=== PATIENT | female | born 1945 | race Caucasian/White ===

== ENCOUNTER → 2018-05-02 13:03 | Outpatient (CLI) | payer OTHER, SELFPAY | PROVIDERS: PCP General Practice; Visit Provider Orthopaedic Surgery | DX: M85.852 Other specified disorders of bone density and structure, left thigh (principal); Z78.0 Asymptomatic menopausal state | CPT/HCPCS: 77080 ==

== ENCOUNTER → 2018-06-10 11:40 | Outpatient (CLI) | payer OTHER, SELFPAY ==
--- NOTE | 2018-06-10 | DI.RAD.S_ITS ---
PROCEDURE: XR LUMBAR SPINE MIN 4V INDICATIONS: BACK PAIN TECHNIQUE: 5 views of the lumbar spine acquired. COMPARISON: MR, LUMBAR SPINE W/O CONTRAST, 11/29/2004, 8:14. [facility], RG, XR L-SPINE 4-6V, 11/16/2004, 13:13. [facility], MR, L-SPINE WITHOUT CONTRAST, 12/06/2017, 11:08. [facility], RF, LUMBAR MBB, 05/26/2018, 10:15. FINDINGS: Bones: 5 [id number] vertebrae are present. There is normal bony alignment. No vertebral body compression fractures. No suspicious bony lesions. There is grade 1 anterolisthesis of L4 on L5 and L5 on S1. There is degenerative disc disease, moderate at L4-L5, and mild at L3-L4. Severe facet arthropathy at L2-L3, L3-L4 and L4-L5. 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 Soft tissues: Overlying bowel gas pattern is normal. No suspicious soft tissue calcifications. Surgical clips in the right upper quadrant. Flexion/extension: There is decreased range of motion, with preserved alignment. IMPRESSION: 1. Degenerative disc disease and facet arthropathy. 2. Baastrup's disease. Dictated by: Issac Amanda M.D. on 06/10/2018 at 14:54 Approved by: Issac Amanda M.D. on 06/10/2018 at 15:00
== END ==
PROVIDERS: PCP General Practice; Visit Provider Orthopaedic Surgery Orthopaedic Surgery of the Spine
DX: M50.30 Other cervical disc degeneration, unspecified cervical region (principal); M47.816 Spondylosis without myelopathy or radiculopathy, lumbar region; M48.26 Kissing spine, lumbar region
CPT/HCPCS: 72110

== ENCOUNTER → 2018-08-22 08:42 | Outpatient (CLI) | payer OTHER, SELFPAY ==
--- NOTE | 2018-08-22 | DI.US.S_ITS ---
PROCEDURE: US ABDOMEN COMPLETE INDICATIONS: FATTY LIVER, LFTS ABNORMAL TECHNIQUE: Real-time scanning was performed of the abdominal and retroperitoneal organs, with image documentation. COMPARISON: [facility], MR, ABDOMEN WITHOUT CONTRAST, 03/05/2017, 16:11. [facility], US, ABDOMEN COMPLETE, 03/05/2017, 13:57. FINDINGS: Liver: The liver is mildly prominent with diffuse increased echogenicity. No focal lesions. Gallbladder: The gallbladder is absent. No pericholecystic fluid. Biliary ducts: Intrahepatic bile ducts are non-dilated. Extrahepatic bile duct caliber measures 14 mm. is noted measured 15 mm on prior ultrasound and 12 mm on prior MRI. Normal is 6-7 mm or less in diameter, or 10 mm or less post-cholecystectomy. Pancreas: Visualized portions of the pancreas are sonographically normal. Spleen: Spleen is normal in size and homogeneous in echotexture. Kidneys: Kidneys are normal in size and echotexture. Right kidney measures 12.5 cm long; left kidney measures 10.4 cm long. No hydronephrosis or nephrolithiasis. No solid masses. Aorta: Visualized aorta is normal in caliber at less than 3 cm. Iliacs: Proximal common iliac arteries are normal in caliber at less than 2.5 cm. IVC: Intrahepatic inferior vena cava is not visualized. Miscellaneous: No free abdominal fluid. IMPRESSION: 1. Mild hepatomegaly with fatty infiltration. No focal lesion. 2. Stable prominence of the extrahepatic bile duct status post cholecystectomy. Dictated by: Asya Botello M.D. on 08/22/2018 at 10:37 Approved by: Asya Botello M.D. on 08/22/2018 at 10:40
== END ==
PROVIDERS: PCP General Practice; Visit Provider Internal Medicine Gastroenterology
DX: K76.0 Fatty (change of) liver, not elsewhere classified (principal); R79.89 Other specified abnormal findings of blood chemistry; Z90.49 Acquired absence of other specified parts of digestive tract
CPT/HCPCS: 76700

== ENCOUNTER → 2019-07-21 13:52 | Outpatient (CLI) | payer OTHER, SELFPAY | PROVIDERS: PCP Family Medicine; Visit Provider Family Medicine | DX: M85.9 Disorder of bone density and structure, unspecified (principal) | CPT/HCPCS: 77080 ==

== ENCOUNTER → 2020-08-23 09:41 | Outpatient (CLI) | payer OTHER, SELFPAY ==
--- NOTE | 2020-08-23 | DI.CT.S_ITS ---
PROCEDURE: CT ABDOMEN PELVIS W CON INDICATIONS: Abdominal pain. TECHNIQUE: After the administration of oral and intravenous contrast, 5 mm thick sections acquired from the diaphragms to the symphysis. 5 mm thick coronal and sagittal reformats were performed. For radiation dose reduction, the following was used: automated exposure control, adjustment of mA and/or kV according to patient size. COMPARISON: [facility], CT, CT ABDOMEN PELVIS WITH CONTRAST, 06/14/2014, 8:05. [facility], MR, ABDOMEN & PELVIS WWO CONTRAST, 02/20/2017, 9:29. [facility], MR, ABDOMEN WITHOUT CONTRAST, 09/06/2016, 15:17. [facility], MR, MR ABDOMEN WITH/WITHOUT CONTRAST, 11/26/2019, 11:07. [facility], CT, CT ABDOMEN PELVIS WITH CONTRAST, 11/26/2019, 10:51. [facility], CT, CT ABDOMEN PANCREATIC PROTOCOL, 05/04/2020, 7:30. [facility], CT, ABDOMEN/PELVIS WITH CONTRAST, 05/22/2012, 9:40. FINDINGS: Image quality: Excellent. ABDOMEN: Lung bases: There is mild bilateral dependent atelectasis. Heart size is normal. Solid organs: There is diffuse hypoattenuation of the liver consistent with fatty infiltration. There is mild central intrahepatic biliary ductal dilatation. Extrahepatic biliary ductal dilatation is redemonstrated, with the common bile duct measuring up to approximately 1.3 cm in tapering distally into the ampulla. The findings are similar to the prior studies. The gallbladder is surgically absent. No pancreatic duct dilatation. Within the uncinate process of the pancreas and the pancreatic head, there is heterogeneous hypoattenuation redemonstrated. No peripancreatic fat stranding or fluid collections. Spleen is normal in size and enhancement. No adrenal nodules. Kidneys are normal in size and enhancement, without hydronephrosis. Peritoneum and bowel: Stomach, small bowel, and colon loops are normal in caliber and wall thickness. No evidence of appendicitis. There is colonic diverticulosis without acute diverticulitis. No free fluid or air. Nodes and vessels: No retroperitoneal or mesenteric adenopathy. Aorta and inferior vena cava are normal in caliber. Miscellaneous: No ventral hernias. PELVIS: Genitourinary: Bladder wall thickness is normal. The uterus is surgically absent. Miscellaneous: No inguinal hernias or adenopathy. Bones: No suspicious bony lesions. No vertebral body compression fractures. IMPRESSION: 1. Persistent biliary ductal dilatation which appears similar to the prior studies. No discrete mass or evidence of choledocholithiasis seen on prior imaging studies. No calcified obstructing stone or discrete mass identified on the current study. 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 2. Ill-defined hypoattenuation within the uncinate process and head of the pancreas without pancreatic duct dilatation appears similar to prior studies. No discrete mass was visualized on prior pancreatic protocol imaging studies. The differential includes an area of fatty atrophy as well as localized pancreatitis including possible autoimmune pancreatitis. Recommend correlation clinically. 3. No evidence of appendicitis. 4. Colonic diverticulosis without acute diverticulitis. Dictated by: Jarek Davidson M.D. on 08/23/2020 at 16:29 Approved by: Jarek Davidson M.D. on 08/23/2020 at 16:41
== END ==
PROVIDERS: PCP Family Medicine; Referring Provider Family Medicine; Visit Provider Family Medicine
DX: R10.9 Unspecified abdominal pain (principal); R53.83 Other fatigue; I10 Essential (primary) hypertension; M54.9 Dorsalgia, unspecified; K83.8 Other specified diseases of biliary tract; K57.90 Diverticulosis of intestine, part unspecified, without perforation or abscess without bleeding
CPT/HCPCS: 74177; Q9967

== ENCOUNTER 2020-09-26 11:08 | Emergency (ER) | payer OTHER, SELFPAY ==
[2020-09-26 11:15] VITALS: BP 152/81; PULSE 80; RESP 18; TEMP 36.4; O2SAT 98; BMI 34.7
--- NOTE | 2020-09-26 11:17 | ED.CHESTPAIN ---
HPI - Chest Pain General Chief Complaint: Chest Pain Stated Complaint: pain in chest/back/left side Time Seen by Provider: 09/26/20 11:10 Source: patient and family Mode of arrival: Ambulatory Limitations: no limitations History of Present Illness HPI narrative: 75-year-old female nonsmoker with history of fatty liver and chronic hip pain presents with a chief complaint of an episode of sharp and stabbing anterior chest pain with radiation to her back that started while at rest few hours ago. She states her pain was worse with motion and palpation and seems to be better with rest and Tylenol. She denies associated symptoms such as nausea, vomiting or diarrhea. She denies any cough or shortness of breath. She denies any recent injuries or overuse. She denies any dizziness, weakness or lightheadedness. She denies any ongoing symptoms, stating that things had resolved prior to her arrival. MD complaint: chest pain Onset (ago): hour(s) Duration: now resolved Onset: during rest Pain location: substernal and right chest Severity: moderate Quality: sharp Pain radiation: back Relieving factors: remaining still Exacerbating factors: palpation and movement Treatments prior to arrival chest pain: none Related Data Previous Rx's Medication Instructions Recorded meloxicam [Mobic] 7.5 mg PO BIDCC PRN #20 tab 03/05/17 hydrocodone-acetaminophen 1 tab PO Q4-6H PRN #10 tab 09/26/20 Allergies Allergy/AdvReac Type Severity Reaction Status Date / Time Latex, Natural Rubber Allergy Intermediate Verified 09/26/20 11:23 [LATEX, NATURAL RUBBER] Penicillins [PENICILLINS] Allergy Intermediate Verified 09/26/20 11:23 INGREDIENT: NO KNOWN - NO Allergy Unknown Uncoded 03/12/18 13:03 KNOWN DRUG ALLERGY Review of Systems Constitutional Constitutional: Denies chills, Denies fatigue, Denies fever(s), Denies frequent falls, Denies lethargy and Denies weakness Eyes Eyes: Denies change in vision, Denies eye discharge, Denies irritation and Denies loss of vision ENT Ears, Nose, Mouth, and Throat: Denies change in voice, Denies dizziness, Denies neck pain, Denies sore throat and Denies throat swelling Cardiovascular Cardiovascular: Reports chest pain, Denies irregular heart rhythm, Denies lightheadedness, Denies palpitations, Denies dyspnea, Denies dyspnea on exertion and Denies orthopnea Respiratory Respiratory: Denies cough, Denies dyspnea, Denies dyspnea on exertion and Denies wheezing Gastrointestinal Gastrointestinal: Denies abdominal pain, Denies change in bowel habits, Denies diarrhea, Denies nausea and Denies vomiting Musculoskeletal Musculoskeletal: Denies neck pain and Denies numbness Integumentary/Breasts Skin/Breast: Denies pruritus, Denies erythema, Denies rash and Denies wounds Neurologic Neurologic: Denies behavioral changes, Denies confusion, Denies dizziness, Denies frequent falls, Denies loss of vision, Denies numbness and Denies weakness Psychiatric Psychiatric: Denies anxiety, Denies behavioral changes, Denies confusion, Denies depression, Denies homicidal ideation and Denies suicidal ideation Endocrine Endocrine: Denies fatigue, Denies flushing and Denies palpitations Hematologic/Lymphatic Hematologic/Lymphatic: Denies easy bruising Allergic/Immunologic Allergic/Immunologic: Denies urticaria, Denies throat swelling and Denies wheezing Patient History Social History Smoking Status: Never smoker Smoking Status: Never smoker alcohol intake frequency: 0-2 drinks per day Substance Use Type: does not use Exam Narrative Exam Narrative: GENERAL: [75] year old patient appears stated age. Well-nourished, well-developed patient, in mild distress. HEAD: Atraumatic. Normocephalic. EYES: Pupils equal round and reactive. Extraocular motions intact. No scleral icterus. No injection or drainage. ENT: Nose without bleeding, purulent drainage. Throat without erythema, tonsillar hypertrophy or exudate. Airway patent. NECK: Trachea midline. Non tender CARDIOVASCULAR: Regular rate and rhythm without murmurs, gallops, or rubs. Sharp and stabbing right anterior chest pain, worse with palpation, also left lateral ribs. This is the pain that brought her in. No obvious external manifestation of pain such as rash, redness, swelling or other RESPIRATORY: Clear to auscultation. Breath sounds equal bilaterally. No wheezes, rales, or rhonchi. GASTROINTESTINAL: Abdomen soft, non-tender, nondistended. EXTREMITIES: No edema or joint tenderness. BACK: Nontender without deformity or crepitance. No flank tenderness. NEURO: AOx3. SKIN: No rash or erythema of visible areas Initial Vital Signs Initial Vital Signs: Vital Signs Temperature 97.6 F 09/26/20 11:15 Pulse Rate 80 09/26/20 11:15 Respiratory Rate 18 09/26/20 11:15 Blood Pressure 152/81 H 09/26/20 11:15 Pulse Oximetry 98 09/26/20 11:15 Course Orders Ordered: ED Orders 09/26/20 11:28 XR chest 1V Stat 09/26/20 11:31 Complete Blood Count AUTO DIFF Stat Comprehensive Metabolic Panel Stat D Dimer Stat Lipase Stat NT-proBNP (BNP-Adult 18+) Stat Prothrombin Time INR Stat Troponin & CK Cardiac Panel Stat 09/26/20 13:30 Troponin I Stat Sodium Chloride (Normal Saline 0.9%) 1,000 mls @ 150 mls/hr IV CONT SHIMA Last Infusion: 09/26/20 13:15 Dose: 0 mls/hr Documented by: Admin: 09/26/20 11:42 Dose: 150 mls/hr Documented by: JACKELINE Discontinued Medications Ketorolac Tromethamine (Toradol) 15 mg IV NOW ONE Stop: 09/26/20 11:37 Last Admin: 09/26/20 11:42 Dose: 15 mg Documented by: JACKELINE Pantoprazole Sodium (Protonix) 40 mg IV NOW ONE Stop: 09/26/20 11:37 Last Admin: 09/26/20 11:42 Dose: 40 mg Documented by: JACKELINE Vital Signs Vital signs: Vital Signs - 8 hr 09/26/20 11:15 09/26/20 12:07 09/26/20 12:30 Temperature 97.6 F Pulse Rate 80 84 85 Respiratory Rate 18 26 H 20 Blood Pressure 152/81 H 129/68 Pulse Oximetry 98 94 92 09/26/20 13:00 09/26/20 13:30 09/26/20 13:31 Temperature Pulse Rate 80 89 85 Respiratory Rate 22 24 22 Blood Pressure 135/61 144/63 H Pulse Oximetry 95 97 94 MDM - Chest Pain Lab Data Result diagrams: 09/26/20 11:31 09/26/20 11:31 Labs: Lab Results 09/26/20 09/26/20 09/26/20 Range/Units 11:31 11:31 11:31 WBC 10.8 (4.5-11.0) X10^3/uL RBC 4.91 (4.0-5.2) X10^6/uL Hgb 14.9 (12.0-16.0) g/dL Hct 44.4 (36-46) % MCV 90.3 (80-100) fL MCH 30.4 (26-34) PG MCHC 33.7 (30-36) % RDW 13.0 (11.6-14.8) % Plt Count 269 (150-400) X10^3/uL Neut % (Auto) 71.3 (50-75) % Lymph % (Auto) 24.0 L (25-40) % Early % (Auto) 3.5 (3-14) % Eos % (Auto) 1.0 L (2-4) % Baso % (Auto) 0.2 (0-2) % Neut # (Auto) 7700 H (2465-1177) /uL Lymph # (Auto) 2600 (1556-7574) /uL Early # (Auto) 400 (0-900) /uL Eos # (Auto) 100 (0-450) /uL Baso # (Auto) 0 (0-100) /uL PT 11.8 (10.1-12.7) SECONDS INR 1.0 (0.9-1.3) D-Dimer 222 (<230) ng/mL Sodium 138 (137-145) mmol/L Potassium 4.3 (3.4-5.1) mmol/L Chloride 105 (98-107) mmol/L Carbon Dioxide 26 (22-32) mmol/L BUN 19 H (7-17) mg/dL Creatinine 0.61 (0.52-1.04) mg/dL Estimated GFR > 60.0 (>60) mL/min BUN/Creatinine Ratio 31.1 H (6-22) Glucose 117 H (80-110) mg/dL Calcium 9.5 (8.4-10.2) mg/dL Total Bilirubin 0.5 (0.2-1.3) mg/dL AST 36 (14-36) IU/L ALT 39 H (<35) IU/L Alkaline Phosphatase 141 H (38-126) U/L Total Creatine Kinase 41 (30-135) U/L CK-MB (CK-2) TNP CK-MB (CK-2) Rel Index TNP Troponin I < 0.012 (0.01-0.034) ng/mL NT-Pro-B Natriuret Pep 60 (<450) pg/mL Total Protein 7.8 (6.3-8.2) g/dL Albumin 4.4 (3.5-5.0) g/dL Globulin 3.4 (1.7-4.1) g/dL Albumin/Globulin Ratio 1.3 (1.0-2.8) Lipase 67 (23-300) U/L 10/26/20 Range/Units 13:30 WBC (4.5-11.0) X10^3/uL RBC (4.0-5.2) X10^6/uL Hgb (12.0-16.0) g/dL Hct (36-46) % MCV (80-100) fL MCH (26-34) PG MCHC (30-36) % RDW (11.6-14.8) % Plt Count (150-400) X10^3/uL Neut % (Auto) (50-75) % Lymph % (Auto) (25-40) % Early % (Auto) (3-14) % Eos % (Auto) (2-4) % Baso % (Auto) (0-2) % Neut # (Auto) (9422-6782) /uL Lymph # (Auto) (2304-2848) /uL Early # (Auto) (0-900) /uL Eos # (Auto) (0-450) /uL Baso # (Auto) (0-100) /uL PT (10.1-12.7) SECONDS INR (0.9-1.3) D-Dimer (<230) ng/mL Sodium (137-145) mmol/L Potassium (3.4-5.1) mmol/L Chloride (98-107) mmol/L Carbon Dioxide (22-32) mmol/L BUN (7-17) mg/dL Creatinine (0.52-1.04) mg/dL Estimated GFR (>60) mL/min BUN/Creatinine Ratio (6-22) Glucose (80-110) mg/dL Calcium (8.4-10.2) mg/dL Total Bilirubin (0.2-1.3) mg/dL AST (14-36) IU/L ALT (<35) IU/L Alkaline Phosphatase (38-126) U/L Total Creatine Kinase (30-135) U/L CK-MB (CK-2) CK-MB (CK-2) Rel Index Troponin I < 0.012 (0.01-0.034) ng/mL NT-Pro-B Natriuret Pep (<450) pg/mL Total Protein (6.3-8.2) g/dL Albumin (3.5-5.0) g/dL Globulin (1.7-4.1) g/dL Albumin/Globulin Ratio (1.0-2.8) Lipase (23-300) U/L Imaging Data Chest x-ray: Radiologist's Impression: [address] [id number] XRay Report Signed Patient: Monet Nash [facility]#: [id number] : 5Acct:[id number] Age/Sex: 75 / FDate of Service: 09/26/20 Loc: ED Accession Number: [id number] Procedure: XR chest 1V Ordering Provider: Bishnu Gallegos D.O. PROCEDURE: XR CHEST 1V INDICATIONS: chest pain TECHNIQUE: One view of the chest was acquired. COMPARISON: [facility], , CHEST 2 VIEW, 02/19/2013, 8:36. FINDINGS: Surgical changes and devices: None. Lungs and pleura: Lungs are clear. No pleural effusions or pneumothorax. Mediastinum: Mildly tortuous thoracic aorta is seen. Heart size is normal. Bones and chest wall: No suspicious bony lesions. Overlying soft tissues appear unremarkable. IMPRESSION: No acute cardiopulmonary pathology. Dictated by: Jose Angel M.D. on 09/26/2020 at 12:02 Approved by: Jose Angel M.D. on 09/26/2020 at 12:08 [facility] Narrative Medical decision making narrative: Multiple etiologies for patient's symptoms considered including: [Cardiac ischemia versus PE versus biliary problem versus chest wall pain and muscle spasm versus other] Patient's symptoms improved over duration of stay with above-stated therapies. Findings and discharge diagnosis discussed with patient/family followed by verbalization of understanding Return precautions discussed with patient/family whom verbalize understanding. Discharge Plan Departure Patient Disposition: Home Clinical Impression: Atypical chest pain Instructions: DI for Atypical Chest Pain Activity Restrictions/Additional Instructions: *You have been diagnosed with [atypical chest pain, most likely chest wall pain based on your exam. Labs, physical exam, x-ray, EKG are all very reassuring.] *What to do: *Take medications as directed *Follow up with your primary care provider in 2-3 days, call for an appointment. Let them know you were seen in the Emergency Department and that we ask that you be seen in follow up *Return to ER if you should have any new, worsening or concerning symptoms Prescriptions: New hydrocodone-acetaminophen 5-325 mg tablet 1 tab PO Q4-6H PRN (Reason: pain) Qty: 10 RF: 0 No Action meloxicam [Mobic] 7.5 MG tablet 7.5 mg PO BIDCC PRNQty: 20 RF: 0 Referrals: Saul Rae [Primary Care Provider] -
--- NOTE | 2020-09-26 11:28 | DI.RAD.S_ITS ---
PROCEDURE: XR CHEST 1V INDICATIONS: chest pain TECHNIQUE: One view of the chest was acquired. COMPARISON: [facility], , CHEST 2 VIEW, 02/19/2013, 8:36. FINDINGS: Surgical changes and devices: None. Lungs and pleura: Lungs are clear. No pleural effusions or pneumothorax. Mediastinum: Mildly tortuous thoracic aorta is seen. Heart size is normal. Bones and chest wall: No suspicious bony lesions. Overlying soft tissues appear unremarkable. IMPRESSION: No acute cardiopulmonary pathology. Dictated by: Jose Angel M.D. on 09/26/2020 at 12:02 Approved by: Jose Angel M.D. on 09/26/2020 at 12:08
[2020-09-26 11:38] LABS: Add Manual Diff / Slide Review NO; Basophils Absolute Auto 0 /uL (0-100); Basophils Percent Auto 0.2 % (0-2); Eosinophils Absolute Auto 100 /uL (0-450); Hematocrit 44.4 % (36-46); Hemoglobin 14.9 g/dL (12.0-16.0); Lymphocytes Absolute Auto 2600 /uL (1100-4500); Mean Corpuscular HGB Conc 33.7 % (30-36); Mean Corpuscular Hemoglobin 30.4 PG (26-34); Mean Corpuscular Volume 90.3 fL (80-100); Monocytes Absolute Auto 400 /uL (0-900); Monocytes Percent Auto 3.5 % (3-14); Neutrophils Absolute Auto 7700 /uL (1500-7000); Neutrophils Percent Auto 71.3 % (50-75); Platelet Count 269 X10^3/uL (150-400); Red Blood Cell Count 4.91 X10^6/uL (4.0-5.2); White Blood Cell Count 10.8 X10^3/uL (4.5-11.0)
[2020-09-26] MEDS: SODIUM CHLORIDE 0.9% 1,000 ML 150 ML IV (11:42)
[2020-09-26] MEDS: PANTOPRAZOLE 40 MG VIAL IV (11:42)
[2020-09-26] MEDS: KETOROLAC 60 MG/2 ML VIAL 15 MG IV (11:42)
[2020-09-26 11:46] LABS: Prothrombin Time 11.8 SECONDS (10.1-12.7)
[2020-09-26 11:49] LABS: D Dimer 222 ng/mL (<230)
[2020-09-26 11:58] LABS: Alanine Aminotransferase 39 IU/L (<35); Albumin 4.4 g/dL (3.5-5.0); Albumin Globulin Ratio 1.3 (1.0-2.8); Alkaline Phosphatase 141 U/L (38-126); Aspartate Aminotransferase 36 IU/L (14-36); BUN Creatinine Ratio 31.1 (6-22); Bilirubin Total 0.5 mg/dL (0.2-1.3); Blood Urea Nitrogen 19 mg/dL (7-17); Calcium 9.5 mg/dL (8.4-10.2); Carbon Dioxide 26 mmol/L (22-32); Chloride 105 mmol/L (98-107); Creatine Kinase 41 U/L (30-135); Estimated Glomerular Filt Rate > 60.0 mL/min (>60); Globulin 3.4 g/dL (1.7-4.1); Glucose 117 mg/dL (80-110); HEMOLYSIS < 15 (0-50); Lipase 67 U/L (23-300); Potassium 4.3 mmol/L (3.4-5.1); Sodium 138 mmol/L (137-145); Total Protein 7.8 g/dL (6.3-8.2)
[2020-09-26 12:07] VITALS: PULSE 84; RESP 26; O2SAT 94
[2020-09-26 12:10] LABS: NT-proBNP (BNP-Adult 18+) 60 pg/mL (<450); Troponin I < 0.012 ng/mL (0.01-0.034)
[2020-09-26 12:30] VITALS: BP 129/68; PULSE 85; RESP 20; O2SAT 92
[2020-09-26 13:00] VITALS: BP 135/61; PULSE 80; RESP 22; O2SAT 95
[2020-09-26 13:30] VITALS: PULSE 89; RESP 24; O2SAT 97
[2020-09-26 13:31] VITALS: BP 144/63; PULSE 85; RESP 22; O2SAT 94
[2020-09-26 14:08] LABS: Troponin I < 0.012 ng/mL (0.01-0.034)
== END 2020-09-26 14:34 | disposition home or self-care (01) ==
PROVIDERS: Emergency Provider Emergency Medicine; PCP Family Medicine
DX: R07.89 Other chest pain (principal)
CPT/HCPCS: 36415; 71045; 80053; 82550; 83690; 83880; 84484; 85025; 85379; 85610; 93005; 93010; 96361; 96374; 96375; 99284; C9113; J1885

== ENCOUNTER → 2020-10-18 10:30 | Outpatient (CLI) | payer OTHER, SELFPAY ==
--- NOTE | 2020-10-18 10:34 | DI.US.S_ITS ---
PROCEDURE: US EXTREMITY NONVASC LOWER RT INDICATIONS: Pain in right leg TECHNIQUE: Real-time scanning was performed of the right lower extremity in the area pain and swelling behind the right knee., with image documentation. COMPARISON: [facility], EXTREMITY NON-VASCULAR LTD, 09/17/2017, 13:29. FINDINGS: No abnormality found. The clinical concern was that a Guy's cyst may be present but no Guy cyst is seen. IMPRESSION: No sign of Guy cyst or other abnormality in the area of current clinical concern. Follow-up by the MRI may be warranted depending on the clinical status. Dictated by: Boone Freed M.D. on 10/18/2020 at 12:28 Approved by: Boone Freed M.D. on 10/18/2020 at 12:29
== END ==
PROVIDERS: PCP Family Medicine; Referring Provider Family Medicine; Visit Provider Family Medicine
DX: M79.604 Pain in right leg (principal); M62.81 Muscle weakness (generalized)
CPT/HCPCS: 76882

== ENCOUNTER → 2020-11-19 09:57 | Outpatient (CLI) | payer OTHER, SELFPAY ==
--- NOTE | 2020-11-19 | DI.MRI.S_ITS ---
PROCEDURE: MR LUMBAR SPINE WO CON INDICATIONS: Other spondylosis with radiculopathy, lumbar region TECHNIQUE: Noncontrast sagittal T1 spin echo and T2 fast echo, sagittal STIR, axial T1 and T2 fast spin echo through the lumbar spine. In cases with scoliosis, additional coronal T2 fast spin echo may be performed. COMPARISON: [facility], MR, L-SPINE WITHOUT CONTRAST, 12/06/2017, 11:08. [facility] [place], CR, XR LUMBAR SPINE 2 OR 3 VIEWS, 11/13/2017, 15:19. FINDINGS: Image quality: Excellent. Alignment and Curvature: 5 lumbar type vertebral bodies are present by plain film. There is mild, grade 1 retrolisthesis of L1 on L2. Mild grade 1 anterolisthesis of L3 on L4, L4 on L5, and L5 on S1. Bone Marrow: Marrow is of normal overall signal. No acute vertebral body compression fractures. Mild reactive signal within the endplates adjacent to the T10-T11, T11-T12, T12-L1, L1-L2, and L3-L4 intervertebral discs. Spinal Cord: Conus medullaris terminates at the L1-L2 disc space level. Visualized cord demonstrates normal signal and size. Paraspinous Soft Tissues: No paravertebral masses. L1-L2: Moderate disc desiccation. Mild diffuse disc bulge. Mild facet and ligamentum flavum hypertrophy. Mild epidural lipomatosis. Mild canal stenosis. Mild bilateral foraminal stenosis. No change. L2-L3: Mild disc desiccation and diffuse disc bulge. Mild facet and ligamentum flavum hypertrophy. Mild epidural lipomatosis. Mild canal stenosis. Mild bilateral foraminal stenosis. No change. L3-L4: Mild disc height loss. Moderate disc desiccation. Mild diffuse disc bulge. Mild facet and ligamentum flavum hypertrophy. Mild epidural lipomatosis. There is increased, moderate canal stenosis. There is no change in moderate right greater than left foraminal stenosis. L4-L5: Moderate disc height loss and desiccation. Mild diffuse disc bulge. Moderate bilateral facet hypertrophy. Mild epidural lipomatosis. Mild canal stenosis. Mild bilateral foraminal stenosis. L5-S1: Mild disc height loss. Moderate disc desiccation. Moderate bilateral facet hypertrophy. Mild canal stenosis. Mild bilateral foraminal stenosis. No change. IMPRESSION: 1. Multilevel degenerative disc and facet disease, as well as ligamentum flavum hypertrophy and epidural lipomatosis. 2. Multilevel canal stenoses, worst at L3-L4 where there is moderate canal stenosis. 3. Multilevel foraminal stenoses, worst at L3-L4 where there are moderate bilateral foraminal stenosis. Dictated by: Nitin Henry M.D. on 11/21/2020 at 9:46 Approved by: Nitin Henry M.D. on 11/21/2020 at 9:50
== END ==
PROVIDERS: PCP Family Medicine; Referring Provider Orthopaedic Surgery Orthopaedic Surgery of the Spine; Visit Provider Orthopaedic Surgery Orthopaedic Surgery of the Spine
DX: M47.26 Other spondylosis with radiculopathy, lumbar region (principal); M51.16 Intervertebral disc disorders with radiculopathy, lumbar region; M48.061 Spinal stenosis, lumbar region without neurogenic claudication; M48.07 Spinal stenosis, lumbosacral region; E88.2 Lipomatosis, not elsewhere classified
CPT/HCPCS: 72148

== ENCOUNTER → 2020-12-26 10:25 | Outpatient (CLI) | payer OTHER, SELFPAY ==
[2020-12-26 10:56] LABS: Bacteria Urine None Seen; WBC Urine None Seen (0-5/HPF)
[2020-12-26 11:25] LABS: Add Manual Diff / Slide Review NO; Basophils Absolute Auto 100 /uL (0-100); Basophils Percent Auto 1.2 % (0-2); Eosinophils Absolute Auto 200 /uL (0-450); Eosinophils Percent Auto 2.5 % (2-4); Hematocrit 45.6 % (36-46); Hemoglobin 14.9 g/dL (12.0-16.0); Lymphocytes Absolute Auto 2900 /uL (1100-4500); Lymphocytes Percent Auto 41.5 % (25-40); Mean Corpuscular HGB Conc 32.7 % (30-36); Mean Corpuscular Hemoglobin 29.7 PG (26-34); Mean Corpuscular Volume 90.8 fL (80-100); Monocytes Absolute Auto 600 /uL (0-900); Monocytes Percent Auto 7.8 % (3-14); Neutrophils Absolute Auto 3300 /uL (1500-7000); Platelet Count 240 X10^3/uL (150-400); Red Blood Cell Count 5.03 X10^6/uL (4.0-5.2); Red Cell Distribution Width 12.8 % (11.6-14.8); White Blood Cell Count 7.1 X10^3/uL (4.5-11.0)
[2020-12-26 11:42] LABS: BUN Creatinine Ratio 20.3 (6-22); Blood Urea Nitrogen 13 mg/dL (7-17); Calcium 9.7 mg/dL (8.4-10.2); Carbon Dioxide 27 mmol/L (22-32); Chloride 107 mmol/L (98-107); Estimated Glomerular Filt Rate > 60.0 mL/min (>60); Glucose 106 mg/dL (80-110); HEMOLYSIS < 15 (0-50); Potassium 4.3 mmol/L (3.4-5.1); Sodium 137 mmol/L (137-145)
[2020-12-26 13:41] LABS: Appearance Urine UA CLEAR; Bilirubin Urine UA NEGATIVE (NEGATIVE); Color Urine UA YELLOW; Glucose Urine UA NEGATIVE (Negative); Ketones Urine UA NEGATIVE (NEGATIVE); Leukocyte Esterase Urine UA 1+ (NEGATIVE); Nitrite Urine UA NEGATIVE (Negative); Occult Blood Urine UA TRACE-INTACT (Negative); Protein Urine UA NEGATIVE (Negative); Urobilinogen Urine UA 0.2 E.U./dL (0.2)
[2020-12-26 13:46] LABS: pH Urine UA 6.5 (4.5-8.0)
[2020-12-26 13:47] LABS: Culture Indicated Urine Specimen Cultured; RBC Urine 0-1/HPF (0-5/HPF); Squamous Epithelial Cell Urine 0-1 /HPF (0-5/HPF)
== END ==
PROVIDERS: PCP Family Medicine; Referring Provider Orthopaedic Surgery Orthopaedic Surgery of the Spine; Visit Provider Orthopaedic Surgery Orthopaedic Surgery of the Spine
DX: Z01.818 Encounter for other preprocedural examination (principal); Z01.812 Encounter for preprocedural laboratory examination; N39.0 Urinary tract infection, site not specified
CPT/HCPCS: 36415; 80048; 81001; 85025; 87086; 93005

== ENCOUNTER → 2021-01-02 09:35 | Outpatient (CLI) | payer OTHER, SELFPAY ==
[2021-01-02 11:29] LABS: COVID19 -Nasal RAPID Negative (Negative)
== END ==
PROVIDERS: Visit Provider Physician Assistant
DX: Z01.812 Encounter for preprocedural laboratory examination (principal); Z20.822 Contact with and (suspected) exposure to COVID-19
CPT/HCPCS: 87635

== ENCOUNTER 2021-01-04 07:21 | Inpatient (IN) | payer OTHER, SELFPAY ==
[2020-12-26 08:39] VITALS: BMI 37.6
[2021-01-04] VITALS (27 sets, daily range): BP systolic 95–143; BP diastolic 45–92; PULSE 68–102; RESP 10–18; TEMP 36.1–37; O2SAT 92–99; BMI 37.6
--- NOTE | 2021-01-04 | DI.RAD.S_ITS ---
PROCEDURE: XR LUMBAR SPINE 2-3V INDICATIONS: L3-4, L4-5, L5-S1, TLIF WITH POSTERIOR INSTRUMENTATION TECHNIQUE: 2 intraoperative spot views of the lumbar spine were acquired. COMPARISON: [facility], , XR LUMBAR SPINE MIN 4V, 06/10/2018, 11:25. FINDINGS: L3-S1 fusion hardware is present with interbody devices. Alignment is nearly anatomic. IMPRESSION: Intraoperative images obtained during lumbosacral fusion Dictated by: Nitin Henry M.D. on 01/04/2021 at 14:54 Approved by: Nitin Henry M.D. on 01/04/2021 at 14:55
[2021-01-04] MEDS: LACTATED RINGERS 1,000 ML 42 ML IV ×2 (07:48→11:03)
--- NOTE | 2021-01-04 08:36 | PM.PREOP ---
Pre-operative Note COVID-19 COVID-19 status: Negative Result date/Date tested (Pos, Neg/Pending): 01/02/21 Interval Note History & Physical reviewed/Exam performed by Physician: Yes Changes to H&P: No
[2021-01-04] MEDS: CLINDAMYCIN 900 MG/50 ML PIGGYBACK 50 MG IV ×2 (08:50→17:29)
--- NOTE | 2021-01-04 09:33 | SUR.OPER ---
Prone on spine table, head in foam head support, padded chest and pelvic supports, gel pad at knees, lower legs supported by pillows; nipples, genitalia and toes free of pressure, arms secured on foam padded arm boards at <90 degrees abduction. Tape over blanket at thigh secured to table.
[2021-01-04] MEDS: BUPIVACAINE LIPOSOME 266 MG/20 ML VIAL INJ (09:40)
[2021-01-04] MEDS: BUPIVACAINE 0.5% W/ EPI (PF) 30 ML VIAL INJ (09:40)
--- NOTE | 2021-01-04 14:27 | P.OP_ITS ---
Operative Date/Time/Diagnoses Date of procedure: 01/02/21 Time of procedure: 08:49 Pre-op diagnosis: 1. L3-4, L4-5, L5-S1 spondylolisthesis 2. L3-4, L4-5, L5-S1 spinal stenosis with radiculopathy Post-op diagnosis: same Procedure & Clinicians Procedure: 1. L3-4, L4-5, L5-S1 Postero-lateral and posterior interbody fusion 2. L3-4, L4-5, L5-S1 interbody cage placement. 3. L3-4, L4-5, L5-S1 decompressive laminectomy with bilateral facetecomies 4. L3-4, L4-5, L5-S1 Posterior segmental instrumentation 5. [place] of bone marrow from iliac crest 6. Utilization of microsurgical technique and operating microscope Same procedure as scheduled: Yes Indications: Patient has been having chronic back pain and worsening lumbar radiculopathy. Patient failed multiple conservative management with worsening pain weakness and numbness in her lower extremity. Patient has been having difficulty performing activity of daily living. After discussing risks benefits of treatment options, patient elected proceed with surgery. Surgeon: Serena Kinsey Hot Header Operator: Barb Salcido Click Yes if Unassisted: No Anesthesia Type: General Operative Notes Closure Type: primary Specimen(s): none sent Prosthetic devices, grafts, tissues, transplants, or devices: Globus revolve screws, Rise cages Applied: catheter Estimated Blood Loss (mL): 200 Blood products transfused: none Procedure in detail: Patient was seen in the preoperative area. Risks and benefits of the surgery was discussed with the patient. Informed consent was obtained from the patient and placed in the chart. Surgical site was marked. Patient was taken to the operative room. General anesthesia was administered. Prophylactic antibiotic was given to the patient less than 30 min before the incision was made. Patient was placed into a prone position on the Sarath table. Patient's back was then prepped and draped in the sterile fashion. Time- out was performed at this time. Using AP and lateral C-arm imaging the interval between L3-S1 was identified and marked on patient's back. A 3 inch incision 2 in from midline was made on the Right side first. The fascia was incised in line with skin incision. Globus MARS retractors was placed inside the incision and docked onto the L3, L4 and L5 lamina. Using microsurgical technique and operating microscope, a L3, L4 and L5 laminectomy and L3-4, L4-5 L5-S1 facetectomy was performed using a [place] ivanna eur. Patient was found severe central and neural foramen stenosis at all three levels. The central and foraminal stenosis was fully decompressed after the laminectomy and facetectomy was completed at all three levels. The disc space at L3-4, L4-5, L5-S1 was identified. And a total diskectomy was performed at L3- 4, L4-5, L5-S1 level. The endplates were decorticated using a rasp and shaver. The total diskectomy and decortication was performed at L3-4, L4-5, L5-S1 level in order to to accomplish a L3-4, L4-5, L5-S1 fusion. The local bone from the laminectomy and facetectomy was saved for local bone grafting. After the total diskectomy and decortication was completed, Trifecta bone graft material was combined with local bone that was harvested earlier. At this time, a separate skin is incision was made over the iliac crest. A Jamshidi needle was inserted into the iliac crest through a separate skin incision. 5 cc of bone marrow aspiration was obtained through the separate skin incision using a Jamshidi needle from the iliac crest. The bone marrow aspiration was combined with local bone and the Trifecta bone grafting material. The bone grafting material was placed into the L3-4, L4-5, L5-S1 interbody space along with three cages, one expandable cage at each level. The cages were expanded to their maximum height using the torque limiting screwdriver. At this time a mirror image incision was made on the Left side. The fascia was incised in line with the skin incision. Globus MARS retractor was inserted and docked onto the L3-4, L4-5, L5-S1 posterolateral gutter. Using the power drill, posterior-lateral decortication was performed at L3-4, L4-5, L5-S1 level until bleeding cortical bone was identified. The remaining bone grafting material was placed into the L3-4, L4-5 L5-S1 posterior lateral gutter he order to accomplish posterolateral fusion at the L3-4, L4-5 L5-S1 levels. Using the double C-arm technique, pedicle screws were placed into the L3, L4, L5, S1 pedicles bilaterally. This was done by placing the Jamshidi needle into the pedicles, then placing the guidewires over the Jamshidi needle, and finally placing the cannulated screws over the guidewires bilaterally. After the pedicle screws were placed, 2 titanium rods was locked into the heads of the pedicle screws using locking caps and torque limiting screwdriver. Total [address] aced. Threaded reducers were used to reduce the patient's spondylolisthesis. And appropriate adduction was accomplished and maintained using the hardware placed. After all the hardware was placed, and confirmed with AP and lateral C- arm imaging, the wound was then irrigated with sterile normal saline and packed with Ray-Williams gauze for 3 min to accomplish hemostasis. After the gauze was removed the deep fascia was closed with #1 Vicryl suture. The subcutaneous layer was closed with 2-0 Vicryl. The skin was closed with skin napoleon. Patient tolerated the procedure well. There were no complications. EMG and SSEP was used to monitor patient's neurological status which was stable throughout entire procedure. Complications: none Post-operative Condition: stable Disposition: PACU Plan for aftercare: Admit to inpatient hospital
[2021-01-04] MEDS: hydrOXYzine 50 MG/ML INJ 25 MG IM (14:43)
[2021-01-04] MEDS: fentaNYL 100 MCG/2 ML INJ IV (15:31)
[2021-01-04] MEDS: SODIUM CHLORIDE 0.9% 1,000 ML 100 ML IV (17:18)
[2021-01-04] MEDS: MORPHINE 2 MG/ML INJ IV ×4 (17:18→23:36)
--- NOTE | 2021-01-04 17:23 | PC.NURSE ---
Addendum entered by Sultana Fulton R.N. 01/04/21 21:35: Comfortable eating a banana and then c/o pain 7-10/10 to back. Feels like someone is kicking me. Administered morphine as per emar. BL foot pumps in place. Addendum entered by Sultana Fulton R.N. 01/04/21 21:20: Now more awake, calmer and more conversant with staff and daughter. I.S. teaching done. Vistaril administered for c/o tightness to back. No change in neurovascular status this evening shift. Addendum entered by Sultana Fulton R.N. 01/04/21 19:21: When pt is awake, pt is restless, thrashing and crying out in pain. Morphine works well to aid in pain relief/control. Pt was instructed in deep breathing and relaxation and allowing meds to work. Ice on and off to back. Pt positions self continually with assistance of daughter and staff. Observes log rolling and this was reinforced. Foot pumps removed as these add to discomfort. Pt moves all extremities independently. Sips water when offered. Addendum entered by Sultana Fulton R.N. 01/04/21 18:00: Pt no longer restless and crying/calling out. Resting quietly in bed with eyes closed. 02 2L nc sats 93%. Original Note: Pt to room 209 from PACU sleeping. 02 2L per nc sats 96% per continuous monitor. Pt rests quietly for approximately one hour and then awakens calling out in pain. Restless and rolling side to side with staff assistance. Ice pack to back and pillows to support. Surgical dressing to back is dry and intact. Daughter (Marii) is present and involved in pt's care. Artis to gravity and BL foot pumps in place. Taking sips and chips. IV morphine administered to manage pain.
[2021-01-04] MEDS: ACETAMINOPHEN 325 MG TABLET 650 MG PO (17:29)
[2021-01-04] MEDS: hydrOXYzine pamoate 25 MG CAPSULE PO ×2 (17:29→21:15)
[2021-01-04] MEDS: DOCUSATE 100 MG CAPSULE PO (21:12)
[2021-01-04] MEDS: SENNOSIDES 8.6 MG TABLET 17.2 MG PO (21:12)
[2021-01-05] VITALS (7 sets, daily range): BP systolic 96–139; BP diastolic 53–66; PULSE 57–74; RESP 16–20; TEMP 35.8–36.9; O2SAT 92–99
[2021-01-05] MEDS: CLINDAMYCIN 900 MG/50 ML PIGGYBACK 50 MG IV (01:56)
[2021-01-05] MEDS: MORPHINE 2 MG/ML INJ IV ×2 (02:03→04:03)
[2021-01-05] MEDS: SODIUM CHLORIDE 0.9% 1,000 ML 100 ML IV (03:57)
[2021-01-05] MEDS: ACETAMINOPHEN 325 MG TABLET 650 MG PO (04:38)
[2021-01-05] MEDS: hydrOXYzine pamoate 25 MG CAPSULE PO ×3 (04:38→16:48)
[2021-01-05 05:50] LABS: Hematocrit 34.8 % (36-46); Hemoglobin 11.7 g/dL (12.0-16.0)
[2021-01-05] MEDS: HYDROCODONE/ACET 5/325 TABLET 2 TAB PO ×3 (06:12→16:47)
--- NOTE | 2021-01-05 07:21 | P.PN_ITS ---
Subjective Subjective Date Patient Seen: 01/05/21 Time Patient Seen: 07:22 Interval history: Postop day 1. Status post L3-S1 TLIF with Dr. Kinsey. Patient's pain has not been well controlled on [place] 5/325 and Vistaril. She complains of axial back pain and muscle spasms. She is unable to take oxycodone, and Dilaudid. She has a Artis in place. She is on 1.5 L O2 nasal cannula. Exam Vital Signs (past 8 hours): - 01/04/21 23:40 01/05/21 03:50 Temperature 98.1 F 98.0 F Pulse Rate 77 73 Respiratory Rate 18 16 Blood Pressure 121/62 114/59 L Pulse Oximetry 98 98 Oxygen Delivery Method Nasal Cannula Oxygen Flow Rate 1.5 Narrative Exam Narrative: Patient lying in bed no acute distress. She is alert orient x3. Calves are soft, rest, nontender bilaterally. Sensation intact to light touch throughout bilateral extremities. Pulses are symmetrical. She is able to actively dorsiflex plantar flex. Objective Labs Result Diagrams: 01/05/21 05:11 Labs: Laboratory Results - last 24 hr 01/05/21 05:11 Hgb 11.7 L Hct 34.8 L PFSH Medical History Epidural lipomatosis Fatty liver IBS (irritable bowel syndrome) Left foot infection Primary osteoarthritis of both hips Spinal stenosis of lumbar region with neurogenic claudication Spondylolisthesis, lumbar region Surgical History Status post left foot surgery Social History household members: children Smoking Status: Never smoker alcohol intake: former Assessment & Plan Post-op Postoperative Procedures: Procedures Operation Date: 01/04/21 08:45 Actual Procedures Side Surgeon p L3-4,L4-5,L5-S1 TLIF with posterior instrumentation Serena Kinsey MD Patient will mobilize with physical therapy today. When she is mobilizing her room DC Artis catheter. Will add Valium for muscle spasms. Change dose of [place] to 10/325mg. Will take one dose of decadron 10 mg. Anticipate possible DC home tomorrow. Quality VTE Deep Vein Thrombosis/Pulmonary Embolism Present on Admission: No
--- NOTE | 2021-01-05 09:10 | PT.IIE ---
Current Diagnoses Benign lipomatous neoplasm of other sites (01/04/21) Spondylolisthesis, lumbar region (01/04/21) Spinal stenosis, lumbar region with neurogenic claudication (01/04/21) Surgery Performed Operation Date: 01/04/21 08:45 Actual Procedures p L3-4,L4-5,L5-S1 TLIF with posterior instrumentation - Serena Kinsey MD Surgical History (Last Reviewed 01/05/21 @ 09:53 by Barb Salcido PA-C) Status post left foot surgery Medical History (Last Reviewed 01/05/21 @ 09:53 by Barb Salcido PA-C) Epidural lipomatosis Fatty liver IBS (irritable bowel syndrome) Left foot infection Primary osteoarthritis of both hips Spinal stenosis of lumbar region with neurogenic claudication Spondylolisthesis, lumbar region Physical Therapy Inpatient Evaluation/Re-Eval M1 PT/OT-IP Prior Functional Status Start: 01/05/21 11:20 Freq: NEEDED Status: Active Protocol: Document 01/05/21 09:10 AB (Rec: 01/05/21 11:54 AB [id number]) Medical Review Prior Functional Status Medical History Reviewed Yes Communication able to make needs known Mobility and Gait pt stated that she is independent with all mobilities and ambulation without AD indoors but uses SPC for outdoor mobility Social History Household Members children Living Arrangements House Number of Floors (Floors) Two Floors Number of Stairs To Enter/Railing? pt stays on main level of the house has not steps to enter the house but has a ways to get in but daughter stated that she uses a w/c to push pt into the house Home Environment Standard Height Toilet,Walk in Shower Home Equipment Front Wheel Walker,Manual Wheelchair,Raised Toilet Seat w/Armrests,Shower Seat with Backrest,Grab Bars Near Toilet ,Grab Bars In Shower Additional Social History Comment daughter will be assisting pt at home has bed cane on R side of bed M2 PT-IP Current Condition Start: 01/05/21 11:20 Freq: NEEDED Status: Active Protocol: Document 01/05/21 09:10 AB (Rec: 01/05/21 11:54 AB [id number]) Physical Therapy Current Condition Current Condition Evaluation Date 01/05/21 Treatment Diagnosis s/p L3-4, L4-5, L5S1 postlat/ post fusion/lami; difficulty in walking Onset Date 01/04/21 Precautions Lumbar Precautions Log Roll,No Twisting,Limit Bending,Lifting Restriction of 10 lbs,Gait Belt above Incisional Area M3 PT-IP Subjective Start: 01/05/21 11:20 Freq: NEEDED Status: Active Protocol: Document 01/05/21 09:10 AB (Rec: 01/05/21 11:54 AB [id number]) Subjective Physical Therapy Visit Type Type Initial Evaluation Visit Start Time 09:10 Visit Stop Time 10:02 Total Visit Minutes 52 Number of PAVING INSPECTOR Visits 0 Physical Therapy Visit Comments Patient Comments pt is agreeable to do PT Therapy Pain Assessment Pain When Pain Assessed At Rest Pain Present Pain Present Pain Reported Location Back Intensity 8 Scale Used Numeric (0 - 10) Pain Management Techniques Apply Heat,Distraction, Modification of Treatment,Re- positioning,Timing of Activity with Medications M4 PT-IP Mobility and Gait Start: 01/05/21 11:20 Freq: NEEDED Status: Active Protocol: Document 01/05/21 09:10 AB (Rec: 01/05/21 11:54 AB [id number]) PT-Bed Mobility Assessment Rolling Type of Rolling Log Rolling Level of Assist Maximal Assistance Supine to Sit Supine to Sit Maximum Assistance,1 Person Assistance PT-Transfer Assessment Sit to and From Stand Sit to and from Stand Moderate Assistance,1 Person Assistance,Use of Upper Extremities Equipment Transfer Assistive Device Gait Belt,Front Wheeled Walker Orthotic/Prosthetic Devices or Brace: No Transfers Transfer Destination Chair Transfer Technique ambulated using FWW Transfer Ability Level of Assist Moderate Assistance,1 Person Assistance,Use of Upper Extremities Comments Mobility Comments BP: 106/64 pt seems sleepy and requires cues to keep eyes open. educated on back precautions and log roll bed mobility. daughter in room with pt. completed supine to sit max A and max cues. pt was able to sit on EOB CGA. BP: 110/65. completed sit to stand mod A and was able to ambulate 12 ft using FWW mod A and cues. agreed to sit up on chair. positioned on chair . call light and table placed within reach. ice pack provided. Gait Assessment Gait Gait Assistance Required: Moderate Assistance Distance (Feet) 12 Able to Maintain Weight Bearing Status Yes During Gait Assistive Devices Assistive Device Gait Belt,Front Wheeled Walker Orthotic/Prosthetic Devices or Brace: No Gait Deviations General Gait Pattern Antalgic,Decreased Stride Length,Decreased Feet Clearance,Step-to Gait Factors Limiting Gait Function Factors Limiting Gait Function Decreased Activity Tolerance, Decreased Sensation,Decreased Strength,Difficulty Following Directions,Limited Range of Motion,Pain,Poor Balance PT-Balance Assessment Sitting Balance and Reactions Static Sitting Balance Ability Good Dynamic Sitting Balance Ability Good Standing Balance and Reactions Static Standing Balance Ability Fair Dynamic Standing Balance Ability Fair Device Used FWW M5 PT-IP Objective Assessments Start: 01/05/21 11:20 Freq: NEEDED Status: Active Protocol: Document 01/05/21 09:10 AB (Rec: 01/05/21 11:54 AB [id number]) Orientation Orientation/Cognition Level of Alertness Alert Orientation Name,Place,Situation Safety Awareness Decreased Safety Awareness Memory Description Short Term Impaired Gross Range of Motion Lower Extremity ROM Assessment Within Functional Limits Strength Lower Extremity Strength Hip 4-/5 Knee 4-/5 Sensation Assessment Sensation Gross Sensation Right LE Impaired Sensation Description Tingling Comments Sensation Comments stated chronic RLE tingling Muscle Tone Muscle Tone WNL Yes M6 PT-IP Treatment Start: 01/05/21 11:20 Freq: NEEDED Status: Active Protocol: Document 01/05/21 09:10 AB (Rec: 01/05/21 11:54 AB [id number]) Physical Therapy Treatment Education Education Provided Precautions,Weight Bearing Status,Post-Op Packet,Safety M7 PT-IP Assessment and Plan Start: 01/05/21 11:20 Freq: NEEDED Status: Active Protocol: Document 01/05/21 09:10 AB (Rec: 01/05/21 11:54 AB [id number]) PT Summary Assessment and Plan Potential Rehabilitation Potential Good Status of Condition at Evaluation Stable Summary Impairments Pain,ROM,Strength,Balance, Coordination,Sensation,Tone, Cognition,Bed Mobility, Transfers,Gait,Activity Tolerance Assessment Summary pt requiring mod to max A with mobility and unable to tolerate much activity. pt plans to go home and her daughter will assist her. will conduct caregiver training when appropriate. will continue to assess progress. Goals Bed Mobility Goal Standby Assistance Transfer Goal Standby Assistance,Front Wheeled Walker Gait Goal Standby Assistance,Front Wheel Walker Gait Distance 100 Other Goals improve ambulation using FWW 150 ft SBA Days to Meet Goals 5 Frequency of Treatment Frequency Of Treatment Twice a Day Treatment Plan Physical Therapy Treatment Plan Bed Mobility Training,Transfer Training,Gait Training, Therapeutic Exercise,Balance Retraining,Post Op Education, Discharge Planning,Hot or Cold Pack,Neuromuscular Re-ed, Coordination Retraining,Manual Therapy Other Recommendations and Next Treatment caregiver training Focus Recommendations To Nursing Amount of Assist Needed 1 Person Assist Discharge Recommendations PT Discharge Recommendations Home with Assistance Transportation Needs at Discharge Private Vehicle
[2021-01-05] MEDS: CHOLECALCIFEROL (VITAMIN D3) 1,000 UNIT TABLET 2000 UNIT PO (09:25)
[2021-01-05] MEDS: DOCUSATE 100 MG CAPSULE PO ×2 (09:25→19:01)
[2021-01-05] MEDS: DEXAMETHASONE 10 MG/ML VIAL PO (09:29)
--- NOTE | 2021-01-05 11:22 | OT.IP.EVAL ---
Current Diagnoses Benign lipomatous neoplasm of other sites (01/04/21) Spondylolisthesis, lumbar region (01/04/21) Spinal stenosis, lumbar region with neurogenic claudication (01/04/21) Surgery Performed Operation Date: 01/04/21 08:45 Actual Procedures p L3-4,L4-5,L5-S1 TLIF with posterior instrumentation - Serena Kinsey MD Past Medical History (Last Reviewed 01/05/21 @ 09:53 by Barb Salcido PA-C) Epidural lipomatosis Fatty liver IBS (irritable bowel syndrome) Left foot infection Primary osteoarthritis of both hips Spinal stenosis of lumbar region with neurogenic claudication Spondylolisthesis, lumbar region Surgical History (Last Reviewed 01/05/21 @ 09:53 by Barb Salcido PA-C) Status post left foot surgery Occupational Therapy Inpatient Evaluation/Re-Eval M1 PT/OT-IP Prior Functional Status Start: 01/05/21 12:23 Freq: NEEDED Status: Active Protocol: Document 01/05/21 12:24 [facility] (Rec: 01/05/21 12:40 [facility] [id number]) Medical Review Prior Functional Status Medical History Reviewed Yes Communication able to make needs known Mobility and Gait pt stated that she is independent with all mobilities and ambulation without AD indoors but uses SPC for outdoor mobility Activities of Daily Living and IADL's Pt states needing assist to dress her right foot. Prior Functional Level (Other details) Pt's daughter lives next door and states will be able to assist for the next 6 weeks. Social History Household Members children Living Arrangements House Number of Floors (Floors) Two Floors Number of Stairs To Enter/Railing? pt stays on main level of the house has not steps to enter the house but has a ways to get in but daughter stated that she uses a w/c to push pt into the house Home Environment Standard Height Toilet,Walk in Shower Home Equipment Front Wheel Walker,Manual Wheelchair,Raised Toilet Seat w/Armrests,Shower Seat with Backrest,Grab Bars Near Toilet ,Grab Bars In Shower Additional Social History Comment daughter will be assisting pt at home has bed cane on R side of bed M2 OT-IP Current Condition Start: 01/05/21 12:23 Freq: Status: Active Protocol: Document 01/05/21 12:24 [facility] (Rec: 01/05/21 12:40 [facility] [id number]) Occupational Therapy Current Condition Current Condition Evaluation Date 01/05/21 Treatment Diagnosis S/p L3-S1 TLIF Diagnosis Onset Date 01/04/21 Post Operative Precautions Lumbar Precautions Log Roll,No Twisting,Limit Bending,Lifting Restriction of 10 lbs,Gait Belt above Incisional Area M3 OT- IP Subjective and Pain Start: 01/05/21 12:23 Freq: Status: Active Protocol: Document 01/05/21 12:24 [facility] (Rec: 01/05/21 12:40 [facility] [id number]) OT- Subjective Occupational Therapy Visit Type Type Initial Evaluation Visit Start Time 10:33 Visit Stop Time 11:22 Total Visit Minutes 49 Occupational Therapy Visit Comments Patient Comments Pt agreed to go up for OT eval , pt's daughter present. Patient/Caregiver Goals To go home. OT Pain Assessment Pain When Pain Assessed At Rest Pain Present Pain Present Pain Reported Location Back Intensity 6 Scale Used Numeric (0 - 10) M4 OT- IP ADL's Start: 01/05/21 12:23 Freq: Status: Active Protocol: Document 01/05/21 12:24 [facility] (Rec: 01/05/21 12:40 [facility] [id number]) OT [id number] Comments OT Self-Feeding Comments NOt at meal time. OT ADL-Grooming Comments OT Grooming Comments Not performed. OT ADL-Oral Care Comments Oral Care Comments Educated to spit into a cup or bend at her hips to lean over the sink to spit. OT ADL-Dressing General Eval Lower Body Dressing Ability Maximum Assistance Areas Needing Assistance Socks Comments OT Dressing Comments Pt states has a policyholder information clerk and sock aid at home. OT ADL-Toileting Comments OT Toileting Comments Pt not having to go, jiang in. Suggested as pt usually has to get up 2-3 times at night to get a BSC. OT ADL-Bathing Comments OT Bathing Comments NOt performed. M5 OT- IP IADL's Start: 01/05/21 12:23 Freq: Status: Active Protocol: Document 01/05/21 12:24 [facility] (Rec: 01/05/21 12:40 [facility] [id number]) OT-Instrumental Activities of Daily Living Deficits IADL Deficits Identified Deficits Home Safety Awareness Awareness of Need for Assistance at Home Good Awareness Ability to Problem Solve Emergency Able to Problem Solve Situations Medication Management Medication Management Comments Pt's daughter to be able to assist for all needs at home. Money Management Money Management Comments Pt's daughter to be able to assist for all needs at home. Meal Preparation Meal Preparation Caregiver Provides Assist Product Technician Product Technician Caregiver Provides Assist M6 OT- IP Functional Cognition Start: 01/05/21 12:23 Freq: Status: Active Protocol: Document 01/05/21 12:24 [facility] (Rec: 01/05/21 12:40 [facility] [id number]) Cognitive Factors Limiting Selfcare Function Cognitive Ability Level of Alertness Alert Patient Orientation Name,Age,Birthday,Month,Date, Year,Day of Week,Place, Situation Attention Span Ability Capable of Focused Attention, Capable of Sustained Attention Ability to Follow Commands Able to Follow One Step Commands Safety Awareness Underestimates Need for Assistance Problem Solving Ability Needs Assist to Identify Solutions Pt needing cues for log rolling and to make sure to keep the FWW close to her. OT- Vision and Hearing OT- Hearing Assessment OT- Hearing Assessment WFL OT- Vision Assessment Visual Acuity Glasses For Reading M7 OT- IP Mobility and Balance Start: 01/05/21 12:23 Freq: Status: Active Protocol: Document 01/05/21 12:24 [facility] (Rec: 01/05/21 12:40 [facility] [id number]) OT- Bed Mobility Assessment Sit to Supine Sit to Supine Assist Maximum Assistance OT- Balance Assessment Sitting Balance and Reactions Static Sitting Balance Ability Good Dynamic Sitting Balance Ability Fair Standing Balance and Reactions Static Standing Balance Ability Poor M9 OT- IP Assessment and Plan Start: 01/05/21 12:23 Freq: Status: Active Protocol: Document 01/05/21 12:24 [facility] (Rec: 01/05/21 12:40 [facility] [id number]) OT Summary Assessment and Plan Potential Rehabilitation Potential Good Analytic Complexity at Evaluation Low Summary OT Impairments Pain,Balance,Functional Mobility,Grooming,Dressing, Toileting,Bathing,Toilet Transfers,Shower Transfers, Activity Tolerance Progress Towards Goals Slow Progress due to Pain,Slow Progress due to Activity Tolerance Assessment Summary Pt low complexity and main barriers is not needing extensive one person assist for all bed mobility and ADl needs. Pt has a supportive daughter to assist and has started caregiver training. Therefore pending caregiver training home with assist versus possible short skilled rehab. Goals Self-Feeding Goal Independent Grooming Goal Independent Dressing Goal Independent Toileting Goal Minimal Assistance Bathing Goal Minimal Assistance Toilet Transfer Goal Independent Shower Transfer Goal Standby Assistance Patient/Caregiver Education Goal Caregiver Independent Assisting Patient Frequency of Treatment Frequency Of Treatment Once a Day Treatment Plan OT Treatment Plan ADL Training,Functional Cognition Training,Functional Mobility,Patient/Family Education,Discharge Planning Other Treatment Recommendations and Next caregiver training Treatment Focus Discharge Recommendations OT Discharge Recommendations Home with Assistance,SNF Rehab Transportation Needs at Discharge Private Vehicle,Wheelchair/ Cabulance
--- NOTE | 2021-01-05 12:31 | CM.IDA ---
Initial DCP Assessment Note Pt is a 75 yo female, resident of [place], patient is POD#1 from spinal surgery w/ Dr Kinsey PCP: Saul Rae Payer: Andrea COLÓN/ [employer] Reviewed chart, met w/patient this morning to introduce role. Patient is indp at baseline and plans to return home w/spouse and assistance from her supportive dtr Marii (currently at bedside). Therapy currently clearing patient for return home. Completed bedside assessment before therapy eval and so educated patient/family re: SNF and HH options upon DC if needed, patient/family appreciative and anticipate home DC w/outpatient f/u per Ortho No needs expected from DC planning team although will remain available in case this changes before DC. TRACY Jiang Discharge Planning/Care Management CM Discharge Assessment Start: 01/05/21 12:27 Freq: Status: Active Protocol: Document 01/05/21 12:27 [facility] (Rec: 01/05/21 12:31 [id number]) Discharge Planning Assessment Assigned Workplace Trainer And Assessor TRACY Green DPOA/Assigned Designee Name Naveed Nash, spouse Marii Nash dtr Contact Information Naveed: [phone] Marii: [phone] Advance Directives? No History Provided By Patient,Family Member Prior Living Arrangements House Household Members children Willing to Return to Facility? No Independent with ADL's Yes Is patient alert and oriented? Yes Needs Assistance With Home Chores / Shopping Barriers to Discharge No Comment r/o need for HH closer to DC Discharge Plan Home Transportation Arrangement Family Referrals Initiated None needed Additional Comment At this time
--- NOTE | 2021-01-05 14:53 | PT.IPTN ---
Current Diagnoses Benign lipomatous neoplasm of other sites (01/04/21) Spondylolisthesis, lumbar region (01/04/21) Spinal stenosis, lumbar region with neurogenic claudication (01/04/21) Surgery Performed Operation Date: 01/04/21 08:45 Actual Procedures p L3-4,L4-5,L5-S1 TLIF with posterior instrumentation - Serena Kinsey MD Physical Therapy Treatment Note M2 PT-IP Current Condition Start: 01/05/21 11:20 Freq: NEEDED Status: Active Protocol: Document 01/05/21 09:10 [facility] (Rec: 01/05/21 11:54 [facility] [id number]) Physical Therapy Current Condition Current Condition Evaluation Date 01/05/21 Treatment Diagnosis s/p L3-4, L4-5, L5S1 postlat/ post fusion/lami; difficulty in walking Onset Date 01/04/21 Precautions Lumbar Precautions Log Roll,No Twisting,Limit Bending,Lifting Restriction of 10 lbs,Gait Belt above Incisional Area M3 PT-IP Subjective Start: 01/05/21 11:20 Freq: NEEDED Status: Active Protocol: Document 01/05/21 14:13 [facility] (Rec: 01/05/21 16:11 [facility] [id number]) Subjective Physical Therapy Visit Type Type Treatment Note Visit Start Time 14:13 Visit Stop Time 14:53 Total Visit Minutes 40 Notes daughter present for CG training. Number of GAS APPLIANCE ADJUSTER Visits 1 Physical Therapy Visit Comments Patient Comments pt is agreeable to do PT Therapy Pain Assessment Pain When Pain Assessed At Rest Pain Present Pain Present Pain Reported Location Back Pain Management Techniques Apply Cold,Modification of Treatment,Timing of Activity with Medications M4 PT-IP Mobility and Gait Start: 01/05/21 11:20 Freq: NEEDED Status: Active Protocol: Document 01/05/21 14:13 [facility] (Rec: 01/05/21 16:11 [facility] [id number]) PT-Bed Mobility Assessment Rolling Type of Rolling Log Rolling Level of Assist Minimal Assistance,1 Person Assistance Supine to Sit Supine to Sit Moderate Assistance,1 Person Assistance Scooting Scooting to Edge of Bed Standby Assistance PT-Transfer Assessment Sit to and From Stand Sit to and from Stand Contact Guard Assistance, Minimal Assistance,1 Person Assistance,Use of Upper Extremities Equipment Transfer Assistive Device Gait Belt,Front Wheeled Walker Orthotic/Prosthetic Devices or Brace: No Transfers Transfer Destination Chair Transfer Technique ambulated using FWW Transfer Ability Level of Assist Minimal Assistance,1 Person Assistance,Use of Upper Extremities Comments Mobility Comments Pt awake and willing to get up from bed. Pt required Min A for LR and Mod A for sidelying to sit then SBA to scoot to EOB. Pt stood with CGA from bed and cues for hand placement for safety. Pt ambulated ~15ft to chair sitting in chair CGA with cues for reaching back. Pt then stood requiring Min A and ambulated ~30ft with CGA and returned to chair. Pt left in chair with ice pack and daughter present. Gait Assessment Gait Gait Assistance Required: Contact Guard Assist,1 Person Assist Distance (Feet) 45 Able to Maintain Weight Bearing Status Yes During Gait Assistive Devices Assistive Device Gait Belt,Front Wheeled Walker Orthotic/Prosthetic Devices or Brace: No Gait Deviations General Gait Pattern Antalgic,Decreased Stride Length,Decreased Feet Clearance,Step-to Gait Factors Limiting Gait Function Factors Limiting Gait Function Decreased Activity Tolerance, Decreased Sensation,Decreased Strength,Difficulty Following Directions,Limited Range of Motion,Pain,Poor Balance Comments Gait Comments Pt ambulated CGA with assist of daughter. M5 PT-IP Objective Assessments Start: 01/05/21 11:20 Freq: NEEDED Status: Active Protocol: Document 01/05/21 09:10 [facility] (Rec: 01/05/21 11:54 [facility] [id number]) Orientation Orientation/Cognition Level of Alertness Alert Orientation Name,Place,Situation Safety Awareness Decreased Safety Awareness Memory Description Short Term Impaired Gross Range of Motion Lower Extremity ROM Assessment Within Functional Limits Strength Lower Extremity Strength Hip 4-/5 Knee 4-/5 Sensation Assessment Sensation Gross Sensation Right LE Impaired Sensation Description Tingling Comments Sensation Comments stated chronic RLE tingling Muscle Tone Muscle Tone WNL Yes M6 PT-IP Treatment Start: 01/05/21 11:20 Freq: NEEDED Status: Active Protocol: Document 01/05/21 09:10 [facility] (Rec: 01/05/21 11:54 AB [id number]) Physical Therapy Treatment Education Education Provided Precautions,Weight Bearing Status,Post-Op Packet,Safety M7 PT-IP Assessment and Plan Start: 01/05/21 11:20 Freq: NEEDED Status: Active Protocol: Document 01/05/21 14:13 [facility] (Rec: 01/05/21 16:11 [facility] [id number]) PT Summary Assessment and Plan Potential Rehabilitation Potential Good Status of Condition at Evaluation Stable Summary Impairments Pain,ROM,Strength,Balance, Coordination,Sensation,Tone, Cognition,Bed Mobility, Transfers,Gait,Activity Tolerance Assessment Summary Pt improving with all mobility able to ambulate ~40ft w/FWW/ CGA with daughter assisting. Daughter will be able to assist pt 6 weeks and will be present tomorrow for continues CG training. Goals Bed Mobility Goal Standby Assistance Transfer Goal Standby Assistance,Front Wheeled Walker Gait Goal Standby Assistance,Front Wheel Walker Gait Distance 100 Other Goals improve ambulation using FWW 150 ft SBA Days to Meet Goals 5 Frequency of Treatment Frequency Of Treatment Twice a Day Treatment Plan Physical Therapy Treatment Plan Bed Mobility Training,Transfer Training,Gait Training, Therapeutic Exercise,Balance Retraining,Post Op Education, Discharge Planning,Hot or Cold Pack,Neuromuscular Re-ed, Coordination Retraining,Manual Therapy Other Recommendations and Next Treatment CG training, bed mobility and Focus increase gait distance. Recommendations To Nursing Amount of Assist Needed 1 Person Assist Discharge Recommendations PT Discharge Recommendations Home with Assistance Transportation Needs at Discharge Private Vehicle
--- NOTE | 2021-01-05 15:29 | PC.NURSE ---
Having some pain issues this am, vicodin with fair relief. she has allergy's to oxycodone and reports dilaudid gives her diarrhea. Decision made to give a dose of steroids and she can have some valium for spasms. Dexamethasone given this am. Had received vistaril this am and felt sleepy so wanted to hold off on the valium for now. Scd's off most of the day - when they pump they can cause a spasm. They were left off per her request. Has worked with physical therapist x2. Cont w/poc.
--- NOTE | 2021-01-05 16:03 | PC.NURSE ---
Addendum entered by Sultana Fulton R.N. 01/05/21 23:07: Pt reports right lower abdominal pain and back pain. Offered pt narcotics to manage back pain and pt declines. Pt is very focused on bowels and states desires enema. Began with dulcolax suppository to promote bowel function. Administered and will continue to monitor. Addendum entered by Sultana Fulton R.N. 01/05/21 21:22: Pt denies need for pain medications. Rates back pain 6/10, but continues to deny need for pain meds. Prune juice given for bowel function after discussion with pt. Pt does report anterior aspect right thigh is numb. Pt has not mentioned this before this time. States is currently comfortable in current position in bed -- semi Cabral's. Daughter remains at bedside attentive, engaged and involved. Addendum entered by Sultana Fulton R.N. 01/05/21 19:16: Pt desires meds for bowel function. HS meds given @ this hour. Pt's abdomen is distended, but soft, passing flatus. Encouraged oral fluids. Addendum entered by Sultana Fulton R.N. 01/05/21 18:13: Room air 93%. Will continue to leave oxygen off. Requests oximeter be removed for comfort. Addendum entered by Sultana Fulton R.N. 01/05/21 17:08: Pt now fully awake and c/o pain to back, Feels like someone is kicking me. Pt demonstrates log roll so this mortgage underwriter can inspect dressing to back. Proximal coversite dressing is entirely rolled up and not covering any surgical site/incision. This was removed. Distal dressing is dry and intact. Incision is not exposed. Faint crackles to right posterior lobe. Trial of room air with oxygen level 93%-96% following deep breathing. Pt admits to full sensation to BL LE's. Palpable pedal pulses BL. Refuses foot scd's and pt was encouraged to ankle wave and calf pump to prevent clot formation in legs. Pt provides return demonstration. Artis to gravity with brisk urinary output. Original Note: Pt quietly resting in bed with eyes closed. No signs of distress or discomfort. Daughter present in room.
[2021-01-05] MEDS: SENNOSIDES 8.6 MG TABLET 17.2 MG PO (19:01)
[2021-01-05] MEDS: MAGNESIUM HYDROXIDE 30 ML UDC PO (19:01)
[2021-01-05] MEDS: SODIUM CHLORIDE 0.9% FLUSH 10 ML IV (19:02)
[2021-01-05] MEDS: BISACODYL 10 MG SUPP PR (23:00)
[2021-01-06] MEDS: hydrOXYzine pamoate 25 MG CAPSULE PO ×4 (00:14→13:59)
[2021-01-06] MEDS: HYDROCODONE/ACET 5/325 TABLET 2 TAB PO ×5 (01:35→22:49)
--- NOTE | 2021-01-06 01:41 | PC.NURSE ---
Addendum entered by Leti Samson R.N. 01/06/21 04:45: Complains of discomfort in stomach and over right side of abdomen; no tenderness noted on palpation. Medicated with Maalox and given warm blanket. Denies back pain at this time. Original Note: 0015: patient is alert and oriented. Breath sounds diminished bilateral bases and inspiratory crackles in right LL; RA sat 94%. HRR with BP of 139/66. Denies nausea. Up on BSC and had large dark brown firm stool. Indwelling catheter is patent; urine is clear yellow. Is assisted to turn in bed upon request. Out of bed with walker and 2 assist. Dressing to back is CDI. Complained of pain during shift assessment but would only take Vistaril as stating the narcotics are causing her constipation. Now is stating pain up to 8/10 and agreeable to taking narcotics so medicated with Vicodin, repositioned and ice pack applied. Refusing to wear SCD's so reminded to ankle wave. Does have some numbness in anterior right thigh otherwise CMS is intact. Fall risk score is moderate; bed alarm is activated.
[2021-01-06 04:27] VITALS: BP 119/58; PULSE 68; RESP 16; TEMP 36.6; O2SAT 90
[2021-01-06] MEDS: MAG HYDROX/ALUM/SIMETH 30 ML UDC PO ×3 (04:44→23:31)
[2021-01-06 07:21] VITALS: BP 106/58; PULSE 64; RESP 16; TEMP 36; O2SAT 95
[2021-01-06] MEDS: PANTOPRAZOLE 40 MG TABLET PO (07:50)
[2021-01-06] MEDS: DOCUSATE 100 MG CAPSULE PO ×2 (07:50→20:34)
[2021-01-06] MEDS: CHOLECALCIFEROL (VITAMIN D3) 1,000 UNIT TABLET 2000 UNIT PO (07:50)
--- NOTE | 2021-01-06 08:12 | PM.PNPO.1 ---
Subjective Subjective Date Patient Seen: 01/06/21 Time Patient Seen: 09:02 Interval history: POD #2 s/p status post L3-S1 TLIF with Dr. Kinsey. Patient's back pain is well controlled today. She is taking [place] 2 tabs 5/325 mg and vistaril for pain. She complains today of RLQ abdominal pain. It does not change with meals, and is constant. Denies nausea or vomiting. She has been afebrile. She had an enema last night and protonix with no relief. She has a GI history where the recommendation to her was to get stents. Exam Vital Signs (past 8 hours): - 01/06/21 04:27 Temperature 97.8 F Pulse Rate 68 Respiratory Rate 16 Blood Pressure 119/58 L Pulse Oximetry 90 L Oxygen Delivery Method Room Air Oxygen Flow Rate 0 Narrative Exam Narrative: Patient sitting up in bed in NAD. She is alert and oriented X3. Calves are soft, compressible, and nontender bilaterally. SILT throughout BLEs. She is able to actively dorsiflex and plantarflex. SCDs on and functioning. Abdomen is soft, no palpable masses. No distension. Objective Labs Result Diagrams: 01/05/21 05:11 REPLACED BY [facility] Medical History Diverticulosis Epidural lipomatosis Fatty liver IBS (irritable bowel syndrome) Left foot infection Primary osteoarthritis of both hips Spinal stenosis of lumbar region with neurogenic claudication Spondylolisthesis, lumbar region Surgical History Status post left foot surgery Social History household members: children Smoking Status: Never smoker alcohol intake: former Assessment & Plan Post-op Assessment and plan (1) Dilated bile duct: (2) History of cholecystectomy: (3) Fatty pancreas: (4) Hiatal hernia: (5) Barretts esophagus: (6) COPD (chronic obstructive pulmonary disease): (7) GERD (gastroesophageal reflux disease): (8) Abdominal pain: Postoperative Procedures: Procedures Operation Date: 01/04/21 08:45 Actual Procedures Side Surgeon p L3-4,L4-5,L5-S1 TLIF with posterior instrumentation Serena Kinsey MD Patient will continue to mobilize with PT today. Artis was removed this AM she has not voided yet. Obtained GI records as she is a poor historian regarding GI history. History has been updated. Patient had a BM yesterday, afebrile, no distension, and denies nausea and vomiting. She does have diverticulosis and obtaining CBC and CMP to r/o diverticulitis. Continue with bowel med regimen, and protonix. Continue current pain medication. I don't anticipate DC home today, likely tomorrow. Quality VTE Deep Vein Thrombosis/Pulmonary Embolism Present on Admission: No
[2021-01-06] MEDS: SODIUM CHLORIDE 0.9% FLUSH 10 ML IV ×3 (08:37→20:41)
[2021-01-06 10:10] LABS: Add Manual Diff / Slide Review NO; Basophils Absolute Auto 200 /uL (0-100); Basophils Percent Auto 1.6 % (0-2); Eosinophils Absolute Auto 0 /uL (0-450); Eosinophils Percent Auto 0.1 % (2-4); Hemoglobin 11.6 g/dL (12.0-16.0); Lymphocytes Absolute Auto 3400 /uL (1100-4500); Lymphocytes Percent Auto 26.8 % (25-40); Mean Corpuscular HGB Conc 33.2 % (30-36); Mean Corpuscular Volume 90.2 fL (80-100); Monocytes Absolute Auto 1600 /uL (0-900); Monocytes Percent Auto 12.2 % (3-14); Neutrophils Absolute Auto 7600 /uL (1500-7000); Neutrophils Percent Auto 59.3 % (50-75); Platelet Count 186 X10^3/uL (150-400); Red Blood Cell Count 3.88 X10^6/uL (4.0-5.2); Red Cell Distribution Width 12.8 % (11.6-14.8); White Blood Cell Count 12.9 X10^3/uL (4.5-11.0)
[2021-01-06 10:24] LABS: Alanine Aminotransferase 142 IU/L (<35); Albumin 3.4 g/dL (3.5-5.0); Albumin Globulin Ratio 1.2 (1.0-2.8); Alkaline Phosphatase 99 U/L (38-126); Aspartate Aminotransferase 95 IU/L (14-36); BUN Creatinine Ratio 16.4 (6-22); Bilirubin Total 0.5 mg/dL (0.2-1.3); Blood Urea Nitrogen 10 mg/dL (7-17); Calcium 8.5 mg/dL (8.4-10.2); Carbon Dioxide 30 mmol/L (22-32); Chloride 103 mmol/L (98-107); Estimated Glomerular Filt Rate > 60.0 mL/min (>60); Globulin 2.8 g/dL (1.7-4.1); Glucose 105 mg/dL (80-110); HEMOLYSIS < 15 (0-50); Potassium 3.7 mmol/L (3.4-5.1); Sodium 135 mmol/L (137-145); Total Protein 6.2 g/dL (6.3-8.2)
--- NOTE | 2021-01-06 11:05 | PT-IP ANOTE ---
Pt refused this morning. Pt had just been up to [facility] and returned to bed. Pt states she is having abdonimal pain that travels to her back. Pt agreeable to PT after noon meds.
[2021-01-06 12:07] VITALS: BP 115/57; PULSE 64; RESP 16; TEMP 36; O2SAT 94
--- NOTE | 2021-01-06 13:30 | OT.IP.TRT ---
Current Diagnoses Benign lipomatous neoplasm of other sites (01/04/21) Chronic obstructive pulmonary disease, unspecified (01/04/21) Gastro-esophageal reflux disease without esophagitis (01/04/21) Mahoney's esophagus without dysplasia (01/04/21) Diaphragmatic hernia without obstruction or gangrene (01/04/21) Other specified diseases of biliary tract (01/04/21) Other specified diseases of pancreas (01/04/21) Spondylolisthesis, lumbar region (01/04/21) Spinal stenosis, lumbar region with neurogenic claudication (01/04/21) Unspecified abdominal pain (01/04/21) Acquired absence of other specified parts of digestive tract (01/04/21) Surgery Performed Operation Date: 01/04/21 08:45 Actual Procedures p L3-4,L4-5,L5-S1 TLIF with posterior instrumentation - Serena Kinsey MD Occupational Therapy Treatment Note M2 OT-IP Current Condition Start: 01/05/21 12:23 Freq: Status: Active Protocol: Document 01/05/21 12:24 [facility] (Rec: 01/05/21 12:40 [facility] [id number]) Occupational Therapy Current Condition Current Condition Evaluation Date 01/05/21 Treatment Diagnosis S/p L3-S1 TLIF Diagnosis Onset Date 01/04/21 Post Operative Precautions Lumbar Precautions Log Roll,No Twisting,Limit Bending,Lifting Restriction of 10 lbs,Gait Belt above Incisional Area M3 OT- IP Subjective and Pain Start: 01/05/21 12:23 Freq: Status: Active Protocol: Document 01/06/21 14:36 [facility] (Rec: 01/06/21 14:37 [facility] [id number]) OT- Subjective Occupational Therapy Visit Type Type Administrative Note Notes Attempted to see x2. Pt eating lunch upon first attempt and then had just completed working with [employer]. and states very tired at this time. Will hold and plan for shower tomorrow AM per pt request.
--- NOTE | 2021-01-06 13:39 | PT.IPTN ---
Current Diagnoses Benign lipomatous neoplasm of other sites (01/04/21) Chronic obstructive pulmonary disease, unspecified (01/04/21) Gastro-esophageal reflux disease without esophagitis (01/04/21) Mahoney's esophagus without dysplasia (01/04/21) Diaphragmatic hernia without obstruction or gangrene (01/04/21) Other specified diseases of biliary tract (01/04/21) Other specified diseases of pancreas (01/04/21) Spondylolisthesis, lumbar region (01/04/21) Spinal stenosis, lumbar region with neurogenic claudication (01/04/21) Unspecified abdominal pain (01/04/21) Acquired absence of other specified parts of digestive tract (01/04/21) Surgery Performed Operation Date: 01/04/21 08:45 Actual Procedures p L3-4,L4-5,L5-S1 TLIF with posterior instrumentation - Serena Kinsey MD Physical Therapy Treatment Note M2 PT-IP Current Condition Start: 01/05/21 11:20 Freq: NEEDED Status: Active Protocol: Document 01/05/21 09:10 AB (Rec: 01/05/21 11:54 AB [id number]) Physical Therapy Current Condition Current Condition Evaluation Date 01/05/21 Treatment Diagnosis s/p L3-4, L4-5, L5S1 postlat/ post fusion/lami; difficulty in walking Onset Date 01/04/21 Precautions Lumbar Precautions Log Roll,No Twisting,Limit Bending,Lifting Restriction of 10 lbs,Gait Belt above Incisional Area M3 PT-IP Subjective Start: 01/05/21 11:20 Freq: NEEDED Status: Active Protocol: Document 01/06/21 12:46 CLB (Rec: 01/06/21 14:28 CLB [id number]) Subjective Physical Therapy Visit Type Type Treatment Note Visit Start Time 12:46 Visit Stop Time 13:39 Total Visit Minutes 53 Notes Daughter present for CG training Number of CONTROL CLERK AUDITING Visits 2 Physical Therapy Visit Comments Patient Comments pt is agreeable to do PT Therapy Pain Assessment Pain When Pain Assessed During Mobility Pain Present Pain Present Pain Reported M4 PT-IP Mobility and Gait Start: 01/05/21 11:20 Freq: NEEDED Status: Active Protocol: Document 01/06/21 12:46 CLB (Rec: 01/06/21 14:28 CLB [id number]) PT-Bed Mobility Assessment Rolling Type of Rolling Log Rolling Level of Assist Standby Assistance,Contact Guard Assistance,1 Person Assistance Supine to Sit Supine to Sit Moderate Assistance,1 Person Assistance,Bedrails Sit to Supine Sit to Supine Minimal Assistance,1 Person Assistance Scooting Scooting to Edge of Bed Standby Assistance,Contact Guard Assistance PT-Transfer Assessment Sit to and From Stand Sit to and from Stand Contact Guard Assistance,1 Person Assistance,Use of Upper Extremities Equipment Transfer Assistive Device Gait Belt,Front Wheeled Walker Orthotic/Prosthetic Devices or Brace: No Transfers Transfer Destination Bed Transfer Technique ambulated using FWW Transfer Ability Level of Assist Minimal Assistance,Moderate Assistance,Use of Upper Extremities Comments Mobility Comments Pt performed LR with cues to bend knees and reach with left hand while rolling. Pt then required Mod A for sidelying to sit. Pt able to scoot to EOB. Pt then stood CGA with use of bed cane as pt has one on bed at home. Pt then ambulated in hamlin ~50ft w/FWW/ SBA. Pt returned to room and sat on bed SBA with cues for hand placement on bed. CONTROL CLERK AUDITING assisted pt with sidelying and LE's onto bed. Pt then rolled to back and needed cues for straightening in bed. Pt rested then with cues was able to LR to right and get her legs off bed then daughter provided Mod A of upper body to sitting. Pt able to get to EOB and stand CGA. Pt took side steps towards foot of bed and daughter assisted pt with supine<>sit with use of LR. Pt then requested to walk in hamlin once again ~50ft. Pt returned to bed with daughters assistance. Left pt in bed with all needs within reach. Informed RN of pt progress and that staff should continue to assist pt OOB until further CG training with daughter. Gait Assessment Gait Gait Assistance Required: Standby Assistance,1 Person Assist Able to Maintain Weight Bearing Status Yes During Gait Assistive Devices Assistive Device Gait Belt,Front Wheeled Walker Orthotic/Prosthetic Devices or Brace: No Gait Deviations General Gait Pattern Antalgic,Decreased Stride Length,Decreased Feet Clearance,Step-to Gait Factors Limiting Gait Function Factors Limiting Gait Function Decreased Activity Tolerance, Decreased Sensation,Decreased Strength,Difficulty Following Directions,Limited Range of Motion,Pain,Poor Balance Comments Gait Comments Pt ambulated SBA with assist of daughter. M5 PT-IP Objective Assessments Start: 01/05/21 11:20 Freq: NEEDED Status: Active Protocol: Document 01/05/21 09:10 AB (Rec: 01/05/21 11:54 AB [id number]) Orientation Orientation/Cognition Level of Alertness Alert Orientation Name,Place,Situation Safety Awareness Decreased Safety Awareness Memory Description Short Term Impaired Gross Range of Motion Lower Extremity ROM Assessment Within Functional Limits Strength Lower Extremity Strength Hip 4-/5 Knee 4-/5 Sensation Assessment Sensation Gross Sensation Right LE Impaired Sensation Description Tingling Comments Sensation Comments stated chronic RLE tingling Muscle Tone Muscle Tone WNL Yes M6 PT-IP Treatment Start: 01/05/21 11:20 Freq: NEEDED Status: Active Protocol: Document 01/05/21 09:10 AB (Rec: 01/05/21 11:54 AB [id number]) Physical Therapy Treatment Education Education Provided Precautions,Weight Bearing Status,Post-Op Packet,Safety M7 PT-IP Assessment and Plan Start: 01/05/21 11:20 Freq: NEEDED Status: Active Protocol: Document 01/06/21 12:46 CLB (Rec: 01/06/21 14:28 CLB [id number]) PT Summary Assessment and Plan Potential Rehabilitation Potential Good Status of Condition at Evaluation Stable Summary Impairments Pain,ROM,Strength,Balance, Coordination,Sensation,Tone, Cognition,Bed Mobility, Transfers,Gait,Activity Tolerance Progress Towards Goals Progressing Toward Goals,Slow Progress due to Pain Assessment Summary Pt daughter present for CG training and is able to assist pt with bed mobility wit use of LR, scooting to EOB, sit<> stand and gait. Pt daughter provided Mod A for sidelying to sit and Min A of LE's onto bed and is able to give pt appropriate cues for sequencing LR and supine<>sit. Pt daughter also able to provide CGA for sit-stand and SBA during ambulation. Pt will need one more CG training session to assure carryover. Goals Bed Mobility Goal Standby Assistance Transfer Goal Standby Assistance,Front Wheeled Walker Gait Goal Standby Assistance,Front Wheel Walker Gait Distance 100 Other Goals improve ambulation using FWW 150 ft SBA Days to Meet Goals 5 Frequency of Treatment Frequency Of Treatment Twice a Day Treatment Plan Physical Therapy Treatment Plan Bed Mobility Training,Transfer Training,Gait Training, Therapeutic Exercise,Balance Retraining,Post Op Education, Discharge Planning,Hot or Cold Pack,Neuromuscular Re-ed, Coordination Retraining,Manual Therapy Other Recommendations and Next Treatment CG training: LR, supine-sit, Focus one platform step if pt wants to stand from WC and go up the one step into house. Recommendations To Nursing Amount of Assist Needed 1 Person Assist Discharge Recommendations PT Discharge Recommendations Home with Assistance Transportation Needs at Discharge Private Vehicle
[2021-01-06 15:16] LABS: Bacteria Urine None Seen
[2021-01-06 15:33] LABS: Appearance Urine UA CLEAR; Bilirubin Urine UA NEGATIVE (NEGATIVE); Color Urine UA YELLOW; Glucose Urine UA NEGATIVE (Negative); Ketones Urine UA NEGATIVE (NEGATIVE); Leukocyte Esterase Urine UA TRACE (NEGATIVE); Nitrite Urine UA NEGATIVE (Negative); Occult Blood Urine UA TRACE-INTACT (Negative); Protein Urine UA NEGATIVE (Negative); RBC Urine 1-5/HPF (0-5/HPF); Specific Gravity Urine UA <=1.005 (1.000-1.035); Squamous Epithelial Cell Urine 5-10 /HPF (0-5/HPF); Urobilinogen Urine UA 0.2 E.U./dL (0.2); WBC Urine 5-10/HPF (0-5/HPF)
[2021-01-06 15:34] LABS: Amorphous Sediment Urine 2+; Culture Indicated Urine Cult Not Indicated; Renal Epithelial Cells Urine 1-5/HPF (0-1/HPF)
[2021-01-06] MEDS: SIMETHICONE 80 MG TABLET PO ×2 (15:39→20:34)
[2021-01-06 15:47] VITALS: BP 109/60; PULSE 71; RESP 18; TEMP 36.6; O2SAT 94
[2021-01-06] MEDS: diazePAM 2 MG TABLET PO ×2 (16:00→20:34)
[2021-01-06] MEDS: MORPHINE 2 MG/ML INJ IV (17:48)
[2021-01-06 18:34] VITALS: BP 122/57; PULSE 82; RESP 17; TEMP 36.3; O2SAT 93
[2021-01-06] MEDS: SENNOSIDES 8.6 MG TABLET 17.2 MG PO (20:34)
[2021-01-06 23:23] VITALS: BP 118/71; PULSE 98; RESP 16; TEMP 36.9; O2SAT 94
--- NOTE | 2021-01-07 01:31 | PC.NURSE ---
Addendum entered by Leti Samson R.N. 01/07/21 05:01: Complained of 8/10 pulling back pain earlier and was medicated with Vicodin and now states pain is still 8/10 so medicated with Valium and ice applied to back. Original Note: 2333 Patient is alert and oriented but anxious. Breath sounds diminished at bases and has inspiratory crackles in right mid/lower lobes; RA sat 94%. HRR. Denies nausea. BT present and abdomen is soft although tender across right lower quadrant; requested/medicated with Maalox and warm blanket applied. Up to bathroom with walker and 1 assist to urinate; denies dysuria, frequency or urgency since catheter removed. Dressing to back is CDI. Ambulation going better but still having difficulty getting back into bed. Refusing SCD's so reminded to ankle wave. States back pain is 6/10 but better since receiving Vicodin earlier. Fall risk score is moderate; bed alarm is activated.
[2021-01-07] MEDS: HYDROCODONE/ACET 5/325 TABLET 2 TAB PO ×3 (04:10→13:03)
[2021-01-07 04:25] VITALS: BP 127/71; PULSE 79; RESP 17; TEMP 36.6; O2SAT 92
[2021-01-07] MEDS: diazePAM 2 MG TABLET PO ×2 (04:55→08:30)
[2021-01-07] MEDS: SODIUM CHLORIDE 0.9% FLUSH 10 ML IV (08:00)
[2021-01-07 08:14] VITALS: BP 113/66; PULSE 70; RESP 16; TEMP 36.4; O2SAT 93
[2021-01-07] MEDS: CHOLECALCIFEROL (VITAMIN D3) 1,000 UNIT TABLET 2000 UNIT PO (08:26)
[2021-01-07] MEDS: DOCUSATE 100 MG CAPSULE PO (08:26)
--- NOTE | 2021-01-07 09:00 | PM.DS.1 ---
History of Present Illness History of Present Illness Date Patient Seen: 01/07/21 Date of Onset of Symptoms: 01/07/21 Chief complaint: Translaminar Interbody Fusion/Laminotomy Narrative: Patient has been having chronic back pain and worsening lumbar radiculopathy. Patient failed multiple conservative management with worsening pain weakness and numbness in her lower extremity. Patient has been having difficulty performing activity of daily living. After discussing risks benefits of treatment options, patient elected proceed with surgery. Discharge Providers Provider Date of admission: 01/04/21 07:21 Discharge Date: 01/07/21 Primary care physician: Saul Rae MD Consults: 01/04/21 17:09 Consult to Occupational Therapy Evaluate & Treat Comment: Physician Instructions: Evaluate and treat Consult to Physical Therapy Evaluate & Treat Comment: Physician Instructions: Evaluate and Treat Discharge provider: Barb Salcido PA-C Summary Hospital Course Discharge Diagnosis: s/p TLIF Hospital Course: Monet was admitted for a L3-S1 TLIF with Dr. Kinsey. Patient was slow to mobilize and had complaints of right sided abdominal pain. She is taking [place] 2 tabs 5/325 mg and vistaril for pain. Patients labs were WNL except liver enzymes elevated, and she had BMs during her stay. UA obtained with no UTI. She was afebrile throughout her stay. Recommending follow up with PCP regarding any residual abdominal pain and to get a new CMP. On POD #3 she was ready for DC home. She was eating and voiding without difficulty or assistance. Dressing was changed prior to discharge. Status at Discharge Functional status at discharge: uses cane/walker Exam Vital Signs (past 8 hours): - 01/07/21 04:25 01/07/21 08:14 Temperature 97.9 F 97.5 F L Pulse Rate 79 70 Respiratory Rate 17 16 Blood Pressure 127/71 113/66 Pulse Oximetry 92 93 Oxygen Delivery Method Room Air Oxygen Flow Rate 0 Narrative Exam Narrative: Patient sitting up in bed in NAD. She is alert and oriented X3. Calves are soft, compressible, and nontender bilaterally. SILT throughout BLEs except right thigh. She is able to actively dorsiflex and plantarflex. No complaints this morning. Objective Labs Result Diagrams: 01/06/21 09:50 01/06/21 09:50 Labs: Laboratory Results - last 24 hr 0201/06/21 01/06/21 09:50 09:50 14:31 WBC 12.9 H RBC 3.88 L Hgb 11.6 L Hct 35.0 L MCV 90.2 MCH 30.0 MCHC 33.2 RDW 12.8 Plt Count 186 Neut % (Auto) 59.3 Lymph % (Auto) 26.8 [place] % (Auto) 12.2 Eos % (Auto) 0.1 L Baso % (Auto) 1.6 Neut # (Auto) 7600 H Lymph # (Auto) 3400 [place] # (Auto) 1600 H Eos # (Auto) 0 Baso # (Auto) 200 H Sodium 135 L Potassium 3.7 Chloride 103 Carbon Dioxide 30 BUN 10 Creatinine 0.61 Estimated GFR > 60.0 BUN/Creatinine Ratio 16.4 Glucose 105 Calcium 8.5 Total Bilirubin 0.5 AST 95 H ALT 142 H Alkaline Phosphatase 99 Total Protein 6.2 L Albumin 3.4 L Globulin 2.8 Albumin/Globulin Ratio 1.2 Urine Color Yellow Urine Appearance Clear Urine pH 6.0 Ur Specific [place] <=1.005 Urine Protein Negative Urine Glucose (UA) Negative Urine Ketones Negative Urine Occult Blood Trace-intact Urine Nitrate Negative Urine Bilirubin Negative Urine Urobilinogen 0.2 Ur Leukocyte Esterase Trace H Urine RBC 1-5/hpf Urine WBC 5-10/hpf H Ur Squamous Epith Cells 5-10 /hpf H Ur Renal Epithelial Cell 1-5/hpf H Amorphous Sediment 2+ Urine Bacteria None seen Ur Culture Indicated? Cult not indicated PFSH Medical History Diverticulosis Epidural lipomatosis Fatty liver IBS (irritable bowel syndrome) Left foot infection Primary osteoarthritis of both hips Spinal stenosis of lumbar region with neurogenic claudication Spondylolisthesis, lumbar region Surgical History Status post left foot surgery Social History household members: children Smoking Status: Never smoker alcohol intake: former Discharge Plan Discharge Plan Patient Disposition: Home Discharge orders & Medications Prescriptions: New hydrocodone-acetaminophen 10-325 mg Tablet 1 tab PO Q4HR PRN (Reason: Pain, Moderate (4-6)) Qty: 50 RF: 0 docusate sodium [DOK] 100 mg Capsule 100 mg PO BID Qty: 20 RF: 0 hydroxyzine pamoate 25 mg Capsule 25 mg PO Q4HR PRN (Reason: muscle spasm) Qty: 50 RF: 0 sennosides [senna] 8.6 mg Tablet 17.2 mg PO BEDTIME 10 Days RF: 0 alum-mag hydroxide-simeth [Mag-Al Plus] 200-200-20 mg/5 mL Suspension 30 ml PO QID PRN (Reason: Dyspepsia) Qty: 20 RF: 0 Continued cholecalciferol (vitamin D3) [Vitamin D3] 50 mcg (2,000 unit) Capsule 100 mcg PO DAILY RF: 0 coQ10 (ubiquinol) 200 mg Capsule 200 mg PO DAILY RF: 0 collagen 6 tab PO DAILY RF: 0 Sleep Aid (doxylamine) 25 mg Tablet 25 mg PO BEDTIME RF: 0 pantoprazole 40 mg tablet,delayed release (DR/EC) 1 mg PO DAILY PRN (Reason: acid stomach) RF: 0 Follow up/Referrals: Saul Rae MD [Primary Care Provider] - 1 Week (Please manage transaminitis and abdominal discomfort. ) Serena Kinsey MD [Physician] - Skin/Wound/Dressing Care Report to your healthcare provider any signs of infection, such as:: chills, fever and increased pain Discharge Data Primary Care Provider: Saul Rae Quality VTE Deep Vein Thrombosis/Pulmonary Embolism Present on Admission: No
--- NOTE | 2021-01-07 11:15 | PT.IPTN ---
Current Diagnoses Benign lipomatous neoplasm of other sites (01/04/21) Chronic obstructive pulmonary disease, unspecified (01/04/21) Gastro-esophageal reflux disease without esophagitis (01/04/21) Mahoney's esophagus without dysplasia (01/04/21) Diaphragmatic hernia without obstruction or gangrene (01/04/21) Other specified diseases of biliary tract (01/04/21) Other specified diseases of pancreas (01/04/21) Spondylolisthesis, lumbar region (01/04/21) Spinal stenosis, lumbar region with neurogenic claudication (01/04/21) Unspecified abdominal pain (01/04/21) Acquired absence of other specified parts of digestive tract (01/04/21) Surgery Performed Operation Date: 01/04/21 08:45 Actual Procedures p L3-4,L4-5,L5-S1 TLIF with posterior instrumentation - Serena Kinsey MD Physical Therapy Treatment Note M2 PT-IP Current Condition Start: 01/05/21 11:20 Freq: NEEDED Status: Active Protocol: Document 01/05/21 09:10 AB (Rec: 01/05/21 11:54 AB [id number]) Physical Therapy Current Condition Current Condition Evaluation Date 01/05/21 Treatment Diagnosis s/p L3-4, L4-5, L5S1 postlat/ post fusion/lami; difficulty in walking Onset Date 01/04/21 Precautions Lumbar Precautions Log Roll,No Twisting,Limit Bending,Lifting Restriction of 10 lbs,Gait Belt above Incisional Area M3 PT-IP Subjective Start: 01/05/21 11:20 Freq: NEEDED Status: Active Protocol: Document 01/07/21 10:34 CLB (Rec: 01/07/21 11:34 CLB [id number]) Subjective Physical Therapy Visit Type Type Treatment Note Visit Start Time 10:34 Visit Stop Time 11:15 Total Visit Minutes 41 Notes Daughter present for CG training. Number of GIN INSPECTOR Visits 3 Physical Therapy Visit Comments Patient Comments pt is agreeable to do PT Therapy Pain Assessment Pain When Pain Assessed During Mobility Pain Present Pain Present Pain Reported Location Back Intensity 5 Scale Used 8/10 after tx. Pain Management Techniques Modification of Treatment, Timing of Activity with Medications M4 PT-IP Mobility and Gait Start: 01/05/21 11:20 Freq: NEEDED Status: Active Protocol: Document 01/07/21 10:34 CLB (Rec: 01/07/21 11:34 CLB [id number]) PT-Bed Mobility Assessment Rolling Type of Rolling Log Rolling Level of Assist Standby Assistance,1 Person Assistance Supine to Sit Supine to Sit Moderate Assistance,1 Person Assistance,Bedrails Sit to Supine Sit to Supine Minimal Assistance,1 Person Assistance Scooting Scooting to Edge of Bed Contact Guard Assistance, Minimal Assistance PT-Transfer Assessment Sit to and From Stand Sit to and from Stand Contact Guard Assistance,1 Person Assistance,Use of Upper Extremities Equipment Transfer Assistive Device Gait Belt,Front Wheeled Walker Orthotic/Prosthetic Devices or Brace: No Transfers Transfer Destination Bed,Bedside Commode Transfer Technique ambulated using FWW Transfer Ability Level of Assist Minimal Assistance,Moderate Assistance,Use of Upper Extremities Comments Mobility Comments Pt able to perform LR SBA. Pt' s daughter assisted pt Mod A to sitting from sidelying. Pt then required Min A with draw sheet to EOB while weight shifting hips. Pt then stood SBA. Pt transferred to BS SBA with FWW. Pt sat on BSC SBA. Pt then able to stand SBA and required SBA while she performed pericare. After education with demonstration pt stood SBA and ambulated to step, pt required CGA to step onto platform step to FWW then required CGA with use of FWW to descend step. Pt donned mask and ambulated in [place] ~75ft then returned to room requiring SBA for stand- sit and Min A of LE's onto bed then pt able to roll to back SBA. Pt walked legs to left to straighten out in bed and daughter adjusted pillow under pt's neck. Left pt in bed with all needs within reach and daughter present. Gait Assessment Gait Gait Assistance Required: Standby Assistance,1 Person Assist Distance (Feet) 75 Able to Maintain Weight Bearing Status Yes During Gait Assistive Devices Assistive Device Gait Belt,Front Wheeled Walker Orthotic/Prosthetic Devices or Brace: No Gait Deviations General Gait Pattern Antalgic,Decreased Stride Length,Decreased Feet Clearance,Step-to Gait Factors Limiting Gait Function Factors Limiting Gait Function Decreased Activity Tolerance, Decreased Sensation,Decreased Strength,Difficulty Following Directions,Limited Range of Motion,Pain,Poor Balance Comments Gait Comments Pt ambulated SBA with assist of daughter. Stair Climbing Assessment Evaluation Level of Assist On Stairs Contact Guard Assistance,1 Person Assistance Devices Stair Climbing Assistive Devices Front Wheel Walker Technique/Endurance Stair Climbing Direction Ascend and Descend Stair Climbing Technique Step to Step Number of Steps Climbed 1 Stair Climbing Set # Repetitions (reps) 1 M5 PT-IP Objective Assessments Start: 01/05/21 11:20 Freq: NEEDED Status: Active Protocol: Document 01/05/21 09:10 AB (Rec: 01/05/21 11:54 AB [id number]) Orientation Orientation/Cognition Level of Alertness Alert Orientation Name,Place,Situation Safety Awareness Decreased Safety Awareness Memory Description Short Term Impaired Gross Range of Motion Lower Extremity ROM Assessment Within Functional Limits Strength Lower Extremity Strength Hip 4-/5 Knee 4-/5 Sensation Assessment Sensation Gross Sensation Right LE Impaired Sensation Description Tingling Comments Sensation Comments stated chronic RLE tingling Muscle Tone Muscle Tone WNL Yes M6 PT-IP Treatment Start: 01/05/21 11:20 Freq: NEEDED Status: Active Protocol: Document 01/05/21 09:10 AB (Rec: 01/05/21 11:54 AB [id number]) Physical Therapy Treatment Education Education Provided Precautions,Weight Bearing Status,Post-Op Packet,Safety M7 PT-IP Assessment and Plan Start: 01/05/21 11:20 Freq: NEEDED Status: Active Protocol: Document 01/07/21 10:34 CLB (Rec: 01/07/21 11:34 CLB [id number]) PT Summary Assessment and Plan Potential Rehabilitation Potential Good Status of Condition at Evaluation Stable Summary Impairments Pain,ROM,Strength,Balance, Coordination,Sensation,Tone, Cognition,Bed Mobility, Transfers,Gait,Activity Tolerance Assessment Summary Pt requiring Mod A for sidelying to sitting and daughter is able to assist pt. Pt is able to LR SBA. Pt requires SBA for sit<>stand and gait. Pt will take WC to front door per daughter and then use FWW to enter over threshold. Daughter will be with pt for six weeks and will be able to assist pt with all mobility. Goals Bed Mobility Goal Standby Assistance Transfer Goal Standby Assistance,Front Wheeled Walker Gait Goal Standby Assistance,Front Wheel Walker Gait Distance 100 Other Goals improve ambulation using FWW 150 ft SBA Days to Meet Goals 5 Frequency of Treatment Frequency Of Treatment Twice a Day Treatment Plan Physical Therapy Treatment Plan Bed Mobility Training,Transfer Training,Gait Training, Therapeutic Exercise,Balance Retraining,Post Op Education, Discharge Planning,Hot or Cold Pack,Neuromuscular Re-ed, Coordination Retraining,Manual Therapy Recommendations To Nursing Amount of Assist Needed 1 Person Assist Discharge Recommendations PT Discharge Recommendations Home with Assistance Transportation Needs at Discharge Private Vehicle
--- NOTE | 2021-01-07 13:24 | OT.IP.TRT ---
Current Diagnoses Benign lipomatous neoplasm of other sites (01/04/21) Chronic obstructive pulmonary disease, unspecified (01/04/21) Gastro-esophageal reflux disease without esophagitis (01/04/21) Mahoney's esophagus without dysplasia (01/04/21) Diaphragmatic hernia without obstruction or gangrene (01/04/21) Other specified diseases of biliary tract (01/04/21) Other specified diseases of pancreas (01/04/21) Spondylolisthesis, lumbar region (01/04/21) Spinal stenosis, lumbar region with neurogenic claudication (01/04/21) Unspecified abdominal pain (01/04/21) Acquired absence of other specified parts of digestive tract (01/04/21) Surgery Performed Operation Date: 01/04/21 08:45 Actual Procedures p L3-4,L4-5,L5-S1 TLIF with posterior instrumentation - Serena Kinsey MD Occupational Therapy Treatment Note M2 OT-IP Current Condition Start: 01/05/21 12:23 Freq: Status: Active Protocol: Document 01/05/21 12:24 [facility] (Rec: 01/05/21 12:40 [facility] [id number]) Occupational Therapy Current Condition Current Condition Evaluation Date 01/05/21 Treatment Diagnosis S/p L3-S1 TLIF Diagnosis Onset Date 01/04/21 Post Operative Precautions Lumbar Precautions Log Roll,No Twisting,Limit Bending,Lifting Restriction of 10 lbs,Gait Belt above Incisional Area M3 OT- IP Subjective and Pain Start: 01/05/21 12:23 Freq: Status: Active Protocol: Document 01/07/21 13:55 [facility] (Rec: 01/07/21 14:14 [facility] [id number]) OT- Subjective Occupational Therapy Visit Type Type Progress Note Visit Start Time 12:57 Visit Stop Time 13:24 Total Visit Minutes 27 Notes Pt requesting shower prior to discharge. OT Pain Assessment Pain When Pain Assessed During Mobility Pain Present Pain Present Pain Reported Location Back Scale Used did not rate Management Techniques Distraction,Modification of Treatment,Re-positioning M4 OT- IP ADL's Start: 01/05/21 12:23 Freq: Status: Active Protocol: Document 01/07/21 13:55 [facility] (Rec: 01/07/21 14:14 [facility] [id number]) OT [id number] Comments OT Self-Feeding Comments Not meal time OT ADL-Grooming General Evaluation Grooming Ability Standby Assistance Areas Needing Assistance Face Washing Comments OT Grooming Comments in shower OT ADL-Oral Care Comments Oral Care Comments not performed OT ADL-Dressing General Eval Upper Body Dressing Ability Standby Assistance Lower Body Dressing Ability Total Assistance Areas Needing Assistance Pull-Over Shirt,Socks,Shoes Comments OT Dressing Comments Pt donned tap puller dress and needed total a for socks and pull on shoes. Daughter plans to assist pt at home. OT ADL-Toileting General Evaluation Toileting Ability Standby Assistance Areas Needing Assistance Manage Clothing,Perform Perineal Hygiene Devices Toileting Assistive Devices Grab Bars Comments OT Toileting Comments Pt urinated seated on toilet OT ADL-Bathing Bathing Type Bathing Type Shower General Evaluation Bathing Ability Minimal Assistance,Moderate Assistance Areas Needing Assistance Retrieving/Setting Up Items, Wash/Dry Back,Wash/Dry Lower Extremities Devices Bathing Equipment Hand Held Shower Sprayer, Shower Chair with Arms,Grab Bars Comments OT Bathing Comments Pt showered seated in chair with min to mod a. Pt's daughter present throughout session and helping. M5 OT- IP IADL's Start: 01/05/21 12:23 Freq: Status: Active Protocol: Document 01/05/21 12:24 [facility] (Rec: 01/05/21 12:40 [facility] [id number]) OT-Instrumental Activities of Daily Living Deficits IADL Deficits Identified Deficits Home Safety Awareness Awareness of Need for Assistance at Home Good Awareness Ability to Problem Solve Emergency Able to Problem Solve Situations Medication Management Medication Management Comments Pt's daughter to be able to assist for all needs at home. Money Management Money Management Comments Pt's daughter to be able to assist for all needs at home. Meal Preparation Meal Preparation Caregiver Provides Assist Hand Outside Cutter Hand Outside Cutter Caregiver Provides Assist M6 OT- IP Functional Cognition Start: 01/05/21 12:23 Freq: Status: Active Protocol: Document 01/05/21 12:24 [facility] (Rec: 01/05/21 12:40 [facility] [id number]) Cognitive Factors Limiting Selfcare Function Cognitive Ability Level of Alertness Alert Patient Orientation Name,Age,Birthday,Month,Date, Year,Day of Week,Place, Situation Attention Span Ability Capable of Focused Attention, Capable of Sustained Attention Ability to Follow Commands Able to Follow One Step Commands Safety Awareness Underestimates Need for Assistance Problem Solving Ability Needs Assist to Identify Solutions OT- Vision and Hearing OT- Hearing Assessment OT- Hearing Assessment WFL OT- Vision Assessment Visual Acuity Glasses For Reading M7 OT- IP Mobility and Balance Start: 01/05/21 12:23 Freq: Status: Active Protocol: Document 01/07/21 13:55 [facility] (Rec: 01/07/21 14:14 [facility] [id number]) OT-Transfer Assessment Sit to and From Stand Sit to and from Stand Contact Guard Assistance Transfers Transfer Ability Contact Guard Assistance Technique Transfer Destination Bedside Commode,Shower Stall, Toilet Transfer Technique Stand Step Pivot Devices Transfer Assistive Devices Gait Belt,Front Wheeled Walker Comments Mobility Comments Pt stood and ambulated to shower. Pt sat in shower for bathing then transfered to toilet before returning to chair at bedside. OT- Balance Assessment Sitting Balance and Reactions Static Sitting Balance Ability Good Dynamic Sitting Balance Ability Fair M9 OT- IP Assessment and Plan Start: 01/05/21 12:23 Freq: Status: Active Protocol: Document 01/07/21 13:55 [facility] (Rec: 01/07/21 14:14 [facility] [id number]) OT Summary Assessment and Plan Potential Rehabilitation Potential Good Analytic Complexity at Evaluation Low Summary OT Impairments Pain,Balance,Functional Mobility,Grooming,Dressing, Toileting,Bathing,Toilet Transfers,Shower Transfers, Activity Tolerance Progress Towards Goals Slow Progress due to Pain,Slow Progress due to Activity Tolerance Assessment Summary Pt is progressing with therapy and was able to shower today with assist. Pt and daughter state that they are ready for discharge home. Goals Self-Feeding Goal Independent Grooming Goal Independent Dressing Goal Independent Toileting Goal Minimal Assistance Bathing Goal Minimal Assistance Toilet Transfer Goal Independent Shower Transfer Goal Standby Assistance Patient/Caregiver Education Goal Caregiver Independent Assisting Patient Days to Meet Goals 2 Frequency of Treatment Frequency Of Treatment Once a Day Treatment Plan OT Treatment Plan ADL Training,Functional Cognition Training,Functional Mobility,Patient/Family Education,Discharge Planning Other Treatment Recommendations and Next caregiver training Treatment Focus Discharge Recommendations OT Discharge Recommendations Home with Assistance,SNF Rehab Transportation Needs at Discharge Private Vehicle
[2021-01-07] MEDS: hydrOXYzine pamoate 25 MG CAPSULE PO (13:49)
--- NOTE | 2021-01-07 14:55 | PC.NURSE ---
Pt is dressed and ready for discharge home with daughter Marii. Went over d/c instructions with Pt and daughter-discussed d/c meds, time of last dose, reviewed stroke education, back precautions, reminded Pt to have less than 3000mg Acetaminophen in 24hrs to prevent damage to the liver. Encouraged fluid intake to prevent constipation or dehydration. Pt out via w/c by [employer] to POV with Daughter and all belongings.
== END 2021-01-07 14:58 | disposition home or self-care (01) | DRG 455 ==
PROVIDERS: Physician Assistant Surgical; Admitting Provider Orthopaedic Surgery Orthopaedic Surgery of the Spine; PCP Family Medicine; Referring Provider Family Medicine; Visit Provider Orthopaedic Surgery Orthopaedic Surgery of the Spine
PROC: 0SG10AJ Fusion of 2 or more Lumbar Vertebral Joints with Interbody Fusion Device, Posterior Approach, Anterior Column, Open Approach (ICD-10-PCS; principal; 2021-01-04 08:45)
DX: M48.062 Spinal stenosis, lumbar region with neurogenic claudication (principal); M43.16 Spondylolisthesis, lumbar region; E66.9 Obesity, unspecified; Z68.37 Body mass index [BMI] 37.0-37.9, adult; K76.0 Fatty (change of) liver, not elsewhere classified; M43.17 Spondylolisthesis, lumbosacral region; M48.07 Spinal stenosis, lumbosacral region; G89.18 Other acute postprocedural pain; M62.838 Other muscle spasm; R74.01 Elevation of levels of liver transaminase levels; R10.9 Unspecified abdominal pain; Z20.822 Contact with and (suspected) exposure to COVID-19
CPT/HCPCS: 36415; 72100; 76000; 80053; 81001; 82962; 85014; 85018; 85025; 87635; 97116; 97162; 97165; 97530; 97535; C1776; C9803; C9290; J0330; J1100; J1170; J2270; J2405; J2704; J3010; J3410

== ENCOUNTER → 2021-02-03 10:56 | Outpatient (CLI) | payer OTHER, SELFPAY ==
[2021-01-04 18:22] VITALS: BMI 37.6
--- NOTE | 2021-02-03 | DI.US.S_ITS ---
PROCEDURE: US PERIPH VENOUS LOW EXTREM RT INDICATIONS: RIGHT LOWER LEG PAIN TECHNIQUE: Real-time imaging, as well as color and pulse Doppler interrogation, were performed of the lower extremity deep veins from the inguinal ligament to the popliteal fossa. COMPARISON: None. FINDINGS: Note was made of mid to distal superficial femoral vein thrombosis, occlusive. The popliteal vein also is occluded by thrombus. IMPRESSION: Presumed acute thrombosis involving the popliteal vein in the mid to distal superficial femoral vein on the right. Dictated by: Boone Freed M.D. on 02/03/2021 at 11:46 Approved by: Boone Freed M.D. on 02/03/2021 at 11:47
== END ==
PROVIDERS: PCP Family Medicine; Referring Provider Orthopaedic Surgery Orthopaedic Surgery of the Spine; Visit Provider Orthopaedic Surgery Orthopaedic Surgery of the Spine
DX: M79.661 Pain in right lower leg (principal); I82.431 Acute embolism and thrombosis of right popliteal vein; I82.811 Embolism and thrombosis of superficial veins of right lower extremity
CPT/HCPCS: 93971

== ENCOUNTER 2021-02-03 11:37 | Inpatient (IN) | payer OTHER, SELFPAY ==
[2021-02-03] VITALS (20 sets, daily range): BP systolic 106–146; BP diastolic 52–70; PULSE 72–101; RESP 18–36; TEMP 36.1–36.7; O2SAT 90–96; BMI 36.6
--- NOTE | 2021-02-03 12:03 | ED.EXTPRO ---
HPI - Extremity Problem General Chief complaint: Extremity Problem,Nontraumatic Stated complaint: sent by DI for possible DVT Time Seen by Provider: 02/03/21 11:49 Source: patient and family Mode of arrival: Wheelchair Limitations: no limitations History of Present Illness HPI Narrative: Patient is a 75-year-old female approximately 1 month status post lumbar spine surgery who approximately 9 days ago started having pain and swelling in her right lower extremity. Prior to that she was starting to wean herself off the pain medication but the pain returned so she increased it. She contacted her operative provider's office today and ordered an outpatient ultrasound which showed a right lower extremity DVT. She was sent to the emergency department. She also reports that over the past week she has had occasional shortness of breath. She has no prior lung issues. She has never had a blood clot in the past. She is not on anticoagulation. Related Data Home Medications Medication Instructions Recorded Confirmed Sleep Aid (doxylamine) 25 mg PO BEDTIME PRN 12/28/20 02/03/21 pantoprazole 1 mg PO DAILY PRN 12/28/20 02/03/21 Previous Rx's Medication Instructions Recorded docusate sodium [DOK] 100 mg PO BID #20 cap 01/07/21 hydrocodone-acetaminophen 1 tab PO Q4HR PRN #50 tab 01/07/21 hydroxyzine pamoate 25 mg PO Q4HR PRN #50 cap 01/07/21 Allergies Allergy/AdvReac Type Severity Reaction Status Date / Time Latex, Natural Rubber Allergy Intermediate Red Rash Verified 02/03/21 11:47 [LATEX, NATURAL RUBBER] oxycodone Allergy Intermediate 'Screaming Verified 02/03/21 11:47 nightmares' Penicillins [PENICILLINS] Allergy Intermediate Rash Verified 02/03/21 11:47 adhesive tape Allergy Mild Rash Verified 02/03/21 11:47 hydromorphone AdvReac Mild Diarrhea Verified 02/03/21 11:47 Review of Systems Constitutional Constitutional: Denies chills, Denies fatigue, Denies fever(s), Denies headache(s) and Denies weakness ENT Ears, Nose, Mouth, and Throat: Denies vertigo and Denies headache(s) Cardiovascular Cardiovascular: Denies chest pain and Reports dyspnea Respiratory Respiratory: Reports dyspnea Gastrointestinal Gastrointestinal: Denies abdominal pain, Denies nausea and Denies vomiting Genitourinary Genitourinary: Denies dysuria Genitourinary: Denies dysuria Musculoskeletal Musculoskeletal: Denies arthralgias and Denies myalgias Comments: Right lower extremity pain and edema Integumentary/Breasts Skin/Breast: Denies rash Neurologic Neurologic: Denies confusion, Denies vertigo, Denies headache(s) and Denies weakness Psychiatric Psychiatric: Denies confusion Endocrine Endocrine: Denies fatigue Hematologic/Lymphatic Hematologic/Lymphatic: Denies easy bleeding and Denies easy bruising On Anticoagulants: No Allergic/Immunologic Allergic/Immunologic: Denies urticaria Patient History Medical History Diverticulosis Epidural lipomatosis Fatty liver IBS (irritable bowel syndrome) Left foot infection Primary osteoarthritis of both hips Spinal stenosis of lumbar region with neurogenic claudication Spondylolisthesis, lumbar region Surgical History Status post left foot surgery Social History household members: children Smoking Status: Never smoker alcohol intake: former Smoking Status: Never smoker alcohol intake frequency: holidays/special occasions only Substance Use Type: does not use Exam Initial Vital Signs Initial Vital Signs: Vital Signs Temperature 97.9 F 02/03/21 11:40 Pulse Rate 101 H 02/03/21 11:40 Respiratory Rate 32 H 02/03/21 11:40 Blood Pressure 135/66 02/03/21 11:40 Pulse Oximetry 93 02/03/21 11:40 Const General: cooperative, healthy appearing and comfortable Limitations: mental status not altered [facility] Head: normal to inspection and normocephalic Resp Effort & Inspection: normal respiratory effort and tachypneic Auscultation: clear to auscultation bilaterally Cardio Rate: tachycardic Rhythm: regular rhythm GI Inspection: non-distended Palpation: soft Skin Lesions: no lesions Rashes: no rashes Extrem General: normal to inspection Other: Right lower extremity swelling. Brisk cap refill Psych Appearance: grossly normal and well kempt Course Orders Ordered: ED Orders 02/03/21 12:01 Basic Metabolic Panel Stat Complete Blood Count AUTO DIFF Stat NT-proBNP (BNP-Adult 18+) Stat Partial Thromboplastin Time Stat Prothrombin Time INR Stat Troponin I Stat 02/03/21 12:02 CT angio chest PE protocol Stat 02/03/21 15:32 Education, smoking cessation ONGOING 02/03/21 15:40 EC echo doppler complete Routine 02/03/21 15:50 COVID19 Stat Acetaminophen (Acetaminophen 325 Mg Tablet) 650 mg PO Q6HR PRN PRN Reason: Fever/Mild Pain (1-3) Hydrocodone Bitart/Acetaminophen (Hydrocodone/Acet 10/325 Tablet) 1 tab PO Q4HR PRN PRN Reason: Pain, Moderate (4-6) Last Admin: 02/03/21 18:30 Dose: 1 tab Documented by: HUGO Calcium Carbonate (Calcium Carbonate 500 Mg Tab) 1,000 mg PO Q4HR PRN PRN Reason: Dyspepsia Docusate Sodium (Docusate 100 Mg Capsule) 100 mg PO BID SHIMA Enoxaparin Sodium (Enoxaparin 150 Mg/Ml Syringe) 135 mg SUBCUT DAILY@1300 SHIMA Magnesium Hydroxide (Magnesium Hydroxide 30 Ml Udc) 30 ml PO DAILY PRN PRN Reason: Constipation Naloxone HCl (Naloxone 0.4 Mg/Ml Vial) 0.2 mg IV Q2MIN PRN PRN Reason: Opiate Reversal Ondansetron HCl (Ondansetron 4 Mg/2 Ml Inj) 4 mg IV Q8HR PRN PRN Reason: Nausea And Vomiting Discontinued Medications Hydrocodone Bitart/Acetaminophen (Hydrocodone/Acet 5/325 Tablet) 1 tab PO NOW ONE Stop: 02/03/21 13:46 Last Admin: 02/03/21 13:48 Dose: 1 tab Documented by: KIKO Hydrocodone Bitart/Acetaminophen (Hydrocodone/Acet 5/325 Tablet) 1 tab PO NOW ONE Stop: 02/03/21 14:40 Last Admin: 02/03/21 14:47 Dose: 1 tab Documented by: JERI Enoxaparin Sodium (Enoxaparin 150 Mg/Ml Syringe) 150 mg SUBCUT NOW ONE Stop: 02/03/21 13:04 Last Admin: 02/03/21 13:16 Dose: 150 mg Documented by: KIKO Sodium Chloride (Normal Saline 0.9%) 1,000 mls @ 1,000 mls/hr IV BOLUS ONE Stop: 02/03/21 13:01 Last Infusion: 02/03/21 13:49 Dose: 0 mls/hr Documented by: Admin: 02/03/21 12:38 Dose: 1,000 mls/hr Documented by: KIKO Vital Signs Vital signs: Vital Signs - 8 hr 02/03/21 11:40 02/03/21 11:48 02/03/21 12:00 Temperature 97.9 F Pulse Rate 101 H 99 H 99 H Pulse Rate [Right Dorsalis Pedis] Respiratory Rate 32 H Blood Pressure 135/66 Pulse Oximetry 93 96 95 02/03/21 12:38 02/03/21 12:49 02/03/21 12:54 Temperature Pulse Rate 93 H 84 Pulse Rate [Right Dorsalis Pedis] 95 H Respiratory Rate 20 Blood Pressure 127/63 Pulse Oximetry 95 95 02/03/21 13:00 02/03/21 13:31 02/03/21 14:00 Temperature Pulse Rate 83 80 Pulse Rate [Right Dorsalis Pedis] Respiratory Rate Blood Pressure 116/52 L Pulse Oximetry 96 95 95 02/03/21 14:30 02/03/21 14:36 02/03/21 14:59 Temperature Pulse Rate 85 81 94 H Pulse Rate [Right Dorsalis Pedis] Respiratory Rate 24 Blood Pressure 111/58 L Pulse Oximetry 93 94 91 02/03/21 15:00 02/03/21 15:30 02/03/21 15:51 Temperature Pulse Rate 84 76 72 Pulse Rate [Right Dorsalis Pedis] Respiratory Rate 36 H 28 H Blood Pressure 111/56 L Pulse Oximetry 96 93 95 02/03/21 16:00 Temperature Pulse Rate 72 Pulse Rate [Right Dorsalis Pedis] Respiratory Rate 24 Blood Pressure 106/53 L Pulse Oximetry 90 L MDM - Extremity (Nontraumatic) Lab Data Result diagrams: 02/03/21 12:01 02/03/21 12:01 Labs: Lab Results 02/03/21 02/03/21 02/03/21 Range/Units 12:01 12:01 12:01 WBC 12.9 H (4.5-11.0) X10^3/uL RBC 4.77 (4.0-5.2) X10^6/uL Hgb 14.0 (12.0-16.0) g/dL Hct 42.1 (36-46) % MCV 88.3 (80-100) fL MCH 29.4 (26-34) PG MCHC 33.2 (30-36) % RDW 13.3 (11.6-14.8) % Plt Count 251 (150-400) X10^3/uL Neut % (Auto) 59.8 (50-75) % Lymph % (Auto) 26.2 (25-40) % [place] % (Auto) 10.6 (3-14) % Eos % (Auto) 2.0 (2-4) % Baso % (Auto) 1.4 (0-2) % Neut # (Auto) 7700 H (2244-4720) /uL Lymph # (Auto) 3400 (0220-5414) /uL [place] # (Auto) 1400 H (0-900) /uL Eos # (Auto) 300 (0-450) /uL Baso # (Auto) 200 H (0-100) /uL PT 13.8 H (10.1-12.7) SECONDS INR 1.2 (0.9-1.3) APTT 31 (26.4-36.2) SECONDS Sodium 133 L (137-145) mmol/L Potassium 3.8 (3.4-5.1) mmol/L Chloride 100 (98-107) mmol/L Carbon Dioxide 25 (22-32) mmol/L BUN 13 (7-17) mg/dL Creatinine 0.61 (0.52-1.04) mg/dL Estimated GFR > 60.0 (>60) mL/min BUN/Creatinine Ratio 21.3 (6-22) Glucose 109 (80-110) mg/dL Calcium 9.3 (8.4-10.2) mg/dL Troponin I (0.01-0.034) ng/mL NT-Pro-B Natriuret Pep (<450) pg/mL SARS-CoV-2 (PCR) (Negative) 02/03/21 02/03/21 02/03/21 Range/Units 12:01 12:01 15:50 WBC (4.5-11.0) X10^3/uL RBC (4.0-5.2) X10^6/uL Hgb (12.0-16.0) g/dL Hct (36-46) % MCV (80-100) fL MCH (26-34) PG MCHC (30-36) % RDW (11.6-14.8) % Plt Count (150-400) X10^3/uL Neut % (Auto) (50-75) % Lymph % (Auto) (25-40) % [place] % (Auto) (3-14) % Eos % (Auto) (2-4) % Baso % (Auto) (0-2) % Neut # (Auto) (8231-3192) /uL Lymph # (Auto) (2706-0810) /uL [place] # (Auto) (0-900) /uL Eos # (Auto) (0-450) /uL Baso # (Auto) (0-100) /uL PT (10.1-12.7) SECONDS INR (0.9-1.3) APTT (26.4-36.2) SECONDS Sodium (137-145) mmol/L Potassium (3.4-5.1) mmol/L Chloride (98-107) mmol/L Carbon Dioxide (22-32) mmol/L BUN (7-17) mg/dL Creatinine (0.52-1.04) mg/dL Estimated GFR (>60) mL/min BUN/Creatinine Ratio (6-22) Glucose (80-110) mg/dL Calcium (8.4-10.2) mg/dL Troponin I < 0.012 (0.01-0.034) ng/mL NT-Pro-B Natriuret Pep 64 (<450) pg/mL SARS-CoV-2 (PCR) Negative (Negative) Imaging Data US - DVT: Radiologist's Impression: [address] [id number] ReportSigned Patient: Monet Nash [facility]#: [id number]: 5Acct:[id number]/Sex: 75 / FDate of Service: 02/03/21[facility] [place] [id number] Procedure: US periph venous low extrem rt Ordering Provider: Serena Kinsey MD PROCEDURE: US PERIPH VENOUS LOW EXTREM RT INDICATIONS: RIGHT LOWER LEG PAIN TECHNIQUE: Real-time imaging, as well as color and pulse Doppler interrogation, were performed of the lower extremity deep veins from the inguinal ligament to the popliteal fossa. COMPARISON: None. FINDINGS: Note was made of mid to distal superficial femoral vein thrombosis, occlusive. The popliteal vein also is occluded by thrombus. IMPRESSION: Presumed acute thrombosis involving the popliteal vein in the mid to distal superficial femoral vein on the right. Dictated by: Boone Freed M.D. on 02/03/2021 at 11:46 Approved by: Boone Freed M.D. on 02/03/2021 at 11:47 CT scan - chest: Radiologist's Impression: [address] [id number] Scan ReportSigned Patient: Monet Nash [facility]#: [id number]: 5Acct:[id number]/Sex: 75 / FDate of Service: 02/03/21Loc: EDAccession Number: [id number] Procedure: CT angio chest PE protocol Ordering Provider: Aydin Pratt D.O. PROCEDURE: CT ANGIO CHEST PE PROTOCOL INDICATIONS: Known DVT, shortness of breath TECHNIQUE: After the administration of intravenous contrast, 2 mm thick sections acquired from the pulmonary apices to the posterior costophrenic angles. 3-dimensional maximum intensity projection (MIP) coronal and sagittal reformats were then acquired through the thorax. For radiation dose reduction, the following was used: automated exposure control, adjustment of mA and/or kV according to patient size. COMPARISON: None. FINDINGS: Image quality: Excellent. Pulmonary arteries: Pulmonary arteries are normal in size, and demonstrate multiple bilateral occlusive and nonocclusive intraluminal filling diagnostic of central pulmonary embolism. Lungs and pleura: Lungs are clear. No pleural effusions or pneumothorax. Central and peripheral airways are patent. Mediastinum: Heart size is normal, without pericardial effusion. No mediastinal or hilar adenopathy. Thoracic aorta is normal in caliber and enhancement. Esophagus is normal in caliber, without hiatal hernia. Bones and chest wall: No suspicious bony lesions. Ribs and thoracic spine appear intact throughout. Thyroid gland is not well seen No axillary or supraclavicular adenopathy. Abdomen: Visualized upper abdominal solid organs appear normal in the early arterial phase of enhancement. IMPRESSION: Bilateral numerous partially occlusive and occlusive pulmonary emboli involving the upper, mid and lower lungs, without evidence of right heart insufficiency. No pulmonary mass is seen, no areas of alveolar infiltration are present that would suggest presence of acute pulmonary infarction. Findings called to the emergency room physician caring for the patient. The physician was not immediately available and the information was left with a senior nursing staff individual who will directly carry this information to the doctor. Dictated by: Boone Freed M.D. on 02/03/2021 at 12:55 Approved by: Boone Freed M.D. on 02/03/2021 at 13:02 MDM Narrative Medical decision making narrative: Patient does have a right lower extremity DVT. She was tachypneic and tachycardic. CT scans of the chest does show bilateral pulmonary embolism. She was given 1.5 milligrams/kilogram of Lovenox. There is no signs of right heart strain on the CT scan. Her troponin and BNP are unremarkable. Patient ambulated around the emergency department did become tachypneic and somewhat short of breath and oxygen saturations went down to the low 90s. When she is sitting in bed she is not requiring any oxygen. Given her age and her tachypnea and decrease in oxygen saturations and the findings on the CT scan of feel that admission to the hospital for further evaluation treatment as needed. Discussed the case with Dr. Sahu who will admit for further evaluation and treatment. Discussed the admission with the patient and family at bedside. They expressed understanding agreement. Discharge Plan Departure Patient Disposition: Admitted As Inpatient Clinical Impression: Pulmonary embolism, DVT (deep venous thrombosis) Admit Date/Time: 02/03/21 16:12 Admit Provider: Srini Panda
[2021-02-03 12:09] LABS: Add Manual Diff / Slide Review NO; Basophils Absolute Auto 200 /uL (0-100); Basophils Percent Auto 1.4 % (0-2); Eosinophils Absolute Auto 300 /uL (0-450); Hematocrit 42.1 % (36-46); Lymphocytes Absolute Auto 3400 /uL (1100-4500); Lymphocytes Percent Auto 26.2 % (25-40); Mean Corpuscular HGB Conc 33.2 % (30-36); Mean Corpuscular Hemoglobin 29.4 PG (26-34); Mean Corpuscular Volume 88.3 fL (80-100); Monocytes Absolute Auto 1400 /uL (0-900); Monocytes Percent Auto 10.6 % (3-14); Neutrophils Absolute Auto 7700 /uL (1500-7000); Neutrophils Percent Auto 59.8 % (50-75); Platelet Count 251 X10^3/uL (150-400); Red Blood Cell Count 4.77 X10^6/uL (4.0-5.2); Red Cell Distribution Width 13.3 % (11.6-14.8); White Blood Cell Count 12.9 X10^3/uL (4.5-11.0)
[2021-02-03 12:15] LABS: INR 1.2 (0.9-1.3); Prothrombin Time 13.8 SECONDS (10.1-12.7)
[2021-02-03 12:17] LABS: PTT Partial Thromboplastin Tim 31 SECONDS (26.4-36.2)
[2021-02-03 12:20] LABS: BUN Creatinine Ratio 21.3 (6-22); Blood Urea Nitrogen 13 mg/dL (7-17); Calcium 9.3 mg/dL (8.4-10.2); Carbon Dioxide 25 mmol/L (22-32); Chloride 100 mmol/L (98-107); Estimated Glomerular Filt Rate > 60.0 mL/min (>60); Glucose 109 mg/dL (80-110); HEMOLYSIS < 15 (0-50); Potassium 3.8 mmol/L (3.4-5.1); Sodium 133 mmol/L (137-145)
[2021-02-03] MEDS: SODIUM CHLORIDE 0.9% 1,000 ML 1000 ML IV (12:38)
[2021-02-03] MEDS: ENOXAPARIN 150 MG/ML SYRINGE SUBCUT (13:16)
[2021-02-03 13:27] LABS: NT-proBNP (BNP-Adult 18+) 64 pg/mL (<450)
[2021-02-03 13:30] LABS: Troponin I < 0.012 ng/mL (0.01-0.034)
[2021-02-03] MEDS: HYDROCODONE/ACET 5/325 TABLET 1 TAB PO ×2 (13:48→14:47)
--- NOTE | 2021-02-03 15:40 | DI.ECHO.S_ITS ---
[facility] +---------+ : : [address] [address] : : : : [id number] : : : : Phone: [phone] Echocardiogram Report + + :Name: CARLOS OZUNA Study Date: 02/04/2021 Height: 62 in : :[facility] ReadingLocation: Weight: 200 lb : : Gender: Female BSA: 1.9 m2 : :: 1945 Age: 75 yrs BP: 129/65 mmHg: :Reason For Study: PULMONARY EMBOLISM : :Ordering Physician: : :HOSPITALISTKAREN Performed By: Rocio Frias : :Referring: VINITA TESFAYE : + + Interpretation Summary Left ventricular systolic function appears normal with an estimated ejection fraction of 55 to 60% without focal wall motion abnormality although there is a mild dyssynchronous contraction pattern suggestive of a conduction abnormality. Left ventricular size and wall thickness appear normal and diastolic function is likely normal with normal filling pressures. The right ventricle is borderline enlarged but with preserved systolic function. Right ventricular systolic pressure is estimated at 30 mmHg with a CVP estimated at 3 mmHg. Both atria are normal in size. There is mild aortic and mitral valve calcification but there is no significant functional valvular abnormality. The ascending aorta is mildly enlarged. Procedure: A two-dimensional transthoracic echocardiogram with color flow and Doppler was performed. The study quality was technically adequate. There is no prior echocardiogram noted for this patient. The patient was in sinus rhythm with heart rates between 65-81 bpm during the exam. Left Ventricle: The left ventricle is normal in size and wall thickness. Left ventricular systolic function appears normal without focal wall motion abnormalities. The ejection fraction is estimated to be 60-65%. There is a mild dyssynchronous contraction pattern, consistent with a conduction abnormality. Diastolic parameters suggest probable normal left ventricular diastolic function and normal filling pressures. Right Ventricle: The right ventricle is borderline dilated. The right ventricular systolic function is normal. Atria: The left atrial size is normal. There is no Doppler evidence for an interatrial shunt. Mitral Valve: There is mild mitral annular calcification. The mitral valve leaflets are slightly calcified. There is trace mitral regurgitation. Aortic Valve: The aortic valve is trileaflet. The aortic valve is slightly calcified. The aortic valve opens well. There is no aortic valve stenosis. No aortic regurgitation is present. Tricuspid Valve: The tricuspid valve is normal in structure and function. There is trace tricuspid regurgitation. The right ventricular systolic pressure is estimated to be at least 30 mmHg based on an estimated right atrial pressure of 3 mm Hg. Pulmonic Valve: The pulmonic valve leaflets are thin and pliable; valve motion is normal. There is a trace or physiologic amount of pulmonic regurgitation. Great Vessels: The aortic root is normal size. The ascending aorta is mildly enlarged. The IVC is of normal diameter and collapses greater than 50% with a sniff. This suggests a low right atrial pressure of 3 mm Hg. Pericardium/ Pleura There is no pericardial effusion. There is no pleural effusion. MMode/2D Measurements & Calculations LVIDd: 4.2 cm LVOT diam: 2.0 cm LVIDs: 2.8 cm Ao root diam: 3.1 cm FS: 32.1 % asc Aorta Diam: 3.5 cm EPSS: 1.1 cm Ao Arch Diam (Prox Trans): 3.0 cm IVSd: 0.82 cm LVPWd: 0.86 cm LV cruz. diameter/BSA (cm/m^2): 2.2 LV sys. diameter/BSA (cm/m^2): 1.5 LA A2 area: 18.0 cm2 RA long axis: 5.7 cm LA A4 area: 18.3 cm2 RA area: 15.7 cm2 LA length (vol): 4.9 cm RA vol: 37.1 ml LA vol: 56.6 ml RA : 19.4 ml/m2 LA vol index: 29.6 ml/m2 IVC diam: 1.9 cm RVD1 (basal): 3.9 cm TAPSE: 2.0 cm Doppler Measurements & Calculations Ao V2 max: 150.3 cm/sec LVOT Max Brent: 82.6 cm/sec Ao V2 mean: 101.6 cm/sec LV V1 max P.7 mmHg Ao max P.0 mmHg LV V1 VTI: 17.9 cm Ao mean P.7 mmHg JULIO(I,D): 1.9 cm2 Ao V2 VTI: 29.8 cm JULIO(V,D): 1.7 cm2 sev ratio: 0.60 JULIO indexed to BSA (cm^2/m^2): 0.99 MV E max brent: 66.4 cm/sec TR max brent: 263.0 cm/sec MV A max brent: 96.5 cm/sec TR max P.7 mmHg MV E/A: 0.69 PA V2 max: 87.1 cm/sec Med Peak E' Brent: 5.9 cm/sec PA V2 mean: 58.4 cm/sec E/E' med: 11.2 PA mean P.5 mmHg Lat Peak E' Brent: 11.4 cm/sec PA pr(Accel): 56.7 mmHg E/E' lat: 5.8 E/e' average: 8.5 MV dec time: 0.23 sec SV(LVOT): 56.3 ml Reading Physician:01:45 PM
[2021-02-03 16:11] LABS: COVID19 -Nasal RAPID Negative (Negative)
[2021-02-03] MEDS: HYDROCODONE/ACET 10/325 TABLET 1 TAB PO (18:30)
--- NOTE | 2021-02-03 19:50 | PM.EVENT ---
Event Note Date Patient Seen: 02/03/21 Time Patient Seen: 19:51 Event Note: PATIENT SEEN AND EXAMINED FULL H&P TO FOLLOW Patient is a 75-year-old female approximately 1 month status post lumbar spine surgery who approximately 9 days ago started having pain and swelling in her right lower extremity. Today she had of duplex ultrasound right lower extremity which revealed DVT. Because of shortness of breath CT of the chest was done and confirmed PE and patient is now being admitted for further evaluation and management of her PE PLAN INPATIENT ADMISSION ECHOCARDIOGRAM LOVENOX 140 MG SUBQ DAILY PROGRESSIVE AMBULATION PATIENT NOW HAS SIGNIFICANT PAIN AND DISCOMFORT WITH STANDING OR WALKING.
--- NOTE | 2021-02-03 19:54 | P.HP_ITS ---
History of Present Illness History of Present Illness Date Patient Seen: 02/03/21 Time Patient Seen: 19:54 Chief complaint: sent by SUSSY for possible DVT Narrative: Patient is a 75-year-old female approximately 1 month status post lumbar spine surgery who approximately 9 days ago started having pain and swelling in her right lower extremity. Prior to that she was starting to wean herself off the pain medication but the pain returned so she increased it. Patient states that she has been having increasing problems with pain on standing and when trying to ambulate. Therefore she called Dr. Serena Kinsey office and he ordered an outpatient ultrasound which showed a right lower extremity DVT. She was sent to the emergency department. She also reports that over the past week she has had occasional shortness of breath. CTA of the chest was performed and reveal bilateral numerous partially occlusive and occlusive pulmonary emboli involving the upper, mid and lower lungs without evidence of right heart insufficiency. She was given a dose of Lovenox in the ED. She is therefore being admitted for further workup and management of her pulmonary embolus/DVT Patient History Medical History Diverticulosis Epidural lipomatosis Fatty liver IBS (irritable bowel syndrome) Left foot infection Primary osteoarthritis of both hips Spinal stenosis of lumbar region with neurogenic claudication Spondylolisthesis, lumbar region Surgical History Status post left foot surgery Family & Social History Social History: household members children Safety & Behavioral: Feels Safe in Current Yes Environment Been Physically Hurt or No Threatened By a Person Suicidal Ideation Description None Tobacco & Substance use: Smoking Status Never smoker alcohol intake former alcohol intake frequency holiday/special occasion Substance Use Type does not use Meds Home Medications and Allergies Home Medications Medication Instructions Recorded Confirmed Type Sleep Aid (doxylamine) 25 mg PO BEDTIME PRN 12/28/20 02/03/21 History pantoprazole 1 mg PO DAILY PRN 12/28/20 02/03/21 History docusate sodium [DOK] 100 mg PO BID #20 cap 01/07/21 02/03/21 Rx hydrocodone-acetaminophen 1 tab PO Q4HR PRN #50 tab 01/07/21 02/03/21 Rx hydroxyzine pamoate 25 mg PO Q4HR PRN #50 cap 01/07/21 02/03/21 Rx Allergies Allergy/AdvReac Type Severity Reaction Status Date / Time Latex, Natural Rubber Allergy Intermediate Red Rash Verified 02/03/21 11:47 [LATEX, NATURAL RUBBER] oxycodone Allergy Intermediate 'Screaming Verified 02/03/21 11:47 nightmares' Penicillins [PENICILLINS] Allergy Intermediate Rash Verified 02/03/21 11:47 adhesive tape Allergy Mild Rash Verified 02/03/21 11:47 hydromorphone AdvReac Mild Diarrhea Verified 02/03/21 11:47 Review of Systems Review of Systems ROS: Yes All systems reviewed with the patient and are negative except as otherwise documented Exam Vital Signs (past 8 hours): - 02/03/21 12:00 02/03/21 12:38 02/03/21 12:49 Temperature Pulse Rate 99 H 93 H Pulse Rate [Right Dorsalis Pedis] 95 H Respiratory Rate Blood Pressure Pulse Oximetry 95 95 02/03/21 12:54 02/03/21 13:00 02/03/21 13:31 Temperature Pulse Rate 84 83 Pulse Rate [Right Dorsalis Pedis] Respiratory Rate 20 Blood Pressure 127/63 116/52 L Pulse Oximetry 95 96 95 02/03/21 14:00 02/03/21 14:30 02/03/21 14:36 Temperature Pulse Rate 80 85 81 Pulse Rate [Right Dorsalis Pedis] Respiratory Rate Blood Pressure 111/58 L Pulse Oximetry 95 93 94 02/03/21 14:59 02/03/21 15:00 02/03/21 15:30 Temperature Pulse Rate 94 H 84 76 Pulse Rate [Right Dorsalis Pedis] Respiratory Rate 24 36 H 28 H Blood Pressure Pulse Oximetry 91 96 93 02/03/21 15:51 02/03/21 16:00 02/03/21 16:45 Temperature 98.1 F Pulse Rate 72 72 80 Pulse Rate [Right Dorsalis Pedis] Respiratory Rate 24 18 Blood Pressure 111/56 L 106/53 L 135/63 Pulse Oximetry 95 90 L 95 Oxygen Delivery Method Room Air Oxygen Flow Rate 2 Narrative Exam Narrative: Constitutional: NAD laying in bed. Daughter is at bedside HEENT: Normocephalic atraumatic extraocular movements intact pupils are equal round reactive to light fundi were not viewed. Sclera and conjunctiva clear. Oropharynx clear with moist mucous membranes. Neck: Supple without thyromegaly bruits or jugular venous distention Thorax: Symmetrical with good lateral expansion no splinting Respiratory: Clear to auscultation Cardiovascular: Regular rhythm S1-S2 was normal the renal issues rubs murmurs gallops present GI: Benign bowel sounds active : No Artis in place Musculoskeletal: Edema right lower extremity tenderness palpation popliteal are a Neurological: Cranial nerves 2-12 intact: Motor equal active: Sensory with crude touch intact Psychological: Anxious female awake alert oriented x3 Skin: No acute rashes Objective Labs Result Diagrams: 02/05/21 05:26 02/05/21 05:26 Labs: Laboratory Results - last 24 hr 02/03/21 02/03/21 02/03/21 12:01 12:01 12:01 WBC 12.9 H RBC 4.77 Hgb 14.0 Hct 42.1 MCV 88.3 MCH 29.4 MCHC 33.2 RDW 13.3 Plt Count 251 Neut % (Auto) 59.8 Lymph % (Auto) 26.2 [place] % (Auto) 10.6 Eos % (Auto) 2.0 Baso % (Auto) 1.4 Neut # (Auto) 7700 H Lymph # (Auto) 3400 [place] # (Auto) 1400 H Eos # (Auto) 300 Baso # (Auto) 200 H PT 13.8 H INR 1.2 APTT 31 Sodium 133 L Potassium 3.8 Chloride 100 Carbon Dioxide 25 BUN 13 Creatinine 0.61 Estimated GFR > 60.0 BUN/Creatinine Ratio 21.3 Glucose 109 Calcium 9.3 Troponin I NT-Pro-B Natriuret Pep SARS-CoV-2 (PCR) 02/03/21 02/03/21 02/03/21 12:01 12:01 15:50 WBC RBC Hgb Hct MCV MCH MCHC RDW Plt Count Neut % (Auto) Lymph % (Auto) [place] % (Auto) Eos % (Auto) Baso % (Auto) Neut # (Auto) Lymph # (Auto) [place] # (Auto) Eos # (Auto) Baso # (Auto) PT INR APTT Sodium Potassium Chloride Carbon Dioxide BUN Creatinine Estimated GFR BUN/Creatinine Ratio Glucose Calcium Troponin I < 0.012 NT-Pro-B Natriuret Pep 64 SARS-CoV-2 (PCR) Negative PROCEDURE: US PERIPH VENOUS LOW EXTREM RT INDICATIONS: RIGHT LOWER LEG PAIN TECHNIQUE: Real-time imaging, as well as color and pulse Doppler interrogation, were performed of the lower extremity deep veins from the inguinal ligament to the popliteal fossa. COMPARISON: None. FINDINGS: Note was made of mid to distal superficial femoral vein thrombosis, occlusive. The popliteal vein also is occluded by thrombus. IMPRESSION: Presumed acute thrombosis involving the popliteal vein in the mid to distal superficial femoral vein on the right. Dictated by: Boone Freed M.D. on 02/03/2021 at 11:46 Approved by: Boone Freed M.D. on 02/03/2021 at 11:47 PROCEDURE: CT ANGIO CHEST PE PROTOCOL INDICATIONS: Known DVT, shortness of breath TECHNIQUE: After the administration of intravenous contrast, 2 mm thick sections acquired from the pulmonary apices to the posterior costophrenic angles. 3-dimensional maximum intensity projection (MIP) coronal and sagittal reformats were then acquired through the thorax. For radiation dose reduction, the following was used: automated exposure control, adjustment of mA and/or kV according to patient size. COMPARISON: None. FINDINGS: Image quality: Excellent. Pulmonary arteries: Pulmonary arteries are normal in size, and demonstrate multiple bilateral occlusive and nonocclusive intraluminal filling diagnostic of central pulmonary embolism. Lungs and pleura: Lungs are clear. No pleural effusions or pneumothorax. Central and peripheral airways are patent. Mediastinum: Heart size is normal, without pericardial effusion. No mediastinal or hilar adenopathy. Thoracic aorta is normal in caliber and enhancement. Esophagus is normal in caliber, without hiatal hernia. Bones and chest wall: No suspicious bony lesions. Ribs and thoracic spine appear intact throughout. Thyroid gland is not well seen No axillary or supraclavicular adenopathy. Abdomen: Visualized upper abdominal solid organs appear normal in the early arterial phase of enhancement. IMPRESSION: Bilateral numerous partially occlusive and occlusive pulmonary emboli involving the upper, mid and lower lungs, without evidence of right heart insufficiency. No pulmonary mass is seen, no areas of alveolar infiltration are present that would suggest presence of acute pulmonary infarction. Findings called to the emergency room physician caring for the patient. The physician was not immediately available and the information was left with a senior nursing staff individual who will directly carry this information to the doctor. Dictated by: Boone Freed M.D. on 02/03/2021 at 12:55 Approved by: Boone Freed M.D. on 02/03/2021 at 13:02 Assessment & Plan Assessment & Plan narrative: PE/DVT Continue with Lovenox 140 mg subQ daily which is essentially 1.5 milligrams/kilogram Continue to check CBCs serially for any decreases that might suggest bleed Right lower extremity/popliteal pain This is secondary to her DVT Order hydrocodone/acetaminophen 1-1/2 hour prior to standing or going to the bathroom Leukocytosis WBC 12.9. Most likely related to reactive phenomena from her DVT PE Serial CBCs Postop 01/04/2021 the following procedures by Dr.Dawei Kinsey 1. L3-4, L4-5, L5-S1 Postero-lateral and posterior interbody fusion 2. L3-4, L4-5, L5-S1 interbody cage placement. 3. L3-4, L4-5, L5-S1 decompressive laminectomy with bilateral facetecomies 4. L3-4, L4-5, L5-S1 Posterior segmental instrumentation 5. Brick of bone marrow from iliac crest
[2021-02-03] MEDS: ACETAMINOPHEN 325 MG TABLET 650 MG PO (22:22)
[2021-02-03] MEDS: TRAMADOL 50 MG TABLET PO (23:29)
[2021-02-03] MEDS: diphenhydrAMINE 25 MG TABLET PO (23:30)
[2021-02-04] VITALS (8 sets, daily range): BP systolic 113–129; BP diastolic 52–65; PULSE 61–74; RESP 18–20; TEMP 36.3–36.8; O2SAT 92–96
[2021-02-04] MEDS: TRAMADOL 50 MG TABLET PO (03:59)
[2021-02-04 05:58] LABS: Add Manual Diff / Slide Review NO; Basophils Absolute Auto 100 /uL (0-100); Basophils Percent Auto 1.5 % (0-2); Eosinophils Absolute Auto 500 /uL (0-450); Eosinophils Percent Auto 7.1 % (2-4); Hematocrit 37.4 % (36-46); Hemoglobin 12.3 g/dL (12.0-16.0); Lymphocytes Absolute Auto 2700 /uL (1100-4500); Mean Corpuscular HGB Conc 32.9 % (30-36); Mean Corpuscular Hemoglobin 29.2 PG (26-34); Mean Corpuscular Volume 88.6 fL (80-100); Monocytes Absolute Auto 1000 /uL (0-900); Monocytes Percent Auto 13.7 % (3-14); Neutrophils Absolute Auto 3100 /uL (1500-7000); Neutrophils Percent Auto 41.7 % (50-75); Platelet Count 224 X10^3/uL (150-400); Red Blood Cell Count 4.22 X10^6/uL (4.0-5.2); Red Cell Distribution Width 13.3 % (11.6-14.8); White Blood Cell Count 7.5 X10^3/uL (4.5-11.0)
[2021-02-04 06:18] LABS: Troponin I < 0.012 ng/mL (0.01-0.034)
[2021-02-04 06:23] LABS: Procalcitonin 0.07 ng/mL (<0.5)
[2021-02-04] MEDS: ACETAMINOPHEN 325 MG TABLET 650 MG PO (07:30)
[2021-02-04] MEDS: DOCUSATE 100 MG CAPSULE PO ×2 (09:32→20:00)
[2021-02-04] MEDS: HYDROCODONE/ACET 10/325 TABLET 1 TAB PO ×4 (10:18→19:56)
[2021-02-04] MEDS: ENOXAPARIN 150 MG/ML SYRINGE 135 MG SUBCUT (13:34)
--- NOTE | 2021-02-04 15:57 | CM.DANOTE ---
Patient is a 75 year old female who was admitted on 02/03/21 for Possible DVT. Pt has [employer] and [employer] for insurance and her PCP is Dr. Rae. EMR was reviewed. Per MD, confirmed pt has DVT and significant pain when ambulating and likely here a couple of days. SW met briefly bedside with pt and Dtr and explained role and they confirm that pt was in the hospital here recently for [place] at the first part of Jan 2021 and was able to d/c home with spouse and Dtr assist. Pt lives in [place] with her spouse and is independent at baseline and Dtr is available for assist if needed. DPOA is Dtr and pt denies any hx of HH or SNF. Plan: SW to follow closely to determine if pt will be safe for d/c home with family assist and any further identified discharge planning needs. PT/OT may be helpful when medically appropriate to determine d/c planning needs. TRACY Sevilla
--- NOTE | 2021-02-04 17:09 | PM.PN.1 ---
Subjective Subjective Date Patient Seen: 02/04/21 Interval history: Patient is a 75-year-old female approximately 1 month status post lumbar spine surgery who approximately 9 days ago started having pain and swelling in her right lower extremity. For orthopedist ordered an outpatient ultrasound which revealed right lower extremity DVT and she was sent ED for further evaluation. Because of shortness of breath CTA of the chest was obtained and revealed pulmonary embolus. She continues to have significant pain in the popliteal area with standing or trying to ambulate from bed to bathroom. The nurses do note that she is anxious because of her pain. There has not been complaints of chest pain or shortness of breath however her pain is her primary issue Exam Vital Signs (past 8 hours): - 02/04/21 09:29 02/04/21 13:00 Temperature 97.9 F 97.8 F Pulse Rate 71 74 Respiratory Rate 20 19 Blood Pressure 115/59 L 115/52 L Pulse Oximetry 92 92 Oxygen Delivery Method Room Air Oxygen Flow Rate 0 Narrative Exam Narrative: Constitutional: NAD laying in bed HEENT: Normocephalic atraumatic extraocular movements intact pupils are equal round reactive to light fundi were not viewed. Sclera and conjunctiva clear. Oropharynx clear with moist mucous membranes. Neck: Supple without thyromegaly bruits or jugular venous distention Thorax: Symmetrical with good lateral expansion no splinting Respiratory: Clear to auscultation Cardiovascular: Regular rhythm S1-S2 was normal the renal issues rubs murmurs gallops present GI: Benign bowel sounds active : No Artis in place Musculoskeletal: Edema right lower extremity tenderness palpation popliteal area Neurological: Cranial nerves 2-12 intact: Motor equal active: Sensory with crude touch intact Psychological: Anxious female awake alert oriented x3 Skin: No acute rashes Objective Labs Result Diagrams: 02/04/21 05:16 02/03/21 12:01 Labs: Laboratory Results - last 24 hr 02/04/21 02/04/21 05:16 05:16 WBC 7.5 RBC 4.22 Hgb 12.3 Hct 37.4 MCV 88.6 MCH 29.2 MCHC 32.9 RDW 13.3 Plt Count 224 Neut % (Auto) 41.7 L Lymph % (Auto) 36.0 [place] % (Auto) 13.7 Eos % (Auto) 7.1 H Baso % (Auto) 1.5 Neut # (Auto) 3100 Lymph # (Auto) 2700 [place] # (Auto) 1000 H Eos # (Auto) 500 H Baso # (Auto) 100 Troponin I < 0.012 Procalcitonin 0.07 PFSH Medical History Diverticulosis Epidural lipomatosis Fatty liver IBS (irritable bowel syndrome) Left foot infection Primary osteoarthritis of both hips Spinal stenosis of lumbar region with neurogenic claudication Spondylolisthesis, lumbar region Surgical History Status post left foot surgery Social History household members: children Smoking Status: Never smoker alcohol intake: former Assessment & Plan Assessment & Plan narrative: PE/DVT Continue with Lovenox 140 mg subQ daily which is essentially 1.5 milligrams/kilogram Continue to check CBCs serially for any decreases that might suggest bleed Right lower extremity/popliteal pain Order hydrocodone/acetaminophen 1-1/2 hour prior to standing or going to the bathroom Leukocytosis, resolved with WBC 7.5 today Transaminitis noted 01/06/2021 No LFTs done this admission. Will obtain LFTs in a.m.
[2021-02-04] MEDS: MAGNESIUM HYDROXIDE 30 ML UDC PO (19:06)
[2021-02-04] MEDS: GLYCERIN SUPP ADULT 1 SUPP 1 EACH PR (19:50)
[2021-02-04] MEDS: SENNOSIDES 8.6 MG TABLET PO (20:00)
[2021-02-05] VITALS (10 sets, daily range): BP systolic 114–124; BP diastolic 47–70; PULSE 62–72; RESP 16–18; TEMP 36.1–36.6; O2SAT 93–97
[2021-02-05] MEDS: HYDROCODONE/ACET 10/325 TABLET 1 TAB PO ×5 (00:48→21:31)
[2021-02-05 06:18] LABS: Add Manual Diff / Slide Review NO; Basophils Absolute Auto 100 /uL (0-100); Basophils Percent Auto 1.2 % (0-2); Eosinophils Absolute Auto 400 /uL (0-450); Eosinophils Percent Auto 5.5 % (2-4); Hematocrit 39.7 % (36-46); Hemoglobin 13.2 g/dL (12.0-16.0); Lymphocytes Absolute Auto 2700 /uL (1100-4500); Lymphocytes Percent Auto 42.7 % (25-40); Mean Corpuscular HGB Conc 33.2 % (30-36); Mean Corpuscular Hemoglobin 29.2 PG (26-34); Monocytes Absolute Auto 600 /uL (0-900); Neutrophils Absolute Auto 2700 /uL (1500-7000); Neutrophils Percent Auto 41.6 % (50-75); Platelet Count 276 X10^3/uL (150-400); Red Blood Cell Count 4.51 X10^6/uL (4.0-5.2); Red Cell Distribution Width 13.1 % (11.6-14.8); White Blood Cell Count 6.4 X10^3/uL (4.5-11.0)
[2021-02-05 06:26] LABS: Alanine Aminotransferase 84 IU/L (<35); Albumin 3.7 g/dL (3.5-5.0); Albumin Globulin Ratio 1.1 (1.0-2.8); Alkaline Phosphatase 282 U/L (38-126); Aspartate Aminotransferase 114 IU/L (14-36); Bilirubin Total 0.6 mg/dL (0.2-1.3); Blood Urea Nitrogen 7 mg/dL (7-17); Calcium 9.4 mg/dL (8.4-10.2); Carbon Dioxide 30 mmol/L (22-32); Chloride 101 mmol/L (98-107); Estimated Glomerular Filt Rate > 60.0 mL/min (>60); Globulin 3.5 g/dL (1.7-4.1); Glucose 104 mg/dL (80-110); HEMOLYSIS < 15 (0-50); Potassium 4.4 mmol/L (3.4-5.1); Sodium 134 mmol/L (137-145); Total Protein 7.2 g/dL (6.3-8.2)
--- NOTE | 2021-02-05 08:01 | DI.US.S_ITS ---
PROCEDURE: US ABDOMEN LIMITED INDICATIONS: ABNORMAL LIVER FUNCTION TESTS TECHNIQUE: Real-time focused scanning was performed of the abdomen, with image documentation. COMPARISON: [facility], CT, CT ABDOMEN PELVIS W CON, 08/23/2020, 10:30. [facility], CT, CT ANGIO CHEST PE PROTOCOL, 02/03/2021, 12:31. [facility], US, US ABDOMEN COMPLETE, 08/22/2018, 9:07. FINDINGS: The liver is enlarged. There is increased echogenicity consistent with fatty change. The gallbladder is surgically absent. There is marked dilatation of the extrahepatic duct, measuring 6.6 cm. Of note, this is similar to the previous CT scan from 08/23/2020. Patient is noted to be quite tender on examination. Visualized portions the pancreas are unremarkable. IMPRESSION: 1. Hepatomegaly, diffuse hepatic steatosis. 2. Remote cholecystectomy. 3. Marked dilatation of the extrahepatic duct. This is a chronic finding. However, the patient was noted to have significant pain on examination. Comment: If suspect common duct stone, consider MRCP. Dictated by: Cristóbal Wick M.D. on 02/05/2021 at 15:12 Approved by: Cristóbal Wick M.D. on 02/05/2021 at 15:16
[2021-02-05] MEDS: RIVAROXABAN 10 MG TABLET 15 MG PO ×2 (08:45→16:06)
[2021-02-05] MEDS: DOCUSATE 100 MG CAPSULE PO (08:45)
--- NOTE | 2021-02-05 15:22 | PC.NURSE ---
Pt NPO today for Abdominal US, related to elevated liver enzymes. Pain well controlled on vicodin 10/325mg PRN q 3hours. VSS, afebrile 97% 02 sats on RA, LS Clear throughout. Lovenox dc'd and po xarelto started today. Per MD plan for possible discharge home tomorrow.
--- NOTE | 2021-02-05 15:25 | PC.NURSE ---
Patient voices no complaints of pain. She is resting comfortably and vicodin effective for pain.
--- NOTE | 2021-02-05 15:58 | PM.PN.1 ---
Subjective Subjective Date Patient Seen: 02/05/21 Interval history: Patient is a 75-year-old female approximately 1 month status post lumbar spine surgery who approximately 9 days ago started having pain and swelling in her right lower extremity. For orthopedist ordered an outpatient ultrasound which revealed right lower extremity DVT and she was sent ED for further evaluation. Because of shortness of breath CTA of the chest was obtained and revealed pulmonary embolus. The pain of her popliteal area significantly improved with adjustment of her opioid dosing. She was seen walking from the bathroom to her bed this morning without much difficulty. Exam Vital Signs (past 8 hours): - 02/05/21 08:00 02/05/21 10:00 02/05/21 11:57 Temperature 96.9 F L 97.7 F Pulse Rate 64 63 Respiratory Rate 17 18 Blood Pressure 114/59 L 124/66 Pulse Oximetry 96 97 96 02/05/21 14:00 02/05/21 15:40 Temperature 97.8 F Pulse Rate 70 Respiratory Rate 18 Blood Pressure 123/64 Pulse Oximetry 97 95 Oxygen Delivery Method Room Air Oxygen Flow Rate 0 Narrative Exam Narrative: onstitutional: NAD laying in bed HEENT: Normocephalic atraumatic extraocular movements intact pupils are equal round reactive to light fundi were not viewed. Sclera and conjunctiva clear. Oropharynx clear with moist mucous membranes. Neck: Supple without thyromegaly bruits or jugular venous distention Thorax: Symmetrical with good lateral expansion no splinting Respiratory: Clear to auscultation Cardiovascular: Regular rhythm S1-S2 was normal the renal issues rubs murmurs gallops present GI: Benign bowel sounds active : No Artis in place Musculoskeletal: Edema right lower extremity improving Neurological: Cranial nerves 2-12 intact: Motor equal active: Sensory with crude touch intact Psychological: Anxious female awake alert oriented x3 Skin: Intertrigo involving beneath the breast folds Objective Labs Result Diagrams: 02/05/21 05:26 02/05/21 05:26 Labs: Laboratory Results - last 24 hr 02/05/21 02/05/21 05:26 05:26 WBC 6.4 RBC 4.51 Hgb 13.2 Hct 39.7 MCV 88.0 MCH 29.2 MCHC 33.2 RDW 13.1 Plt Count 276 Neut % (Auto) 41.6 L Lymph % (Auto) 42.7 H [place] % (Auto) 9.0 Eos % (Auto) 5.5 H Baso % (Auto) 1.2 Neut # (Auto) 2700 Lymph # (Auto) 2700 [place] # (Auto) 600 Eos # (Auto) 400 Baso # (Auto) 100 Sodium 134 L Potassium 4.4 Chloride 101 Carbon Dioxide 30 BUN 7 Creatinine 0.70 Estimated GFR > 60.0 BUN/Creatinine Ratio 10.0 Glucose 104 Calcium 9.4 Total Bilirubin 0.6 AST 114 H ALT 84 H Alkaline Phosphatase 282 H Total Protein 7.2 Albumin 3.7 Globulin 3.5 Albumin/Globulin Ratio 1.1 [facility] Medical History Diverticulosis Epidural lipomatosis Fatty liver IBS (irritable bowel syndrome) Left foot infection Primary osteoarthritis of both hips Spinal stenosis of lumbar region with neurogenic claudication Spondylolisthesis, lumbar region Surgical History Status post left foot surgery Social History household members: children Smoking Status: Never smoker alcohol intake: former Assessment & Plan Assessment & Plan narrative: PE/DVT She is on Lovenox 140 mg subQ daily. As her clinical condition has improved I will discontinue her Lovenox and place her on Xarelto She is explained that she will take Xarelto for 21 days and then once a day. Today starting Xarelto 15 mg p.o. b.i.d. and then at 12 after 21 days start Xarelto 20 mg p.o. daily Continue to follow CBCs serially for any decreases that might suggest bleed Right lower extremity/popliteal pain Her pain has improved with the change in her hydroxy code own/acetaminophen to hydrocodone/acetaminophen 1-1/2 hour prior to standing or going to the bathroom No change in her opioid therapy Leukocytosis, resolved with WBC 6.4 today Transaminitis This was noted from her LFTs on 01/06/2021 No LFTs done this admission. LFTs in a.m. revealed an AST of 114 ALT of 84 and alk-phos of 282. She is on Hydroxycodone/acetaminophen. She was advised of the potential problems with acetaminophen on the liver. She was told that she will need to have her LFTs checked periodically to ensure that there is no significant increase in her LFTs. She was advised that if there was significant increase in her LFTs she would have to stop using acetaminophen. I have ordered acute hepatitis panel and limited ultrasound of the abdomen to check liver biliary tree. Patient does not have a gallbladder. She is post prior cholecystectomy Disposition Discharge home in a.m.
[2021-02-05] MEDS: CLOTRIMAZOLE 1% CRM 30 GM 1 APPLIC TOP (20:55)
--- NOTE | 2021-02-05 21:40 | PC.NURSE ---
Evening Shift Note Patient A&O, VSS, RA 94%, complaint of pain in RLE d/t DVT with ambulation, resolves with PRN order 10mg [place]. Daughter at bedside and assisting patient with ADLs. Patient calling appropriately for assistance to bathroom. Patient calls when finished but does not wait for PAD EXTRACTION TENDER or this RN to assist patient back to bed. Bed alarm on for precaution. Patient expresses that daughter is at bedside and can help her back to bed. This RN educated patient and daughter in importance of waiting for staff assist d/t high fall risk. Patient stated that she can't stand waiting for us d/t pain in RLE, patient medicated appropriately through out shift per JAN. This RN stated that she cannot force patient to comply with hospitals policies and would have to chart appropriately to reflect behavior. Daughter also reminded not to empty urine hat in bathroom or flush toilet post void or BM. Educated on reasons RN needs to visually observe urine/stool to accurately document intake and output. Patient's daughter continues to empty hat and flush toilet despite frequent reminders per this RN. Intake and output documented this shift per patient and daughter. Will continue to monitor and update oncoming night filler RN.
[2021-02-06 00:40] VITALS: BP 115/59; PULSE 65; RESP 18; TEMP 36.6; O2SAT 98
[2021-02-06 02:00] VITALS: O2SAT 98
[2021-02-06 04:00] VITALS: BP 141/58; PULSE 76; RESP 18; TEMP 36.6; O2SAT 98
[2021-02-06] MEDS: HYDROCODONE/ACET 10/325 TABLET 1 TAB PO ×3 (04:29→13:01)
[2021-02-06 05:09] LABS: Add Manual Diff / Slide Review NO; Basophils Absolute Auto 100 /uL (0-100); Basophils Percent Auto 1.2 % (0-2); Eosinophils Absolute Auto 400 /uL (0-450); Eosinophils Percent Auto 6.5 % (2-4); Hematocrit 39.5 % (36-46); Hemoglobin 13.2 g/dL (12.0-16.0); Lymphocytes Absolute Auto 2700 /uL (1100-4500); Lymphocytes Percent Auto 41.2 % (25-40); Mean Corpuscular HGB Conc 33.4 % (30-36); Mean Corpuscular Hemoglobin 29.6 PG (26-34); Mean Corpuscular Volume 88.6 fL (80-100); Monocytes Absolute Auto 600 /uL (0-900); Monocytes Percent Auto 9.3 % (3-14); Neutrophils Absolute Auto 2800 /uL (1500-7000); Neutrophils Percent Auto 41.8 % (50-75); Platelet Count 283 X10^3/uL (150-400); Red Blood Cell Count 4.46 X10^6/uL (4.0-5.2); Red Cell Distribution Width 13.3 % (11.6-14.8); White Blood Cell Count 6.6 X10^3/uL (4.5-11.0)
[2021-02-06 05:25] VITALS: O2SAT 98
[2021-02-06 07:36] LABS: HBsAg Screen Negative (Negative); Hepatitis A Antibody IgM Negative (Negative); Hepatitis B Core Antibody IgM Negative (Negative); Hepatitis C Antibody <0.1 s/co ratio (0.0-0.9)
[2021-02-06 08:00] VITALS: BP 138/61; PULSE 71; RESP 18; TEMP 36.4; O2SAT 95
[2021-02-06] MEDS: RIVAROXABAN 10 MG TABLET 15 MG PO (08:14)
[2021-02-06] MEDS: SODIUM CHLORIDE 0.9% FLUSH 10 ML IV (08:15)
--- NOTE | 2021-02-06 11:02 | PT.IIE ---
Current Diagnoses Acute embolism and thrombosis of unspecified deep veins of right lower extremity (02/03/21) Surgical History (Last Reviewed 01/07/21 @ 09:02 by Barb Salcido PA-C) Status post left foot surgery Medical History (Last Reviewed 02/03/21 @ 12:06 by Aydin Pratt DO) Diverticulosis Epidural lipomatosis Fatty liver IBS (irritable bowel syndrome) Left foot infection Primary osteoarthritis of both hips Spinal stenosis of lumbar region with neurogenic claudication Spondylolisthesis, lumbar region Physical Therapy Inpatient Evaluation/Re-Eval M1 PT/OT-IP Prior Functional Status Start: 02/06/21 10:27 Freq: NEEDED Status: Active Protocol: Document 02/06/21 11:02 AW (Rec: 02/06/21 11:45 AW [id number]) Medical Review Prior Functional Status Medical History Reviewed Yes Communication WNL. Pt is an effective verbal communicator Mobility and Gait Pt had L3-S1 TLIF on 01/04/21. Since that time, she has used a FWW for all household ambulation. She has a manual w /c which her daughter uses to assist pt into the house. Activities of Daily Living and IADL's Pt has been requiring assist with all ADL's since surgery. Social History Household Members children Living Arrangements House Number of Floors (Floors) Two Floors Number of Stairs To Enter/Railing? Pt stays on main level. Her daughter uses a wheelchair to get the pt into the back entrance. Home Environment Standard Height Toilet,Walk in Shower Home Equipment Front Wheel Walker,Manual Wheelchair,Bedside Commode, Raised Toilet Seat w/Armrests, Shower Seat with Backrest, Certified Orthoptist,Lift Recliner,Grab Bars Near Toilet,Grab Bars In Shower Additional Social History Comment Pt has a bed cane installed on the right side of the bed. She lives with her daughter, Meghan, who has been providing all assist. M2 PT-IP Current Condition Start: 02/06/21 10:27 Freq: NEEDED Status: Active Protocol: Document 02/06/21 11:02 AW (Rec: 02/06/21 11:45 AW [id number]) Physical Therapy Current Condition Current Condition Evaluation Date 02/06/21 Treatment Diagnosis RLE DVT, PE, recent lumbar surgery; difficulty in walking Onset Date 02/03/21 Precautions Lumbar Precautions Log Roll,No Twisting,Limit Bending,Lifting Restriction of 10 lbs,Gait Belt above Incisional Area M3 PT-IP Subjective Start: 02/06/21 10:27 Freq: NEEDED Status: Active Protocol: Document 02/06/21 11:02 AW (Rec: 02/06/21 11:45 AW [id number]) Subjective Physical Therapy Visit Type Type Initial Evaluation Visit Start Time 10:39 Visit Stop Time 11:02 Total Visit Minutes 23 Notes Pt's daughter was presenr throughout evaluation Number of TRAILER SECTIONS ASSEMBLER Visits 0 Physical Therapy Visit Comments Patient Comments Pt is anxious about mobilizing but willing to participate with PT Patient Goals Return home and be able to walk/stand with less pain. Therapy Pain Assessment Pain When Pain Assessed During Mobility Pain Present Pain Present Pain Reported Location Right Leg Intensity 8 Scale Used Numeric (0 - 10) Pain Behaviors Wincing Pain Management Techniques Distraction,Re-positioning, Timing of Activity with Medications M4 PT-IP Mobility and Gait Start: 02/06/21 10:27 Freq: NEEDED Status: Active Protocol: Document 02/06/21 11:02 AW (Rec: 02/06/21 11:45 AW [id number]) PT-Bed Mobility Assessment Supine to Sit Supine to Sit Standby Assistance,Head of Bed Elevated,Bedrails Sit to Supine Sit to Supine Standby Assistance Scooting Scooting to Edge of Bed Standby Assistance PT-Transfer Assessment Sit to and From Stand Sit to and from Stand Contact Guard Assistance,1 Person Assistance,Use of Upper Extremities Equipment Transfer Assistive Device Gait Belt,Front Wheeled Walker Orthotic/Prosthetic Devices or Brace: No Transfers Transfer Destination Bed,Chair Transfer Technique Stand Step Pivot Comments Mobility Comments Pt was sitting up in the bed as PT arrived. She has been sleeping in her lift recliner at home, so she completed transition to sitting on the right side EOB with HOB up and use of bed rails. She stood from the bed in lowest position CGA and used the FWW to ambulate around the foot of the bed to the chair CGA. She complained of increased pain 8/10 but was wiling to stand again and transfer to the bed CGA with FWW. She then completed sit to supine SBA. Pt was left with call light and all needs within reach. Bed alarm was on for safety. Gait Assessment Gait Gait Assistance Required: Contact Guard Assist Distance (Feet) 15 Able to Maintain Weight Bearing Status Yes During Gait Assistive Devices Assistive Device Gait Belt,Front Wheeled Walker Orthotic/Prosthetic Devices or Brace: No Gait Deviations General Gait Pattern Antalgic,Decreased Stride Length,Decreased Feet Clearance,Flexed Trunk,Step-to Gait Factors Limiting Gait Function Factors Limiting Gait Function Decreased Activity Tolerance, Decreased Sensation,Decreased Strength,Limited Range of Motion,Pain,Poor Balance Comments Gait Comments See mobility comments for details. Stair Climbing Assessment Comments Stair Climbing Comments Not assessed. Pt has w/c assist into her home. PT-Balance Assessment Sitting Balance and Reactions Static Sitting Balance Ability Good Dynamic Sitting Balance Ability Good Standing Balance and Reactions Static Standing Balance Ability Good Dynamic Standing Balance Ability Fair Device Used FWW Balance Tests Single Limb Standing unable M5 PT-IP Objective Assessments Start: 02/06/21 10:27 Freq: NEEDED Status: Active Protocol: Document 02/06/21 11:02 AW (Rec: 02/06/21 11:45 AW [id number]) Orientation Orientation/Cognition Level of Alertness Alert Orientation Name,Day of Week,Place, Situation Language Function Ability No Deficits Noted Safety Awareness Understands Safety Issues Comments Pt repeated herself frequently , seemingly having forgotten what she already communicated. She presents with high anxiety. Gross Range of Motion Lower Extremity ROM Assessment Within Functional Limits Strength Lower Extremity Strength Assessment Within Functional Limits Hip 4-/5 Knee 4-/5 Sensation Assessment Sensation Gross Sensation Right LE Impaired Sensation Description Tingling Comments Sensation Comments Pt states no different than baseline sensation. Muscle Tone Muscle Tone WNL Yes M6 PT-IP Treatment Start: 02/06/21 10:27 Freq: NEEDED Status: Active Protocol: Document 02/06/21 11:02 AW (Rec: 02/06/21 11:45 AW [id number]) Physical Therapy Treatment Exercises Exercises Ankle Pumps,Quad Sets,Heel Slides Education Education Provided Precautions,Safety Other Treatments Other Treatment Performed Provided education to pt and her daughter on the benefits of continued mobility with LE DVT. M7 PT-IP Assessment and Plan Start: 02/06/21 10:27 Freq: NEEDED Status: Active Protocol: Document 02/06/21 11:02 AW (Rec: 02/06/21 11:45 AW [id number]) PT Summary Assessment and Plan Potential Rehabilitation Potential Good Status of Condition at Evaluation Evolving Summary Impairments Pain,ROM,Strength,Balance, Sensation,Cognition,Bed Mobility,Transfers,Gait, Activity Tolerance Assessment Summary Monet is a 75 yo man seen for PT evaluation with admitting diagnosis of RLE DVT and PE. She has been adequately anticoagulated per hospitalist . She had multi-level lumbar surgery on 01/04/21. Since that time, she has been using a FWW for household mobility. Her daughter lives with her and has been providing all needed assist with ADL's/IADL's. On evaluation, pt required CGA for transfers and 15 feet ambulation with FWW during which she complained of 8/10 RLE pain. PT educated the pt and her daughter on the benefits of continued mobility in the context of VTE. Pt is safe to return home with family assist. She would benefit from PT to progress her safe mobility and prevent complications related to immobility. Goals Bed Mobility Goal Independent Transfer Goal Independent,Front Wheeled Walker Gait Goal Standby Assistance,Front Wheel Walker Gait Distance 50 feet Days to Meet Goals 5 Frequency of Treatment Frequency Of Treatment Once a Day Treatment Plan Physical Therapy Treatment Plan Bed Mobility Training,Transfer Training,Gait Training, Therapeutic Exercise,Balance Retraining,Post Op Education, Discharge Planning,Hot or Cold Pack Other Recommendations and Next Treatment mobility as tolerated Focus Precautions Lumbar Precautions Log Roll,No Twisting,Limit Bending,Lifting Restriction of 10 lbs,Gait Belt above Incisional Area Recommendations To Nursing Amount of Assist Needed Standby Assistance,1 Person Assist Discharge Recommendations PT Discharge Recommendations Home with Assistance,Home Health Transportation Needs at Discharge Private Vehicle
[2021-02-06] MEDS: GABAPENTIN 100 MG CAPSULE PO (11:25)
[2021-02-06] MEDS: CLOTRIMAZOLE 1% CRM 30 GM 1 APPLIC TOP (11:25)
[2021-02-06] MEDS: TRAMADOL 50 MG TABLET PO (11:25)
[2021-02-06 11:26] VITALS: O2SAT 94
--- NOTE | 2021-02-06 12:12 | P.DS_ITS ---
History of Present Illness History of Present Illness Date Patient Seen: 02/06/21 Time Patient Seen: 12:12 Chief complaint: sent by DI for possible DVT Narrative: Per Dr. Panda, Patient is a 75-year-old female approximately 1 month status post lumbar spine surgery who approximately 9 days ago started having pain and swelling in her r ight lower extremity. Prior to that she was starting to wean herself off the pain medication but the pain returned so she increased it. Patient states that she has been having increasing problems with pain on standing and when trying to ambulate. Therefore she called Dr. Serena Kinsey office and he ordered an outpatient ultrasound which showed a right lower extremity DVT. She was sent to the [facility]. She also reports that over the past week she has had occasional shortness of breath. CTA of the chest was performed and reveal bilateral numerous partially occlusive and occlusive pulmonary emboli involving the upper, mid and lower lungs without evidence of right heart insufficiency. She was given a dose of Lovenox in the ED. She is therefore being admitted for further workup and management of her pulmonary embolus/DVT Discharge Providers Provider Date of admission: 02/03/21 16:12 Discharge Date: 02/06/21 Primary care physician: Saul Rae MD Consults: 02/06/21 10:01 Consult to Physical Therapy Evaluate & Treat Comment: Physician Instructions: Evaluate and Treat Discharge provider: Angelito Alberto DO Summary Hospital Course Discharge Diagnosis: 1. DVT/PE, acute, present on admission. 2. transaminitis, acute on chronic. Hospital Course: Monet Nash is [age]-year-old female who was admitted with a lower extremity DVT and found to have PE. Echocardiogram was performed which did not show evidence of right heart strain. The patient was initially started on Lovenox and then transition to Xarelto which she will continue as an outpatient. She had difficulties with pain control and is the reason for prolonged stay. She also had mildly elevated liver enzymes. She had an abdominal ultrasound which showed fatty infiltration and a dilated extrahepatic duct which has been seen on prior imaging. She does have a prior history of cholecystectomy. She does not use excessive acetaminophen at home, and a hepatitis panel was sent. Repeat follow-up is recommended with her primary care provider for continued monitoring as well as continuation of her Xarelto as she will need a new prescription for 20 mg once a day after she completes her initial 21 day course of 15 mg twice daily. DVT is considered provoked as she does have a recent history of laminectomy. She was seen by Physical therapy who recommended discharge home with home health given her recent surgery. Status at Discharge Cognitive/behavioral status at discharge: oriented Overall status at discharge: patient is progressing back to baseline Time Spent with Patient Time spent: Less than 30 minutes Exam Vital Signs (past 8 hours): - 02/06/21 05:25 02/06/21 08:00 02/06/21 11:26 Temperature 97.6 F Pulse Rate 71 Respiratory Rate 18 Blood Pressure 138/61 Pulse Oximetry 98 95 94 Oxygen Delivery Method Room Air Oxygen Flow Rate 0 Narrative Exam Narrative: Constitutional: NAD laying in bed HEENT: Normocephalic atraumatic extraocular movements intact pupils are equal round reactive to light fundi were not viewed. Sclera and conjunctiva clear. Oropharynx clear with moist mucous membranes. Neck: Supple without thyromegaly bruits or jugular venous distention Thorax: Symmetrical with good lateral expansion no respiratory distress Respiratory: Clear to auscultation bilaterally Cardiovascular: Regular rhythm S1-S2 was normal the renal issues rubs murmurs gallops present GI: S NT ND Musculoskeletal: Edema right lower extremity resolved this AM Neurological: Cranial nerves 2-12 intact: Motor equal active: Sensory with light touch intact Psychological: mildly Anxious female awake alert oriented x3 Objective Labs Result Diagrams: 02/06/21 04:32 02/05/21 05:26 Labs: Laboratory Results - last 24 hr 02/05/21 02/06/21 11:45 04:32 WBC 6.6 RBC 4.46 Hgb 13.2 Hct 39.5 MCV 88.6 MCH 29.6 MCHC 33.4 RDW 13.3 Plt Count 283 Neut % (Auto) 41.8 L Lymph % (Auto) 41.2 H [place] % (Auto) 9.3 Eos % (Auto) 6.5 H Baso % (Auto) 1.2 Neut # (Auto) 2800 Lymph # (Auto) 2700 [place] # (Auto) 600 Eos # (Auto) 400 Baso # (Auto) 100 Hepatitis A IgM Ab Negative Hep Bs Antigen Negative Hep B Core IgM Ab Negative Hepatitis C Antibody <0.1 Hep C Ab Signal/Cutoff Comment [facility] Medical History Diverticulosis Epidural lipomatosis Fatty liver IBS (irritable bowel syndrome) Left foot infection Primary osteoarthritis of both hips Spinal stenosis of lumbar region with neurogenic claudication Spondylolisthesis, lumbar region Surgical History Status post left foot surgery Social History household members: children Smoking Status: Never smoker alcohol intake: former Discharge Plan Discharge Plan Patient Disposition: Home Health Service Provider Discharge Comment: You were admitted to the hospital with a DVT and also found to have a pulmonary embolism. You can take up to 4g of tylenol in a day (8 extra strength or about 12 regular strength) in addition to the added ga bapentin and you can continue your home hydrocodone. For your elevated liver enzymes I recommend another blood draw as an outpatient to recheck these lab values. You should continue the gabapentin as this can help work with your opiate pain medications for added control and I have also added tramadol as needed given your acute pain from the DVT. Xarelto is the treatment for your DVT and dosing is 15 mg twice daily for 21 days, followed by 20 mg daily after that. I recommend you get the 20 mg dosing from your PCP as it would be a good idea to follow up in the next 3 weeks to go over your hospitalization before then and review your pain control at that time. Discharge orders & Medications Prescriptions: New rivaroxaban 15 mg tablet 15 mg PO BIDWM 21 Days Qty: 42 RF: 0 tramadol 50 mg Tablet 50 mg PO TID PRN (Reason: Pain, Moderate (4-6)) 7 Days Qty: 21 RF: 0 gabapentin 100 mg Capsule 100 mg PO TID 30 Days Qty: 90 RF: 0 Continued Sleep Aid (doxylamine) 25 mg Tablet 25 mg PO BEDTIME PRN (Reason: Insomnia) RF: 0 pantoprazole 40 mg tablet,delayed release (DR/EC) 1 mg PO DAILY PRN (Reason: acid stomach) RF: 0 hydrocodone-acetaminophen 10-325 mg Tablet 1 tab PO Q4HR PRN (Reason: Pain, Moderate (4-6)) Qty: 50 RF: 0 docusate sodium [DOK] 100 mg Capsule 100 mg PO BID Qty: 20 RF: 0 hydroxyzine pamoate 25 mg Capsule 25 mg PO Q4HR PRN (Reason: muscle spasm) Qty: 50 RF: 0 Follow up/Referrals: Saul Rae MD [Primary Care Provider] - Diet/Activity/Treatments Diet: Diet as Tolerated Activity: As tolerated Visit Report/Discharge Packet Instructions: DI for Deep Vein Thrombosis, DI for Pulmonary Embolism, Rivaroxaban, Gabapentin, Tramadol Discharge Data Primary Care Provider: Saul Rae
--- NOTE | 2021-02-06 14:44 | PC.NURSE ---
Went over dc medications and instructions with patient and patients daughter Marii, questions answered. Rx sent to [facility] electronically. Patient aware to call and make an appt with her PCP within three weeks. Patient taken via wc to vehicle driven by daughter. Patient had all belongings.
--- NOTE | 2021-02-06 16:48 | CM.DPC ---
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 Physical therapy recommending home with Home Health after evaluation completed 02/06/21. Spoke with Dr. Alberto who is also in agreement with recommendations. Educated patient regrading Home Health Services and the requirement of being home bound. Patient and daughter were In agreement with the Home Health recommendation for RN and PT they verbally reported an understanding of being homebound. Patient was provided with list of Home Health providers she chose [facility]. Spoke with Luma this date who reported services will start on 02/08/21. Will send over documentation to initiate Home Health to , documents will include: F2F, H&P, therapy evaluation, home health order, and demographics. Provided patient with a [facility] brochure and a copy of Important Message from Medicare was provided to patient. Patient?s daughter Marii confirmed she will be providing transportation for patient this date. PLAN: Patient will D/C home with home health this date. TRACY James MSW Student
== END 2021-02-06 14:46 | disposition home health service (06) | DRG 299 ==
LOC: ED 15:31 → AC 16:13
PROVIDERS: Nurse Practitioner Family; Admitting Provider Internal Medicine; Emergency Provider Emergency Medicine; PCP Family Medicine; Referring Provider Emergency Medicine; Visit Provider Internal Medicine
DX: I82.431 Acute embolism and thrombosis of right popliteal vein (principal); I26.99 Other pulmonary embolism without acute cor pulmonale; I82.411 Acute embolism and thrombosis of right femoral vein; Z98.890 Other specified postprocedural states; R74.01 Elevation of levels of liver transaminase levels; Z20.822 Contact with and (suspected) exposure to COVID-19
CPT/HCPCS: 36415; 71275; 76705; 80048; 80053; 80074; 83880; 84145; 84484; 85025; 85610; 85730; 87635; 93306; 93971; 96360; 96372; 97162; 99284; 99285; C9803; J1650; Q9967

== ENCOUNTER → 2021-05-26 07:05 | Outpatient (CLI) | payer OTHER, SELFPAY ==
[2021-02-03 17:11] VITALS: BMI 36.6
--- NOTE | 2021-05-26 08:51 | DI.CT.S_ITS ---
PROCEDURE: CT ABDOMEN W CON INDICATIONS: Unspecified abdominal pain TECHNIQUE: After the administration of intravenous contrast, axial sections acquired from the diaphragm to the iliac crests. Coronal and sagittal reformats were performed. For radiation dose reduction, the following was used: automated exposure control, adjustment of mA and/or kV according to patient size. COMPARISON: [facility], CT, CT ABDOMEN PANCREATIC PROTOCOL, 05/04/2020, 7:30. [facility], MR, MR ABDOMEN WITH/WITHOUT CONTRAST, 11/26/2019, 11:07. [facility], CT, CT ANGIO CHEST PE PROTOCOL, 02/03/2021, 12:31. FINDINGS: Image quality: Excellent. Lung bases: Unremarkable. Heart: No significant findings. Liver: Elongated right hepatic lobe measuring 19.1 cm in length. Mildly diffusely hypodense hepatic parenchyma, less so compared to the prior study.. Gallbladder: The gallbladder is surgically absent. Biliary ducts: Stable moderate central intrahepatic biliary dilatation and significant extrahepatic common duct dilatation the distal common duct is normal caliber and there are no filling defects visible. Pancreas: The pancreatic head and uncinate process redemonstrate diffuse hypodensity. The pancreatic body and tail are stable without progressive atrophy, mass, or ductal dilatation. Main pancreatic duct remains stable at the upper limits of normal measuring 3.7 mm. There is no peripancreatic inflammation. Spleen: Unremarkable. Adrenal Glands: Unremarkable. Kidneys and Ureters: Two small cortical cysts in the lower pole of the left kidney. Kidneys are otherwise unremarkable. Stomach and Bowel: Stomach, small bowel loops, and colon are unremarkable. Peritoneum: No abnormal intraperitoneal fluid. No free air. Ventral Wall: Partially imaged ventral abdominal wall hernia. Abdominal Nodes: No retroperitoneal or mesenteric adenopathy by size criteria. Vessels: Aorta and inferior vena cava are normal in size. Bones: Unremarkable. There are partially imaged surgical changes of laminectomy and fusion in the lower lumbar spine. IMPRESSION: 1. Stable fatty infiltration of the proximal pancreas. No other pancreatic abnormalities. 2. Post cholecystectomy with stable biliary dilatation and no evidence of distal obstruction. 3. Mild hepatomegaly and hepatic steatosis, slightly decreasing compared to prior studies. 4. Multilevel surgical changes in the lumbar spine. Dictated by: Valarie Singh M.D. on 05/26/2021 at 10:27 Approved by: Valarie Singh M.D. on 05/26/2021 at 10:40
== END ==
PROVIDERS: Family Provider Family Medicine; PCP Family Medicine; Referring Provider Family Medicine; Visit Provider Family Medicine
DX: R10.9 Unspecified abdominal pain (principal); R74.8 Abnormal levels of other serum enzymes; K76.0 Fatty (change of) liver, not elsewhere classified; Z90.49 Acquired absence of other specified parts of digestive tract; Z98.1 Arthrodesis status
CPT/HCPCS: 74160

== ENCOUNTER → 2021-06-08 15:40 | Outpatient (CLI) | payer OTHER, SELFPAY ==
[2021-02-03 17:11] VITALS: BMI 36.6
--- NOTE | 2021-06-08 15:42 | DI.US.S_ITS ---
PROCEDURE: [facility] VENOUS LOW EXTREM BI INDICATIONS: Bilateral leg pain, clinical concern for deep venous thrombosis. TECHNIQUE: Real-time imaging, as well as color and pulse Doppler interrogation, were performed of the deep veins of both legs from the inguinal ligament to the popliteal fossa. COMPARISON: [facility], [place], [facility] VENOUS LOW EXTREM RT, 02/03/2021, 11:19. FINDINGS: Right: The common femoral, femoral and popliteal veins are normally compressible, and free of intraluminal thrombus. Color and pulse Doppler demonstrate normal phasic intravascular flow. There is normal augmentation response to distal compression maneuver. Left: The common femoral, femoral and popliteal veins are normally compressible, and free of intraluminal thrombus. Color and pulse Doppler demonstrate normal phasic intravascular flow. There is normal augmentation response to distal compression maneuver. No findings of acute deep venous thrombosis are seen, although there is chronic appearing venous wall thickening, with potential collaterals. Evaluation is limited, secondary to the patient's inability to fully cooperate with the examination. IMPRESSION: No findings acute deep venous thrombosis can be seen. Chronic venous changes are seen. Dictated by: Loi Malloy M.D. on 06/08/2021 at 16:27 Approved by: Loi Malloy M.D. on 06/08/2021 at 16:28
== END ==
PROVIDERS: Family Provider Family Medicine; PCP Family Medicine; Referring Provider Orthopaedic Surgery; Visit Provider Orthopaedic Surgery
DX: M79.604 Pain in right leg (principal); M79.605 Pain in left leg
CPT/HCPCS: 93970

== ENCOUNTER 2021-06-08 17:01 | Emergency (ER) | payer OTHER, SELFPAY ==
[2021-02-03 17:11] VITALS: BMI 36.6
[2021-06-08 17:14] VITALS: PULSE 72; RESP 14; TEMP 35.9; O2SAT 99
[2021-06-08] MEDS: HYDROCODONE/ACET 5/325 TABLET 1 TAB PO (17:26)
[2021-06-08] MEDS: ACETAMINOPHEN 325 MG TABLET 650 MG PO (17:26)
== END 2021-06-08 17:35 | disposition left against medical advice (07) ==
PROVIDERS: Emergency Provider Emergency Medicine; Family Provider Family Medicine; PCP Family Medicine
CPT/HCPCS: 99283

== ENCOUNTER 2021-06-19 09:45 | Outpatient (RCR) | payer OTHER, SELFPAY ==
[2021-02-03 17:11] VITALS: BMI 36.6
--- NOTE | 2021-04-05 11:15 | PT.OIE ---
Current Diagnoses Bilateral primary osteoarthritis of hip (04/05/21) Stiffness of other specified joint, not elsewhere classified (04/05/21) Spondylolisthesis, lumbar region (04/05/21) Muscle weakness (generalized) (04/05/21) Other abnormalities of gait and mobility (04/05/21) Past Medical History (This Medical Record has been edited. Action required.) Diverticulosis Epidural lipomatosis Fatty liver IBS (irritable bowel syndrome) Left foot infection Primary osteoarthritis of both hips Spinal stenosis of lumbar region with neurogenic claudication Spondylolisthesis, lumbar region Past Surgical History (This Medical Record has been edited. Action required.) Status post left foot surgery Visit Care Team Role Provider Type Saul Rae MD Family Provider Non-Staff Primary Care Provider Specialty: Family Practice Address: [address] [place] [address], [address], [address] Email: eSrena Kinsey MD Attending Provider Physician Referring Provider Specialty: Orthopedic Surgery Address: [address] [place] [address], Formerly [facility], [facility] Email: [email or web address] Physical Therapy Initial Evaluation PT-OP-A Visit Information Start: 04/05/21 17:39 Freq: Status: Active Protocol: Document 04/05/21 10:30 DCW (Rec: 04/06/21 10:06 DC [id number]) Out-Patient Physical Therapy Visit Information Visit Information Visit Type Initial Evaluation Visit Start Time 10:30 Visit Stop Time 11:15 Total Visit Minutes 45 Visit Number 1 Number of TIRE GROOVER Visits 0 Evaluation Information Evaluation Date 04/05/21 PT-OP-B Current Condition Start: 04/05/21 17:39 Freq: Status: Active Protocol: Document 04/05/21 10:30 DCW (Rec: 04/06/21 10:06 DC [id number]) Current Condition History of Current Condition Onset Date 01/04/21 Current Complaints S/p L3-S1 TLIF with posterior instrumentation History of Current Condition Pt is a 75 year old female three months s/p L3-S1 TLIF with posterior instrumentation . Unfortunately, two months ago, pt's recovery was complicated by sudden pain and swelling in her right leg, which was found to be a DVT. After being sent to the ER, pt was demonstrating SOB, which led to a CTA of her chest, which uncovered numerous bilateral pulmonary emboli. Pt was put on blood thinners and has slowly been recovering from this setback. Pt still continues to have fairly severe pain in her right hip, but is not sure if that is due to the DVT, or just the normal arthritis. Currently, pt has complaints of decreased activity tolerance, continued back pain, instability, increased fear of falling, and an inability to ambulate outside when not using any device. Pt notes she uses her FWW outside, but typically doesn't in her house. Treatment Goals Patient/Caregiver Goals I want to improve my posture, I want to be able to bend, and most importantly, I want to walk without any device. Personal Factors Other Personal Factors That May Effect DVT/PEs, Diverticulosis, IBS, Therapy/Recovery L3-S1 TLIF PT-OP-C Subjective Start: 04/05/21 17:39 Freq: Status: Active Protocol: Document 04/05/21 10:30 DCW (Rec: 04/06/21 10:06 DCW [id number]) OP-PT Subjective Patient Comments Patient Comments I wouldn't feel safe if I wasn't using a walker. I don't use it in the house, but I still feel wobbly and my posture has gotten worse. Patient Reported Progress Same Patient Questionnaires Oswestry Low Back Index Oswestry Score 58% OP-PT Pain Assessment Pain Assessment Grid Paper Pain Assessment Grid Completed Yes Location Right Leg Pain Location Details Right groin/hip flexor area Intensity 8 Scale Used Numeric (0 - 10) Description Sharp,Shooting Back Pain Location Details Left low back, along surgical site Intensity 6 Scale Used Numeric (0 - 10) PT-OP-D Balance Start: 04/05/21 17:39 Freq: Status: Active Protocol: Document 04/05/21 10:30 DCW (Rec: 04/06/21 10:06 DCW [id number]) OP-PT Balance Assessment Sitting Balance Static Sitting Balance Ability Normal Dynamic Sitting Balance Ability Normal Standing Balance Static Standing Balance Ability Fair Dynamic Standing Balance Ability Fair Balance Tests Guerra Balance Test Guerra Balance Test Score 34/56 Guerra Impairment Rating 20 to 39% Impaired (Score 34- 44) Guerra Balance Assessment Evaluation Sitting to Standing Ability Independent w/out Hands Unsupported Stance 30 seconds Sitting Unsupported, Feet on Floor Safely- 2 minutes Standing to Sitting Ability Safely, Minimal Hand Use Transfer Ability Safely, Hand Use Unsupported Stance- Eyes Closed Supervision, 10 seconds Unsupported Stance- Eyes Open Independent, <30 seconds Reaching Forward Standing Safely, 2 inches Pick- Up Object From Floor Within 2 inches, Unable Look Behind Shoulder - Standing Supervision w/Turning Turning 360 Degrees Supervision/Verbal Cues Unsupported Stance, Alternating Feet on 4 Steps w/Supervision Stair Unsupported Tandem Stance Small Step- 30 seconds Unilateral Leg Stance Lifts Leg/Holds > 3 secs Total Score Guerra Total Score (out of 56 points) 34 Guerra Impairment Rating 20 to 39% Impaired (Score 34- 44) Villa Fall Scale Copyright Permission PT-OP-E Functional Tests Start: 04/05/21 17:39 Freq: Status: Active Protocol: Document 04/05/21 10:30 DCW (Rec: 04/06/21 10:06 DCW [id number]) Functional Tests Timed Up and Go (TUG) Score 18.09 /c FWW Comments Three-trial average (17.26, 18.87, 18.14) TUG Impairment Rating 80 to <100% Impaired (Score 18 -19) PT-OP-J Posture/Palpation/Skin Start: 04/06/21 10:06 Freq: Status: Active Protocol: Document 04/05/21 10:30 DCW (Rec: 04/06/21 10:08 DCW [id number]) Posture Evaluation Position Standing Evaluation View Lateral Head/C-Spine Posture Flexed,Forward Head T-Spine Posture Increased Kyphosis L-Spine Posture Flattened Weight Distribution Weight Shifted Anterior PT-OP-K Range of Motion Start: 04/05/21 17:39 Freq: Status: Active Protocol: Document 04/05/21 10:30 DCW (Rec: 04/06/21 10:06 DCW [id number]) Lumbar Spine Range of Motion Lumbar Spine Active Degrees Testing Position Standing Flexion 20 Extension 0 Lateral Flexion Left 53 Lateral Flexion Right 53 ROM Limitations Soft Tissue Tightness,Bony Restriction,Muscle Weakness, Muscle Tone Comments Lateral flexion measured in cm from fingertips to floor PT-OP-M Strength Start: 04/05/21 17:39 Freq: Status: Active Protocol: Document 04/05/21 10:30 DCW (Rec: 04/06/21 10:06 DCW [id number]) Hip Strength Hip Manual Muscle Testing Right Flexion (L2) 4- Good- Extension (S1) 4- Good- Abduction 4- Good- Adduction 4- Good- External Rotation 3+ Fair+ Internal Rotation 3+ Fair+ Left Flexion (L2) 4 Good Extension (S1) 4 Good Abduction 4 Good Adduction 4 Good External Rotation 4 Good Internal Rotation 4 Good Knee Strength Knee Manual Muscle Testing Right Flexion (S2) 3+ Fair+ Extension (L3) 4- Good- Left Flexion (S2) 4+ Good+ Extension (L3) 4+ Good+ PT-OP-T Assessment and Plan Start: 04/05/21 17:39 Freq: Status: Active Protocol: Document 04/05/21 10:30 DCW (Rec: 04/06/21 10:24 DCW [id number]) Physical Therapy Assessment Rehab Potential Rehabilitation Potential Good Evaluation Complexity Number of Personal Factors/Comorbidities 3 or More Number of Body Systems Impaired 3 Clinical Presentation at Evaluation Unstable Impairments Impairments Activity Tolerance,Balance, Functional Activities, Functional Mobility,Pain, Posture,ROM,Soft Tissue Mobility,Strength Other Concerns Fall Risk Yes, per Guerra score (34/56) and TUG score (18.09 seconds) Goals Four Impairment Pt current posture demonstrates moderate forward head/rounded shoulders Claims Representative Goal (LTG) Pt to stand with at worst mild forward head/rounded shoulders at least 75% of the time without verbal cues to show improved posture and decreased shear forces through cervical spine. LTG Duration 07/04/21 Three Impairment Pt scores 4-/5 or weaker in all planes during right hip and knee MMT Nursing Home Goal (LTG) Pt to demonstrate a strengthen of at least 4/5 with her right hip and knee MMT to show improved ability to fully support weight without an assistive device LTG Duration 07/04/21 Two Impairment Pt scores in falls-risk category on Guerra (34/56) and TUG (18.09) Short Term Goal (STG) Pt to complete TUG with an average time of less than 15 seconds to show a decreasing falls risk STG Duration 05/20/21 Nursing Home Goal (LTG) Pt to score >42/56 on Guerra to demonstrate a decreased falls risk. LTG Duration 07/04/21 One Impairment Pt does not have an appropriate home exercise program Short Term Goal (STG) Pt to be independent and compliant with an appropriate HEP STG Duration 05/20/21 Assessment Summary Assessment Pt presents with lower extremity weakness, poor posture, decreased balance, poor activity tolerance, decreased lumbar ROM, increased fear of falling, and right LE pain three months s/ p L3-S1 TLIF with posterior instrumentation and two months s/p DVT /c multiple PEs. Pt will likely benefit from skilled therapy focusing on LE strengthening, increased activity tolerance, balance training, and gentle lumbar ROM/flexibility. Pt currently at a falls risk per Guerra score (34/56) and TUG score (18.09 seconds). Pt is anxious to start working herself at home, and appears that she will largely be compliant with any HEP. Physical Therapy Plan Frequency and Duration Frequency of Treatment 2x/Week Duration of Treatment 90 Days Plan of Care Start Date 04/05/21 Plan of Care End Date 07/04/21 Therapeutic Interventions Therapeutic Interventions Aquatic Therapy,Balance Training,Gait Training,Home Exercise Program,Joint Mobilizations,Manual Therapy, Neuromuscular Re-education, Patient/Caregiver Education, Self-Care/Home Management,Soft Tissue Mobilization, Therapeutic Activities, Therapeutic Exercises Next Visit Focus/Plan Next Note Type Treatment Note Next Visit Plan Balance training, LE strengthening
--- NOTE | 2021-04-05 11:16 | PT.OPPOC ---
Physical, Occupational & Speech Therapy At [facility] Current Diagnoses Bilateral primary osteoarthritis of hip (04/05/21) Stiffness of other specified joint, not elsewhere classified (04/05/21) Spondylolisthesis, lumbar region (04/05/21) Muscle weakness (generalized) (04/05/21) Other abnormalities of gait and mobility (04/05/21) Visit Care Team Role Provider Type Saul Rae MD Family Provider Non-Staff Primary Care Provider Specialty: Family Practice Address: [address] [place] [address], [address], [place], [address] Email: Serena Kinsey MD Attending Provider Physician Referring Provider Specialty: Orthopedic Surgery Address: [address] [place] [address], [address] Email: [email or web address] Plan Of Care PT-OP-T Assessment and Plan Start: 04/05/21 17:39 Freq: Status: Active Protocol: Document 04/05/21 10:30 DCW (Rec: 04/06/21 10:24 DCW [id number]) Physical Therapy Assessment Rehab Potential Rehabilitation Potential Good Evaluation Complexity Number of Personal Factors/Comorbidities 3 or More Number of Body Systems Impaired 3 Clinical Presentation at Evaluation Unstable Impairments Impairments Activity Tolerance,Balance, Functional Activities, Functional Mobility,Pain, Posture,ROM,Soft Tissue Mobility,Strength Other Concerns Fall Risk Yes, per Guerra score (34/56) and TUG score (18.09 seconds) Goals Four Impairment Pt current posture demonstrates moderate forward head/rounded shoulders Seismograph Recorder Goal (LTG) Pt to stand with at worst mild forward head/rounded shoulders at least 75% of the time without verbal cues to show improved posture and decreased shear forces through cervical spine. LTG Duration 07/04/21 Three Impairment Pt scores 4-/5 or weaker in all planes during right hip and knee MMT Residential Goal (LTG) Pt to demonstrate a strengthen of at least 4/5 with her right hip and knee MMT to show improved ability to fully support weight without an assistive device LTG Duration 07/04/21 Two Impairment Pt scores in falls-risk category on Guerra (34/56) and TUG (18.09) Short Term Goal (STG) Pt to complete TUG with an average time of less than 15 seconds to show a decreasing falls risk STG Duration 05/20/21 Seismograph Recorder Goal (LTG) Pt to score >42/56 on Guerra to demonstrate a decreased falls risk. LTG Duration 07/04/21 One Impairment Pt does not have an appropriate home exercise program Short Term Goal (STG) Pt to be independent and compliant with an appropriate HEP STG Duration 05/20/21 Assessment Summary Assessment Pt presents with lower extremity weakness, poor posture, decreased balance, poor activity tolerance, decreased lumbar ROM, increased fear of falling, and right LE pain three months s/ p L3-S1 TLIF with posterior instrumentation and two months s/p DVT /c multiple PEs. Pt will likely benefit from skilled therapy focusing on LE strengthening, increased activity tolerance, balance training, and gentle lumbar ROM/flexibility. Pt currently at a falls risk per Guerra score (34/56) and TUG score (18.09 seconds). Pt is anxious to start working herself at home, and appears that she will largely be compliant with any HEP. Physical Therapy Plan Frequency and Duration Frequency of Treatment 2x/Week Duration of Treatment 90 Days Plan of Care Start Date 04/05/21 Plan of Care End Date 07/04/21 Therapeutic Interventions Therapeutic Interventions Aquatic Therapy,Balance Training,Gait Training,Home Exercise Program,Joint Mobilizations,Manual Therapy, Neuromuscular Re-education, Patient/Caregiver Education, Self-Care/Home Management,Soft Tissue Mobilization, Therapeutic Activities, Therapeutic Exercises Next Visit Focus/Plan Next Note Type Treatment Note Next Visit Plan Balance training, LE strengthening Plan of Care Dates Plan of Care Start Date 04/05/21 Plan of Care End Date 07/04/21 Electronically Signed by: Daniel Balderas, PT 04/06/21 [id number] Please Sign and Return: I have reviewed this Plan of Care and certify that the skilled therapy services above are required to meet the patient?s needs. Physician Signature Date Printed Name and Credentials Clinical Instructor Signature Printed Name and Credentials
--- NOTE | 2021-04-13 11:20 | PT.OTN ---
Current Diagnoses Bilateral primary osteoarthritis of hip (04/13/21) Stiffness of other specified joint, not elsewhere classified (04/13/21) Spondylolisthesis, lumbar region (04/13/21) Muscle weakness (generalized) (04/13/21) Other abnormalities of gait and mobility (04/13/21) Physical Therapy Treatment Note PT-OP-A Visit Information Start: 04/05/21 17:39 Freq: Status: Active Protocol: Document 04/13/21 10:30 DCW (Rec: 04/13/21 11:20 DCW [id number]) Out-Patient Physical Therapy Visit Information Visit Information Visit Type Treatment Note Visit Start Time 10:30 Visit Stop Time 11:15 Total Visit Minutes 45 Visit Number 2 Number of COMPUTER INFORMATION SYSTEMS PROFESSOR Visits 0 Evaluation Information Evaluation Date 04/05/21 PT-OP-B Current Condition Start: 04/05/21 17:39 Freq: Status: Active Protocol: Document 04/05/21 10:30 DCW (Rec: 04/06/21 10:06 DCW [id number]) Current Condition History of Current Condition Onset Date 01/04/21 Current Complaints S/p L3-S1 TLIF with posterior instrumentation History of Current Condition Pt is a 75 year old female three months s/p L3-S1 TLIF with posterior instrumentation . Unfortunately, two months ago, pt's recovery was complicated by sudden pain and swelling in her right leg, which was found to be a DVT. After being sent to the ER, pt was demonstrating SOB, which led to a CTA of her chest, which uncovered numerous bilateral pulmonary emboli. Pt was put on blood thinners and has slowly been recovering from this setback. Pt still continues to have fairly severe pain in her right hip, but is not sure if that is due to the DVT, or just the normal arthritis. Currently, pt has complaints of decreased activity tolerance, continued back pain, instability, increased fear of falling, and an inability to ambulate outside when not using any device. Pt notes she uses her FWW outside, but typically doesn't in her house. Treatment Goals Patient/Caregiver Goals I want to improve my posture, I want to be able to bend, and most importantly, I want to walk without any device. Personal Factors Other Personal Factors That May Effect DVT/PEs, Diverticulosis, IBS, Therapy/Recovery L3-S1 TLIF PT-OP-C Subjective Start: 04/05/21 17:39 Freq: Status: Active Protocol: Document 04/13/21 10:30 DCW (Rec: 04/13/21 11:20 DCW [id number]) OP-PT Subjective Patient Comments Patient Comments My pain seems to be getting worse, I can barely to anything, even water the grass . PT-OP-D Balance Start: 04/05/21 17:39 Freq: Status: Active Protocol: Document 04/05/21 10:30 DCW (Rec: 04/06/21 10:06 DCW [id number]) OP-PT Balance Assessment Sitting Balance Static Sitting Balance Ability Normal Dynamic Sitting Balance Ability Normal Standing Balance Static Standing Balance Ability Fair Dynamic Standing Balance Ability Fair Balance Tests Guerra Balance Test Guerra Balance Test Score 34/56 Guerra Impairment Rating 20 to 39% Impaired (Score 34- 44) Guerra Balance Assessment Evaluation Sitting to Standing Ability Independent w/out Hands Unsupported Stance 30 seconds Sitting Unsupported, Feet on Floor Safely- 2 minutes Standing to Sitting Ability Safely, Minimal Hand Use Transfer Ability Safely, Hand Use Unsupported Stance- Eyes Closed Supervision, 10 seconds Unsupported Stance- Eyes Open Independent, <30 seconds Reaching Forward Standing Safely, 2 inches Pick- Up Object From Floor Within 2 inches, Unable Look Behind Shoulder - Standing Supervision w/Turning Turning 360 Degrees Supervision/Verbal Cues Unsupported Stance, Alternating Feet on 4 Steps w/Supervision Stair Unsupported Tandem Stance Small Step- 30 seconds Unilateral Leg Stance Lifts Leg/Holds > 3 secs Total Score Guerra Total Score (out of 56 points) 34 Guerra Impairment Rating 20 to 39% Impaired (Score 34- 44) Villa Fall Scale Copyright Permission PT-OP-E Functional Tests Start: 04/05/21 17:39 Freq: Status: Active Protocol: Document 04/05/21 10:30 DCW (Rec: 04/06/21 10:06 DCW [id number]) Functional Tests Timed Up and Go (TUG) Score 18.09 /c FWW Comments Three-trial average (17.26, 18.87, 18.14) TUG Impairment Rating 80 to <100% Impaired (Score 18 -19) PT-OP-J Posture/Palpation/Skin Start: 04/06/21 10:06 Freq: Status: Active Protocol: Document 04/05/21 10:30 DCW (Rec: 04/06/21 10:08 DCW [id number]) Posture Evaluation Position Standing Evaluation View Lateral Head/C-Spine Posture Flexed,Forward Head T-Spine Posture Increased Kyphosis L-Spine Posture Flattened Weight Distribution Weight Shifted Anterior PT-OP-K Range of Motion Start: 04/05/21 17:39 Freq: Status: Active Protocol: Document 04/05/21 10:30 DCW (Rec: 04/06/21 10:06 DCW [id number]) Lumbar Spine Range of Motion Lumbar Spine Active Degrees Testing Position Standing Flexion 20 Extension 0 Lateral Flexion Left 53 Lateral Flexion Right 53 ROM Limitations Soft Tissue Tightness,Bony Restriction,Muscle Weakness, Muscle Tone Comments Lateral flexion measured in cm from fingertips to floor PT-OP-M Strength Start: 04/05/21 17:39 Freq: Status: Active Protocol: Document 04/05/21 10:30 DCW (Rec: 04/06/21 10:06 DCW [id number]) Hip Strength Hip Manual Muscle Testing Right Flexion (L2) 4- Good- Extension (S1) 4- Good- Abduction 4- Good- Adduction 4- Good- External Rotation 3+ Fair+ Internal Rotation 3+ Fair+ Left Flexion (L2) 4 Good Extension (S1) 4 Good Abduction 4 Good Adduction 4 Good External Rotation 4 Good Internal Rotation 4 Good Knee Strength Knee Manual Muscle Testing Right Flexion (S2) 3+ Fair+ Extension (L3) 4- Good- Left Flexion (S2) 4+ Good+ Extension (L3) 4+ Good+ PT-OP-Q Treatments Start: 04/05/21 17:39 Freq: Status: Active Protocol: Document 04/13/21 10:30 DCW (Rec: 04/13/21 11:20 DCW [id number]) Cardio Equipment Recumbent Elliptical (BiodInMyShow) Duration (Minutes) 5 Resistance 1 Seat Position 8 Gym Equipment Shuttle Recovery Unilateral Squats Resistance 25# Shuttle Recovery Platform Stable Bilateral Squats Resistance 50# Shuttle Recovery Platform Stable Therapeutic Exercises Sitting Exercises 2 Sitting Exercise Name LAQ Side bilateral Resistance 5# 1 Sitting Exercise Name Hamstring curl Side bilateral Resistance Lv 2 Equipment Used T-band Standing Exercises 1 Standing Exercise Name Toe-taps Side bilateral Resistance 5# Equipment Used 5 step Other Exercises 1 Other Exercise Name Resisted side-stepping Resistance Yellow Equipment Used T-band Neuro Re-Education Treatment Balance Activities 2 Details Tandem Stance Equipment // bars 1 Details NBOS Comments EO/EC PT-OP-T Assessment and Plan Start: 04/05/21 17:39 Freq: Status: Active Protocol: Document 04/13/21 10:30 DCW (Rec: 04/13/21 11:20 DCW [id number]) Physical Therapy Assessment Impairments Impairments Activity Tolerance,Balance, Functional Activities, Functional Mobility,Pain, Posture,ROM,Soft Tissue Mobility,Strength Goals Four Impairment Pt current posture demonstrates moderate forward head/rounded shoulders Intermediate Goal (LTG) Pt to stand with at worst mild forward head/rounded shoulders at least 75% of the time without verbal cues to show improved posture and decreased shear forces through cervical spine. LTG Duration 07/04/21 Three Impairment Pt scores 4-/5 or weaker in all planes during right hip and knee MMT Painter Structural Steel Goal (LTG) Pt to demonstrate a strengthen of at least 4/5 with her right hip and knee MMT to show improved ability to fully support weight without an assistive device LTG Duration 07/04/21 Two Impairment Pt scores in falls-risk category on Guerra (34/56) and TUG (18.09) Short Term Goal (STG) Pt to complete TUG with an average time of less than 15 seconds to show a decreasing falls risk STG Duration 05/20/21 Intermediate Goal (LTG) Pt to score >42/56 on Guerra to demonstrate a decreased falls risk. LTG Duration 07/04/21 One Impairment Pt does not have an appropriate home exercise program Short Term Goal (STG) Pt to be independent and compliant with an appropriate HEP STG Duration 05/20/21 Assessment Summary Assessment Pt tolerated treatment very well, although pt clearly has some increased anxiety about potential pain with some of her exercises. Noted she took a pain pill before coming, and if she hadn't, I wouldn't be able to do any of this. Physical Therapy Plan Frequency and Duration Frequency of Treatment 2x/Week Duration of Treatment 90 Days Plan of Care Start Date 04/05/21 Plan of Care End Date 07/04/21 Therapeutic Interventions Therapeutic Interventions Aquatic Therapy,Balance Training,Gait Training,Home Exercise Program,Joint Mobilizations,Manual Therapy, Neuromuscular Re-education, Patient/Caregiver Education, Self-Care/Home Management,Soft Tissue Mobilization, Therapeutic Activities, Therapeutic Exercises Next Visit Focus/Plan Next Note Type Treatment Note Next Visit Plan Balance training, LE strengthening
--- NOTE | 2021-04-18 11:59 | PT.OTN ---
Current Diagnoses Bilateral primary osteoarthritis of hip (04/18/21) Stiffness of other specified joint, not elsewhere classified (04/18/21) Spondylolisthesis, lumbar region (04/18/21) Muscle weakness (generalized) (04/18/21) Other abnormalities of gait and mobility (04/18/21) Physical Therapy Treatment Note PT-OP-A Visit Information Start: 04/05/21 17:39 Freq: Status: Active Protocol: Document 04/18/21 11:15 DCW (Rec: 04/18/21 11:59 DCW [id number]) Out-Patient Physical Therapy Visit Information Visit Information Visit Type Treatment Note Visit Start Time 11:15 Visit Stop Time 12:00 Total Visit Minutes 45 Visit Number 3 Number of COMMUNITY HEALTH PROGRAM REPRESENTATIVE Visits 0 Evaluation Information Evaluation Date 04/05/21 PT-OP-B Current Condition Start: 04/05/21 17:39 Freq: Status: Active Protocol: Document 04/05/21 10:30 DCW (Rec: 04/06/21 10:06 DCW [id number]) Current Condition History of Current Condition Onset Date 01/04/21 Current Complaints S/p L3-S1 TLIF with posterior instrumentation History of Current Condition Pt is a 75 year old female three months s/p L3-S1 TLIF with posterior instrumentation . Unfortunately, two months ago, pt's recovery was complicated by sudden pain and swelling in her right leg, which was found to be a DVT. After being sent to the ER, pt was demonstrating SOB, which led to a CTA of her chest, which uncovered numerous bilateral pulmonary emboli. Pt was put on blood thinners and has slowly been recovering from this setback. Pt still continues to have fairly severe pain in her right hip, but is not sure if that is due to the DVT, or just the normal arthritis. Currently, pt has complaints of decreased activity tolerance, continued back pain, instability, increased fear of falling, and an inability to ambulate outside when not using any device. Pt notes she uses her FWW outside, but typically doesn't in her house. Treatment Goals Patient/Caregiver Goals I want to improve my posture, I want to be able to bend, and most importantly, I want to walk without any device. Personal Factors Other Personal Factors That May Effect DVT/PEs, Diverticulosis, IBS, Therapy/Recovery L3-S1 TLIF PT-OP-C Subjective Start: 04/05/21 17:39 Freq: Status: Active Protocol: Document 04/18/21 11:15 DCW (Rec: 04/18/21 11:59 DCW [id number]) OP-PT Subjective Patient Comments Patient Comments I was able to get some weeding done because I didn't need to bend very far. PT-OP-D Balance Start: 04/05/21 17:39 Freq: Status: Active Protocol: Document 04/05/21 10:30 DCW (Rec: 04/06/21 10:06 DCW [id number]) OP-PT Balance Assessment Sitting Balance Static Sitting Balance Ability Normal Dynamic Sitting Balance Ability Normal Standing Balance Static Standing Balance Ability Fair Dynamic Standing Balance Ability Fair Balance Tests Guerra Balance Test Guerra Balance Test Score 34/56 Guerra Impairment Rating 20 to 39% Impaired (Score 34- 44) Guerra Balance Assessment Evaluation Sitting to Standing Ability Independent w/out Hands Unsupported Stance 30 seconds Sitting Unsupported, Feet on Floor Safely- 2 minutes Standing to Sitting Ability Safely, Minimal Hand Use Transfer Ability Safely, Hand Use Unsupported Stance- Eyes Closed Supervision, 10 seconds Unsupported Stance- Eyes Open Independent, <30 seconds Reaching Forward Standing Safely, 2 inches Pick- Up Object From Floor Within 2 inches, Unable Look Behind Shoulder - Standing Supervision w/Turning Turning 360 Degrees Supervision/Verbal Cues Unsupported Stance, Alternating Feet on 4 Steps w/Supervision Stair Unsupported Tandem Stance Small Step- 30 seconds Unilateral Leg Stance Lifts Leg/Holds > 3 secs Total Score Guerra Total Score (out of 56 points) 34 Guerra Impairment Rating 20 to 39% Impaired (Score 34- 44) Villa Fall Scale Copyright Permission PT-OP-E Functional Tests Start: 04/05/21 17:39 Freq: Status: Active Protocol: Document 04/05/21 10:30 DCW (Rec: 04/06/21 10:06 DCW [id number]) Functional Tests Timed Up and Go (TUG) Score 18.09 /c FWW Comments Three-trial average (17.26, 18.87, 18.14) TUG Impairment Rating 80 to <100% Impaired (Score 18 -19) PT-OP-J Posture/Palpation/Skin Start: 04/06/21 10:06 Freq: Status: Active Protocol: Document 04/05/21 10:30 DCW (Rec: 04/06/21 10:08 DCW [id number]) Posture Evaluation Position Standing Evaluation View Lateral Head/C-Spine Posture Flexed,Forward Head T-Spine Posture Increased Kyphosis L-Spine Posture Flattened Weight Distribution Weight Shifted Anterior PT-OP-K Range of Motion Start: 04/05/21 17:39 Freq: Status: Active Protocol: Document 04/05/21 10:30 DCW (Rec: 04/06/21 10:06 DCW [id number]) Lumbar Spine Range of Motion Lumbar Spine Active Degrees Testing Position Standing Flexion 20 Extension 0 Lateral Flexion Left 53 Lateral Flexion Right 53 ROM Limitations Soft Tissue Tightness,Bony Restriction,Muscle Weakness, Muscle Tone Comments Lateral flexion measured in cm from fingertips to floor PT-OP-M Strength Start: 04/05/21 17:39 Freq: Status: Active Protocol: Document 04/05/21 10:30 DCW (Rec: 04/06/21 10:06 DCW [id number]) Hip Strength Hip Manual Muscle Testing Right Flexion (L2) 4- Good- Extension (S1) 4- Good- Abduction 4- Good- Adduction 4- Good- External Rotation 3+ Fair+ Internal Rotation 3+ Fair+ Left Flexion (L2) 4 Good Extension (S1) 4 Good Abduction 4 Good Adduction 4 Good External Rotation 4 Good Internal Rotation 4 Good Knee Strength Knee Manual Muscle Testing Right Flexion (S2) 3+ Fair+ Extension (L3) 4- Good- Left Flexion (S2) 4+ Good+ Extension (L3) 4+ Good+ PT-OP-Q Treatments Start: 04/05/21 17:39 Freq: Status: Active Protocol: Document 04/18/21 11:15 DCW (Rec: 04/18/21 11:59 DCW [id number]) Cardio Equipment Recumbent Elliptical (Biodex) Duration (Minutes) 5 Resistance 3 Seat Position 7 Gym Equipment Shuttle Recovery Unilateral Squats Resistance 37# Shuttle Recovery Platform Stable Bilateral Squats Resistance 50# Shuttle Recovery Platform Stable Therapeutic Exercises Other Exercises 1 Other Exercise Name Resisted Ambulation Resistance Yellow Equipment Used T-band Comments Fwd, Side-stepping Gait Training Gait Activity 1 Description Amb /c cane Device Used Quad cane Neuro Re-Education Treatment Balance Activities 3 Details Hurdles Equipment // bars Comments Forward, Side-stepping PT-OP-T Assessment and Plan Start: 04/05/21 17:39 Freq: Status: Active Protocol: Document 04/18/21 11:15 DCW (Rec: 04/18/21 11:59 DCW [id number]) Physical Therapy Assessment Impairments Impairments Activity Tolerance,Balance, Functional Activities, Functional Mobility,Pain, Posture,ROM,Soft Tissue Mobility,Strength Goals Four Impairment Pt current posture demonstrates moderate forward head/rounded shoulders Janitorial Maintenance Worker Goal (LTG) Pt to stand with at worst mild forward head/rounded shoulders at least 75% of the time without verbal cues to show improved posture and decreased shear forces through cervical spine. LTG Duration 07/04/21 Three Impairment Pt scores 4-/5 or weaker in all planes during right hip and knee MMT Janitorial Maintenance Worker Goal (LTG) Pt to demonstrate a strengthen of at least 4/5 with her right hip and knee MMT to show improved ability to fully support weight without an assistive device LTG Duration 07/04/21 Two Impairment Pt scores in falls-risk category on Guerra (34/56) and TUG (18.09) Short Term Goal (STG) Pt to complete TUG with an average time of less than 15 seconds to show a decreasing falls risk STG Duration 05/20/21 Skilled Nursing Goal (LTG) Pt to score >42/56 on Guerra to demonstrate a decreased falls risk. LTG Duration 07/04/21 One Impairment Pt does not have an appropriate home exercise program Short Term Goal (STG) Pt to be independent and compliant with an appropriate HEP STG Duration 05/20/21 Assessment Summary Assessment Pt did well ambulating with quad cane, despite her reports of increased back pain whenever she uses her cane at home. Still noticeably apprehensive with balance challenges. Physical Therapy Plan Frequency and Duration Frequency of Treatment 2x/Week Duration of Treatment 90 Days Plan of Care Start Date 04/05/21 Plan of Care End Date 07/04/21 Therapeutic Interventions Therapeutic Interventions Aquatic Therapy,Balance Training,Gait Training,Home Exercise Program,Joint Mobilizations,Manual Therapy, Neuromuscular Re-education, Patient/Caregiver Education, Self-Care/Home Management,Soft Tissue Mobilization, Therapeutic Activities, Therapeutic Exercises Next Visit Focus/Plan Next Note Type Treatment Note Next Visit Plan Balance training, LE strengthening
--- NOTE | 2021-04-20 11:18 | PT.OTN ---
Current Diagnoses Bilateral primary osteoarthritis of hip (04/20/21) Stiffness of other specified joint, not elsewhere classified (04/20/21) Spondylolisthesis, lumbar region (04/20/21) Muscle weakness (generalized) (04/20/21) Other abnormalities of gait and mobility (04/20/21) Physical Therapy Treatment Note PT-OP-A Visit Information Start: 04/05/21 17:39 Freq: Status: Active Protocol: Document 04/20/21 10:30 DCW (Rec: 04/20/21 11:18 DCW [id number]) Out-Patient Physical Therapy Visit Information Visit Information Visit Type Treatment Note Visit Start Time 10:30 Visit Stop Time 11:15 Total Visit Minutes 45 Visit Number 4 Number of PRODUCT BLENDING SUPERVISOR Visits 0 Evaluation Information Evaluation Date 04/05/21 PT-OP-B Current Condition Start: 04/05/21 17:39 Freq: Status: Active Protocol: Document 04/05/21 10:30 DCW (Rec: 04/06/21 10:06 DCW [id number]) Current Condition History of Current Condition Onset Date 01/04/21 Current Complaints S/p L3-S1 TLIF with posterior instrumentation History of Current Condition Pt is a 75 year old female three months s/p L3-S1 TLIF with posterior instrumentation . Unfortunately, two months ago, pt's recovery was complicated by sudden pain and swelling in her right leg, which was found to be a DVT. After being sent to the ER, pt was demonstrating SOB, which led to a CTA of her chest, which uncovered numerous bilateral pulmonary emboli. Pt was put on blood thinners and has slowly been recovering from this setback. Pt still continues to have fairly severe pain in her right hip, but is not sure if that is due to the DVT, or just the normal arthritis. Currently, pt has complaints of decreased activity tolerance, continued back pain, instability, increased fear of falling, and an inability to ambulate outside when not using any device. Pt notes she uses her FWW outside, but typically doesn't in her house. Treatment Goals Patient/Caregiver Goals I want to improve my posture, I want to be able to bend, and most importantly, I want to walk without any device. Personal Factors Other Personal Factors That May Effect DVT/PEs, Diverticulosis, IBS, Therapy/Recovery L3-S1 TLIF PT-OP-C Subjective Start: 04/05/21 17:39 Freq: Status: Active Protocol: Document 04/20/21 10:30 DCW (Rec: 04/20/21 11:18 DCW [id number]) OP-PT Subjective Patient Comments Patient Comments Pt reports she was able to drive herself to PT today, because she has not taken any pain pills over the last three days. PT-OP-D Balance Start: 04/05/21 17:39 Freq: Status: Active Protocol: Document 04/05/21 10:30 DCW (Rec: 04/06/21 10:06 [facility] [id number]) OP-PT Balance Assessment Sitting Balance Static Sitting Balance Ability Normal Dynamic Sitting Balance Ability Normal Standing Balance Static Standing Balance Ability Fair Dynamic Standing Balance Ability Fair Balance Tests Guerra Balance Test Guerra Balance Test Score 34/56 Guerra Impairment Rating 20 to 39% Impaired (Score 34- 44) Guerra Balance Assessment Evaluation Sitting to Standing Ability Independent w/out Hands Unsupported Stance 30 seconds Sitting Unsupported, Feet on Floor Safely- 2 minutes Standing to Sitting Ability Safely, Minimal Hand Use Transfer Ability Safely, Hand Use Unsupported Stance- Eyes Closed Supervision, 10 seconds Unsupported Stance- Eyes Open Independent, <30 seconds Reaching Forward Standing Safely, 2 inches Pick- Up Object From Floor Within 2 inches, Unable Look Behind Shoulder - Standing Supervision w/Turning Turning 360 Degrees Supervision/Verbal Cues Unsupported Stance, Alternating Feet on 4 Steps w/Supervision Stair Unsupported Tandem Stance Small Step- 30 seconds Unilateral Leg Stance Lifts Leg/Holds > 3 secs Total Score Guerra Total Score (out of 56 points) 34 Guerra Impairment Rating 20 to 39% Impaired (Score 34- 44) Villa Fall Scale Copyright Permission PT-OP-E Functional Tests Start: 04/05/21 17:39 Freq: Status: Active Protocol: Document 04/05/21 10:30 DCW (Rec: 04/06/21 10:06 DCW [id number]) Functional Tests Timed Up and Go (TUG) Score 18.09 /c FWW Comments Three-trial average (17.26, 18.87, 18.14) TUG Impairment Rating 80 to <100% Impaired (Score 18 -19) PT-OP-J Posture/Palpation/Skin Start: 04/06/21 10:06 Freq: Status: Active Protocol: Document 04/05/21 10:30 DCW (Rec: 04/06/21 10:08 DCW [id number]) Posture Evaluation Position Standing Evaluation View Lateral Head/C-Spine Posture Flexed,Forward Head T-Spine Posture Increased Kyphosis L-Spine Posture Flattened Weight Distribution Weight Shifted Anterior PT-OP-K Range of Motion Start: 04/05/21 17:39 Freq: Status: Active Protocol: Document 04/05/21 10:30 DCW (Rec: 04/06/21 10:06 DCW [id number]) Lumbar Spine Range of Motion Lumbar Spine Active Degrees Testing Position Standing Flexion 20 Extension 0 Lateral Flexion Left 53 Lateral Flexion Right 53 ROM Limitations Soft Tissue Tightness,Bony Restriction,Muscle Weakness, Muscle Tone Comments Lateral flexion measured in cm from fingertips to floor PT-OP-M Strength Start: 04/05/21 17:39 Freq: Status: Active Protocol: Document 04/05/21 10:30 DCW (Rec: 04/06/21 10:06 DCW [id number]) Hip Strength Hip Manual Muscle Testing Right Flexion (L2) 4- Good- Extension (S1) 4- Good- Abduction 4- Good- Adduction 4- Good- External Rotation 3+ Fair+ Internal Rotation 3+ Fair+ Left Flexion (L2) 4 Good Extension (S1) 4 Good Abduction 4 Good Adduction 4 Good External Rotation 4 Good Internal Rotation 4 Good Knee Strength Knee Manual Muscle Testing Right Flexion (S2) 3+ Fair+ Extension (L3) 4- Good- Left Flexion (S2) 4+ Good+ Extension (L3) 4+ Good+ PT-OP-Q Treatments Start: 04/05/21 17:39 Freq: Status: Active Protocol: Document 04/20/21 10:30 DCW (Rec: 04/20/21 11:18 DCW [id number]) Cardio Equipment Recumbent Elliptical (PLAYD8) Duration (Minutes) 1 Resistance 3 Seat Position 8 Other stopped d/t R groin pain Gym Equipment Shuttle Recovery Unilateral Squats Resistance 37# Shuttle Recovery Platform Stable Bilateral Squats Resistance 50# Shuttle Recovery Platform Stable Therapeutic Exercises Sitting Exercises 3 Sitting Exercise Name Hip Abduction Side bilateral Resistance Lv 3 Equipment Used T-band 2 Sitting Exercise Name LAQ Side bilateral Resistance 5# 1 Sitting Exercise Name Hamstring curl Side bilateral Resistance Lv 3 Equipment Used T-band Standing Exercises 5 Standing Exercise Name Shoulder Extension Side bilateral Resistance Lv 2 Equipment Used T-band 4 Standing Exercise Name Rows Side bilateral Resistance Lv 2 Equipment Used T-band 3 Standing Exercise Name Hip Extension Side bilateral Resistance Yellow Equipment Used T-band 2 Standing Exercise Name Hamstring Curls Side bilateral Resistance 5# 1 Standing Exercise Name Toe-taps Side bilateral Resistance 5# Equipment Used 6 step Other Exercises 1 Other Exercise Name Resisted Ambulation Resistance Yellow Equipment Used T-band Comments Fwd, Side-stepping Gait Training Gait Activity 1 Description Amb /c cane Device Used Quad cane, SPC PT-OP-T Assessment and Plan Start: 04/05/21 17:39 Freq: Status: Active Protocol: Document 04/20/21 10:30 DCW (Rec: 04/20/21 11:18 DCW [id number]) Physical Therapy Assessment Impairments Impairments Activity Tolerance,Balance, Functional Activities, Functional Mobility,Pain, Posture,ROM,Soft Tissue Mobility,Strength Goals Four Impairment Pt current posture demonstrates moderate forward head/rounded shoulders Mcfp Goal (LTG) Pt to stand with at worst mild forward head/rounded shoulders at least 75% of the time without verbal cues to show improved posture and decreased shear forces through cervical spine. LTG Duration 07/04/21 Three Impairment Pt scores 4-/5 or weaker in all planes during right hip and knee MMT Programming Manager Goal (LTG) Pt to demonstrate a strengthen of at least 4/5 with her right hip and knee MMT to show improved ability to fully support weight without an assistive device LTG Duration 07/04/21 Two Impairment Pt scores in falls-risk category on Guerra (34/56) and TUG (18.09) Short Term Goal (STG) Pt to complete TUG with an average time of less than 15 seconds to show a decreasing falls risk STG Duration 05/20/21 Mcfp Goal (LTG) Pt to score >42/56 on Guerra to demonstrate a decreased falls risk. LTG Duration 07/04/21 One Impairment Pt does not have an appropriate home exercise program Short Term Goal (STG) Pt to be independent and compliant with an appropriate HEP STG Duration 05/20/21 Assessment Summary Assessment Focused a bit more on gait training with her cane, as well as some posture exercises . Pt was having some increased pain after not taking her pain pills for three days, which limited her participation in some of her therapy. Physical Therapy Plan Frequency and Duration Frequency of Treatment 2x/Week Duration of Treatment 90 Days Plan of Care Start Date 04/05/21 Plan of Care End Date 07/04/21 Therapeutic Interventions Therapeutic Interventions Aquatic Therapy,Balance Training,Gait Training,Home Exercise Program,Joint Mobilizations,Manual Therapy, Neuromuscular Re-education, Patient/Caregiver Education, Self-Care/Home Management,Soft Tissue Mobilization, Therapeutic Activities, Therapeutic Exercises Next Visit Focus/Plan Next Note Type Treatment Note Next Visit Plan Balance training, LE strengthening
--- NOTE | 2021-04-24 12:48 | PT.OTN ---
Current Diagnoses Bilateral primary osteoarthritis of hip (04/24/21) Stiffness of other specified joint, not elsewhere classified (04/24/21) Spondylolisthesis, lumbar region (04/24/21) Muscle weakness (generalized) (04/24/21) Other abnormalities of gait and mobility (04/24/21) Physical Therapy Treatment Note PT-OP-A Visit Information Start: 04/05/21 17:39 Freq: Status: Active Protocol: Document 04/24/21 12:00 DCW (Rec: 04/24/21 12:48 DCW [id number]) Out-Patient Physical Therapy Visit Information Visit Information Visit Type Treatment Note Visit Start Time 12:00 Visit Stop Time 12:45 Total Visit Minutes 45 Visit Number 5 Number of CHIP DRIER Visits 0 Evaluation Information Evaluation Date 04/05/21 PT-OP-B Current Condition Start: 04/05/21 17:39 Freq: Status: Active Protocol: Document 04/05/21 10:30 DCW (Rec: 04/06/21 10:06 DCW [id number]) Current Condition History of Current Condition Onset Date 01/04/21 Current Complaints S/p L3-S1 TLIF with posterior instrumentation History of Current Condition Pt is a 75 year old female three months s/p L3-S1 TLIF with posterior instrumentation . Unfortunately, two months ago, pt's recovery was complicated by sudden pain and swelling in her right leg, which was found to be a DVT. After being sent to the ER, pt was demonstrating SOB, which led to a CTA of her chest, which uncovered numerous bilateral pulmonary emboli. Pt was put on blood thinners and has slowly been recovering from this setback. Pt still continues to have fairly severe pain in her right hip, but is not sure if that is due to the DVT, or just the normal arthritis. Currently, pt has complaints of decreased activity tolerance, continued back pain, instability, increased fear of falling, and an inability to ambulate outside when not using any device. Pt notes she uses her FWW outside, but typically doesn't in her house. Treatment Goals Patient/Caregiver Goals I want to improve my posture, I want to be able to bend, and most importantly, I want to walk without any device. Personal Factors Other Personal Factors That May Effect DVT/PEs, Diverticulosis, IBS, Therapy/Recovery L3-S1 TLIF PT-OP-C Subjective Start: 04/05/21 17:39 Freq: Status: Active Protocol: Document 04/24/21 12:00 DCW (Rec: 04/24/21 12:48 DCW [id number]) OP-PT Subjective Patient Comments Patient Comments Pt reports she has gotten back on her pain pill, which has helped some, but this weekend was terrible. PT-OP-D Balance Start: 04/05/21 17:39 Freq: Status: Active Protocol: Document 04/05/21 10:30 DCW (Rec: 04/06/21 10:06 DCW [id number]) OP-PT Balance Assessment Sitting Balance Static Sitting Balance Ability Normal Dynamic Sitting Balance Ability Normal Standing Balance Static Standing Balance Ability Fair Dynamic Standing Balance Ability Fair Balance Tests Guerra Balance Test Guerra Balance Test Score 34/56 Guerra Impairment Rating 20 to 39% Impaired (Score 34- 44) Guerra Balance Assessment Evaluation Sitting to Standing Ability Independent w/out Hands Unsupported Stance 30 seconds Sitting Unsupported, Feet on Floor Safely- 2 minutes Standing to Sitting Ability Safely, Minimal Hand Use Transfer Ability Safely, Hand Use Unsupported Stance- Eyes Closed Supervision, 10 seconds Unsupported Stance- Eyes Open Independent, <30 seconds Reaching Forward Standing Safely, 2 inches Pick- Up Object From Floor Within 2 inches, Unable Look Behind Shoulder - Standing Supervision w/Turning Turning 360 Degrees Supervision/Verbal Cues Unsupported Stance, Alternating Feet on 4 Steps w/Supervision Stair Unsupported Tandem Stance Small Step- 30 seconds Unilateral Leg Stance Lifts Leg/Holds > 3 secs Total Score Guerra Total Score (out of 56 points) 34 Guerra Impairment Rating 20 to 39% Impaired (Score 34- 44) Villa Fall Scale Copyright Permission PT-OP-E Functional Tests Start: 04/05/21 17:39 Freq: Status: Active Protocol: Document 04/05/21 10:30 DCW (Rec: 04/06/21 10:06 DCW [id number]) Functional Tests Timed Up and Go (TUG) Score 18.09 /c FWW Comments Three-trial average (17.26, 18.87, 18.14) TUG Impairment Rating 80 to <100% Impaired (Score 18 -19) PT-OP-J Posture/Palpation/Skin Start: 04/06/21 10:06 Freq: Status: Active Protocol: Document 04/05/21 10:30 DCW (Rec: 04/06/21 10:08 DCW [id number]) Posture Evaluation Position Standing Evaluation View Lateral Head/C-Spine Posture Flexed,Forward Head T-Spine Posture Increased Kyphosis L-Spine Posture Flattened Weight Distribution Weight Shifted Anterior PT-OP-K Range of Motion Start: 04/05/21 17:39 Freq: Status: Active Protocol: Document 04/05/21 10:30 DCW (Rec: 04/06/21 10:06 DCW [id number]) Lumbar Spine Range of Motion Lumbar Spine Active Degrees Testing Position Standing Flexion 20 Extension 0 Lateral Flexion Left 53 Lateral Flexion Right 53 ROM Limitations Soft Tissue Tightness,Bony Restriction,Muscle Weakness, Muscle Tone Comments Lateral flexion measured in cm from fingertips to floor PT-OP-M Strength Start: 04/05/21 17:39 Freq: Status: Active Protocol: Document 04/05/21 10:30 DCW (Rec: 04/06/21 10:06 DCW [id number]) Hip Strength Hip Manual Muscle Testing Right Flexion (L2) 4- Good- Extension (S1) 4- Good- Abduction 4- Good- Adduction 4- Good- External Rotation 3+ Fair+ Internal Rotation 3+ Fair+ Left Flexion (L2) 4 Good Extension (S1) 4 Good Abduction 4 Good Adduction 4 Good External Rotation 4 Good Internal Rotation 4 Good Knee Strength Knee Manual Muscle Testing Right Flexion (S2) 3+ Fair+ Extension (L3) 4- Good- Left Flexion (S2) 4+ Good+ Extension (L3) 4+ Good+ PT-OP-Q Treatments Start: 04/05/21 17:39 Freq: Status: Active Protocol: Document 04/24/21 12:00 DCW (Rec: 04/24/21 12:48 DCW [id number]) Cardio Equipment Recumbent Elliptical (BiodECO) Duration (Minutes) 5 Resistance 3 Seat Position 8 Gym Equipment Shuttle Recovery Unilateral Squats Resistance 37# Shuttle Recovery Platform Stable Bilateral Squats Resistance 50# Shuttle Recovery Platform Stable Therapeutic Exercises Sitting Exercises 3 Sitting Exercise Name Hip Abduction Side bilateral Resistance Lv 3 Equipment Used T-band 2 Sitting Exercise Name LAQ Side bilateral Resistance 5# 1 Sitting Exercise Name Hamstring curl Side bilateral Resistance Lv 3 Equipment Used T-band Standing Exercises 5 Standing Exercise Name Shoulder Extension Side bilateral Resistance Lv 2 Equipment Used T-band 4 Standing Exercise Name Rows Side bilateral Resistance Lv 2 Equipment Used T-band 3 Standing Exercise Name Hip Extension Side bilateral Resistance Yellow Equipment Used T-band 2 Standing Exercise Name Hamstring Curls Side bilateral Resistance 5# 1 Standing Exercise Name Toe-taps Side bilateral Resistance 5# Equipment Used 6 step Other Exercises 1 Other Exercise Name Resisted Ambulation Resistance Yellow Equipment Used T-band Comments Fwd, Side-stepping PT-OP-T Assessment and Plan Start: 04/05/21 17:39 Freq: Status: Active Protocol: Document 04/24/21 12:00 DCW (Rec: 04/24/21 12:48 DCW [id number]) Physical Therapy Assessment Impairments Impairments Activity Tolerance,Balance, Functional Activities, Functional Mobility,Pain, Posture,ROM,Soft Tissue Mobility,Strength Goals Four Impairment Pt current posture demonstrates moderate forward head/rounded shoulders Noteman Goal (LTG) Pt to stand with at worst mild forward head/rounded shoulders at least 75% of the time without verbal cues to show improved posture and decreased shear forces through cervical spine. LTG Duration 07/04/21 Three Impairment Pt scores 4-/5 or weaker in all planes during right hip and knee MMT Fdc Goal (LTG) Pt to demonstrate a strengthen of at least 4/5 with her right hip and knee MMT to show improved ability to fully support weight without an assistive device LTG Duration 07/04/21 Two Impairment Pt scores in falls-risk category on Guerra (34/56) and TUG (18.09) Short Term Goal (STG) Pt to complete TUG with an average time of less than 15 seconds to show a decreasing falls risk STG Duration 05/20/21 Noteman Goal (LTG) Pt to score >42/56 on Guerra to demonstrate a decreased falls risk. LTG Duration 07/04/21 One Impairment Pt does not have an appropriate home exercise program Short Term Goal (STG) Pt to be independent and compliant with an appropriate HEP STG Duration 05/20/21 Assessment Summary Assessment Pt still struggling due to back and hip pain, resulting in limitations to her participation. Physical Therapy Plan Frequency and Duration Frequency of Treatment 2x/Week Duration of Treatment 90 Days Plan of Care Start Date 04/05/21 Plan of Care End Date 07/04/21 Therapeutic Interventions Therapeutic Interventions Aquatic Therapy,Balance Training,Gait Training,Home Exercise Program,Joint Mobilizations,Manual Therapy, Neuromuscular Re-education, Patient/Caregiver Education, Self-Care/Home Management,Soft Tissue Mobilization, Therapeutic Activities, Therapeutic Exercises Next Visit Focus/Plan Next Note Type Treatment Note Next Visit Plan Balance training, LE strengthening
--- NOTE | 2021-04-27 11:14 | PT.OTN ---
Current Diagnoses Bilateral primary osteoarthritis of hip (04/27/21) Stiffness of other specified joint, not elsewhere classified (04/27/21) Spondylolisthesis, lumbar region (04/27/21) Muscle weakness (generalized) (04/27/21) Other abnormalities of gait and mobility (04/27/21) Physical Therapy Treatment Note PT-OP-A Visit Information Start: 04/05/21 17:39 Freq: Status: Active Protocol: Document 04/27/21 10:30 DCW (Rec: 04/27/21 11:14 DCW [id number]) Out-Patient Physical Therapy Visit Information Visit Information Visit Type Treatment Note Visit Start Time 10:30 Visit Stop Time 11:15 Total Visit Minutes 45 Visit Number 6 Number of CHILDREN'S NURSERY ASSISTANT Visits 0 Evaluation Information Evaluation Date 04/05/21 PT-OP-B Current Condition Start: 04/05/21 17:39 Freq: Status: Active Protocol: Document 04/05/21 10:30 DCW (Rec: 04/06/21 10:06 DCW [id number]) Current Condition History of Current Condition Onset Date 01/04/21 Current Complaints S/p L3-S1 TLIF with posterior instrumentation History of Current Condition Pt is a 75 year old female three months s/p L3-S1 TLIF with posterior instrumentation . Unfortunately, two months ago, pt's recovery was complicated by sudden pain and swelling in her right leg, which was found to be a DVT. After being sent to the ER, pt was demonstrating SOB, which led to a CTA of her chest, which uncovered numerous bilateral pulmonary emboli. Pt was put on blood thinners and has slowly been recovering from this setback. Pt still continues to have fairly severe pain in her right hip, but is not sure if that is due to the DVT, or just the normal arthritis. Currently, pt has complaints of decreased activity tolerance, continued back pain, instability, increased fear of falling, and an inability to ambulate outside when not using any device. Pt notes she uses her FWW outside, but typically doesn't in her house. Treatment Goals Patient/Caregiver Goals I want to improve my posture, I want to be able to bend, and most importantly, I want to walk without any device. Personal Factors Other Personal Factors That May Effect DVT/PEs, Diverticulosis, IBS, Therapy/Recovery L3-S1 TLIF PT-OP-C Subjective Start: 04/05/21 17:39 Freq: Status: Active Protocol: Document 04/27/21 10:30 DCW (Rec: 04/27/21 11:14 DCW [id number]) OP-PT Subjective Patient Comments Patient Comments Pt arrives today with no assistive device, states she started this two days ago. PT-OP-D Balance Start: 04/05/21 17:39 Freq: Status: Active Protocol: Document 04/05/21 10:30 DCW (Rec: 04/06/21 10:06 DCW [id number]) OP-PT Balance Assessment Sitting Balance Static Sitting Balance Ability Normal Dynamic Sitting Balance Ability Normal Standing Balance Static Standing Balance Ability Fair Dynamic Standing Balance Ability Fair Balance Tests Guerra Balance Test Guerra Balance Test Score 34/56 Guerra Impairment Rating 20 to 39% Impaired (Score 34- 44) Guerra Balance Assessment Evaluation Sitting to Standing Ability Independent w/out Hands Unsupported Stance 30 seconds Sitting Unsupported, Feet on Floor Safely- 2 minutes Standing to Sitting Ability Safely, Minimal Hand Use Transfer Ability Safely, Hand Use Unsupported Stance- Eyes Closed Supervision, 10 seconds Unsupported Stance- Eyes Open Independent, <30 seconds Reaching Forward Standing Safely, 2 inches Pick- Up Object From Floor Within 2 inches, Unable Look Behind Shoulder - Standing Supervision w/Turning Turning 360 Degrees Supervision/Verbal Cues Unsupported Stance, Alternating Feet on 4 Steps w/Supervision Stair Unsupported Tandem Stance Small Step- 30 seconds Unilateral Leg Stance Lifts Leg/Holds > 3 secs Total Score Guerra Total Score (out of 56 points) 34 Guerra Impairment Rating 20 to 39% Impaired (Score 34- 44) Villa Fall Scale Copyright Permission PT-OP-E Functional Tests Start: 04/05/21 17:39 Freq: Status: Active Protocol: Document 04/05/21 10:30 DCW (Rec: 04/06/21 10:06 DCW [id number]) Functional Tests Timed Up and Go (TUG) Score 18.09 /c FWW Comments Three-trial average (17.26, 18.87, 18.14) TUG Impairment Rating 80 to <100% Impaired (Score 18 -19) PT-OP-J Posture/Palpation/Skin Start: 04/06/21 10:06 Freq: Status: Active Protocol: Document 04/05/21 10:30 DCW (Rec: 04/06/21 10:08 DCW [id number]) Posture Evaluation Position Standing Evaluation View Lateral Head/C-Spine Posture Flexed,Forward Head T-Spine Posture Increased Kyphosis L-Spine Posture Flattened Weight Distribution Weight Shifted Anterior PT-OP-K Range of Motion Start: 04/05/21 17:39 Freq: Status: Active Protocol: Document 04/05/21 10:30 DCW (Rec: 04/06/21 10:06 DCW [id number]) Lumbar Spine Range of Motion Lumbar Spine Active Degrees Testing Position Standing Flexion 20 Extension 0 Lateral Flexion Left 53 Lateral Flexion Right 53 ROM Limitations Soft Tissue Tightness,Bony Restriction,Muscle Weakness, Muscle Tone Comments Lateral flexion measured in cm from fingertips to floor PT-OP-M Strength Start: 04/05/21 17:39 Freq: Status: Active Protocol: Document 04/05/21 10:30 DCW (Rec: 04/06/21 10:06 DCW [id number]) Hip Strength Hip Manual Muscle Testing Right Flexion (L2) 4- Good- Extension (S1) 4- Good- Abduction 4- Good- Adduction 4- Good- External Rotation 3+ Fair+ Internal Rotation 3+ Fair+ Left Flexion (L2) 4 Good Extension (S1) 4 Good Abduction 4 Good Adduction 4 Good External Rotation 4 Good Internal Rotation 4 Good Knee Strength Knee Manual Muscle Testing Right Flexion (S2) 3+ Fair+ Extension (L3) 4- Good- Left Flexion (S2) 4+ Good+ Extension (L3) 4+ Good+ PT-OP-Q Treatments Start: 04/05/21 17:39 Freq: Status: Active Protocol: Document 04/27/21 10:30 DCW (Rec: 04/27/21 11:14 DCW [id number]) Cardio Equipment Recumbent Elliptical (Biodex) Duration (Minutes) 6 Resistance 3 Seat Position 8 Gym Equipment Shuttle Recovery Unilateral Squats Resistance 37# Shuttle Recovery Platform Stable Bilateral Squats Resistance 62# Shuttle Recovery Platform Stable Therapeutic Exercises Sitting Exercises 3 Sitting Exercise Name Hip Abduction Side bilateral Resistance Lv 3 Equipment Used T-band 2 Sitting Exercise Name LAQ Side bilateral Resistance 5# 1 Sitting Exercise Name Hamstring curl Side bilateral Resistance Lv 3 Equipment Used T-band Standing Exercises 6 Standing Exercise Name Reverse fly Side bilateral Resistance Lv 2 Equipment Used T-band 5 Standing Exercise Name Shoulder Extension Side bilateral Resistance Lv 2 Equipment Used T-band 4 Standing Exercise Name Rows Side bilateral Resistance Lv 2 Equipment Used T-band 3 Standing Exercise Name Hip Extension Side bilateral Resistance Yellow Equipment Used T-band 2 Standing Exercise Name Hamstring Curls Side bilateral Resistance 5# 1 Standing Exercise Name Toe-taps Side bilateral Resistance 5# Equipment Used 6 step Other Exercises 1 Other Exercise Name Resisted Ambulation Resistance Yellow Equipment Used T-band Comments Fwd, Side-stepping PT-OP-T Assessment and Plan Start: 04/05/21 17:39 Freq: Status: Active Protocol: Document 04/27/21 10:30 DCW (Rec: 04/27/21 11:14 DCW [id number]) Physical Therapy Assessment Impairments Impairments Activity Tolerance,Balance, Functional Activities, Functional Mobility,Pain, Posture,ROM,Soft Tissue Mobility,Strength Goals Four Impairment Pt current posture demonstrates moderate forward head/rounded shoulders Half-Way Goal (LTG) Pt to stand with at worst mild forward head/rounded shoulders at least 75% of the time without verbal cues to show improved posture and decreased shear forces through cervical spine. LTG Duration 07/04/21 Three Impairment Pt scores 4-/5 or weaker in all planes during right hip and knee MMT Half-Way Goal (LTG) Pt to demonstrate a strengthen of at least 4/5 with her right hip and knee MMT to show improved ability to fully support weight without an assistive device LTG Duration 07/04/21 Two Impairment Pt scores in falls-risk category on Guerra (34/56) and TUG (18.09) Short Term Goal (STG) Pt to complete TUG with an average time of less than 15 seconds to show a decreasing falls risk STG Duration 05/20/21 Half-Way Goal (LTG) Pt to score >42/56 on Guerra to demonstrate a decreased falls risk. LTG Duration 07/04/21 One Impairment Pt does not have an appropriate home exercise program Short Term Goal (STG) Pt to be independent and compliant with an appropriate HEP STG Duration 05/20/21 Assessment Summary Assessment Pt much better today, able to fully participate with no complaints of back pain. Did require verbal cues for posture. Physical Therapy Plan Frequency and Duration Frequency of Treatment 2x/Week Duration of Treatment 90 Days Plan of Care Start Date 04/05/21 Plan of Care End Date 07/04/21 Therapeutic Interventions Therapeutic Interventions Aquatic Therapy,Balance Training,Gait Training,Home Exercise Program,Joint Mobilizations,Manual Therapy, Neuromuscular Re-education, Patient/Caregiver Education, Self-Care/Home Management,Soft Tissue Mobilization, Therapeutic Activities, Therapeutic Exercises Next Visit Focus/Plan Next Note Type Treatment Note Next Visit Plan Balance training, LE strengthening
--- NOTE | 2021-05-08 10:32 | PT.OTN ---
Current Diagnoses Bilateral primary osteoarthritis of hip (05/08/21) Stiffness of other specified joint, not elsewhere classified (05/08/21) Spondylolisthesis, lumbar region (05/08/21) Muscle weakness (generalized) (05/08/21) Other abnormalities of gait and mobility (05/08/21) Physical Therapy Treatment Note PT-OP-A Visit Information Start: 04/05/21 17:39 Freq: Status: Active Protocol: Document 05/08/21 09:48 SP (Rec: 05/08/21 11:46 SP [id number]) Out-Patient Physical Therapy Visit Information Visit Information Visit Type Treatment Note Visit Start Time 09:48 Visit Stop Time 10:32 Total Visit Minutes 44 Visit Number 7 Number of ONLINE ADVERTISING ANALYST Visits 1 Evaluation Information Evaluation Date 04/05/21 PT-OP-B Current Condition Start: 04/05/21 17:39 Freq: Status: Active Protocol: Document 04/05/21 10:30 DCW (Rec: 04/06/21 10:06 DCW [id number]) Current Condition History of Current Condition Onset Date 01/04/21 Current Complaints S/p L3-S1 TLIF with posterior instrumentation History of Current Condition Pt is a 75 year old female three months s/p L3-S1 TLIF with posterior instrumentation . Unfortunately, two months ago, pt's recovery was complicated by sudden pain and swelling in her right leg, which was found to be a DVT. After being sent to the ER, pt was demonstrating SOB, which led to a CTA of her chest, which uncovered numerous bilateral pulmonary emboli. Pt was put on blood thinners and has slowly been recovering from this setback. Pt still continues to have fairly severe pain in her right hip, but is not sure if that is due to the DVT, or just the normal arthritis. Currently, pt has complaints of decreased activity tolerance, continued back pain, instability, increased fear of falling, and an inability to ambulate outside when not using any device. Pt notes she uses her FWW outside, but typically doesn't in her house. Treatment Goals Patient/Caregiver Goals I want to improve my posture, I want to be able to bend, and most importantly, I want to walk without any device. Personal Factors Other Personal Factors That May Effect DVT/PEs, Diverticulosis, IBS, Therapy/Recovery L3-S1 TLIF PT-OP-C Subjective Start: 04/05/21 17:39 Freq: Status: Active Protocol: Document 05/08/21 09:48 SP (Rec: 05/08/21 11:46 SP [id number]) OP-PT Subjective Patient Comments Patient Comments Pt states is very compliant with HEP daily. Is able to now don socks using sock aid. Pt asked wants more exercises to improve balance and walking again without her cane. PT-OP-D Balance Start: 04/05/21 17:39 Freq: Status: Active Protocol: Document 04/05/21 10:30 DCW (Rec: 04/06/21 10:06 [facility] [id number]) OP-PT Balance Assessment Sitting Balance Static Sitting Balance Ability Normal Dynamic Sitting Balance Ability Normal Standing Balance Static Standing Balance Ability Fair Dynamic Standing Balance Ability Fair Balance Tests Guerra Balance Test Guerra Balance Test Score 34/56 Guerra Impairment Rating 20 to 39% Impaired (Score 34- 44) Guerra Balance Assessment Evaluation Sitting to Standing Ability Independent w/out Hands Unsupported Stance 30 seconds Sitting Unsupported, Feet on Floor Safely- 2 minutes Standing to Sitting Ability Safely, Minimal Hand Use Transfer Ability Safely, Hand Use Unsupported Stance- Eyes Closed Supervision, 10 seconds Unsupported Stance- Eyes Open Independent, <30 seconds Reaching Forward Standing Safely, 2 inches Pick- Up Object From Floor Within 2 inches, Unable Look Behind Shoulder - Standing Supervision w/Turning Turning 360 Degrees Supervision/Verbal Cues Unsupported Stance, Alternating Feet on 4 Steps w/Supervision Stair Unsupported Tandem Stance Small Step- 30 seconds Unilateral Leg Stance Lifts Leg/Holds > 3 secs Total Score Guerra Total Score (out of 56 points) 34 Guerra Impairment Rating 20 to 39% Impaired (Score 34- 44) [place] Fall Scale Copyright Permission PT-OP-E Functional Tests Start: 04/05/21 17:39 Freq: Status: Active Protocol: Document 04/05/21 10:30 DCW (Rec: 04/06/21 10:06 DC [id number]) Functional Tests Timed Up and Go (TUG) Score 18.09 /c FWW Comments Three-trial average (17.26, 18.87, 18.14) TUG Impairment Rating 80 to <100% Impaired (Score 18 -19) PT-OP-J Posture/Palpation/Skin Start: 04/06/21 10:06 Freq: Status: Active Protocol: Document 04/05/21 10:30 DCW (Rec: 04/06/21 10:08 DCW [id number]) Posture Evaluation Position Standing Evaluation View Lateral Head/C-Spine Posture Flexed,Forward Head T-Spine Posture Increased Kyphosis L-Spine Posture Flattened Weight Distribution Weight Shifted Anterior PT-OP-K Range of Motion Start: 04/05/21 17:39 Freq: Status: Active Protocol: Document 04/05/21 10:30 DCW (Rec: 04/06/21 10:06 DCW [id number]) Lumbar Spine Range of Motion Lumbar Spine Active Degrees Testing Position Standing Flexion 20 Extension 0 Lateral Flexion Left 53 Lateral Flexion Right 53 ROM Limitations Soft Tissue Tightness,Bony Restriction,Muscle Weakness, Muscle Tone Comments Lateral flexion measured in cm from fingertips to floor PT-OP-M Strength Start: 04/05/21 17:39 Freq: Status: Active Protocol: Document 04/05/21 10:30 DCW (Rec: 04/06/21 10:06 DCW [id number]) Hip Strength Hip Manual Muscle Testing Right Flexion (L2) 4- Good- Extension (S1) 4- Good- Abduction 4- Good- Adduction 4- Good- External Rotation 3+ Fair+ Internal Rotation 3+ Fair+ Left Flexion (L2) 4 Good Extension (S1) 4 Good Abduction 4 Good Adduction 4 Good External Rotation 4 Good Internal Rotation 4 Good Knee Strength Knee Manual Muscle Testing Right Flexion (S2) 3+ Fair+ Extension (L3) 4- Good- Left Flexion (S2) 4+ Good+ Extension (L3) 4+ Good+ PT-OP-Q Treatments Start: 04/05/21 17:39 Freq: Status: Active Protocol: Document 05/08/21 09:48 SP (Rec: 05/08/21 11:46 SP [id number]) Cardio Equipment Recumbent Elliptical (Biodex) Duration (Minutes) 6 Resistance 3 Seat Position 7 Therapeutic Exercises Sitting Exercises self STMs Sitting Exercise Name quad/ calf/ HS roll pin, racquetball ES, glut Equipment Used rolling pin, racquetball Reps/Minutes 5 min total Comments education on self STMs- good feedback response 2 Sitting Exercise Name LAQ Side bilateral Resistance Y TB today ( R or G TB next) Reps/Minutes 3x20 reps Standing Exercises 6 Standing Exercise Name Reverse fly Side bilateral Resistance Lv 2 Equipment Used T-band Comments cued tall posture w/ scap stab (depression) 5 Standing Exercise Name Shoulder Extension Side bilateral Resistance Lv 2 Equipment Used T-band Comments cued tall posture w/ scap stab 4 Standing Exercise Name Rows Side bilateral Resistance Lv 3 Equipment Used T-band Comments cued tall posture w/ scap stab Neuro Re-Education Treatment Balance Activities corner balance Details NBOS, stagger- added to HEP Comments head turns both, EC NBOS 30, 15 Provided hand outs. PT-OP-T Assessment and Plan Start: 04/05/21 17:39 Freq: Status: Active Protocol: Document 05/08/21 09:48 SP (Rec: 05/08/21 11:46 SP [id number]) Physical Therapy Assessment Goals Four Impairment Pt current posture demonstrates moderate forward head/rounded shoulders Seafood Manager Goal (LTG) Pt to stand with at worst mild forward head/rounded shoulders at least 75% of the time without verbal cues to show improved posture and decreased shear forces through cervical spine. LTG Duration 07/04/21 Three Impairment Pt scores 4-/5 or weaker in all planes during right hip and knee MMT Mcfp Goal (LTG) Pt to demonstrate a strengthen of at least 4/5 with her right hip and knee MMT to show improved ability to fully support weight without an assistive device LTG Duration 07/04/21 Two Impairment Pt scores in falls-risk category on Guerra (34/56) and TUG (18.09) Short Term Goal (STG) Pt to complete TUG with an average time of less than 15 seconds to show a decreasing falls risk STG Duration 05/20/21 Seafood Manager Goal (LTG) Pt to score >42/56 on Guerra to demonstrate a decreased falls risk. LTG Duration 07/04/21 One Impairment Pt does not have an appropriate home exercise program Short Term Goal (STG) Pt to be independent and compliant with an appropriate HEP STG Duration 05/20/21 Assessment Summary Assessment Tx focused on HEP review and incorporated standing balance that is safe to perform at home with good demonstration to add to HEP today: corner balance w/ chair front during NBOS and Stagger w/ head turns and EC only NBOS. Instructed self STMs using racquetball and rolling pin to LEs, ES, gluts with good feedback response wow this works really good. Provided hand outs for self recall and set up. Physical Therapy Plan Frequency and Duration Frequency of Treatment 2x/Week Duration of Treatment 90 Days Plan of Care Start Date 04/05/21 Plan of Care End Date 07/04/21 Therapeutic Interventions Therapeutic Interventions Aquatic Therapy,Balance Training,Gait Training,Home Exercise Program,Joint Mobilizations,Manual Therapy, Neuromuscular Re-education, Patient/Caregiver Education, Self-Care/Home Management,Soft Tissue Mobilization, Therapeutic Activities, Therapeutic Exercises Next Visit Focus/Plan Next Note Type Treatment Note Next Visit Plan Assess response to HEP review standing/seated, initiated self STMs and corner balance last tx. POC: Balance training, LE strengthening
--- NOTE | 2021-05-10 12:06 | PT.OTN ---
Current Diagnoses Bilateral primary osteoarthritis of hip (05/10/21) Stiffness of other specified joint, not elsewhere classified (05/10/21) Spondylolisthesis, lumbar region (05/10/21) Muscle weakness (generalized) (05/10/21) Other abnormalities of gait and mobility (05/10/21) Physical Therapy Treatment Note PT-OP-A Visit Information Start: 04/05/21 17:39 Freq: Status: Active Protocol: Document 05/10/21 11:43 MA (Rec: 05/10/21 12:06 MA [email or web address]) Out-Patient Physical Therapy Visit Information Visit Information Visit Type Treatment Note Visit Start Time 11:00 Visit Stop Time 11:40 Total Visit Minutes 40 Visit Number 8 Number of MUD WORKER Visits 2 PT-OP-B Current Condition Start: 04/05/21 17:39 Freq: Status: Active Protocol: Document 04/05/21 10:30 DCW (Rec: 04/06/21 10:06 DCW [id number]) Current Condition History of Current Condition Onset Date 01/04/21 Current Complaints S/p L3-S1 TLIF with posterior instrumentation History of Current Condition Pt is a 75 year old female three months s/p L3-S1 TLIF with posterior instrumentation . Unfortunately, two months ago, pt's recovery was complicated by sudden pain and swelling in her right leg, which was found to be a DVT. After being sent to the ER, pt was demonstrating SOB, which led to a CTA of her chest, which uncovered numerous bilateral pulmonary emboli. Pt was put on blood thinners and has slowly been recovering from this setback. Pt still continues to have fairly severe pain in her right hip, but is not sure if that is due to the DVT, or just the normal arthritis. Currently, pt has complaints of decreased activity tolerance, continued back pain, instability, increased fear of falling, and an inability to ambulate outside when not using any device. Pt notes she uses her FWW outside, but typically doesn't in her house. Treatment Goals Patient/Caregiver Goals I want to improve my posture, I want to be able to bend, and most importantly, I want to walk without any device. Personal Factors Other Personal Factors That May Effect DVT/PEs, Diverticulosis, IBS, Therapy/Recovery L3-S1 TLIF PT-OP-C Subjective Start: 04/05/21 17:39 Freq: Status: Active Protocol: Document 05/10/21 11:43 MA (Rec: 05/10/21 12:06 MA [id number]) OP-PT Subjective Patient Comments Patient Comments Pt states she cannot do any UE stuff today because her L arm hurts so badly from gardening the last few days PT-OP-D Balance Start: 04/05/21 17:39 Freq: Status: Active Protocol: Document 05/10/21 11:43 MA (Rec: 05/10/21 12:06 MA [id number]) Guerra Balance Assessment Evaluation Sitting to Standing Ability Independent w/out Hands Unsupported Stance Safely- 2 minutes Sitting Unsupported, Feet on Floor Safely- 2 minutes Standing to Sitting Ability Safely, Minimal Hand Use Transfer Ability Safely, Minimal Hand Use Unsupported Stance- Eyes Closed Safely, 10 seconds Unsupported Stance- Eyes Open Supervision to maintain Reaching Forward Standing Safely, 5 inches Pick- Up Object From Floor Within 2 inches, Unable Look Behind Shoulder - Standing Shifts Weight Unilateral Turning 360 Degrees Turns slowly, but safely Unsupported Stance, Alternating Feet on (I)- 8 Steps in > 20 secs Stair Unsupported Tandem Stance Holds Tandem- 30 seconds Unilateral Leg Stance Lifts Leg/Unable to Hold Total Score Guerra Total Score (out of 56 points) 44 Guerra Impairment Rating 20 to 39% Impaired (Score 34- 44) PT-OP-E Functional Tests Start: 04/05/21 17:39 Freq: Status: Active Protocol: Document 05/10/21 11:43 MA (Rec: 05/10/21 12:06 MA [id number]) Functional Tests Timed Up and Go (TUG) Score 14.03 (no AD) Comments Three-trial average (13.2, 14 .57, 14.32) TUG Impairment Rating 40 to <60% Impaired (Score 14- 15) PT-OP-J Posture/Palpation/Skin Start: 04/06/21 10:06 Freq: Status: Active Protocol: Document 04/05/21 10:30 DCW (Rec: 04/06/21 10:08 DCW [id number]) Posture Evaluation Position Standing Evaluation View Lateral Head/C-Spine Posture Flexed,Forward Head T-Spine Posture Increased Kyphosis L-Spine Posture Flattened Weight Distribution Weight Shifted Anterior PT-OP-K Range of Motion Start: 04/05/21 17:39 Freq: Status: Active Protocol: Document 04/05/21 10:30 DCW (Rec: 04/06/21 10:06 DCW [id number]) Lumbar Spine Range of Motion Lumbar Spine Active Degrees Testing Position Standing Flexion 20 Extension 0 Lateral Flexion Left 53 Lateral Flexion Right 53 ROM Limitations Soft Tissue Tightness,Bony Restriction,Muscle Weakness, Muscle Tone Comments Lateral flexion measured in cm from fingertips to floor PT-OP-M Strength Start: 04/05/21 17:39 Freq: Status: Active Protocol: Document 04/05/21 10:30 DCW (Rec: 04/06/21 10:06 DCW [id number]) Hip Strength Hip Manual Muscle Testing Right Flexion (L2) 4- Good- Extension (S1) 4- Good- Abduction 4- Good- Adduction 4- Good- External Rotation 3+ Fair+ Internal Rotation 3+ Fair+ Left Flexion (L2) 4 Good Extension (S1) 4 Good Abduction 4 Good Adduction 4 Good External Rotation 4 Good Internal Rotation 4 Good Knee Strength Knee Manual Muscle Testing Right Flexion (S2) 3+ Fair+ Extension (L3) 4- Good- Left Flexion (S2) 4+ Good+ Extension (L3) 4+ Good+ PT-OP-Q Treatments Start: 04/05/21 17:39 Freq: Status: Active Protocol: Document 05/10/21 11:43 MA (Rec: 05/10/21 12:06 MA [email or web address]) Self-Care/Home Management Treatment Education Patient Education Pain Management Other Education Educated pt on resting and icing LUE as needed for pain. She will call dr if she gets any shooting pain down the arm or if it does not start to improve in 48 hours. PT-OP-T Assessment and Plan Start: 04/05/21 17:39 Freq: Status: Active Protocol: Document 05/10/21 11:43 MA (Rec: 05/10/21 12:06 MA [email or web address]) Physical Therapy Assessment Goals Four Impairment Pt current posture demonstrates moderate forward head/rounded shoulders Residential Goal (LTG) Pt to stand with at worst mild forward head/rounded shoulders at least 75% of the time without verbal cues to show improved posture and decreased shear forces through cervical spine. LTG Duration 07/04/21 Three Impairment Pt scores 4-/5 or weaker in all planes during right hip and knee MMT Rolling Mill Plugger Goal (LTG) Pt to demonstrate a strengthen of at least 4/5 with her right hip and knee MMT to show improved ability to fully support weight without an assistive device LTG Duration 07/04/21 Two Impairment Pt scores in falls-risk category on Guerra (34/56) and TUG (18.09) Short Term Goal (STG) Pt to complete TUG with an average time of less than 15 seconds to show a decreasing falls risk STG Duration 05/20/21 Residential Goal (LTG) Pt to score >42/56 on Guerra to demonstrate a decreased falls risk. LTG Duration 07/04/21 One Impairment Pt does not have an appropriate home exercise program Short Term Goal (STG) Pt to be independent and compliant with an appropriate HEP STG Duration 05/20/21 Assessment Summary Assessment Pt arrived with LUE pain. No swelling noted in UE but pt is tender to palpation along bicep mm belly. Pt has been gardening for 3 days in a row and thinks that may have caused pain. Discussed with pt resting arm for 48 hours and trying ice to decrease pain. If pain persists or if pain turns into numbness/tingling down arm, pt agrees to call her drRashida immediately. Performed TUG test without AD, average of 14 seconds showing good improvement from initial session of 18 seconds with FWW . Pt also improved her Guerra Balance score from 34 to 44/56 this session showing good imrpovement with balance overall. Pt continues to have difficulty reaching objects on floor. Discussed and demonstrated having a WBOS to reach vs NBOS with pt able to touch timer on floor when cued for WBOS. Pt feels her new HEP exercises are challenging but good for her and she is motivated to continue working on balance after seeing such a big improvement in her Guerra. Physical Therapy Plan Frequency and Duration Frequency of Treatment 2x/Week Duration of Treatment 90 Days Plan of Care Start Date 04/05/21 Plan of Care End Date 07/04/21 Therapeutic Interventions Therapeutic Interventions Aquatic Therapy,Balance Training,Gait Training,Home Exercise Program,Joint Mobilizations,Manual Therapy, Neuromuscular Re-education, Patient/Caregiver Education, Self-Care/Home Management,Soft Tissue Mobilization, Therapeutic Activities, Therapeutic Exercises Next Visit Focus/Plan Next Note Type Treatment Note Next Visit Plan Assess response to HEP review standing/seated, initiated self STMs and corner balance last tx. POC: Balance training, LE strengthening
--- NOTE | 2021-05-16 13:00 | PT.OTN ---
Current Diagnoses Bilateral primary osteoarthritis of hip (05/16/21) Stiffness of other specified joint, not elsewhere classified (05/16/21) Spondylolisthesis, lumbar region (05/16/21) Muscle weakness (generalized) (05/16/21) Other abnormalities of gait and mobility (05/16/21) Physical Therapy Treatment Note PT-OP-A Visit Information Start: 04/05/21 17:39 Freq: Status: Active Protocol: Document 05/16/21 12:30 SP (Rec: 05/16/21 16:57 SP [id number]) Out-Patient Physical Therapy Visit Information Visit Information Visit Type Treatment Note Visit Note LACING CUTTER late to get pt. Visit Start Time 12:25 Visit Stop Time 13:00 Total Visit Minutes 35 Visit Number 9 Number of LACING CUTTER Visits 3 Evaluation Information Evaluation Date 04/05/21 PT-OP-B Current Condition Start: 04/05/21 17:39 Freq: Status: Active Protocol: Document 04/05/21 10:30 DCW (Rec: 04/06/21 10:06 DCW [id number]) Current Condition History of Current Condition Onset Date 01/04/21 Current Complaints S/p L3-S1 TLIF with posterior instrumentation History of Current Condition Pt is a 75 year old female three months s/p L3-S1 TLIF with posterior instrumentation . Unfortunately, two months ago, pt's recovery was complicated by sudden pain and swelling in her right leg, which was found to be a DVT. After being sent to the ER, pt was demonstrating SOB, which led to a CTA of her chest, which uncovered numerous bilateral pulmonary emboli. Pt was put on blood thinners and has slowly been recovering from this setback. Pt still continues to have fairly severe pain in her right hip, but is not sure if that is due to the DVT, or just the normal arthritis. Currently, pt has complaints of decreased activity tolerance, continued back pain, instability, increased fear of falling, and an inability to ambulate outside when not using any device. Pt notes she uses her FWW outside, but typically doesn't in her house. Treatment Goals Patient/Caregiver Goals I want to improve my posture, I want to be able to bend, and most importantly, I want to walk without any device. Personal Factors Other Personal Factors That May Effect DVT/PEs, Diverticulosis, IBS, Therapy/Recovery L3-S1 TLIF PT-OP-C Subjective Start: 04/05/21 17:39 Freq: Status: Active Protocol: Document 05/16/21 12:30 SP (Rec: 05/16/21 16:57 SP [id number]) OP-PT Subjective Patient Comments Patient Comments Pt stated has increased LBP and frustrated because isn't able to walk more than 10 min before her pain forces her to sit down and concerned because has been 5 months since surgery and thought would be much better by now. She states PT has been helping in reduction of pain, improvement of strength and faithful with her HEP. Patient Questionnaires Lower Extremity Functional Scale LEFS Score 25 LEFS Impairment 20 to 39% Impaired (Score 48- 62) PT-OP-D Balance Start: 04/05/21 17:39 Freq: Status: Active Protocol: Document 05/10/21 11:43 MA (Rec: 05/10/21 12:06 MA [id number]) Moralez Balance Assessment Evaluation Sitting to Standing Ability Independent w/out Hands Unsupported Stance Safely- 2 minutes Sitting Unsupported, Feet on Floor Safely- 2 minutes Standing to Sitting Ability Safely, Minimal Hand Use Transfer Ability Safely, Minimal Hand Use Unsupported Stance- Eyes Closed Safely, 10 seconds Unsupported Stance- Eyes Open Supervision to maintain Reaching Forward Standing Safely, 5 inches Pick- Up Object From Floor Within 2 inches, Unable Look Behind Shoulder - Standing Shifts Weight Unilateral Turning 360 Degrees Turns slowly, but safely Unsupported Stance, Alternating Feet on (I)- 8 Steps in > 20 secs Stair Unsupported Tandem Stance Holds Tandem- 30 seconds Unilateral Leg Stance Lifts Leg/Unable to Hold Total Score Moralez Total Score (out of 56 points) 44 Moralez Impairment Rating 20 to 39% Impaired (Score 34- 44) PT-OP-E Functional Tests Start: 04/05/21 17:39 Freq: Status: Active Protocol: Document 05/16/21 12:30 SP (Rec: 05/16/21 16:57 SP [id number]) Functional Tests Timed Up and Go (TUG) Score 15 (no AD) TUG Impairment Rating 40 to <60% Impaired (Score 14- 15) PT-OP-J Posture/Palpation/Skin Start: 04/06/21 10:06 Freq: Status: Active Protocol: Document 04/05/21 10:30 DCW (Rec: 04/06/21 10:08 DCW [id number]) Posture Evaluation Position Standing Evaluation View Lateral Head/C-Spine Posture Flexed,Forward Head T-Spine Posture Increased Kyphosis L-Spine Posture Flattened Weight Distribution Weight Shifted Anterior PT-OP-K Range of Motion Start: 04/05/21 17:39 Freq: Status: Active Protocol: Document 04/05/21 10:30 DCW (Rec: 04/06/21 10:06 DCW [id number]) Lumbar Spine Range of Motion Lumbar Spine Active Degrees Testing Position Standing Flexion 20 Extension 0 Lateral Flexion Left 53 Lateral Flexion Right 53 ROM Limitations Soft Tissue Tightness,Bony Restriction,Muscle Weakness, Muscle Tone Comments Lateral flexion measured in cm from fingertips to floor PT-OP-M Strength Start: 04/05/21 17:39 Freq: Status: Active Protocol: Document 04/05/21 10:30 DCW (Rec: 04/06/21 10:06 DCW [id number]) Hip Strength Hip Manual Muscle Testing Right Flexion (L2) 4- Good- Extension (S1) 4- Good- Abduction 4- Good- Adduction 4- Good- External Rotation 3+ Fair+ Internal Rotation 3+ Fair+ Left Flexion (L2) 4 Good Extension (S1) 4 Good Abduction 4 Good Adduction 4 Good External Rotation 4 Good Internal Rotation 4 Good Knee Strength Knee Manual Muscle Testing Right Flexion (S2) 3+ Fair+ Extension (L3) 4- Good- Left Flexion (S2) 4+ Good+ Extension (L3) 4+ Good+ PT-OP-Q Treatments Start: 04/05/21 17:39 Freq: Status: Active Protocol: Document 05/16/21 12:30 SP (Rec: 05/16/21 16:57 SP [id number]) Cardio Equipment Recumbent Elliptical (Biodex) Duration (Minutes) 6 Resistance 3 Seat Position 7 Gym Equipment Shuttle Recovery Bilateral Squats Resistance 50# Shuttle Recovery Platform Stable Reps/Time 2x20 reps Therapeutic Exercises Sitting Exercises 2 Sitting Exercise Name LAQ Side bilateral Resistance Y TB today ( R or G TB next) Reps/Minutes 3x20 reps Standing Exercises 5 Standing Exercise Name Shoulder Extension Side bilateral Resistance Lv 2 Equipment Used T-band Comments cued tall posture w/ scap stab 4 Standing Exercise Name Rows Side bilateral Resistance Lv 3 Equipment Used T-band Comments cued tall posture w/ scap stab PT-OP-T Assessment and Plan Start: 04/05/21 17:39 Freq: Status: Active Protocol: Document 05/16/21 12:30 SP (Rec: 05/16/21 16:57 SP [id number]) Physical Therapy Assessment Goals Four Impairment Pt current posture demonstrates moderate forward head/rounded shoulders Application Security Developer Goal (LTG) Pt to stand with at worst mild forward head/rounded shoulders at least 75% of the time without verbal cues to show improved posture and decreased shear forces through cervical spine. LTG Duration 07/04/21 Three Impairment Pt scores 4-/5 or weaker in all planes during right hip and knee MMT Application Security Developer Goal (LTG) Pt to demonstrate a strengthen of at least 4/5 with her right hip and knee MMT to show improved ability to fully support weight without an assistive device LTG Duration 07/04/21 Two Impairment Pt scores in falls-risk category on Moralez (34/56) and TUG (18.09) Short Term Goal (STG) Pt to complete TUG with an average time of less than 15 seconds to show a decreasing falls risk 05/16/21: Progressin sec. STG Duration 05/20/21 progressing Jail Goal (LTG) Pt to score >42/56 on Moralez to demonstrate a decreased falls risk. 05/10/21: Goal Met: 44/56 LTG Duration 07/04/21 Goal Met One Impairment Pt does not have an appropriate home exercise program Short Term Goal (STG) Pt to be independent and compliant with an appropriate HEP STG Duration 05/20/21 Progress Towards Goals Progress Towards Goals Progressing Toward Goals,Slow Progress due to Activity Tolerance Progress Comments Pt met LTG goal #2 with reduction to Moderate fall risk but continues to be within 20-39 % impaired results during TUG and MORALEZ scoring. Assessment Summary Assessment Pt arrived with increased LBP stating concerned can only walk 10 min before pain forces her to need to sit down. Pt responds well to core and LE strengthening, I feel am able to move better, end of tx. Physical Therapy Plan Frequency and Duration Frequency of Treatment 2x/Week Duration of Treatment 90 Days Plan of Care Start Date 04/05/21 Plan of Care End Date 07/04/21 Therapeutic Interventions Therapeutic Interventions Aquatic Therapy,Balance Training,Gait Training,Home Exercise Program,Joint Mobilizations,Manual Therapy, Neuromuscular Re-education, Patient/Caregiver Education, Self-Care/Home Management,Soft Tissue Mobilization, Therapeutic Activities, Therapeutic Exercises Next Visit Focus/Plan Next Note Type Treatment Note Next Visit Plan Assess response to HEP review standing/seated, initiated self STMs and corner balance last tx. POC: Balance training, LE strengthening
--- NOTE | 2021-05-25 11:14 | PT.OTN ---
Current Diagnoses Bilateral primary osteoarthritis of hip (05/25/21) Stiffness of other specified joint, not elsewhere classified (05/25/21) Spondylolisthesis, lumbar region (05/25/21) Muscle weakness (generalized) (05/25/21) Other abnormalities of gait and mobility (05/25/21) Physical Therapy Treatment Note PT-OP-A Visit Information Start: 04/05/21 17:39 Freq: Status: Active Protocol: Document 05/25/21 10:30 DCW (Rec: 05/25/21 11:14 DCW [id number]) Out-Patient Physical Therapy Visit Information Visit Information Visit Type Treatment Note Visit Start Time 10:30 Visit Stop Time 11:15 Total Visit Minutes 45 Visit Number 10 Number of PRODUCTION SUPERINTENDENT HYDRO Visits 0 Evaluation Information Evaluation Date 04/05/21 PT-OP-B Current Condition Start: 04/05/21 17:39 Freq: Status: Active Protocol: Document 04/05/21 10:30 DCW (Rec: 04/06/21 10:06 DCW [id number]) Current Condition History of Current Condition Onset Date 01/04/21 Current Complaints S/p L3-S1 TLIF with posterior instrumentation History of Current Condition Pt is a 75 year old female three months s/p L3-S1 TLIF with posterior instrumentation . Unfortunately, two months ago, pt's recovery was complicated by sudden pain and swelling in her right leg, which was found to be a DVT. After being sent to the ER, pt was demonstrating SOB, which led to a CTA of her chest, which uncovered numerous bilateral pulmonary emboli. Pt was put on blood thinners and has slowly been recovering from this setback. Pt still continues to have fairly severe pain in her right hip, but is not sure if that is due to the DVT, or just the normal arthritis. Currently, pt has complaints of decreased activity tolerance, continued back pain, instability, increased fear of falling, and an inability to ambulate outside when not using any device. Pt notes she uses her FWW outside, but typically doesn't in her house. Treatment Goals Patient/Caregiver Goals I want to improve my posture, I want to be able to bend, and most importantly, I want to walk without any device. Personal Factors Other Personal Factors That May Effect DVT/PEs, Diverticulosis, IBS, Therapy/Recovery L3-S1 TLIF PT-OP-C Subjective Start: 04/05/21 17:39 Freq: Status: Active Protocol: Document 05/25/21 10:30 DCW (Rec: 05/25/21 11:14 DCW [id number]) OP-PT Subjective Patient Comments Patient Comments I'm doing better. I was really sick last time, I'm having testing for my pancreas testing tomorrow. PT-OP-D Balance Start: 04/05/21 17:39 Freq: Status: Active Protocol: Document 05/10/21 11:43 MA (Rec: 05/10/21 12:06 MA [id number]) Guerra Balance Assessment Evaluation Sitting to Standing Ability Independent w/out Hands Unsupported Stance Safely- 2 minutes Sitting Unsupported, Feet on Floor Safely- 2 minutes Standing to Sitting Ability Safely, Minimal Hand Use Transfer Ability Safely, Minimal Hand Use Unsupported Stance- Eyes Closed Safely, 10 seconds Unsupported Stance- Eyes Open Supervision to maintain Reaching Forward Standing Safely, 5 inches Pick- Up Object From Floor Within 2 inches, Unable Look Behind Shoulder - Standing Shifts Weight Unilateral Turning 360 Degrees Turns slowly, but safely Unsupported Stance, Alternating Feet on (I)- 8 Steps in > 20 secs Stair Unsupported Tandem Stance Holds Tandem- 30 seconds Unilateral Leg Stance Lifts Leg/Unable to Hold Total Score Guerra Total Score (out of 56 points) 44 Guerra Impairment Rating 20 to 39% Impaired (Score 34- 44) PT-OP-E Functional Tests Start: 04/05/21 17:39 Freq: Status: Active Protocol: Document 05/16/21 12:30 SP (Rec: 05/16/21 16:57 SP [id number]) Functional Tests Timed Up and Go (TUG) Score 15 (no AD) TUG Impairment Rating 40 to <60% Impaired (Score 14- 15) PT-OP-J Posture/Palpation/Skin Start: 04/06/21 10:06 Freq: Status: Active Protocol: Document 04/05/21 10:30 DCW (Rec: 04/06/21 10:08 DCW [id number]) Posture Evaluation Position Standing Evaluation View Lateral Head/C-Spine Posture Flexed,Forward Head T-Spine Posture Increased Kyphosis L-Spine Posture Flattened Weight Distribution Weight Shifted Anterior PT-OP-K Range of Motion Start: 04/05/21 17:39 Freq: Status: Active Protocol: Document 04/05/21 10:30 DCW (Rec: 04/06/21 10:06 DCW [id number]) Lumbar Spine Range of Motion Lumbar Spine Active Degrees Testing Position Standing Flexion 20 Extension 0 Lateral Flexion Left 53 Lateral Flexion Right 53 ROM Limitations Soft Tissue Tightness,Bony Restriction,Muscle Weakness, Muscle Tone Comments Lateral flexion measured in cm from fingertips to floor PT-OP-M Strength Start: 04/05/21 17:39 Freq: Status: Active Protocol: Document 04/05/21 10:30 DCW (Rec: 04/06/21 10:06 DCW [id number]) Hip Strength Hip Manual Muscle Testing Right Flexion (L2) 4- Good- Extension (S1) 4- Good- Abduction 4- Good- Adduction 4- Good- External Rotation 3+ Fair+ Internal Rotation 3+ Fair+ Left Flexion (L2) 4 Good Extension (S1) 4 Good Abduction 4 Good Adduction 4 Good External Rotation 4 Good Internal Rotation 4 Good Knee Strength Knee Manual Muscle Testing Right Flexion (S2) 3+ Fair+ Extension (L3) 4- Good- Left Flexion (S2) 4+ Good+ Extension (L3) 4+ Good+ PT-OP-Q Treatments Start: 04/05/21 17:39 Freq: Status: Active Protocol: Document 05/25/21 10:30 DCW (Rec: 05/25/21 11:14 DCW [id number]) Cardio Equipment Recumbent Elliptical (BiodDealised) Duration (Minutes) 6 Resistance 3 Seat Position 6 Gym Equipment Shuttle Recovery Unilateral Squats Resistance 37# Shuttle Recovery Platform Stable Bilateral Squats Resistance 75# Shuttle Recovery Platform Stable Therapeutic Exercises Standing Exercises 3 Standing Exercise Name Hip Extension Side bilateral Resistance Green Equipment Used T-band 2 Standing Exercise Name Hamstring Curls Side bilateral Resistance 5# 1 Standing Exercise Name Marching Side bilateral Resistance 5# Other Exercises 1 Other Exercise Name Resisted Ambulation Resistance Green Equipment Used T-band Comments Fwd, Side-stepping Therapeutic Activity Therapeutic Activity 1 Name Floor->standing transfers PT-OP-T Assessment and Plan Start: 04/05/21 17:39 Freq: Status: Active Protocol: Document 05/25/21 10:30 DCW (Rec: 05/25/21 11:14 DCW [id number]) Physical Therapy Assessment Impairments Impairments Activity Tolerance,Balance, Functional Activities, Functional Mobility,Pain, Posture,ROM,Soft Tissue Mobility,Strength Goals Four Impairment Pt current posture demonstrates moderate forward head/rounded shoulders Environmental Compliance Technician Goal (LTG) Pt to stand with at worst mild forward head/rounded shoulders at least 75% of the time without verbal cues to show improved posture and decreased shear forces through cervical spine. LTG Duration 07/04/21 Three Impairment Pt scores 4-/5 or weaker in all planes during right hip and knee MMT Environmental Compliance Technician Goal (LTG) Pt to demonstrate a strengthen of at least 4/5 with her right hip and knee MMT to show improved ability to fully support weight without an assistive device LTG Duration 07/04/21 Two Impairment Pt scores in falls-risk category on Guerra (34/56) and TUG (18.09) Short Term Goal (STG) Pt to complete TUG with an average time of less than 15 seconds to show a decreasing falls risk 05/16/21: Progressin sec. STG Duration 05/20/21 progressing Jail Goal (LTG) Pt to score >42/56 on Guerra to demonstrate a decreased falls risk. 05/10/21: Goal Met: 44/56 LTG Duration 07/04/21 Goal Met One Impairment Pt does not have an appropriate home exercise program Short Term Goal (STG) Pt to be independent and compliant with an appropriate HEP STG Duration 05/20/21 Assessment Summary Assessment Pt struggled with floor transfers today, partially due to weakness, partially because she has a difficult time trusting her right leg enough to shift weight. Pt was , however, thrilled with the pointer to make sure a chair was nearby before she get on the ground so she does not need to crawl to one. Physical Therapy Plan Frequency and Duration Frequency of Treatment 2x/Week Duration of Treatment 90 Days Plan of Care Start Date 04/05/21 Plan of Care End Date 07/04/21 Therapeutic Interventions Therapeutic Interventions Aquatic Therapy,Balance Training,Gait Training,Home Exercise Program,Joint Mobilizations,Manual Therapy, Neuromuscular Re-education, Patient/Caregiver Education, Self-Care/Home Management,Soft Tissue Mobilization, Therapeutic Activities, Therapeutic Exercises Next Visit Focus/Plan Next Note Type Treatment Note Next Visit Plan Assess response to HEP review standing/seated, initiated self STMs and corner balance last tx. POC: Balance training, LE strengthening
--- NOTE | 2021-05-30 12:02 | PT.OTN ---
Current Diagnoses Bilateral primary osteoarthritis of hip (05/30/21) Stiffness of other specified joint, not elsewhere classified (05/30/21) Spondylolisthesis, lumbar region (05/30/21) Muscle weakness (generalized) (05/30/21) Other abnormalities of gait and mobility (05/30/21) Physical Therapy Treatment Note PT-OP-A Visit Information Start: 04/05/21 17:39 Freq: Status: Active Protocol: Document 05/30/21 11:15 DCW (Rec: 05/30/21 12:02 DCW [id number]) Out-Patient Physical Therapy Visit Information Visit Information Visit Type Treatment Note Visit Start Time 11:15 Visit Stop Time 12:00 Total Visit Minutes 45 Visit Number 11 Number of CARDIAC SURGEON Visits 0 Evaluation Information Evaluation Date 04/05/21 PT-OP-B Current Condition Start: 04/05/21 17:39 Freq: Status: Active Protocol: Document 04/05/21 10:30 DCW (Rec: 04/06/21 10:06 DCW [id number]) Current Condition History of Current Condition Onset Date 01/04/21 Current Complaints S/p L3-S1 TLIF with posterior instrumentation History of Current Condition Pt is a 75 year old female three months s/p L3-S1 TLIF with posterior instrumentation . Unfortunately, two months ago, pt's recovery was complicated by sudden pain and swelling in her right leg, which was found to be a DVT. After being sent to the ER, pt was demonstrating SOB, which led to a CTA of her chest, which uncovered numerous bilateral pulmonary emboli. Pt was put on blood thinners and has slowly been recovering from this setback. Pt still continues to have fairly severe pain in her right hip, but is not sure if that is due to the DVT, or just the normal arthritis. Currently, pt has complaints of decreased activity tolerance, continued back pain, instability, increased fear of falling, and an inability to ambulate outside when not using any device. Pt notes she uses her FWW outside, but typically doesn't in her house. Treatment Goals Patient/Caregiver Goals I want to improve my posture, I want to be able to bend, and most importantly, I want to walk without any device. Personal Factors Other Personal Factors That May Effect DVT/PEs, Diverticulosis, IBS, Therapy/Recovery L3-S1 TLIF PT-OP-C Subjective Start: 04/05/21 17:39 Freq: Status: Active Protocol: Document 05/30/21 11:15 DCW (Rec: 05/30/21 12:02 DCW [id number]) OP-PT Subjective Patient Comments Patient Comments Pt notes she got her ergometer at home, and she loves it, has been working on it daily. PT-OP-D Balance Start: 04/05/21 17:39 Freq: Status: Active Protocol: Document 05/10/21 11:43 MA (Rec: 05/10/21 12:06 MA [id number]) Guerra Balance Assessment Evaluation Sitting to Standing Ability Independent w/out Hands Unsupported Stance Safely- 2 minutes Sitting Unsupported, Feet on Floor Safely- 2 minutes Standing to Sitting Ability Safely, Minimal Hand Use Transfer Ability Safely, Minimal Hand Use Unsupported Stance- Eyes Closed Safely, 10 seconds Unsupported Stance- Eyes Open Supervision to maintain Reaching Forward Standing Safely, 5 inches Pick- Up Object From Floor Within 2 inches, Unable Look Behind Shoulder - Standing Shifts Weight Unilateral Turning 360 Degrees Turns slowly, but safely Unsupported Stance, Alternating Feet on (I)- 8 Steps in > 20 secs Stair Unsupported Tandem Stance Holds Tandem- 30 seconds Unilateral Leg Stance Lifts Leg/Unable to Hold Total Score Guerra Total Score (out of 56 points) 44 Guerra Impairment Rating 20 to 39% Impaired (Score 34- 44) PT-OP-E Functional Tests Start: 04/05/21 17:39 Freq: Status: Active Protocol: Document 05/16/21 12:30 SP (Rec: 05/16/21 16:57 SP [id number]) Functional Tests Timed Up and Go (TUG) Score 15 (no AD) TUG Impairment Rating 40 to <60% Impaired (Score 14- 15) PT-OP-J Posture/Palpation/Skin Start: 04/06/21 10:06 Freq: Status: Active Protocol: Document 04/05/21 10:30 DCW (Rec: 04/06/21 10:08 DCW [id number]) Posture Evaluation Position Standing Evaluation View Lateral Head/C-Spine Posture Flexed,Forward Head T-Spine Posture Increased Kyphosis L-Spine Posture Flattened Weight Distribution Weight Shifted Anterior PT-OP-K Range of Motion Start: 04/05/21 17:39 Freq: Status: Active Protocol: Document 04/05/21 10:30 DCW (Rec: 04/06/21 10:06 DCW [id number]) Lumbar Spine Range of Motion Lumbar Spine Active Degrees Testing Position Standing Flexion 20 Extension 0 Lateral Flexion Left 53 Lateral Flexion Right 53 ROM Limitations Soft Tissue Tightness,Bony Restriction,Muscle Weakness, Muscle Tone Comments Lateral flexion measured in cm from fingertips to floor PT-OP-M Strength Start: 04/05/21 17:39 Freq: Status: Active Protocol: Document 04/05/21 10:30 DCW (Rec: 04/06/21 10:06 DCW [id number]) Hip Strength Hip Manual Muscle Testing Right Flexion (L2) 4- Good- Extension (S1) 4- Good- Abduction 4- Good- Adduction 4- Good- External Rotation 3+ Fair+ Internal Rotation 3+ Fair+ Left Flexion (L2) 4 Good Extension (S1) 4 Good Abduction 4 Good Adduction 4 Good External Rotation 4 Good Internal Rotation 4 Good Knee Strength Knee Manual Muscle Testing Right Flexion (S2) 3+ Fair+ Extension (L3) 4- Good- Left Flexion (S2) 4+ Good+ Extension (L3) 4+ Good+ PT-OP-Q Treatments Start: 04/05/21 17:39 Freq: Status: Active Protocol: Document 05/30/21 11:15 DCW (Rec: 05/30/21 12:02 DCW [id number]) Gym Equipment Shuttle Recovery Unilateral Squats Resistance 37# Shuttle Recovery Platform Stable Bilateral Squats Resistance 75# Shuttle Recovery Platform Stable Therapeutic Exercises Standing Exercises 6 Standing Exercise Name Hip Abduction Side bilateral 3 Standing Exercise Name Hip Extension Side bilateral Resistance Green Equipment Used T-band 2 Standing Exercise Name Hamstring Curls Side bilateral Resistance 5# 1 Standing Exercise Name Marching Side bilateral Resistance 5# Other Exercises 2 Other Exercise Name Lateral step-over Side bilateral Resistance 5# Equipment Used 8 step Therapeutic Activity Therapeutic Activity 2 Name Sit->stand Manual Therapy Treatment Manual Traction LE traction Details Long-axis traction Body Position Supine Comments B LEs PT-OP-T Assessment and Plan Start: 04/05/21 17:39 Freq: Status: Active Protocol: Document 05/30/21 11:15 DCW (Rec: 05/30/21 12:02 DCW [id number]) Physical Therapy Assessment Impairments Impairments Activity Tolerance,Balance, Functional Activities, Functional Mobility,Pain, Posture,ROM,Soft Tissue Mobility,Strength Goals Four Impairment Pt current posture demonstrates moderate forward head/rounded shoulders Fci Goal (LTG) Pt to stand with at worst mild forward head/rounded shoulders at least 75% of the time without verbal cues to show improved posture and decreased shear forces through cervical spine. LTG Duration 07/04/21 Three Impairment Pt scores 4-/5 or weaker in all planes during right hip and knee MMT Swimming Pool Serviceperson Goal (LTG) Pt to demonstrate a strengthen of at least 4/5 with her right hip and knee MMT to show improved ability to fully support weight without an assistive device LTG Duration 07/04/21 Two Impairment Pt scores in falls-risk category on Guerra (34/56) and TUG (18.09) Short Term Goal (STG) Pt to complete TUG with an average time of less than 15 seconds to show a decreasing falls risk 05/16/21: Progressin sec. STG Duration 05/20/21 progressing Swimming Pool Serviceperson Goal (LTG) Pt to score >42/56 on Guerra to demonstrate a decreased falls risk. 05/10/21: Goal Met: 44/56 LTG Duration 07/04/21 Goal Met One Impairment Pt does not have an appropriate home exercise program Short Term Goal (STG) Pt to be independent and compliant with an appropriate HEP STG Duration 05/20/21 Assessment Summary Assessment Pt had significant difficulty with hip abduction when attempting to step over the 8 step, stating she just can't go any further, but then when asked to perform abduction with a straight leg, she had much better ROM, unclear if she just had increased anxiety trying to get over the step, or if there are degenerative changes limiting her hip with combined flex/abd. Pt motivated to work on sit->stand and hip ROM at home. Physical Therapy Plan Frequency and Duration Frequency of Treatment 2x/Week Duration of Treatment 90 Days Plan of Care Start Date 04/05/21 Plan of Care End Date 07/04/21 Therapeutic Interventions Therapeutic Interventions Aquatic Therapy,Balance Training,Gait Training,Home Exercise Program,Joint Mobilizations,Manual Therapy, Neuromuscular Re-education, Patient/Caregiver Education, Self-Care/Home Management,Soft Tissue Mobilization, Therapeutic Activities, Therapeutic Exercises Next Visit Focus/Plan Next Note Type Treatment Note Next Visit Plan Assess response to HEP review standing/seated, initiated self STMs and corner balance last tx. POC: Balance training, LE strengthening
--- NOTE | 2021-06-01 11:55 | PT.OTN ---
Current Diagnoses Bilateral primary osteoarthritis of hip (06/01/21) Stiffness of other specified joint, not elsewhere classified (06/01/21) Spondylolisthesis, lumbar region (06/01/21) Muscle weakness (generalized) (06/01/21) Other abnormalities of gait and mobility (06/01/21) Physical Therapy Treatment Note PT-OP-A Visit Information Start: 04/05/21 17:39 Freq: Status: Active Protocol: Document 06/01/21 11:15 DCW (Rec: 06/01/21 11:55 DCW [id number]) Out-Patient Physical Therapy Visit Information Visit Information Visit Type Treatment Note Visit Start Time 11:15 Visit Stop Time 12:00 Total Visit Minutes 45 Visit Number 12 Number of AWS DEVELOPER Visits 0 Evaluation Information Evaluation Date 04/05/21 PT-OP-B Current Condition Start: 04/05/21 17:39 Freq: Status: Active Protocol: Document 04/05/21 10:30 DCW (Rec: 04/06/21 10:06 DCW [id number]) Current Condition History of Current Condition Onset Date 01/04/21 Current Complaints S/p L3-S1 TLIF with posterior instrumentation History of Current Condition Pt is a 75 year old female three months s/p L3-S1 TLIF with posterior instrumentation . Unfortunately, two months ago, pt's recovery was complicated by sudden pain and swelling in her right leg, which was found to be a DVT. After being sent to the ER, pt was demonstrating SOB, which led to a CTA of her chest, which uncovered numerous bilateral pulmonary emboli. Pt was put on blood thinners and has slowly been recovering from this setback. Pt still continues to have fairly severe pain in her right hip, but is not sure if that is due to the DVT, or just the normal arthritis. Currently, pt has complaints of decreased activity tolerance, continued back pain, instability, increased fear of falling, and an inability to ambulate outside when not using any device. Pt notes she uses her FWW outside, but typically doesn't in her house. Treatment Goals Patient/Caregiver Goals I want to improve my posture, I want to be able to bend, and most importantly, I want to walk without any device. Personal Factors Other Personal Factors That May Effect DVT/PEs, Diverticulosis, IBS, Therapy/Recovery L3-S1 TLIF PT-OP-C Subjective Start: 04/05/21 17:39 Freq: Status: Active Protocol: Document 06/01/21 11:15 DCW (Rec: 06/01/21 11:55 DCW [id number]) OP-PT Subjective Patient Comments Patient Comments Pt concerned about her remaining visits left through her insurance authorization, and is fearful she will be discharged before getting ready. PT-OP-D Balance Start: 04/05/21 17:39 Freq: Status: Active Protocol: Document 05/10/21 11:43 MA (Rec: 05/10/21 12:06 MA [id number]) Guerra Balance Assessment Evaluation Sitting to Standing Ability Independent w/out Hands Unsupported Stance Safely- 2 minutes Sitting Unsupported, Feet on Floor Safely- 2 minutes Standing to Sitting Ability Safely, Minimal Hand Use Transfer Ability Safely, Minimal Hand Use Unsupported Stance- Eyes Closed Safely, 10 seconds Unsupported Stance- Eyes Open Supervision to maintain Reaching Forward Standing Safely, 5 inches Pick- Up Object From Floor Within 2 inches, Unable Look Behind Shoulder - Standing Shifts Weight Unilateral Turning 360 Degrees Turns slowly, but safely Unsupported Stance, Alternating Feet on (I)- 8 Steps in > 20 secs Stair Unsupported Tandem Stance Holds Tandem- 30 seconds Unilateral Leg Stance Lifts Leg/Unable to Hold Total Score Guerra Total Score (out of 56 points) 44 Guerra Impairment Rating 20 to 39% Impaired (Score 34- 44) PT-OP-E Functional Tests Start: 04/05/21 17:39 Freq: Status: Active Protocol: Document 05/16/21 12:30 SP (Rec: 05/16/21 16:57 SP [id number]) Functional Tests Timed Up and Go (TUG) Score 15 (no AD) TUG Impairment Rating 40 to <60% Impaired (Score 14- 15) PT-OP-J Posture/Palpation/Skin Start: 04/06/21 10:06 Freq: Status: Active Protocol: Document 04/05/21 10:30 DCW (Rec: 04/06/21 10:08 DCW [id number]) Posture Evaluation Position Standing Evaluation View Lateral Head/C-Spine Posture Flexed,Forward Head T-Spine Posture Increased Kyphosis L-Spine Posture Flattened Weight Distribution Weight Shifted Anterior PT-OP-K Range of Motion Start: 04/05/21 17:39 Freq: Status: Active Protocol: Document 04/05/21 10:30 DCW (Rec: 04/06/21 10:06 DCW [id number]) Lumbar Spine Range of Motion Lumbar Spine Active Degrees Testing Position Standing Flexion 20 Extension 0 Lateral Flexion Left 53 Lateral Flexion Right 53 ROM Limitations Soft Tissue Tightness,Bony Restriction,Muscle Weakness, Muscle Tone Comments Lateral flexion measured in cm from fingertips to floor PT-OP-M Strength Start: 04/05/21 17:39 Freq: Status: Active Protocol: Document 04/05/21 10:30 DCW (Rec: 04/06/21 10:06 DCW [id number]) Hip Strength Hip Manual Muscle Testing Right Flexion (L2) 4- Good- Extension (S1) 4- Good- Abduction 4- Good- Adduction 4- Good- External Rotation 3+ Fair+ Internal Rotation 3+ Fair+ Left Flexion (L2) 4 Good Extension (S1) 4 Good Abduction 4 Good Adduction 4 Good External Rotation 4 Good Internal Rotation 4 Good Knee Strength Knee Manual Muscle Testing Right Flexion (S2) 3+ Fair+ Extension (L3) 4- Good- Left Flexion (S2) 4+ Good+ Extension (L3) 4+ Good+ PT-OP-Q Treatments Start: 04/05/21 17:39 Freq: Status: Active Protocol: Document 06/01/21 11:15 DCW (Rec: 06/01/21 11:55 DCW [id number]) Gym Equipment Shuttle Recovery Unilateral Squats Resistance 37# Shuttle Recovery Platform Stable Bilateral Squats Resistance 75# Shuttle Recovery Platform Stable Therapeutic Exercises Sidelying Exercises 3 Sidelying Exercise Name Reverse Clamshell Side bilateral 2 Sidelying Exercise Name Clamshell Side bilateral 1 Sidelying Exercise Name Hip Abduction Side bilateral Standing Exercises 6 Standing Exercise Name Hip Abduction Side bilateral Resistance 5# 3 Standing Exercise Name Hip Extension Side bilateral Resistance Green Equipment Used T-band 2 Standing Exercise Name Hamstring Curls Side bilateral Resistance 5# 1 Standing Exercise Name Marching Side bilateral Resistance 5# Other Exercises 1 Other Exercise Name Resisted Ambulation Resistance Green Equipment Used T-band Comments Fwd, Side-stepping Neuro Re-Education Treatment Balance Activities 3 Details Hurdles Equipment // bars Comments Forward, Side-stepping PT-OP-T Assessment and Plan Start: 04/05/21 17:39 Freq: Status: Active Protocol: Document 06/01/21 11:15 DCW (Rec: 06/01/21 11:55 DCW [id number]) Physical Therapy Assessment Impairments Impairments Activity Tolerance,Balance, Functional Activities, Functional Mobility,Pain, Posture,ROM,Soft Tissue Mobility,Strength Goals Four Impairment Pt current posture demonstrates moderate forward head/rounded shoulders Freight Booker Goal (LTG) Pt to stand with at worst mild forward head/rounded shoulders at least 75% of the time without verbal cues to show improved posture and decreased shear forces through cervical spine. LTG Duration 07/04/21 Three Impairment Pt scores 4-/5 or weaker in all planes during right hip and knee MMT Freight Booker Goal (LTG) Pt to demonstrate a strengthen of at least 4/5 with her right hip and knee MMT to show improved ability to fully support weight without an assistive device LTG Duration 07/04/21 Two Impairment Pt scores in falls-risk category on Guerra (34/56) and TUG (18.09) Short Term Goal (STG) Pt to complete TUG with an average time of less than 15 seconds to show a decreasing falls risk 05/16/21: Progressin sec. STG Duration 05/20/21 progressing Freight Booker Goal (LTG) Pt to score >42/56 on Guerra to demonstrate a decreased falls risk. 05/10/21: Goal Met: 44/56 LTG Duration 07/04/21 Goal Met One Impairment Pt does not have an appropriate home exercise program Short Term Goal (STG) Pt to be independent and compliant with an appropriate HEP STG Duration 05/20/21 Assessment Summary Assessment Pt has been mostly limited more by her hips than her back the past few weeks. Physical Therapy Plan Frequency and Duration Frequency of Treatment 2x/Week Duration of Treatment 90 Days Plan of Care Start Date 04/05/21 Plan of Care End Date 07/04/21 Therapeutic Interventions Therapeutic Interventions Aquatic Therapy,Balance Training,Gait Training,Home Exercise Program,Joint Mobilizations,Manual Therapy, Neuromuscular Re-education, Patient/Caregiver Education, Self-Care/Home Management,Soft Tissue Mobilization, Therapeutic Activities, Therapeutic Exercises Next Visit Focus/Plan Next Note Type Treatment Note Next Visit Plan Assess response to HEP review standing/seated, initiated self STMs and corner balance last tx. POC: Balance training, LE strengthening
--- NOTE | 2021-06-12 11:14 | PT.OTN ---
Current Diagnoses Bilateral primary osteoarthritis of hip (06/12/21) Stiffness of other specified joint, not elsewhere classified (06/12/21) Spondylolisthesis, lumbar region (06/12/21) Muscle weakness (generalized) (06/12/21) Other abnormalities of gait and mobility (06/12/21) Physical Therapy Treatment Note PT-OP-A Visit Information Start: 04/05/21 17:39 Freq: Status: Active Protocol: Document 06/12/21 10:30 DCW (Rec: 06/12/21 11:13 DCW [id number]) Out-Patient Physical Therapy Visit Information Visit Information Visit Type Treatment Note Visit Start Time 10:30 Visit Stop Time 11:15 Total Visit Minutes 45 Visit Number 13 Number of 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 Unfortunately, two months ago, pt's recovery was complicated by sudden pain and swelling in her right leg, which was found to be a DVT. After being sent to the ER, pt was demonstrating SOB, which led to a CTA of her chest, which uncovered numerous bilateral pulmonary emboli. Pt was put on blood thinners and has slowly been recovering from this setback. Pt still continues to have fairly severe pain in her right hip, but is not sure if that is due to the DVT, or just the normal arthritis. Currently, pt has complaints of decreased activity tolerance, continued back pain, instability, increased fear of falling, and an inability to ambulate outside when not using any device. Pt notes she uses her FWW outside, but typically doesn't in her house. Treatment Goals Patient/Caregiver Goals I want to improve my posture, I want to be able to bend, and most importantly, I want to walk without any device. Personal Factors Other Personal Factors That May Effect DVT/PEs, Diverticulosis, IBS, Therapy/Recovery L3-S1 TLIF PT-OP-C Subjective Start: 04/05/21 17:39 Freq: Status: Active Protocol: Document 06/12/21 10:30 DCW (Rec: 06/12/21 11:13 DCW [id number]) OP-PT Subjective Patient Comments Patient Comments Pt returns today using her 4WW , I just realized I walk better with the walker. It's just more freeing. PT-OP-D Balance Start: 04/05/21 17:39 Freq: Status: Active Protocol: Document 05/10/21 11:43 MA (Rec: 05/10/21 12:06 MA [id number]) Guerra Balance Assessment Evaluation Sitting to Standing Ability Independent w/out Hands Unsupported Stance Safely- 2 minutes Sitting Unsupported, Feet on Floor Safely- 2 minutes Standing to Sitting Ability Safely, Minimal Hand Use Transfer Ability Safely, Minimal Hand Use Unsupported Stance- Eyes Closed Safely, 10 seconds Unsupported Stance- Eyes Open Supervision to maintain Reaching Forward Standing Safely, 5 inches Pick- Up Object From Floor Within 2 inches, Unable Look Behind Shoulder - Standing Shifts Weight Unilateral Turning 360 Degrees Turns slowly, but safely Unsupported Stance, Alternating Feet on (I)- 8 Steps in > 20 secs Stair Unsupported Tandem Stance Holds Tandem- 30 seconds Unilateral Leg Stance Lifts Leg/Unable to Hold Total Score Guerra Total Score (out of 56 points) 44 Guerra Impairment Rating 20 to 39% Impaired (Score 34- 44) PT-OP-E Functional Tests Start: 04/05/21 17:39 Freq: Status: Active Protocol: Document 05/16/21 12:30 SP (Rec: 05/16/21 16:57 SP [id number]) Functional Tests Timed Up and Go (TUG) Score 15 (no AD) TUG Impairment Rating 40 to <60% Impaired (Score 14- 15) PT-OP-J Posture/Palpation/Skin Start: 04/06/21 10:06 Freq: Status: Active Protocol: Document 04/05/21 10:30 DCW (Rec: 04/06/21 10:08 DCW [id number]) Posture Evaluation Position Standing Evaluation View Lateral Head/C-Spine Posture Flexed,Forward Head T-Spine Posture Increased Kyphosis L-Spine Posture Flattened Weight Distribution Weight Shifted Anterior PT-OP-K Range of Motion Start: 04/05/21 17:39 Freq: Status: Active Protocol: Document 04/05/21 10:30 DCW (Rec: 04/06/21 10:06 DCW [id number]) Lumbar Spine Range of Motion Lumbar Spine Active Degrees Testing Position Standing Flexion 20 Extension 0 Lateral Flexion Left 53 Lateral Flexion Right 53 ROM Limitations Soft Tissue Tightness,Bony Restriction,Muscle Weakness, Muscle Tone Comments Lateral flexion measured in cm from fingertips to floor PT-OP-M Strength Start: 04/05/21 17:39 Freq: Status: Active Protocol: Document 04/05/21 10:30 DCW (Rec: 04/06/21 10:06 DCW [id number]) Hip Strength Hip Manual Muscle Testing Right Flexion (L2) 4- Good- Extension (S1) 4- Good- Abduction 4- Good- Adduction 4- Good- External Rotation 3+ Fair+ Internal Rotation 3+ Fair+ Left Flexion (L2) 4 Good Extension (S1) 4 Good Abduction 4 Good Adduction 4 Good External Rotation 4 Good Internal Rotation 4 Good Knee Strength Knee Manual Muscle Testing Right Flexion (S2) 3+ Fair+ Extension (L3) 4- Good- Left Flexion (S2) 4+ Good+ Extension (L3) 4+ Good+ PT-OP-Q Treatments Start: 04/05/21 17:39 Freq: Status: Active Protocol: Document 06/12/21 10:30 DCW (Rec: 06/12/21 11:13 DCW [id number]) Cardio Equipment Recumbent Elliptical (Biodex) Duration (Minutes) 6 Resistance 3 Seat Position 8 Gym Equipment Shuttle Recovery Unilateral Squats Resistance 37# Shuttle Recovery Platform Stable Bilateral Squats Resistance 75# Shuttle Recovery Platform Stable Therapeutic Exercises Supine Exercises 1 Supine Exercise Name Single KtC Side bilateral Sidelying Exercises 3 Sidelying Exercise Name Reverse Clamshell Side bilateral 2 Sidelying Exercise Name Clamshell Side bilateral 1 Sidelying Exercise Name Hip Abduction Side bilateral Sitting Exercises 2 Sitting Exercise Name Seated lumbar flexion 1 Sitting Exercise Name LE sciatic flossing PT-OP-T Assessment and Plan Start: 04/05/21 17:39 Freq: Status: Active Protocol: Document 06/12/21 10:30 DCW (Rec: 06/12/21 11:13 DCW [id number]) Physical Therapy Assessment Impairments Impairments Activity Tolerance,Balance, Functional Activities, Functional Mobility,Pain, Posture,ROM,Soft Tissue Mobility,Strength Goals Four Impairment Pt current posture demonstrates moderate forward head/rounded shoulders Home Aide Goal (LTG) Pt to stand with at worst mild forward head/rounded shoulders at least 75% of the time without verbal cues to show improved posture and decreased shear forces through cervical spine. LTG Duration 07/04/21 Three Impairment Pt scores 4-/5 or weaker in all planes during right hip and knee MMT Fpc Goal (LTG) Pt to demonstrate a strengthen of at least 4/5 with her right hip and knee MMT to show improved ability to fully support weight without an assistive device LTG Duration 07/04/21 Two Impairment Pt scores in falls-risk category on Guerra (34/56) and TUG (18.09) Short Term Goal (STG) Pt to complete TUG with an average time of less than 15 seconds to show a decreasing falls risk 05/16/21: Progressin sec. STG Duration 05/20/21 progressing Home Aide Goal (LTG) Pt to score >42/56 on Guerra to demonstrate a decreased falls risk. 05/10/21: Goal Met: 44/56 LTG Duration 07/04/21 Goal Met One Impairment Pt does not have an appropriate home exercise program Short Term Goal (STG) Pt to be independent and compliant with an appropriate HEP STG Duration 05/20/21 Assessment Summary Assessment Focus today mainly on low back and hip HEP, pt feels like her pain is from her sciatic nerve, did take some time to explain sciatic nerve pain vs hip arthritis pain sensation and location. Physical Therapy Plan Frequency and Duration Frequency of Treatment 2x/Week Duration of Treatment 90 Days Plan of Care Start Date 04/05/21 Plan of Care End Date 07/04/21 Therapeutic Interventions Therapeutic Interventions Aquatic Therapy,Balance Training,Gait Training,Home Exercise Program,Joint Mobilizations,Manual Therapy, Neuromuscular Re-education, Patient/Caregiver Education, Self-Care/Home Management,Soft Tissue Mobilization, Therapeutic Activities, Therapeutic Exercises Next Visit Focus/Plan Next Note Type Treatment Note Next Visit Plan Assess response to HEP review standing/seated, initiated self STMs and corner balance last tx. POC: Balance training, LE strengthening
--- NOTE | 2021-06-16 11:10 | PT.OTN ---
Current Diagnoses Bilateral primary osteoarthritis of hip (06/16/21) Stiffness of other specified joint, not elsewhere classified (06/16/21) Spondylolisthesis, lumbar region (06/16/21) Muscle weakness (generalized) (06/16/21) Other abnormalities of gait and mobility (06/16/21) Physical Therapy Treatment Note PT-OP-A Visit Information Start: 04/05/21 17:39 Freq: Status: Active Protocol: Document 06/16/21 10:30 DCW (Rec: 06/16/21 11:10 DCW [id number]) Out-Patient Physical Therapy Visit Information Visit Information Visit Type Treatment Note Visit Start Time 10:30 Visit Stop Time 11:15 Total Visit Minutes 45 Visit Number 14 Number of 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 Unfortunately, two months ago, pt's recovery was complicated by sudden pain and swelling in her right leg, which was found to be a DVT. After being sent to the ER, pt was demonstrating SOB, which led to a CTA of her chest, which uncovered numerous bilateral pulmonary emboli. Pt was put on blood thinners and has slowly been recovering from this setback. Pt still continues to have fairly severe pain in her right hip, but is not sure if that is due to the DVT, or just the normal arthritis. Currently, pt has complaints of decreased activity tolerance, continued back pain, instability, increased fear of falling, and an inability to ambulate outside when not using any device. Pt notes she uses her FWW outside, but typically doesn't in her house. Treatment Goals Patient/Caregiver Goals I want to improve my posture, I want to be able to bend, and most importantly, I want to walk without any device. Personal Factors Other Personal Factors That May Effect DVT/PEs, Diverticulosis, IBS, Therapy/Recovery L3-S1 TLIF PT-OP-C Subjective Start: 04/05/21 17:39 Freq: Status: Active Protocol: Document 06/16/21 10:30 DCW (Rec: 06/16/21 11:10 DCW [id number]) OP-PT Subjective Patient Comments Patient Comments Pt saw her surgeon yesterday, reports they want her to have a CT scan to make sure there are no bone spurs along the spine, and then recommended injections. Pt reports she has been doing a lot more overall activity. PT-OP-D Balance Start: 04/05/21 17:39 Freq: Status: Active Protocol: Document 05/10/21 11:43 MA (Rec: 05/10/21 12:06 MA [id number]) Guerra Balance Assessment Evaluation Sitting to Standing Ability Independent w/out Hands Unsupported Stance Safely- 2 minutes Sitting Unsupported, Feet on Floor Safely- 2 minutes Standing to Sitting Ability Safely, Minimal Hand Use Transfer Ability Safely, Minimal Hand Use Unsupported Stance- Eyes Closed Safely, 10 seconds Unsupported Stance- Eyes Open Supervision to maintain Reaching Forward Standing Safely, 5 inches Pick- Up Object From Floor Within 2 inches, Unable Look Behind Shoulder - Standing Shifts Weight Unilateral Turning 360 Degrees Turns slowly, but safely Unsupported Stance, Alternating Feet on (I)- 8 Steps in > 20 secs Stair Unsupported Tandem Stance Holds Tandem- 30 seconds Unilateral Leg Stance Lifts Leg/Unable to Hold Total Score Guerra Total Score (out of 56 points) 44 Guerra Impairment Rating 20 to 39% Impaired (Score 34- 44) PT-OP-E Functional Tests Start: 04/05/21 17:39 Freq: Status: Active Protocol: Document 05/16/21 12:30 SP (Rec: 05/16/21 16:57 SP [id number]) Functional Tests Timed Up and Go (TUG) Score 15 (no AD) TUG Impairment Rating 40 to <60% Impaired (Score 14- 15) PT-OP-J Posture/Palpation/Skin Start: 04/06/21 10:06 Freq: Status: Active Protocol: Document 04/05/21 10:30 DCW (Rec: 04/06/21 10:08 DCW [id number]) Posture Evaluation Position Standing Evaluation View Lateral Head/C-Spine Posture Flexed,Forward Head T-Spine Posture Increased Kyphosis L-Spine Posture Flattened Weight Distribution Weight Shifted Anterior PT-OP-K Range of Motion Start: 04/05/21 17:39 Freq: Status: Active Protocol: Document 04/05/21 10:30 DCW (Rec: 04/06/21 10:06 DCW [id number]) Lumbar Spine Range of Motion Lumbar Spine Active Degrees Testing Position Standing Flexion 20 Extension 0 Lateral Flexion Left 53 Lateral Flexion Right 53 ROM Limitations Soft Tissue Tightness,Bony Restriction,Muscle Weakness, Muscle Tone Comments Lateral flexion measured in cm from fingertips to floor PT-OP-M Strength Start: 04/05/21 17:39 Freq: Status: Active Protocol: Document 04/05/21 10:30 DCW (Rec: 04/06/21 10:06 DCW [id number]) Hip Strength Hip Manual Muscle Testing Right Flexion (L2) 4- Good- Extension (S1) 4- Good- Abduction 4- Good- Adduction 4- Good- External Rotation 3+ Fair+ Internal Rotation 3+ Fair+ Left Flexion (L2) 4 Good Extension (S1) 4 Good Abduction 4 Good Adduction 4 Good External Rotation 4 Good Internal Rotation 4 Good Knee Strength Knee Manual Muscle Testing Right Flexion (S2) 3+ Fair+ Extension (L3) 4- Good- Left Flexion (S2) 4+ Good+ Extension (L3) 4+ Good+ PT-OP-Q Treatments Start: 04/05/21 17:39 Freq: Status: Active Protocol: Document 06/16/21 10:30 DCW (Rec: 06/16/21 11:10 DCW [id number]) Cardio Equipment Recumbent Elliptical (BiodOurCrowd) Duration (Minutes) 6 Resistance 3 Seat Position 8 Gym Equipment Shuttle Recovery Unilateral Squats Resistance 37# Shuttle Recovery Platform Stable Bilateral Squats Resistance 75# Shuttle Recovery Platform Stable Therapeutic Exercises Sitting Exercises 1 Sitting Exercise Name LE sciatic flossing Standing Exercises 6 Standing Exercise Name Hip Abduction Side bilateral Resistance 5# 3 Standing Exercise Name Hip Extension Side bilateral Resistance Green Equipment Used T-band 2 Standing Exercise Name Hamstring Curls Side bilateral Resistance 5# 1 Standing Exercise Name Marching Side bilateral Resistance 5# Other Exercises 1 Other Exercise Name Resisted Ambulation Resistance Green Equipment Used T-band Comments Fwd, Side-stepping Neuro Re-Education Treatment Balance Activities 3 Details Hurdles Equipment // bars Comments Forward, Side-stepping PT-OP-T Assessment and Plan Start: 04/05/21 17:39 Freq: Status: Active Protocol: Document 06/16/21 10:30 DCW (Rec: 06/16/21 11:10 DCW [id number]) Physical Therapy Assessment Impairments Impairments Activity Tolerance,Balance, Functional Activities, Functional Mobility,Pain, Posture,ROM,Soft Tissue Mobility,Strength Goals Four Impairment Pt current posture demonstrates moderate forward head/rounded shoulders Correction Goal (LTG) Pt to stand with at worst mild forward head/rounded shoulders at least 75% of the time without verbal cues to show improved posture and decreased shear forces through cervical spine. LTG Duration 07/04/21 Three Impairment Pt scores 4-/5 or weaker in all planes during right hip and knee MMT Manager Qa Goal (LTG) Pt to demonstrate a strengthen of at least 4/5 with her right hip and knee MMT to show improved ability to fully support weight without an assistive device LTG Duration 07/04/21 Two Impairment Pt scores in falls-risk category on Guerra (34/56) and TUG (18.09) Short Term Goal (STG) Pt to complete TUG with an average time of less than 15 seconds to show a decreasing falls risk 05/16/21: Progressin sec. STG Duration 05/20/21 progressing Correction Goal (LTG) Pt to score >42/56 on Guerra to demonstrate a decreased falls risk. 05/10/21: Goal Met: 44/56 LTG Duration 07/04/21 Goal Met One Impairment Pt does not have an appropriate home exercise program Short Term Goal (STG) Pt to be independent and compliant with an appropriate HEP STG Duration 05/20/21 Assessment Summary Assessment Pt likely nearing progress plateau for lumbar surgery recovery. Pt still having some issues with hip pain, getting worked up elsewhere for possible causes. Pt will likely be discharged following her next visit. Physical Therapy Plan Frequency and Duration Frequency of Treatment 2x/Week Duration of Treatment 90 Days Plan of Care Start Date 04/05/21 Plan of Care End Date 07/04/21 Therapeutic Interventions Therapeutic Interventions Aquatic Therapy,Balance Training,Gait Training,Home Exercise Program,Joint Mobilizations,Manual Therapy, Neuromuscular Re-education, Patient/Caregiver Education, Self-Care/Home Management,Soft Tissue Mobilization, Therapeutic Activities, Therapeutic Exercises Next Visit Focus/Plan Next Note Type Treatment Note Next Visit Plan Assess response to HEP review standing/seated, initiated self STMs and corner balance last tx. POC: Balance training, LE strengthening
--- NOTE | 2021-06-19 10:26 | PT.OTN ---
Current Diagnoses Bilateral primary osteoarthritis of hip (06/19/21) Stiffness of other specified joint, not elsewhere classified (06/19/21) Spondylolisthesis, lumbar region (06/19/21) Muscle weakness (generalized) (06/19/21) Other abnormalities of gait and mobility (06/19/21) Physical Therapy Treatment Note PT-OP-A Visit Information Start: 04/05/21 17:39 Freq: Status: Active Protocol: Document 06/19/21 09:45 DCW (Rec: 06/19/21 10:24 DCW [id number]) Out-Patient Physical Therapy Visit Information Visit Information Visit Type Discharge Summary Visit Start Time 09:45 Visit Stop Time 10:30 Total Visit Minutes 45 Visit Number 15 Number of MERCHANDISE APPRAISER Visits 0 Evaluation Information Evaluation Date 04/05/21 PT-OP-B Current Condition Start: 04/05/21 17:39 Freq: Status: Active Protocol: Document 04/05/21 10:30 DCW (Rec: 04/06/21 10:06 DCW [id number]) Current Condition History of Current Condition Onset Date 01/04/21 Current Complaints S/p L3-S1 TLIF with posterior instrumentation History of Current Condition Pt is a 75 year old female three months s/p L3-S1 TLIF with posterior instrumentation . Unfortunately, two months ago, pt's recovery was complicated by sudden pain and swelling in her right leg, which was found to be a DVT. After being sent to the ER, pt was demonstrating SOB, which led to a CTA of her chest, which uncovered numerous bilateral pulmonary emboli. Pt was put on blood thinners and has slowly been recovering from this setback. Pt still continues to have fairly severe pain in her right hip, but is not sure if that is due to the DVT, or just the normal arthritis. Currently, pt has complaints of decreased activity tolerance, continued back pain, instability, increased fear of falling, and an inability to ambulate outside when not using any device. Pt notes she uses her FWW outside, but typically doesn't in her house. Treatment Goals Patient/Caregiver Goals I want to improve my posture, I want to be able to bend, and most importantly, I want to walk without any device. Personal Factors Other Personal Factors That May Effect DVT/PEs, Diverticulosis, IBS, Therapy/Recovery L3-S1 TLIF PT-OP-C Subjective Start: 04/05/21 17:39 Freq: Status: Active Protocol: Document 06/19/21 09:45 DCW (Rec: 06/19/21 10:24 DCW [id number]) OP-PT Subjective Patient Comments Patient Comments That home workout you gave me is just fantastic, I'm going to stick with it. PT-OP-D Balance Start: 04/05/21 17:39 Freq: Status: Active Protocol: Document 05/10/21 11:43 MA (Rec: 05/10/21 12:06 MA [id number]) Guerra Balance Assessment Evaluation Sitting to Standing Ability Independent w/out Hands Unsupported Stance Safely- 2 minutes Sitting Unsupported, Feet on Floor Safely- 2 minutes Standing to Sitting Ability Safely, Minimal Hand Use Transfer Ability Safely, Minimal Hand Use Unsupported Stance- Eyes Closed Safely, 10 seconds Unsupported Stance- Eyes Open Supervision to maintain Reaching Forward Standing Safely, 5 inches Pick- Up Object From Floor Within 2 inches, Unable Look Behind Shoulder - Standing Shifts Weight Unilateral Turning 360 Degrees Turns slowly, but safely Unsupported Stance, Alternating Feet on (I)- 8 Steps in > 20 secs Stair Unsupported Tandem Stance Holds Tandem- 30 seconds Unilateral Leg Stance Lifts Leg/Unable to Hold Total Score Guerra Total Score (out of 56 points) 44 Guerra Impairment Rating 20 to 39% Impaired (Score 34- 44) PT-OP-E Functional Tests Start: 04/05/21 17:39 Freq: Status: Active Protocol: Document 06/19/21 09:45 DCW (Rec: 06/19/21 10:26 DCW [id number]) Functional Tests Timed Up and Go (TUG) Score 11.23 no AD Comments Three-trial average (13.60, 10.04, 10.05) TUG Impairment Rating 1 to <20% Impaired (Score 11) PT-OP-J Posture/Palpation/Skin Start: 04/06/21 10:06 Freq: Status: Active Protocol: Document 04/05/21 10:30 DCW (Rec: 04/06/21 10:08 DCW [id number]) Posture Evaluation Position Standing Evaluation View Lateral Head/C-Spine Posture Flexed,Forward Head T-Spine Posture Increased Kyphosis L-Spine Posture Flattened Weight Distribution Weight Shifted Anterior PT-OP-K Range of Motion Start: 04/05/21 17:39 Freq: Status: Active Protocol: Document 04/05/21 10:30 DCW (Rec: 04/06/21 10:06 DCW [id number]) Lumbar Spine Range of Motion Lumbar Spine Active Degrees Testing Position Standing Flexion 20 Extension 0 Lateral Flexion Left 53 Lateral Flexion Right 53 ROM Limitations Soft Tissue Tightness,Bony Restriction,Muscle Weakness, Muscle Tone Comments Lateral flexion measured in cm from fingertips to floor PT-OP-M Strength Start: 04/05/21 17:39 Freq: Status: Active Protocol: Document 06/19/21 09:45 DCW (Rec: 06/19/21 10:26 DCW [id number]) Hip Strength Hip Manual Muscle Testing Right Flexion (L2) 4 Good Extension (S1) 4 Good Abduction 4+ Good+ Adduction 4 Good External Rotation 4 Good Internal Rotation 4 Good Left Flexion (L2) 4+ Good+ Extension (S1) 4+ Good+ Abduction 4+ Good+ Adduction 4+ Good+ External Rotation 4+ Good+ Internal Rotation 4+ Good+ Knee Strength Knee Manual Muscle Testing Right Flexion (S2) 4 Good Extension (L3) 4+ Good+ Left Flexion (S2) 4+ Good+ Extension (L3) 4+ Good+ PT-OP-Q Treatments Start: 04/05/21 17:39 Freq: Status: Active Protocol: Document 06/19/21 09:45 DCW (Rec: 06/19/21 10:24 DCW [id number]) Cardio Equipment Recumbent Elliptical (Biodex) Duration (Minutes) 6 Resistance 5 Seat Position 8 Gym Equipment Shuttle Recovery Unilateral Squats Resistance 37# Shuttle Recovery Platform Stable Bilateral Squats Resistance 75# Shuttle Recovery Platform Stable Therapeutic Exercises Standing Exercises 6 Standing Exercise Name Hip Abduction Side bilateral Resistance 5# 2 Standing Exercise Name Hamstring Curls Side bilateral Resistance 5# 1 Standing Exercise Name Toe-taps Side bilateral Resistance 5# Other Exercises 1 Other Exercise Name Resisted Ambulation Resistance Green Equipment Used T-band Comments Fwd, Side-stepping Neuro Re-Education Treatment Balance Activities 3 Details Hurdles Equipment // bars Comments Forward, Side-stepping PT-OP-T Assessment and Plan Start: 04/05/21 17:39 Freq: Status: Active Protocol: Document 06/19/21 09:45 DCW (Rec: 06/19/21 10:24 DCW [id number]) Physical Therapy Assessment Impairments Impairments Activity Tolerance,Balance, Functional Activities, Functional Mobility,Pain, Posture,ROM,Soft Tissue Mobility,Strength Goals Four Impairment Pt current posture demonstrates moderate forward head/rounded shoulders Active Directory Systems Administrator Goal (LTG) Pt to stand with at worst mild forward head/rounded shoulders at least 75% of the time without verbal cues to show improved posture and decreased shear forces through cervical spine. LTG Duration 07/04/21 Three Impairment Pt scores 4-/5 or weaker in all planes during right hip and knee MMT Senior Care Goal (LTG) Pt to demonstrate a strengthen of at least 4/5 with her right hip and knee MMT to show improved ability to fully support weight without an assistive device LTG Duration Met Two Impairment Pt scores in falls-risk category on Guerra (34/56) and TUG (18.09) Short Term Goal (STG) Pt to complete TUG with an average time of less than 15 seconds to show a decreasing falls risk 05/16/21: Progressin sec. STG Duration Met - 11.23 seconds Senior Care Goal (LTG) Pt to score >42/56 on Guerra to demonstrate a decreased falls risk. 05/10/21: Goal Met: 44/56 LTG Duration Met One Impairment Pt does not have an appropriate home exercise program Short Term Goal (STG) Pt to be independent and compliant with an appropriate HEP STG Duration Met Progress Towards Goals Progress Towards Goals Progressing Toward Goals Assessment Summary Assessment Pt has reached progress plateau, overall doing very well, but still having some difficulty with her posture. Pt compliant with her HEP, appropriate for discharge at this time. Pt's biggest limiting factor at this time is her right hip dysfunction. Physical Therapy Plan Frequency and Duration Frequency of Treatment 2x/Week Duration of Treatment 90 Days Plan of Care Start Date 04/05/21 Plan of Care End Date 07/04/21 Therapeutic Interventions Therapeutic Interventions Aquatic Therapy,Balance Training,Gait Training,Home Exercise Program,Joint Mobilizations,Manual Therapy, Neuromuscular Re-education, Patient/Caregiver Education, Self-Care/Home Management,Soft Tissue Mobilization, Therapeutic Activities, Therapeutic Exercises Discharge Physical Therapy Discharge Reasons Plateau in Progress Next Visit Focus/Plan Next Note Type Discharge Summary
--- NOTE | 2021-06-19 11:58 | PT.OPDS ---
Current Diagnoses Bilateral primary osteoarthritis of hip (06/19/21) Stiffness of other specified joint, not elsewhere classified (06/19/21) Spondylolisthesis, lumbar region (06/19/21) Muscle weakness (generalized) (06/19/21) Other abnormalities of gait and mobility (06/19/21) Visit Care Team Role Provider Type Saul Rae MD Family Provider Non-Staff Primary Care Provider Specialty: Family Practice Address: [address] [place] [address], [address], [address] Email: Serena Kinsey MD Attending Provider Physician Referring Provider Specialty: Orthopedic Surgery Address: [address] [place] [address], [id number] Email: [email or web address] Visit Number Visit Number 15 Discharge Summary PT-OP-B Current Condition Start: 04/05/21 17:39 Freq: Status: Active Protocol: Document 04/05/21 10:30 DCW (Rec: 04/06/21 10:06 DCW [id number]) Current Condition History of Current Condition Onset Date 01/04/21 Current Complaints S/p L3-S1 TLIF with posterior instrumentation History of Current Condition Pt is a 75 year old female three months s/p L3-S1 TLIF with posterior instrumentation . Unfortunately, two months ago, pt's recovery was complicated by sudden pain and swelling in her right leg, which was found to be a DVT. After being sent to the ER, pt was demonstrating SOB, which led to a CTA of her chest, which uncovered numerous bilateral pulmonary emboli. Pt was put on blood thinners and has slowly been recovering from this setback. Pt still continues to have fairly severe pain in her right hip, but is not sure if that is due to the DVT, or just the normal arthritis. Currently, pt has complaints of decreased activity tolerance, continued back pain, instability, increased fear of falling, and an inability to ambulate outside when not using any device. Pt notes she uses her FWW outside, but typically doesn't in her house. Treatment Goals Patient/Caregiver Goals I want to improve my posture, I want to be able to bend, and most importantly, I want to walk without any device. Personal Factors Other Personal Factors That May Effect DVT/PEs, Diverticulosis, IBS, Therapy/Recovery L3-S1 TLIF PT-OP-C Subjective Start: 04/05/21 17:39 Freq: Status: Active Protocol: Document 06/19/21 09:45 DCW (Rec: 06/19/21 10:24 DCW [id number]) OP-PT Subjective Patient Comments Patient Comments That home workout you gave me is just fantastic, I'm going to stick with it. PT-OP-D Balance Start: 04/05/21 17:39 Freq: Status: Active Protocol: Document 05/10/21 11:43 MA (Rec: 05/10/21 12:06 MA [id number]) Guerra Balance Assessment Evaluation Sitting to Standing Ability Independent w/out Hands Unsupported Stance Safely- 2 minutes Sitting Unsupported, Feet on Floor Safely- 2 minutes Standing to Sitting Ability Safely, Minimal Hand Use Transfer Ability Safely, Minimal Hand Use Unsupported Stance- Eyes Closed Safely, 10 seconds Unsupported Stance- Eyes Open Supervision to maintain Reaching Forward Standing Safely, 5 inches Pick- Up Object From Floor Within 2 inches, Unable Look Behind Shoulder - Standing Shifts Weight Unilateral Turning 360 Degrees Turns slowly, but safely Unsupported Stance, Alternating Feet on (I)- 8 Steps in > 20 secs Stair Unsupported Tandem Stance Holds Tandem- 30 seconds Unilateral Leg Stance Lifts Leg/Unable to Hold Total Score Guerra Total Score (out of 56 points) 44 Guerra Impairment Rating 20 to 39% Impaired (Score 34- 44) PT-OP-E Functional Tests Start: 04/05/21 17:39 Freq: Status: Active Protocol: Document 06/19/21 09:45 DCW (Rec: 06/19/21 10:26 DCW [id number]) Functional Tests Timed Up and Go (TUG) Score 11.23 no AD Comments Three-trial average (13.60, 10.04, 10.05) TUG Impairment Rating 1 to <20% Impaired (Score 11) PT-OP-J Posture/Palpation/Skin Start: 04/06/21 10:06 Freq: Status: Active Protocol: Document 04/05/21 10:30 DCW (Rec: 04/06/21 10:08 DCW [id number]) Posture Evaluation Position Standing Evaluation View Lateral Head/C-Spine Posture Flexed,Forward Head T-Spine Posture Increased Kyphosis L-Spine Posture Flattened Weight Distribution Weight Shifted Anterior PT-OP-K Range of Motion Start: 04/05/21 17:39 Freq: Status: Active Protocol: Document 04/05/21 10:30 DCW (Rec: 04/06/21 10:06 DCW [id number]) Lumbar Spine Range of Motion Lumbar Spine Active Degrees Testing Position Standing Flexion 20 Extension 0 Lateral Flexion Left 53 Lateral Flexion Right 53 ROM Limitations Soft Tissue Tightness,Bony Restriction,Muscle Weakness, Muscle Tone Comments Lateral flexion measured in cm from fingertips to floor PT-OP-M Strength Start: 04/05/21 17:39 Freq: Status: Active Protocol: Document 06/19/21 09:45 DCW (Rec: 06/19/21 10:26 DCW [id number]) Hip Strength Hip Manual Muscle Testing Right Flexion (L2) 4 Good Extension (S1) 4 Good Abduction 4+ Good+ Adduction 4 Good External Rotation 4 Good Internal Rotation 4 Good Left Flexion (L2) 4+ Good+ Extension (S1) 4+ Good+ Abduction 4+ Good+ Adduction 4+ Good+ External Rotation 4+ Good+ Internal Rotation 4+ Good+ Knee Strength Knee Manual Muscle Testing Right Flexion (S2) 4 Good Extension (L3) 4+ Good+ Left Flexion (S2) 4+ Good+ Extension (L3) 4+ Good+ PT-OP-T Assessment and Plan Start: 04/05/21 17:39 Freq: Status: Active Protocol: Document 06/19/21 09:45 DCW (Rec: 06/19/21 10:24 DCW [id number]) Physical Therapy Assessment Impairments Impairments Activity Tolerance,Balance, Functional Activities, Functional Mobility,Pain, Posture,ROM,Soft Tissue Mobility,Strength Goals Four Impairment Pt current posture demonstrates moderate forward head/rounded shoulders Retirement Goal (LTG) Pt to stand with at worst mild forward head/rounded shoulders at least 75% of the time without verbal cues to show improved posture and decreased shear forces through cervical spine. LTG Duration 07/04/21 Three Impairment Pt scores 4-/5 or weaker in all planes during right hip and knee MMT Retail Loan Originator Assistant Goal (LTG) Pt to demonstrate a strengthen of at least 4/5 with her right hip and knee MMT to show improved ability to fully support weight without an assistive device LTG Duration Met Two Impairment Pt scores in falls-risk category on Guerra (34/56) and TUG (18.09) Short Term Goal (STG) Pt to complete TUG with an average time of less than 15 seconds to show a decreasing falls risk 05/16/21: Progressin sec. STG Duration Met - 11.23 seconds Retirement Goal (LTG) Pt to score >42/56 on Guerra to demonstrate a decreased falls risk. 05/10/21: Goal Met: 44/56 LTG Duration Met One Impairment Pt does not have an appropriate home exercise program Short Term Goal (STG) Pt to be independent and compliant with an appropriate HEP STG Duration Met Progress Towards Goals Progress Towards Goals Progressing Toward Goals Assessment Summary Assessment Pt has reached progress plateau, overall doing very well, but still having some difficulty with her posture. Pt compliant with her HEP, appropriate for discharge at this time. Pt's biggest limiting factor at this time is her right hip dysfunction. Physical Therapy Plan Frequency and Duration Frequency of Treatment 2x/Week Duration of Treatment 90 Days Plan of Care Start Date 04/05/21 Plan of Care End Date 07/04/21 Therapeutic Interventions Therapeutic Interventions Aquatic Therapy,Balance Training,Gait Training,Home Exercise Program,Joint Mobilizations,Manual Therapy, Neuromuscular Re-education, Patient/Caregiver Education, Self-Care/Home Management,Soft Tissue Mobilization, Therapeutic Activities, Therapeutic Exercises Discharge Physical Therapy Discharge Reasons Plateau in Progress Next Visit Focus/Plan Next Note Type Discharge Summary
== END 2021-06-19 13:23 | disposition home or self-care (01) ==
LOC: PHYS 09:45
PROVIDERS: Family Provider Family Medicine; PCP Family Medicine; Referring Provider Orthopaedic Surgery Orthopaedic Surgery of the Spine; Visit Provider Orthopaedic Surgery Orthopaedic Surgery of the Spine
DX: M16.0 Bilateral primary osteoarthritis of hip (principal); M43.16 Spondylolisthesis, lumbar region; R26.89 Other abnormalities of gait and mobility; M25.69 Stiffness of other specified joint, not elsewhere classified; M62.81 Muscle weakness (generalized)
CPT/HCPCS: 97110; 97112; 97116; 97140; 97162; 97530; 97535

== ENCOUNTER → 2021-06-21 14:07 | Outpatient (CLI) | payer OTHER, SELFPAY ==
[2021-02-03 17:11] VITALS: BMI 36.6
--- NOTE | 2021-06-21 14:09 | DI.CT.S_ITS ---
PROCEDURE: CT LUMBAR SPINE WO CON INDICATIONS: Spinal stenosis, lumbar region without neurogenic TECHNIQUE: Noncontrast 3 mm thick sections acquired from the T12 level to the sacrum. Sagittal and coronal reformats were constructed. For radiation dose reduction, the following was used: automated exposure control. COMPARISON: [facility], MR, MR LUMBAR SPINE WO CON, 11/19/2020, 10:26. [facility], CR, XR LUMBAR SPINE 2 OR 3 VIEWS, 06/13/2021, 10:06. FINDINGS: Image quality: Excellent. Bones: No acute vertebral body compression fractures. No suspicious lytic or blastic bony lesions. No pars defects. Postoperative changes are seen, with bilateral pedicle screws at L3, L4, L5, and S1. The screws appear well placed. Disc spacers are seen at L3-L4, L4-L5, and L5-S1. There has been removal of portions of the posterior elements. Mild anterolisthesis is seen at the L5-S1 level. T12-L1: No significant abnormality is seen. L1-L2: Mild loss of disc height is seen. No significant neural foraminal or central canal narrowing can be seen. There is mild loss of disc height seen. Mild to moderate disc bulge is seen. There is moderate bilateral neural foraminal narrowing seen, left worse than right. No significant central canal narrowing is seen. When comparison is made with the prior images, these findings are similar. L2-L3: The disc height is well preserved. Mild generalized disc bulge is seen. No significant neural foraminal or central canal narrowing can be seen. When comparison is made with the prior images, these findings are similar. L3-L4: There are postoperative changes at this level. Moderate disc bulge is seen, which is eccentric to the right. No significant neural foraminal or central canal narrowing can be seen. This level is improved compared to the preoperative MRI. L4-L5: There are postoperative changes seen at this level. Mild to moderate disc bulge can be seen. There is moderate left-sided and no right-sided neural foraminal narrowing seen. The central canal is widely patent. This level is improved compared to the preoperative MRI. L5-S1: Postoperative changes can be seen at this level. Mild to moderate disc bulge is seen. There is moderate left-sided and no right-sided neural foraminal narrowing. The central canal is widely patent. There is slight improvement compared to the preoperative MRI. Soft tissues: No retroperitoneal masses or hematomas. Visualized aorta is normal in caliber. Cholecystectomy clips are seen. A left pelvis clips can be seen, as on series 8, image 55. IMPRESSION: Unremarkable L3 through S1 postoperative change, with intact hardware. Improvement in the degrees of degenerative narrowing within the surgical region. Dictated by: Loi Malloy M.D. on 06/21/2021 at 14:45 Approved by: Loi Malloy M.D. on 06/21/2021 at 14:51
== END ==
PROVIDERS: Family Provider Family Medicine; PCP Family Medicine; Referring Provider Orthopaedic Surgery Orthopaedic Surgery of the Spine; Visit Provider Orthopaedic Surgery Orthopaedic Surgery of the Spine
DX: M48.061 Spinal stenosis, lumbar region without neurogenic claudication (principal); Z98.1 Arthrodesis status
CPT/HCPCS: 72131

== ENCOUNTER → 2021-08-30 11:00 | Outpatient (CLI) | payer OTHER, SELFPAY ==
[2021-02-03 17:11] VITALS: BMI 36.6
--- NOTE | 2021-08-30 | DI.RAD.S_ITS ---
PROCEDURE: XR DEXA AXIAL SKELETON INDICATIONS: Asymptomatic menopausal state COMPARISON: [facility], CR, XR DEXA AXIAL SKELETON, 07/21/2019, 14:24. FINDINGS: This blank DEXA report has been sent in error by the PACS system. The correct and complete report will be forthcoming in 1-2 days. Thank you for your patience and understanding. Dictated by: Brigida Mcnair MD, PhD on 08/30/2021 at 11:21 Approved by: Brigida Mcnair MD, PhD on 08/30/2021 at 11:21
== END ==
PROVIDERS: Family Provider Family Medicine; PCP Family Medicine; Referring Provider Family Medicine; Visit Provider Family Medicine
DX: Z78.0 Asymptomatic menopausal state (principal); M85.88 Other specified disorders of bone density and structure, other site; Z90.722 Acquired absence of ovaries, bilateral
CPT/HCPCS: 77080

== ENCOUNTER → 2021-10-19 14:09 | Outpatient (CLI) | payer OTHER, SELFPAY ==
[2021-02-03 17:11] VITALS: BMI 36.6
--- NOTE | 2021-10-19 | DI.CT.S_ITS ---
PROCEDURE: CT LUMBAR SPINE WO CON INDICATIONS: other spondylosis with radiculopathy, lumbar region TECHNIQUE: Noncontrast 3 mm thick sections acquired from the T12 level to the sacrum. Sagittal and coronal reformats were constructed. For radiation dose reduction, the following was used: automated exposure control. COMPARISON: [facility], CT, CT LUMBAR SPINE WO CON, 06/21/2021, 14:17. FINDINGS: Image quality: Excellent. Bones: Vertebral body height and alignment is maintained. Normal bone mineral density. No evidence of fracture. Mild anterior listhesis again noted L5-S1, stable. There has been discectomy and fusion with fusion graft cages at L3-4, L4-5 and L5-S1 with associated posterior rizwana and screw instrumentation. No evidence of hardware failure or loosening. Left-sided posterolateral fusion and right hemilaminectomy at L3 and L4. L1-L2: Disc space narrowing and circumferential disc bulge noted. No central canal stenosis. Hypertrophic facet joints result in moderate bilateral foraminal stenosis. L2-L3: Disc height is preserved. Circumferential disc bulge is noted. No central or foraminal stenosis. L3-L4: Discectomy and fusion with right hemilaminectomy noted. No central stenosis present. No foraminal stenosis. L4-L5: Discectomy and fusion. Moderate left and no right-sided foraminal stenosis present. Right hemilaminectomy noted. No central stenosis. L5-S1: Discectomy and fusion. No central stenosis. Moderate left and no right-sided foraminal stenosis present. Soft tissues: No retroperitoneal masses or hematomas. Visualized aorta is normal in caliber. Cholecystectomy and left pelvic clip in unchanged. Sigmoid diverticulosis noted without diverticulitis. IMPRESSION: 1. L3 through S1 discectomy and fusion with posterior instrumentation and right hemilaminectomies, stable from the prior exam 2. Stable multilevel foraminal stenosis Approved by: Rito Garcia M.D. on 10/19/2021 at 18:28
== END ==
PROVIDERS: Family Provider Family Medicine; PCP Family Medicine; Referring Provider Orthopaedic Surgery Orthopaedic Surgery of the Spine; Visit Provider Orthopaedic Surgery Orthopaedic Surgery of the Spine
DX: M47.26 Other spondylosis with radiculopathy, lumbar region (principal); M48.07 Spinal stenosis, lumbosacral region; K57.30 Diverticulosis of large intestine without perforation or abscess without bleeding; Z98.1 Arthrodesis status
CPT/HCPCS: 72131

== ENCOUNTER → 2021-12-22 08:23 | Outpatient (CLI) | payer OTHER, SELFPAY ==
[2021-02-03 17:11] VITALS: BMI 36.6
--- NOTE | 2021-12-22 | DI.RAD.S_ITS ---
PROCEDURE: XR CHEST 2V INDICATIONS: COUGH/HTN TECHNIQUE: 2 views of the chest were acquired. COMPARISON: [facility], , XR CHEST 1V, 09/26/2020, 11:38. FINDINGS: Surgical changes and devices: Partially imaged lumbar spine hardware is seen. Lungs and pleura: No consolidation, pleural effusions or pneumothorax. Mediastinum: Mediastinal contours are normal. Heart size is normal. Bones and chest wall: No suspicious bony abnormalities. Soft tissues appear unremarkable. IMPRESSION: No acute cardiopulmonary abnormality. Dictated by: Deni Dobbins M.D. on 12/22/2021 at 9:07 Approved by: Deni Dobbins M.D. on 12/22/2021 at 9:10
[2021-12-22 09:38] LABS: Add Manual Diff / Slide Review NO; Basophils Absolute Auto 100 /uL (0-100); Basophils Percent Auto 1.1 % (0-2); Eosinophils Absolute Auto 500 /uL (0-450); Eosinophils Percent Auto 5.7 % (2-4); Hemoglobin 14.9 g/dL (12.0-16.0); Lymphocytes Absolute Auto 3000 /uL (1100-4500); Lymphocytes Percent Auto 35.5 % (25-40); Mean Corpuscular HGB Conc 33.8 % (30-36); Mean Corpuscular Hemoglobin 30.1 PG (26-34); Mean Corpuscular Volume 88.9 fL (80-100); Monocytes Absolute Auto 600 /uL (0-900); Monocytes Percent Auto 6.7 % (3-14); Neutrophils Absolute Auto 4300 /uL (1500-7000); Platelet Count 252 X10^3/uL (150-400); Red Blood Cell Count 4.95 X10^6/uL (4.0-5.2); Red Cell Distribution Width 12.8 % (11.6-14.8); White Blood Cell Count 8.5 X10^3/uL (4.5-11.0)
[2021-12-22 10:08] LABS: Alanine Aminotransferase 22 IU/L (<35); Albumin 4.3 g/dL (3.5-5.0); Albumin Globulin Ratio 1.4 (1.0-2.8); Alkaline Phosphatase 140 U/L (38-126); Aspartate Aminotransferase 27 IU/L (14-36); BUN Creatinine Ratio 21.2 (6-22); Bilirubin Total 0.8 mg/dL (0.2-1.3); Blood Urea Nitrogen 14 mg/dL (7-17); Calcium 9.7 mg/dL (8.4-10.2); Carbon Dioxide 27 mmol/L (22-32); Chloride 106 mmol/L (98-107); Estimated Glomerular Filt Rate > 60.0 mL/min (>60); Glucose 103 mg/dL (80-110); HEMOLYSIS < 15 (0-50); Potassium 4.4 mmol/L (3.4-5.1); Sodium 139 mmol/L (137-145); Total Protein 7.3 g/dL (6.3-8.2)
[2021-12-22 10:10] LABS: NT-proBNP (BNP-Adult 18+) 54 pg/mL (<450)
== END ==
PROVIDERS: Family Provider Family Medicine; PCP Family Medicine; Referring Provider Family Medicine; Visit Provider Family Medicine
DX: E88.01 Alpha-1-antitrypsin deficiency (principal); Z86.711 Personal history of pulmonary embolism; R05.9 Cough, unspecified; I10 Essential (primary) hypertension
CPT/HCPCS: 36415; 71046; 80053; 83880; 85025

== ENCOUNTER → 2022-02-22 09:34 | Outpatient (CLI) | payer OTHER, SELFPAY ==
[2021-02-03 17:11] VITALS: BMI 36.6
--- NOTE | 2022-02-22 09:40 | DI.MRI.S_ITS ---
PROCEDURE: MR ABDOMEN WO/W CON INDICATIONS: ABNORMAL INTRAHEPATIC BILE DUCTS TECHNIQUE: Coronal HASTE, axial 2D FLASH in- and [id number]; axial breath-hold T2 FSE with fat saturation from the hepatic dome to the iliac crests. Oblique coronal thin-slice and radial thick slab HASTE through the biliary system. Dynamic axial VIBE during administration of contrast. Post-contrast coronal VIBE or 2D FLASH with fat saturation from the hepatic dome to the iliac crests. Restricted diffusion weighted imaging and ADC. COMPARISON: [facility], CT, CT LUMBAR SPINE WO CON, 10/19/2021, 14:18. [facility], CT, CT ABDOMEN W CON, 05/26/2021, 8:20. [facility], CT, CT ABDOMEN PANCREATIC PROTOCOL, 05/04/2020, 7:30. FINDINGS: Image quality: Good. Pancreas and biliary system: Common hepatic duct at the hilum measures 1.4 cm, previously 1.4 cm on 05/26/2021, and 1.5 cm on 05/04/2020. The CBD distally measures 0.7 cm, unchanged. There is minimal intrahepatic biliary ductal dilatation. No filling defect is identified. Gallbladder is absent. Pancreatic duct is at the upper limits of normal measuring 0.4 cm. Pancreatic head anterior opposed phase T1 signal dropout, (03/25), consistent with fatty infiltration. This appears similar to the CT pancreas 05/04/2020. No suspicious enhancement. No restricted diffusion. Solid organs: Liver is prominent in size. No focal lesion. Hepatic steatosis. Spleen is normal in size and enhancement. No adrenal nodules. Kidneys are normal in size and enhancement, without hydronephrosis. T2 hyperintense cyst at the inferior pole of the left kidney measuring at 0.9 cm. Nodes and vessels: No retroperitoneal or mesenteric adenopathy by size criteria. Aorta and inferior vena cava are normal in size. Bowel and peritoneum: Unenhanced bowel loops are normal in caliber throughout. No free fluid. Lung bases: No basal pleural effusions. Heart size is normal. Bones and soft tissues: Small fat containing ventral hernia. Lumbar spine hardware. Bone marrow is normal in overall signal. IMPRESSION: 1. Extrahepatic biliary ductal dilatation in this post cholecystectomy patient. Minimal intrahepatic biliary ductal dilatation. No filling defect or mass is identified. Overall bile ducts are similar to May 2020. ERCP could be considered for further evaluation. 2. Pancreatic duct is at the upper limits of normal. 3. Focal fatty infiltration at the anterior head of the pancreas is unchanged. No enhancing mass or restricted diffusion is demonstrated. 4. Hepatic steatosis. No focal hepatic lesion. Dictated by: Joshua Burciaga M.D. on 02/23/2022 at 7:59 Approved by: Joshua Burciaga M.D. on 02/23/2022 at 8:17
[2022-02-22 13:17] LABS: Adenovirus F 40/41 Not Detected (Not Detect); Astrovirus Not Detected (Not Detect); Campylobacter Not Detected (Not Detect); Clostridium difficile toxin AB Not Detected (Not Detect); Cryptosporidium Not Detected (Not Detect); Cyclospora cayetanensis Not Detected (Not Detect); Entamoeba histolytica Not Detected (Not Detect); Enteroaggregative E.coli Not Detected (Not Detect); Enteropathogenic E.coli Not Detected (Not Detect); Enterotoxigenic E.coli It/st Not Detected (Not Detect); Giardia lamblia Not Detected (Not Detect); Norovirus GI/GII Not Detected (Not Detect); Plesiomonsa shigelloides Not Detected (Not Detect); Rotavirus A Not Detected (Not Detect); Salmonella Not Detected (Not Detect); Sapovirus Not Detected (Not Detect); Shiga-like toxin-prod E.coli Not Detected (Not Detect); Shigella/Enteroinvasive E.coli Not Detected (Not Detect); Vibrio Not Detected (Not Detect); Vibrio cholerae Not Detected (Not Detect); Yersinia enterocolitica Not Detected (Not Detect)
[2022-02-23 12:02] LABS: Fats, Neutral Normal (.); Fats, Total Normal (.)
== END ==
PROVIDERS: Family Provider Family Medicine; PCP Family Medicine; Referring Provider Internal Medicine Gastroenterology; Visit Provider Internal Medicine Gastroenterology
DX: R93.5 Abnormal findings on diagnostic imaging of other abdominal regions, including retroperitoneum (principal); K83.8 Other specified diseases of biliary tract; K58.0 Irritable bowel syndrome with diarrhea; R14.0 Abdominal distension (gaseous); K22.70 Barrett's esophagus without dysplasia; K76.0 Fatty (change of) liver, not elsewhere classified; Z90.49 Acquired absence of other specified parts of digestive tract
CPT/HCPCS: 74183; 82705; 87177; 87205; 87507; A9579

== ENCOUNTER → 2022-05-30 11:11 | Outpatient (CLI) | payer OTHER, SELFPAY ==
[2021-02-03 17:11] VITALS: BMI 36.6
--- NOTE | 2022-05-30 | DI.MRI.S_ITS ---
PROCEDURE: MR CERVICAL SPINE WO CON INDICATIONS: Spinal stenosis, cervical region TECHNIQUE: Noncontrast sagittal T1 spin echo and T2 fast spin echo, sagittal STIR, foraminal oblique sagittal T2 fast spin echo, and axial gradient echo or T2 fast spin echo through the cervical spine. COMPARISON: [facility], MR, C-SPINE WITHOUT CONTRAST, 10/20/2009, 17:49. FINDINGS: Image quality: Excellent. Alignment and Curvature: There is roughly 2 mm of anterolisthesis of C3 on C4 and C4 on C5. Roughly 3 mm of anterolisthesis of C7 on T1. Bone Marrow: Marrow demonstrates normal overall signal. Spinal Cord: Visualized spinal cord has normal size and signal. No cerebellar tonsillar herniation. Paraspinous Soft Tissues: No paravertebral masses. Prevertebral soft tissues are normal in thickness. C2-C3: Mild disc desiccation. No significant canal, or foraminal stenosis. No significant change. C3-C4: Mild disc desiccation and diffuse disc bulge. Mild facet and uncovertebral hypertrophy bilaterally. Mild canal stenosis. Mild bilateral foraminal stenosis. No significant change. C4-C5: Mild disc height loss and desiccation. Mild diffuse disc bulge. Mild facet and uncovertebral hypertrophy bilaterally. Mild canal stenosis. Mild left greater than right foraminal stenosis. No significant change. C5-C6: Moderate disc desiccation. Mild disc height loss and diffuse disc bulge. Mild facet and uncovertebral hypertrophy bilaterally. Increased, moderate canal stenosis. Severe bilateral foraminal stenosis. Bilateral C6 nerve root compression, new since the prior examination. C6-C7: Moderate disc height loss and desiccation. Mild diffuse disc bulge. Mild facet and uncovertebral hypertrophy bilaterally. Mild canal stenosis. Mild bilateral foraminal stenosis. No significant change. C7-T1: Mild disc height loss. Moderate disc desiccation. Mild diffuse disc bulge. Mild facet and uncovertebral hypertrophy bilaterally. Mild canal stenosis. Mild bilateral foraminal stenosis. No significant change. IMPRESSION: 1. Multilevel degenerative disc and facet disease, as well as uncovertebral hypertrophy. 2. Multilevel canal stenoses, worst at C5-C6 where there is increased, moderate canal stenosis. 3. Multilevel foraminal stenoses, worst at C5-C6 where there is associated intraforaminal nerve root compression, new since the prior examination. Recommend correlation with clinical symptoms to ascertain relevance of this finding. Dictated by: Nitin Henry M.D. on 05/30/2022 at 13:04 Approved by: Nitin Henry M.D. on 05/30/2022 at 13:08
== END ==
PROVIDERS: Family Provider Family Medicine; PCP Family Medicine; Referring Provider Orthopaedic Surgery Orthopaedic Surgery of the Spine; Visit Provider Orthopaedic Surgery Orthopaedic Surgery of the Spine
DX: M48.02 Spinal stenosis, cervical region (principal); M50.31 Other cervical disc degeneration, high cervical region; M47.812 Spondylosis without myelopathy or radiculopathy, cervical region
CPT/HCPCS: 72141

== ENCOUNTER → 2022-06-14 08:36 | Outpatient (CLI) | payer OTHER, SELFPAY ==
[2021-02-03 17:11] VITALS: BMI 36.6
[2022-06-14 10:43] LABS: Add Manual Diff / Slide Review NO; Basophils Absolute Auto 100 /uL (0-100); Basophils Percent Auto 1.2 % (0-2); Eosinophils Absolute Auto 200 /uL (0-450); Eosinophils Percent Auto 3.7 % (2-4); Hematocrit 42.3 % (36-46); Hemoglobin 14.4 g/dL (12.0-16.0); Lymphocytes Absolute Auto 2700 /uL (1100-4500); Lymphocytes Percent Auto 40.5 % (25-40); Mean Corpuscular HGB Conc 34.1 % (30-36); Mean Corpuscular Hemoglobin 30.4 PG (26-34); Mean Corpuscular Volume 89.1 fL (80-100); Monocytes Absolute Auto 500 /uL (0-900); Monocytes Percent Auto 6.9 % (3-14); Neutrophils Absolute Auto 3100 /uL (1500-7000); Neutrophils Percent Auto 47.7 % (50-75); Platelet Count 221 X10^3/uL (150-400); Red Blood Cell Count 4.74 X10^6/uL (4.0-5.2); Red Cell Distribution Width 13.4 % (11.6-14.8); White Blood Cell Count 6.6 X10^3/uL (4.5-11.0)
[2022-06-14 11:09] LABS: Alanine Aminotransferase 21 IU/L (<35); Albumin 4.1 g/dL (3.5-5.0); Albumin Globulin Ratio 1.4 (1.0-2.8); Alkaline Phosphatase 128 U/L (38-126); Aspartate Aminotransferase 29 IU/L (14-36); BUN Creatinine Ratio 14.1 (6-22); Bilirubin Total 0.6 mg/dL (0.2-1.3); Blood Urea Nitrogen 10 mg/dL (7-17); C-Reactive Protein Quant 0.9 mg/dL (<1.0); Calcium 9.1 mg/dL (8.4-10.2); Carbon Dioxide 28 mmol/L (22-32); Chloride 105 mmol/L (98-107); Cholesterol 305 mg/dL (140-199); Estimated Glomerular Filt Rate > 60 mL/min (>60); Glucose 99 mg/dL (80-110); HDL Cholesterol 51 mg/dL (40-60); HEMOLYSIS < 15 (0-50); LDL Cholesterol Calculated 226 mg/dL (<100); Potassium 4.7 mmol/L (3.4-5.1); Sodium 139 mmol/L (137-145); Total Protein 7.1 g/dL (6.3-8.2); Triglycerides 141 mg/dL (35-150)
== END ==
PROVIDERS: Family Provider Family Medicine; PCP Family Medicine; Referring Provider Family Medicine; Visit Provider Family Medicine
DX: D72.10 Eosinophilia, unspecified (principal); K92.1 Melena; I10 Essential (primary) hypertension; R53.83 Other fatigue; R74.8 Abnormal levels of other serum enzymes; K76.0 Fatty (change of) liver, not elsewhere classified; E78.5 Hyperlipidemia, unspecified
CPT/HCPCS: 80053; 80061; 85025; 86140

== ENCOUNTER → 2022-08-24 12:02 | Outpatient (CLI) | payer OTHER, SELFPAY ==
[2021-02-03 17:11] VITALS: BMI 36.6
[2022-08-24 14:00] LABS: Alanine Aminotransferase 22 IU/L (<35); Albumin 4.3 g/dL (3.5-5.0); Albumin Globulin Ratio 1.3 (1.0-2.8); Alkaline Phosphatase 123 U/L (38-126); Aspartate Aminotransferase 25 IU/L (14-36); BUN Creatinine Ratio 23.9 (6-22); Bilirubin Total 0.5 mg/dL (0.2-1.3); Blood Urea Nitrogen 16 mg/dL (7-17); Calcium 9.2 mg/dL (8.4-10.2); Carbon Dioxide 24 mmol/L (22-32); Chloride 107 mmol/L (98-107); Estimated Glomerular Filt Rate > 60 mL/min (>60); Globulin 3.4 g/dL (1.7-4.1); Glucose 93 mg/dL (80-110); HEMOLYSIS < 15 (0-50); Potassium 4.1 mmol/L (3.4-5.1); Sodium 140 mmol/L (137-145); Total Protein 7.7 g/dL (6.3-8.2)
== END ==
PROVIDERS: Family Provider Family Medicine; PCP Family Medicine; Referring Provider Internal Medicine Gastroenterology; Visit Provider Internal Medicine Gastroenterology
DX: R19.7 Diarrhea, unspecified (principal)
CPT/HCPCS: 36415; 80053

== ENCOUNTER → 2022-08-31 08:58 | Outpatient (CLI) | payer OTHER, SELFPAY ==
[2021-02-03 17:11] VITALS: BMI 36.6
--- NOTE | 2022-08-31 | DI.CT.S_ITS ---
PROCEDURE: CT ABDOMEN PELVIS W CON INDICATIONS: RLQ ABD PAIN/SUPRAPUBIC PAIN/INCONTINENCE OF FECES TECHNIQUE: After the administration of oral and intravenous contrast, axial sections were acquired from the lung bases to the pubic symphysis. Coronal and sagittal reformats were performed. For radiation dose reduction, the following was used: automated exposure control, adjustment of mA and/or kV according to patient size. COMPARISON:[facility], CT, CT ABDOMEN PELVIS W CON, 08/23/2020, 10:30. FINDINGS: Image quality: Excellent. Lung bases: 8 mm pleural based nodule at the right lung base is unchanged from the study dated August 23, 2020. No pleural effusions. Heart: No significant findings. ABDOMEN: Liver: Unremarkable. Gallbladder: Surgically absent Biliary ducts: Unremarkable. Pancreas: Unremarkable. Spleen: Unremarkable. Adrenal Glands: Unremarkable. Kidneys and Ureters: Unremarkable. Stomach and Bowel: There is a small hiatal hernia. Stomach, small bowel loops, and colon are unremarkable. There are scattered sigmoid diverticula. No evidence for diverticulitis. The appendix is thin walled and gas filled. Peritoneum: No abnormal intraperitoneal fluid. No free air. Ventral Wall: No hernia. Abdominal Nodes: No retroperitoneal or mesenteric adenopathy by size criteria. Vessels: Aorta and inferior vena cava are normal in size. PELVIS: Pelvic Organs: Unremarkable. Bladder: Unremarkable. Pelvic Nodes: No enlarged lymph nodes. Miscellaneous: No inguinal hernias are seen. Bones: Unremarkable. IMPRESSION: 1. No acute intra-abdominal findings. Normal appendix. Diverticulosis. No acute diverticulitis. Dictated by: Sabine Alex M.D. on 08/31/2022 at 13:23 Approved by: Sabine Alex M.D. on 08/31/2022 at 13:30
== END ==
PROVIDERS: Family Provider Family Medicine; PCP Family Medicine; Referring Provider Internal Medicine Gastroenterology; Visit Provider Internal Medicine Gastroenterology
DX: K57.30 Diverticulosis of large intestine without perforation or abscess without bleeding (principal); K44.9 Diaphragmatic hernia without obstruction or gangrene; R10.31 Right lower quadrant pain; R10.2 Pelvic and perineal pain; R15.9 Full incontinence of feces
CPT/HCPCS: 74177; Q9967

== ENCOUNTER → 2022-12-27 08:57 | Outpatient (CLI) | payer OTHER, SELFPAY ==
[2021-02-03 17:11] VITALS: BMI 36.6
--- NOTE | 2022-12-27 | DI.US.S_ITS ---
PROCEDURE: [facility] VENOUS LOW EXTREM RT INDICATIONS: PAIN IN RIGHT LOWER EXTREMITY TECHNIQUE: Real-time imaging, as well as color and pulse Doppler interrogation, were performed of the lower extremity deep veins from the inguinal ligament to the popliteal fossa. COMPARISON: [facility], [facility] VENOUS LOW EXTREM RT, 02/03/2021, 11:19. FINDINGS: Comparison is made to the previous study. There is focal wall clot in the lower thigh right superficial femoral vein (deep vein of thigh) as well as in mid thigh superficial femoral vein (deep vein of thigh close). This focal clot may potentially be chronic. No occlusive clot. IMPRESSION: There is focal nonobstructing thrombus in the mid and distal deep vein of thigh, potentially chronic. Dictated by: Cristóbal Wick M.D. on 12/27/2022 at 9:37 Approved by: Cristóbal Wick M.D. on 12/27/2022 at 9:42
== END ==
PROVIDERS: Family Provider Family Medicine; PCP Family Medicine; Referring Provider Family Medicine; Visit Provider Family Medicine
DX: I82.411 Acute embolism and thrombosis of right femoral vein (principal); M79.604 Pain in right leg
CPT/HCPCS: 93971

== ENCOUNTER 2023-01-19 12:43 | Emergency (ER) | payer OTHER, SELFPAY ==
[2021-02-03 17:11] VITALS: BMI 36.6
[2023-01-19] VITALS (10 sets, daily range): BP systolic 132–182; BP diastolic 64–81; PULSE 60–73; RESP 16; TEMP 36.7; O2SAT 95–99; BMI 36.6
--- NOTE | 2023-01-19 14:00 | ED.LOWEXIN ---
HPI - Extremity Injury (Lower) <Fallon Estevez PA-C - Last Filed: 01/19/23 20:34> General Chief Complaint: Extremity Injury, Lower Stated Complaint: pain and swelling in both legs Time Seen by Provider: 01/19/23 13:38 History of Present Illness HPI Narrative: 77-year-old female presents with daughter with a history of lumbar spinal surgery, chronic walker use, chronic DVT presents with concern for worsening right leg pain. She states she has a pain in the right side of her buttock that is sharp and it occurs when she bears any weight the pain shoots down her leg. Patient states she is been dealing with right leg pain for months but it has been gradually worsening and over the past 4 weeks it has become more and more severe to the point where she now feels she is not able to function like this and is having extreme difficulty even with using her walker getting around because the pain is so bad. At the same time she has a pain in her right foot, her ankle, the inside of her knee and thigh and the front of her thigh. She states that the pain is excruciating Tylenol and ibuprofen have not helped it although icing it does seem to. She has not noticed that her leg has been weak numb or tingly. Related Data Home Medications Medication Instructions Recorded Confirmed doxylamine succinate 25 mg tablet 25 mg PO BEDTIME PRN Insomnia 12/28/20 02/03/21 (Sleep Aid (doxylamine)) pantoprazole 40 mg tablet,delayed 1 mg PO DAILY PRN acid stomach 12/28/20 02/03/21 release Previous Rx's Medication Instructions Recorded docusate sodium 100 mg capsule 100 mg PO BID #20 caps 01/07/21 (DOK) hydrocodone 10 mg-acetaminophen 1 tab PO Q4HR PRN Pain, Moderate 01/07/21 325 mg tablet (4-6) #50 tabs hydroxyzine pamoate 25 mg capsule 25 mg PO Q4HR PRN muscle spasm #50 01/07/21 caps prednisone 20 mg tablet 40 mg PO DAILY 4 days #8 tabs 01/19/23 Allergies Allergy/AdvReac Type Severity Reaction Status Date / Time Latex, Natural Rubber Allergy Intermediate Red Rash Verified 01/19/23 13:21 [LATEX, NATURAL RUBBER] oxycodone Allergy Intermediate 'Screaming Verified 01/19/23 13:21 nightmares' Penicillins [PENICILLINS] Allergy Intermediate Rash Verified 01/19/23 13:21 adhesive tape Allergy Mild Rash Verified 01/19/23 13:21 hydromorphone AdvReac Mild Diarrhea Verified 01/19/23 13:21 Review of Systems <Fallon Estevez PA-C - Last Filed: 01/19/23 20:34> Review of Systems Narrative: Unremarkable except as noted in the HPI Patient History <Fallon Estevez PA-C - Last Filed: 01/19/23 20:34> Medical History Diverticulosis Epidural lipomatosis Fatty liver IBS (irritable bowel syndrome) Left foot infection Primary osteoarthritis of both hips Spinal stenosis of lumbar region with neurogenic claudication Spondylolisthesis, lumbar region Surgical History Status post left foot surgery Social History household members: children Smoking Status: Never smoker alcohol intake: former Smoking Status: Never smoker alcohol intake frequency: 0-2 drinks per day Substance Use Type: does not use Exam <Fallon Estevez PA-C - Last Filed: 01/19/23 20:34> Narrative Exam Narrative: GENERAL: 77 year old patient appears stated age. Obese. Well-developed patient, in mild distress. HEAD: Atraumatic. Normocephalic. EYES: Pupils equal round and reactive. Extraocular motions intact. No scleral icterus. No injection or drainage. ENT: Nose without bleeding, purulent drainage. Airway patent. NECK: Trachea midline. Non tender CARDIOVASCULAR: Regular rate and rhythm without murmurs, gallops, or rubs. RESPIRATORY: Clear to auscultation. Breath sounds equal bilaterally. No wheezes, rales, or rhonchi. GASTROINTESTINAL: Abdomen nondistended. EXTREMITIES: See back also. Patient has significant tenderness with even moderate pressure palpation over the medial inferior thigh, very tender with palpation over the medial joint line of the knee, tender to palpation over the anterior thigh. Strength and range of motion of the right leg are reduced. 3/5 right. 4/5 left. BACK: There are vertical scars midline and laterally to the paraspinal muscles in the lumbar region consistent with previous surgery. Patient has no significant tenderness with palpation over the spinous processes of the lumbar region. Patient has significant tenderness to palpation over the sacroiliac junction and sciatic nerve exit. Nontender without deformity or crepitance. No flank tenderness. NEURO: AOx3. SKIN: No rash or erythema of visible areas Initial Vital Signs Initial Vital Signs: Vital Signs Temperature 98.1 F 01/19/23 13:20 Pulse Rate 73 01/19/23 13:20 Respiratory Rate 16 01/19/23 13:20 Blood Pressure 182/81 H 01/19/23 13:20 Pulse Oximetry 97 01/19/23 13:20 Oxygen Delivery Method 01/19/23 13:20 <Rach Castellon DO - Last Filed: 01/20/23 17:20> Initial Vital Signs Initial Vital Signs: Vital Signs Temperature 98.1 F 01/19/23 13:20 Pulse Rate 73 01/19/23 13:20 Respiratory Rate 16 01/19/23 13:20 Blood Pressure 182/81 H 01/19/23 13:20 Pulse Oximetry 97 01/19/23 13:20 Oxygen Delivery Method 01/19/23 13:20 Course <Fallon Estevez PA-C - Last Filed: 01/19/23 20:34> Course Course Narrative: Did ask attending physician to examine this patient and help make a decision regarding imaging. Did have some concern regarding her difficulty pushing urine out recently and her decreased inability to walk with decreased right leg movement and strength. MRI ordered lumbar for further evaluation. POC urine dip returned unremarkable Orders Ordered: Discontinued Medications Lorazepam (Lorazepam 2 Mg/Ml Inj) 0.5 mg IV NOW ONE Stop: 01/19/23 15:00 Last Admin: 01/19/23 15:10 Dose: 0.5 mg Documented By: LENI Vital Signs Vital signs: Vital Signs - 8 hr 01/19/23 13:20 01/19/23 13:26 01/19/23 13:27 Temperature 98.1 F Pulse Rate 73 64 65 Respiratory Rate 16 Blood Pressure 182/81 H Pulse Oximetry 97 99 99 Oxygen Delivery Method Room Air 01/19/23 13:27 01/19/23 13:30 01/19/23 14:00 Temperature Pulse Rate 61 60 Respiratory Rate Blood Pressure 173/79 H Pulse Oximetry 99 99 Oxygen Delivery Method 01/19/23 14:31 01/19/23 16:06 01/19/23 16:07 Temperature Pulse Rate 64 70 67 Respiratory Rate Blood Pressure Pulse Oximetry 98 95 96 Oxygen Delivery Method 01/19/23 16:07 01/19/23 16:30 01/19/23 16:30 Temperature Pulse Rate 68 Respiratory Rate Blood Pressure 141/64 H 132/76 Pulse Oximetry 95 Oxygen Delivery Method 01/19/23 17:39 Temperature Pulse Rate 62 Respiratory Rate 16 Blood Pressure 140/76 Pulse Oximetry 97 Oxygen Delivery Method Room Air <Rach Castellon DO - Last Filed: 01/20/23 17:20> Orders Ordered: Discontinued Medications Lorazepam (Lorazepam 2 Mg/Ml Inj) 0.5 mg IV NOW ONE Stop: 01/19/23 15:00 Last Admin: 01/19/23 15:10 Dose: 0.5 mg Documented By: LENI Vital Signs Vital signs: Vital Signs - 8 hr 01/19/23 13:20 01/19/23 13:26 01/19/23 13:27 Temperature 98.1 F Pulse Rate 73 64 65 Respiratory Rate 16 Blood Pressure 182/81 H Pulse Oximetry 97 99 99 Oxygen Delivery Method Room Air 01/19/23 13:27 01/19/23 13:30 01/19/23 14:00 Temperature Pulse Rate 61 60 Respiratory Rate Blood Pressure 173/79 H Pulse Oximetry 99 99 Oxygen Delivery Method 01/19/23 14:31 01/19/23 16:06 01/19/23 16:07 Temperature Pulse Rate 64 70 67 Respiratory Rate Blood Pressure Pulse Oximetry 98 95 96 Oxygen Delivery Method 01/19/23 16:07 01/19/23 16:30 01/19/23 16:30 Temperature Pulse Rate 68 Respiratory Rate Blood Pressure 141/64 H 132/76 Pulse Oximetry 95 Oxygen Delivery Method 01/19/23 17:39 Temperature Pulse Rate 62 Respiratory Rate 16 Blood Pressure 140/76 Pulse Oximetry 97 Oxygen Delivery Method Room Air MDM - Extremity Injury (Lower) <Fallon Estevez PA-C - Last Filed: 01/19/23 20:34> Differential Diagnosis Differential diagnosis: Likely other (disc compression, sciatica, acute on chronic pain) Medical Records Attestation: I reviewed the patient's medical records. Lab Data Attestation: I reviewed the patient's lab results. 01/19/23 14:42 01/19/23 14:42 Labs: Lab Results 01/19/23 01/19/23 01/19/23 Range/Units 14:42 14:42 14:54 WBC 7.8 (4.5-11.0) X10^3/uL RBC 4.85 (4.0-5.2) X10^6/uL Hgb 14.7 (12.0-16.0) g/dL Hct 43.7 (36-46) % MCV 90.0 (80-100) fL MCH 30.4 (26-34) PG MCHC 33.7 (30-36) % RDW 13.1 (11.6-14.8) % Plt Count 267 (150-400) X10^3/uL Neut % (Auto) 44.3 L (50-75) % Lymph % (Auto) 42.9 H (25-40) % Oliver % (Auto) 6.3 (3-14) % Eos % (Auto) 6.3 H (2-4) % Baso % (Auto) 0.2 (0-2) % Neut # (Auto) 3500 (4316-4852) /uL Lymph # (Auto) 3400 (2032-3903) /uL Oliver # (Auto) 500 (0-900) /uL Eos # (Auto) 500 H (0-450) /uL Baso # (Auto) 0 (0-100) /uL Sodium 141 (137-145) mmol/L Potassium 4.3 (3.4-5.1) mmol/L Chloride 103 (98-107) mmol/L Carbon Dioxide 27 (22-32) mmol/L BUN 15 (7-17) mg/dL Creatinine 0.69 (0.52-1.04) mg/dL Estimated GFR > 60 (>60) mL/min BUN/Creatinine Ratio 21.7 (6-22) Glucose 87 (80-110) mg/dL Calcium 9.4 (8.4-10.2) mg/dL Total Bilirubin 0.5 (0.2-1.3) mg/dL AST 33 (14-36) IU/L ALT 31 (<35) IU/L Alkaline Phosphatase 145 H (38-126) U/L Total Protein 7.8 (6.3-8.2) g/dL Albumin 4.5 (3.5-5.0) g/dL Globulin 3.3 (1.7-4.1) g/dL Albumin/Globulin Ratio 1.4 (1.0-2.8) Urine RBC 1-5/hpf (0-5/HPF) Urine WBC 0-1/hpf (0-5/HPF) Ur Squamous Epith Cells 0-1 /hpf (0-5/HPF) Urine Bacteria None seen (None) Ur Culture Indicated? Cult not indicated Urine Dip Bedside Urine Glucose Negative Bedside Urine Bilirubin - Negative Bedside Urine Ketone - Negative Urine Specific Vado 1.010 Bedside Urine Occult Blood +/- Bedside Urine pH 6.0 Bedside Urine Protein - Negative Bedside Urine Urobilinogen +/- 1mg Bedside Urine Nitrite - Negative Imaging Data MRI lumbar: Radiologist's Impression: [address] [address] Magnetic Resonance Report Signed Patient: Monet Nash MR#: [id number] : 1945 Acct:[id number] Age/Sex: 77 / F Date of Service: 01/19/23 Loc: ED Accession Number: [id number] ?? Procedure: MR lumbar spine wo/w con Ordering Provider: Fallon Estevez P.A-C PROCEDURE:? MR LUMBAR SPINE WO/W CON ? INDICATIONS:? diff urinating, walking ? TECHNIQUE:? Noncontrast sagittal T1 spin echo and T2 fast spin echo, sagittal STIR, axial T1 and T2 fast spin echo through the lumbar spine.? In cases with scoliosis, additional coronal T2 fast spin echo may be performed.? After the administration of contrast, sagittal and axial T1 spin echo with fat saturation through the lumbar spine.? ? COMPARISON:? [facility], MR, MR LUMBAR SPINE WO CON, 11/19/2020, 10:26.? [facility], CT, CT ABDOMEN PELVIS W CON, 08/31/2022, 10:54.? [facility], CR, XR LUMBAR SPINE 2 OR 3 VIEWS, 12/20/2022, 10:55. ? FINDINGS:? Image quality:? There is artifact associated with the metallic hardware. ? This examination is limited by involuntary motion artifact.? ? Alignment and curvature:? There is mild grade 1 L5-S1 anterolisthesis seen.? Generalized accentuated lumbar lordosis can be seen. ? Marrow:? Marrow is of normal overall signal.? No acute vertebral body compression fractures.? No suspicious marrow enhancement.? ? Spinal cord:? Conus medullaris terminates at the L1 level.? Visualized spinal cord demonstrates normal signal, without suspicious enhancement.? ? Paraspinous soft tissues:? No paravertebral masses or abnormal enhancement.? ? Postoperative hardware is seen L3 through S1, with bilateral pedicle screws and vertical fixation rods.? Disc spacers are seen L3-L4, L4-L5, and L5-S1. There has been removal of portions of the posterior elements.? ? T12-L1:? Mild loss of disc height is seen. Loss of disc signal is seen.? Remote Schmorl's nodes can be seen involving the inferior endplate of T12 at the superior endplate of L1.? No significant neural foraminal or central canal narrowing can be seen. Stable from the prior study.? ? ? L1-L2:? The disc height is well-preserved.? Loss of disc signal is seen at this level.? Mild generalized disc bulge is seen.? Mild facet joint hypertrophy is seen.? There is at least moderate left-sided and [id number] right-sided neural foraminal narrowing.? No significant central canal narrowing is seen.? There is slight progression of degenerative change compared to 2020. ? L2-L3:? The disc height is well-preserved.? Loss of disc signal is seen at this level.? Mild generalized disc bulge is seen.? Mild facet joint hypertrophy is seen.? There is moderate left-sided and no right-sided neural foraminal narrowing.? No significant central canal narrowing is seen. When comparison is made with the prior images, these findings are similar.? ? L3-L4:? Mild generalized disc bulge is seen.? There is mild left-sided and no right-sided neural foraminal narrowing. The central canal is widely patent.? The degree of central canal narrowing is clearly improved compared to the preoperative MRI. ? L4-L5:? Mild generalized disc bulge is seen.? There is [id number] left-sided and no right-sided neural foraminal narrowing.? Macrophage sent this level is clearly improved compared to the preoperative MRI. ? L5-S1:? Mild generalized disc bulge is seen.? There is mild right-sided and no significant left-sided neural foraminal narrowing.? No significant central canal narrowing is seen.? There is slight improvement compared to 2020. ? IMPRESSION:? No acute abnormality is seen. ? No abnormal enhancement is seen. ? L3 through S1 postoperative hardware seen, with improvement in the degrees of degenerative narrowing throughout this region compared to the 2020 preoperative MRI. ? Dictated by: Loi Malloy M.D. on 01/19/2023 at 15:08 ? ? Approved by: Loi Malloy M.D. on 01/19/2023 at 15:14?? MDM Narrative Medical decision making narrative: This is a 77-year-old woman who presents with concern for right leg pain that has been increasing over the past 4 weeks but that is chronic now affecting her gait enough that she feels it has been difficult to do her activities, does use a walker. Also with history of known DVT in the right leg with recent ultrasound 2 weeks prior, on [facility]. Exam today was suggestive of sciatica however she also has concerning findings including some weakness and difficulty with ROM as well as a sensation of needing to push really hard when she urinates for the last few days. In the setting of her significant when now worsening pain with walking and walker dependence after consultation with the attending physician we do order an MRI for further evaluation. This returns with some degenerative changes seen but actually some improvement since her last imaging, some slight disc bulging at L4-5 but otherwise unremarkable study with no concern for cauda equina or other concerning emergent surgical finding. Did discuss the results with the patient prior to discharge, encouraged her to follow up with both PCP and talked to them about possibly seeing orthopedics for further evaluation, possibly seeing pain management for pain control. Patient declined pain medicine today in the emergency department and seemed to not be in great pain unless she was performing range of motion or walking. Patient is discharged to home with advised to follow up closely with primary care provider, prescription for prednisone as suspect many of her symptoms are related to her sciatica acting up. Return precautions provided, follow-up plan discussed, all questions answered. <Rach Castellon, DO - Last Filed: 01/20/23 17:20> Lab Data Labs: Lab Results 01/19/23 01/19/23 01/19/23 Range/Units 14:42 14:42 14:54 WBC 7.8 (4.5-11.0) X10^3/uL RBC 4.85 (4.0-5.2) X10^6/uL Hgb 14.7 (12.0-16.0) g/dL Hct 43.7 (36-46) % MCV 90.0 (80-100) fL MCH 30.4 (26-34) PG MCHC 33.7 (30-36) % RDW 13.1 (11.6-14.8) % Plt Count 267 (150-400) X10^3/uL Neut % (Auto) 44.3 L (50-75) % Lymph % (Auto) 42.9 H (25-40) % Oliver % (Auto) 6.3 (3-14) % Eos % (Auto) 6.3 H (2-4) % Baso % (Auto) 0.2 (0-2) % Neut # (Auto) 3500 (2589-4054) /uL Lymph # (Auto) 3400 (6799-0576) /uL Oliver # (Auto) 500 (0-900) /uL Eos # (Auto) 500 H (0-450) /uL Baso # (Auto) 0 (0-100) /uL Sodium 141 (137-145) mmol/L Potassium 4.3 (3.4-5.1) mmol/L Chloride 103 (98-107) mmol/L Carbon Dioxide 27 (22-32) mmol/L BUN 15 (7-17) mg/dL Creatinine 0.69 (0.52-1.04) mg/dL Estimated GFR > 60 (>60) mL/min BUN/Creatinine Ratio 21.7 (6-22) Glucose 87 (80-110) mg/dL Calcium 9.4 (8.4-10.2) mg/dL Total Bilirubin 0.5 (0.2-1.3) mg/dL AST 33 (14-36) IU/L ALT 31 (<35) IU/L Alkaline Phosphatase 145 H (38-126) U/L Total Protein 7.8 (6.3-8.2) g/dL Albumin 4.5 (3.5-5.0) g/dL Globulin 3.3 (1.7-4.1) g/dL Albumin/Globulin Ratio 1.4 (1.0-2.8) Urine RBC 1-5/hpf (0-5/HPF) Urine WBC 0-1/hpf (0-5/HPF) Ur Squamous Epith Cells 0-1 /hpf (0-5/HPF) Urine Bacteria None seen (None) Ur Culture Indicated? Cult not indicated Urine Dip Bedside Urine Glucose Negative Bedside Urine Bilirubin - Negative Bedside Urine Ketone - Negative Urine Specific Vado 1.010 Bedside Urine Occult Blood +/- Bedside Urine pH 6.0 Bedside Urine Protein - Negative Bedside Urine Urobilinogen +/- 1mg Bedside Urine Nitrite - Negative Discharge Plan Departure Patient Disposition: Home Clinical Impression: Back pain of lumbar region with sciatica Instructions: DI for Back Pain With Sciatica Activity Restrictions/Additional Instructions: Thank you for letting us be part of your care today in the emergency department. We were able to obtain an MRI and based on your symptoms and exam felt that this was warranted. Thankfully this did not returned showing any emergent findings to explain your symptoms. There is some mild disc compression in your lumbar spine and some degenerative changes which were present previously. Strongly suspect that you have pain related to sciatica or nerve compression of the sciatic nerve. I have prescribed a short course of steroid medication to reduce inflammation and I suspect that this will help your symptoms. I have also placed a referral to physical therapy and I recommend he follow up closely with primary care provider he can consider referring you to orthopedics as needed for further care. We did provide a disc for you of your imaging today seeking share this with your PCP. There is no evidence of an emergent or life threatening illness at this time, but follow up with your doctor in 1-2 days is recommended nonetheless to continue to rule out serious underlying causes of your symptoms. Please call the office for an appointment. Please return to the Emergency Department for any worsening or persistent symptoms. Please take medications as directed. Prescriptions: New prednisone 20 mg tablet 40 mg PO DAILY 4 Days Qty: 8 0RF No Action Sleep Aid (doxylamine) 25 mg Tablet 25 mg PO BEDTIME PRN (Reason: Insomnia) pantoprazole 40 mg tablet,delayed release (DR/EC) 1 mg PO DAILY PRN (Reason: acid stomach) Label Comments: take 1 tablet by mouth once daily TAKE 30 MINUTE BEFORE EATING hydrocodone-acetaminophen 10-325 mg Tablet 1 tab PO Q4HR PRN (Reason: Pain, Moderate (4-6)) Qty: 50 0RF docusate sodium [DOK] 100 mg Capsule 100 mg PO BID Qty: 20 0RF hydroxyzine pamoate 25 mg Capsule 25 mg PO Q4HR PRN (Reason: muscle spasm) Qty: 50 0RF Referrals: Cynthia Barnes, PT [Physical Therapist] - Saul Rae MD [Primary Care Provider] - Stand Alone Forms: Patient Portal/API <Rach Castellon DO - Last Filed: 01/20/23 17:20> Cosign ED Attending Cosignature Attestation: Patient seen evaluated by myself. Having chronic ongoing back pain postsurgery now having some right leg weakness. She previously had a DVT postop in 2020. Ultrasound is positive again for DVT she is on Xarelto however with right leg weakness sharp shooting pain from hip to both along with inability to empty bladder completely concern more for cauda equina. Symptoms are not consistent with acute DVT. MRI fortunately does not show any spinal stenosis or cauda equina no complication from surgery. I suspect a chronic DVT new onset sciatic. I was immediately available in the department for consultation. Documentation has been reviewed.
--- NOTE | 2023-01-19 14:25 | DI.MRI.S_ITS ---
PROCEDURE: MR LUMBAR SPINE WO/W CON INDICATIONS: diff urinating, walking TECHNIQUE: Noncontrast sagittal T1 spin echo and T2 fast spin echo, sagittal STIR, axial T1 and T2 fast spin echo through the lumbar spine. In cases with scoliosis, additional coronal T2 fast spin echo may be performed. After the administration of contrast, sagittal and axial T1 spin echo with fat saturation through the lumbar spine. COMPARISON: [facility], MR, MR LUMBAR SPINE WO CON, 11/19/2020, 10:26. [facility], CT, CT ABDOMEN PELVIS W CON, 08/31/2022, 10:54. [facility], CR, XR LUMBAR SPINE 2 OR 3 VIEWS, 12/20/2022, 10:55. FINDINGS: Image quality: There is artifact associated with the metallic hardware. This examination is limited by involuntary motion artifact. Alignment and curvature: There is mild grade 1 L5-S1 anterolisthesis seen. Generalized accentuated lumbar lordosis can be seen. Marrow: Marrow is of normal overall signal. No acute vertebral body compression fractures. No suspicious marrow enhancement. Spinal cord: Conus medullaris terminates at the L1 level. Visualized spinal cord demonstrates normal signal, without suspicious enhancement. Paraspinous soft tissues: No paravertebral masses or abnormal enhancement. Postoperative hardware is seen L3 through S1, with bilateral pedicle screws and vertical fixation rods. Disc spacers are seen L3-L4, L4-L5, and L5-S1. There has been removal of portions of the posterior elements. T12-L1: Mild loss of disc height is seen. Loss of disc signal is seen. Remote Schmorl's nodes can be seen involving the inferior endplate of T12 at the superior endplate of L1. No significant neural foraminal or central canal narrowing can be seen. Stable from the prior study. L1-L2: The disc height is well-preserved. Loss of disc signal is seen at this level. Mild generalized disc bulge is seen. Mild facet joint hypertrophy is seen. There is at least moderate left-sided and [id number] right-sided neural foraminal narrowing. No significant central canal narrowing is seen. There is slight progression of degenerative change compared to 2020. L2-L3: The disc height is well-preserved. Loss of disc signal is seen at this level. Mild generalized disc bulge is seen. Mild facet joint hypertrophy is seen. There is moderate left-sided and no right-sided neural foraminal narrowing. No significant central canal narrowing is seen. When comparison is made with the prior images, these findings are similar. L3-L4: Mild generalized disc bulge is seen. There is mild left-sided and no right-sided neural foraminal narrowing. The central canal is widely patent. The degree of central canal narrowing is clearly improved compared to the preoperative MRI. L4-L5: Mild generalized disc bulge is seen. There is [id number] left-sided and no right-sided neural foraminal narrowing. Macrophage sent this level is clearly improved compared to the preoperative MRI. L5-S1: Mild generalized disc bulge is seen. There is mild right-sided and no significant left-sided neural foraminal narrowing. No significant central canal narrowing is seen. There is slight improvement compared to 2020. IMPRESSION: No acute abnormality is seen. No abnormal enhancement is seen. L3 through S1 postoperative hardware seen, with improvement in the degrees of degenerative narrowing throughout this region compared to the 2020 preoperative MRI. Dictated by: Loi Malloy M.D. on 01/19/2023 at 15:08 Approved by: Loi Malloy M.D. on 01/19/2023 at 15:14
[2023-01-19 14:51] LABS: Add Manual Diff / Slide Review NO; Basophils Absolute Auto 0 /uL (0-100); Basophils Percent Auto 0.2 % (0-2); Eosinophils Absolute Auto 500 /uL (0-450); Eosinophils Percent Auto 6.3 % (2-4); Hematocrit 43.7 % (36-46); Hemoglobin 14.7 g/dL (12.0-16.0); Lymphocytes Absolute Auto 3400 /uL (1100-4500); Lymphocytes Percent Auto 42.9 % (25-40); Mean Corpuscular HGB Conc 33.7 % (30-36); Mean Corpuscular Hemoglobin 30.4 PG (26-34); Monocytes Absolute Auto 500 /uL (0-900); Monocytes Percent Auto 6.3 % (3-14); Neutrophils Absolute Auto 3500 /uL (1500-7000); Neutrophils Percent Auto 44.3 % (50-75); Platelet Count 267 X10^3/uL (150-400); Red Blood Cell Count 4.85 X10^6/uL (4.0-5.2); Red Cell Distribution Width 13.1 % (11.6-14.8); White Blood Cell Count 7.8 X10^3/uL (4.5-11.0)
[2023-01-19 15:00] LABS: Alanine Aminotransferase 31 IU/L (<35); Albumin 4.5 g/dL (3.5-5.0); Albumin Globulin Ratio 1.4 (1.0-2.8); Alkaline Phosphatase 145 U/L (38-126); Aspartate Aminotransferase 33 IU/L (14-36); BUN Creatinine Ratio 21.7 (6-22); Bilirubin Total 0.5 mg/dL (0.2-1.3); Blood Urea Nitrogen 15 mg/dL (7-17); Calcium 9.4 mg/dL (8.4-10.2); Carbon Dioxide 27 mmol/L (22-32); Chloride 103 mmol/L (98-107); Estimated Glomerular Filt Rate > 60 mL/min (>60); Globulin 3.3 g/dL (1.7-4.1); Glucose 87 mg/dL (80-110); HEMOLYSIS < 15 (0-50); Potassium 4.3 mmol/L (3.4-5.1); Sodium 141 mmol/L (137-145); Total Protein 7.8 g/dL (6.3-8.2)
[2023-01-19] MEDS: LORazepam 2 MG/ML INJ 0.5 MG IV (15:10)
[2023-01-19 15:42] LABS: Bacteria Urine None Seen; Culture Indicated Urine Cult Not Indicated; RBC Urine 1-5/HPF (0-5/HPF); Squamous Epithelial Cell Urine 0-1 /HPF (0-5/HPF); WBC Urine 0-1/HPF (0-5/HPF)
== END 2023-01-19 17:40 | disposition home or self-care (01) ==
PROVIDERS: Emergency Provider Student in an Organized Health Care Education/Training Program; Family Provider Family Medicine; PCP Family Medicine
DX: M54.41 Lumbago with sciatica, right side (principal)
CPT/HCPCS: 36415; 72158; 80053; 81003; 81015; 85025; 96374; 99284; J2060

== ENCOUNTER → 2023-02-28 09:29 | Outpatient (CLI) | payer OTHER, SELFPAY ==
[2021-02-03 17:11] VITALS: BMI 36.6
--- NOTE | 2023-02-28 | DI.US.S_ITS ---
PROCEDURE: US ABDOMEN COMPLETE INDICATIONS: Diarrhea TECHNIQUE: Real-time scanning was performed of the abdominal and retroperitoneal organs, with image documentation. COMPARISON: [facility], , US ABDOMEN LIMITED, 02/05/2021, 15:12. FINDINGS: Liver: Liver is normal in size . There is moderate diffuse fatty infiltration of the liver present without focal liver lesion seen. Gallbladder: Patient is status post cholecystectomy. Biliary ducts: Intrahepatic bile ducts are non-dilated. Extrahepatic bile duct caliber measures 9 mm. Normal is 6-7 mm or less in diameter, or 10 mm or less post-cholecystectomy. Pancreas: Visualized portions of the pancreas are sonographically normal. Spleen: Spleen is normal in size and homogeneous in echotexture. Kidneys: Kidneys are normal in size and echotexture. Right kidney measures 10.7 cm long; left kidney measures 10 cm long. There is a 9 millimeter left renal cyst noted. No hydronephrosis or nephrolithiasis. No solid masses. Aorta: Visualized aorta is normal in caliber at less than 3 cm. Iliacs: Proximal common iliac arteries are normal in caliber at less than 2.5 cm. IVC: Intrahepatic inferior vena cava is patent. Miscellaneous: No free abdominal fluid. IMPRESSION: 1. Patient is status post cholecystectomy. 2. Moderate diffuse fatty infiltration of the liver. 3. 9 millimeter left renal cyst. 4. Common bile duct is within normal limits given patient is status post cholecystectomy at 9 millimeters. Dictated by: Aydin Fuchs M.D. on 02/28/2023 at 11:39 Approved by: Aydin Fuchs M.D. on 02/28/2023 at 11:46
[2023-02-28 11:09] LABS: Alanine Aminotransferase 30 IU/L (<35); Albumin 3.9 g/dL (3.5-5.0); Albumin Globulin Ratio 1.2 (1.0-2.8); Alkaline Phosphatase 150 U/L (38-126); Aspartate Aminotransferase 32 IU/L (14-36); BUN Creatinine Ratio 22.6 (6-22); Bilirubin Total 0.6 mg/dL (0.2-1.3); Blood Urea Nitrogen 14 mg/dL (7-17); Calcium 9.1 mg/dL (8.4-10.2); Carbon Dioxide 28 mmol/L (22-32); Chloride 105 mmol/L (98-107); Estimated Glomerular Filt Rate > 60 mL/min (>60); Globulin 3.3 g/dL (1.7-4.1); Glucose 93 mg/dL (80-110); HEMOLYSIS < 15 (0-50); Potassium 4.1 mmol/L (3.4-5.1); Sodium 140 mmol/L (137-145); Total Protein 7.2 g/dL (6.3-8.2)
== END ==
PROVIDERS: Family Provider Family Medicine; PCP Family Medicine; Referring Provider Internal Medicine Gastroenterology; Visit Provider Internal Medicine Gastroenterology
DX: N28.1 Cyst of kidney, acquired (principal); K76.0 Fatty (change of) liver, not elsewhere classified; K91.5 Postcholecystectomy syndrome; K58.0 Irritable bowel syndrome with diarrhea; K22.70 Barrett's esophagus without dysplasia; R19.7 Diarrhea, unspecified
CPT/HCPCS: 36415; 76700; 80053

== ENCOUNTER 2023-03-04 10:30 | Outpatient (RCR) | payer OTHER, SELFPAY ==
[2021-02-03 17:11] VITALS: BMI 36.6
--- NOTE | 2023-02-08 11:54 | PT.OIE ---
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 Pt reports pain is nearly constant in her right posterior hip, with occasional instances of it radiating down her right leg, across her anterior thigh, and down her lower leg and foot. Pt reports pain was previously so bad that she had to go to the ED last month, where she was diagnosed with Piriformis syndrome. Pt was then referred to both physical therapy and an ortho consult. Pt had her appointment with Ortho a week ago, where she was told she had severe hip degeneration, and was scheduled for an injection on 03/01/23. Pt reports she does sit-down exercises by watching YouTube videos. Is in so much pain most of the time that she needs to use her 4WW at all times while walking around her house doing chores. Feels she is unable to vacuum at all, and when actually doing her house work, has to take constant breaks to rest due to pain. Prior Treatments and Tests Previously seen for PT at this clinic nearly two years ago for low back and hip pain Treatment Goals Patient/Caregiver Goals Decrease hip pain, perform chores with fewer rest breaks, decrease use of 4WW PT-OP-C Subjective Start: 02/08/23 11:11 Freq: Status: Active Protocol: Document 02/08/23 09:00 DCW (Rec: 02/08/23 11:39 DCW [id number]) OP-PT Subjective Patient Comments Patient Comments The ortho told me two years ago I would need a new hip, and I don't want to go through that, so I just never went back. Patient Reported Progress Worse Patient Questionnaires Lower Extremity Functional Scale LEFS Score = 13.75% LEFS Impairment 80 to 99% Impaired (Score 1-16 ) PT-OP-F Manual Assessment Start: 02/08/23 11:11 Freq: Status: Active Protocol: Document 02/08/23 09:00 DCW (Rec: 02/08/23 11:39 DCW [id number]) Manual Assessments Soft Tissue Assessment Soft Tissue Mobility Assessment Moderate tone with tenderness to palpation 3/4: wincing and withdraw on R Piriformis Joint Mobility Assessment Joint Mobility Assessment Joint grinding/crepitus in right hip with all PROM PT-OP-K Range of Motion Start: 02/08/23 11:11 Freq: Status: Active Protocol: Document 02/08/23 09:00 DCW (Rec: 02/08/23 11:39 DCW [id number]) Hip Goniometric Range of Motion Hip Right Passive Hip ROM WFL No Testing Position Supine Comments PROM of right hip limited secondary to pain, unable to place into >90? flexion or past neutral horizontal adduction due to complaints of sharp pain in anterior hip and groin. PT-OP-L Special Tests Start: 02/08/23 11:11 Freq: Status: Active Protocol: Document 02/08/23 09:00 DCW (Rec: 02/08/23 11:39 DC [id number]) Special Tests Hip Special Tests Scour Test Test Results Positive R Piriformis Test Results Positive R QUAN Test Results Anterior R hip pain PT-OP-M Strength Start: 02/08/23 11:11 Freq: Status: Active Protocol: Document 02/08/23 09:00 DCW (Rec: 02/08/23 11:39 DCW [id number]) Hip Strength Hip Manual Muscle Testing Right Flexion (L2) 3 Fair Abduction 4- Good- Adduction 3 Fair External Rotation 3+ Fair+ Internal Rotation 3+ Fair+ Left Flexion (L2) 3 Fair Abduction 4 Good Adduction 3 Fair External Rotation 4- Good- Internal Rotation 4- Good- Knee Strength Knee Manual Muscle Testing Right Flexion (S2) 4+ Good+ Extension (L3) 4 Good Left Flexion (S2) 4 Good Extension (L3) 4 Good Ankle/Foot Strength Ankle and Foot Manual Muscle Testing Right Dorsiflexion (L4) 4+ Good+ Left Dorsiflexion (L4) 4+ Good+ PT-OP-Q Treatments Start: 02/08/23 11:11 Freq: Status: Active Protocol: Document 02/08/23 09:00 DCW (Rec: 02/08/23 11:39 DCW [id number]) Therapeutic Exercises Supine Exercises Piriformis Stretch Supine Exercise Name Piriformis Stretch Comments Knee to oppo-chest=anterior hip pain, Figure-4 helped, but unable to do Ind Sitting Exercises Piriformis Sitting Exercise Name Self-mob of piriformis using tennis ball PT-OP-T Assessment and Plan Start: 02/08/23 11:11 Freq: Status: Active Protocol: Document 02/08/23 09:00 DCW (Rec: 02/08/23 11:54 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 LTG Duration 04/10/23 One Impairment Pt does not have an appropriate home exercise program Short Term Goal (STG) Pt to be independent and compliant with an appropriate HEP STG Duration 03/11/23 Assessment Summary Assessment Pt presents with signs and symptoms of referring diagnosis of piriformis syndrome and severe hip DJD. Unfortunately, severe DJD limits pt ability to perform most piriformis stretches independently. Pt limited in her function to perform normal ADL activities, and heavily relies on her 4WW in order to ambulate around her kitchen. Pt additionally presents with fairly significant LE weakness bilateral, which is also a limiting factor in her functional mobility. Pt should benefit from skilled therapy focusing on decreasing R piriformis tone, improving hip joint mobility, increasing B LE strength, and improving pt participation in ADLs. Physical Therapy Plan Frequency and Duration Frequency of Treatment 1-2x/week Plan of Care Start Date 02/08/23 Plan of Care End Date 04/10/23 Therapeutic Interventions Therapeutic Interventions Home Exercise Program,Joint Mobilizations,Manual Therapy, Neuromuscular Re-education, Patient/Caregiver Education, Self-Care/Home Management,Soft Tissue Mobilization, Therapeutic Activities, Therapeutic Exercises Modalities Cold Pack/Ice Massage,Hot Packs Next Visit Focus/Plan Next Note Type Treatment Note Next Visit Plan STM, hip strengthening, joint mobilizations, flexibility/ stretching
--- NOTE | 2023-02-08 11:55 | PT.OPPOC ---
Physical, Occupational & Speech Therapy At [facility] Current Diagnoses Lesion of sciatic nerve, right lower limb (02/08/23) Pain in right hip (02/08/23) Stiffness of right hip, not elsewhere classified (02/08/23) Muscle weakness (generalized) (02/08/23) Visit Care Team Role Provider Type Saul Rae MD Attending Provider Non-Staff Family Provider Primary Care Provider Referring Provider Specialty: Family Practice Address: [address] [place] [address], [address], [facility] Email: Plan Of Care PT-OP-T Assessment and Plan Start: 02/08/23 11:11 Freq: Status: Active Protocol: Document 02/08/23 09:00 DCW (Rec: 02/08/23 11:54 DCW [id number]) Physical Therapy Assessment Rehab Potential Rehabilitation Potential Good Evaluation Complexity Number of Personal Factors/Comorbidities 1-2 Number of Body Systems Impaired 3 Clinical Presentation at Evaluation Unstable Impairments Impairments Activity Tolerance,Functional Activities,Functional Mobility ,Gait,Pain,Soft Tissue Mobility,Strength,Tone Goals Two Impairment Pt unable to stand >5 minutes independently without severe hip and leg pain 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 LTG Duration 04/10/23 One Impairment Pt does not have an appropriate home exercise program Short Term Goal (STG) Pt to be independent and compliant with an appropriate HEP STG Duration 03/11/23 Assessment Summary Assessment Pt presents with signs and symptoms of referring diagnosis of piriformis syndrome and severe hip DJD. Unfortunately, severe DJD limits pt ability to perform most piriformis stretches independently. Pt limited in her function to perform normal ADL activities, and heavily relies on her 4WW in order to ambulate around her kitchen. Pt additionally presents with fairly significant LE weakness bilateral, which is also a limiting factor in her functional mobility. Pt should benefit from skilled therapy focusing on decreasing R piriformis tone, improving hip joint mobility, increasing B LE strength, and improving pt participation in ADLs. Physical Therapy Plan Frequency and Duration Frequency of Treatment 1-2x/week Plan of Care Start Date 02/08/23 Plan of Care End Date 04/10/23 Therapeutic Interventions Therapeutic Interventions Home Exercise Program,Joint Mobilizations,Manual Therapy, Neuromuscular Re-education, Patient/Caregiver Education, Self-Care/Home Management,Soft Tissue Mobilization, Therapeutic Activities, Therapeutic Exercises Modalities Cold Pack/Ice Massage,Hot Packs Next Visit Focus/Plan Next Note Type Treatment Note Next Visit Plan STM, hip strengthening, joint mobilizations, flexibility/ stretching Plan of Care Dates Plan of Care Start Date 02/08/23 Plan of Care End Date 04/10/23 Electronically Signed by: Daniel Balderas, PT 02/08/23 [id number] If you are in agreement with this Plan of Care, please return a signed and dated copy. I have reviewed this Plan of Care and certify that the skilled therapy services above are required to meet the patient?s needs. Physician Signature Date Printed Name and Credentials Clinical Instructor Signature Printed Name and Credentials
--- NOTE | 2023-02-11 12:45 | PT.OTN ---
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 Pt reports pain is nearly constant in her right posterior hip, with occasional instances of it radiating down her right leg, across her anterior thigh, and down her lower leg and foot. Pt reports pain was previously so bad that she had to go to the ED last month, where she was diagnosed with Piriformis syndrome. Pt was then referred to both physical therapy and an ortho consult. Pt had her appointment with Ortho a week ago, where she was told she had severe hip degeneration, and was scheduled for an injection on 03/01/23. Pt reports she does sit-down exercises by watching [employer] videos. Is in so much pain most of the time that she needs to use her 4WW at all times while walking around her house doing chores. Feels she is unable to vacuum at all, and when actually doing her house work, has to take constant breaks to rest due to pain. Prior Treatments and Tests Previously seen for PT at this clinic nearly two years ago for low back and hip pain Treatment Goals Patient/Caregiver Goals Decrease hip pain, perform chores with fewer rest breaks, decrease use of 4WW PT-OP-C Subjective Start: 02/08/23 11:11 Freq: Status: Active Protocol: Document 02/11/23 12:00 DCW (Rec: 02/11/23 12:45 DCW [id number]) OP-PT Subjective Patient Comments Patient Comments I'm really bad, those exercises are really flaring me up, I can barely make it down the stairs. PT-OP-F Manual Assessment Start: 02/08/23 11:11 Freq: Status: Active Protocol: Document 02/08/23 09:00 DCW (Rec: 02/08/23 11:39 DCW [id number]) Manual Assessments Soft Tissue Assessment Soft Tissue Mobility Assessment Moderate tone with tenderness to palpation 3/4: wincing and withdraw on R Piriformis Joint Mobility Assessment Joint Mobility Assessment Joint grinding/crepitus in right hip with all PROM PT-OP-K Range of Motion Start: 02/08/23 11:11 Freq: Status: Active Protocol: Document 02/08/23 09:00 DCW (Rec: 02/08/23 11:39 DCW [id number]) Hip Goniometric Range of Motion Hip Right Passive Hip ROM WFL No Testing Position Supine Comments PROM of right hip limited secondary to pain, unable to place into >90? flexion or past neutral horizontal adduction due to complaints of sharp pain in anterior hip and groin. PT-OP-L Special Tests Start: 02/08/23 11:11 Freq: Status: Active Protocol: Document 02/08/23 09:00 DCW (Rec: 02/08/23 11:39 DCW [id number]) Special Tests Hip Special Tests Scour Test Test Results Positive R Piriformis Test Results Positive R QUAN Test Results Anterior R hip pain PT-OP-M Strength Start: 02/08/23 11:11 Freq: Status: Active Protocol: Document 02/08/23 09:00 DCW (Rec: 02/08/23 11:39 DCW [id number]) Hip Strength Hip Manual Muscle Testing Right Flexion (L2) 3 Fair Abduction 4- Good- Adduction 3 Fair External Rotation 3+ Fair+ Internal Rotation 3+ Fair+ Left Flexion (L2) 3 Fair Abduction 4 Good Adduction 3 Fair External Rotation 4- Good- Internal Rotation 4- Good- Knee Strength Knee Manual Muscle Testing Right Flexion (S2) 4+ Good+ Extension (L3) 4 Good Left Flexion (S2) 4 Good Extension (L3) 4 Good Ankle/Foot Strength Ankle and Foot Manual Muscle Testing Right Dorsiflexion (L4) 4+ Good+ Left Dorsiflexion (L4) 4+ Good+ PT-OP-Q Treatments Start: 02/08/23 11:11 Freq: Status: Active Protocol: Document 02/11/23 12:00 DCW (Rec: 02/11/23 12:45 DCW [id number]) Therapeutic Exercises Supine Exercises Piriformis Stretch Supine Exercise Name Piriformis Stretch Comments Figure-4 Manual Therapy Treatment Soft Tissue Mobilization Piriformis Body Location R Piriformis, Lumbar paraspinals Mobilization Type Sustained Pressure,Trigger Point Release Intensity/Depth Superficial Body Position Sidelying PT-OP-T Assessment and Plan Start: 02/08/23 11:11 Freq: Status: Active Protocol: Document 02/11/23 12:00 DCW (Rec: 02/11/23 12:45 DCW [id number]) Physical Therapy Assessment Impairments Impairments Activity Tolerance,Functional Activities,Functional Mobility ,Gait,Pain,Soft Tissue Mobility,Strength,Tone Goals Two Impairment Pt unable to stand >5 minutes independently without severe hip and leg pain Change Agent Goal (LTG) Pt to report ability to stand at least 20 minutes without increased pain to 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 LTG Duration 04/10/23 One Impairment Pt does not have an appropriate home exercise program Short Term Goal (STG) Pt to be independent and compliant with an appropriate HEP STG Duration 03/11/23 Assessment Summary Assessment Pt in severe pain upon coming in to PT today, difficulty even ambulating. Focused on very gentle stretching and STM , stretching restricted secondary to hip DJD. Pt was able to ambulate out of clinic with significantly higher quality and less pain, but still instructed pt to relax for the rest of the day and try not to overdo any activity . Physical Therapy Plan Frequency and Duration Frequency of Treatment 1-2x/week Plan of Care Start Date 02/08/23 Plan of Care End Date 04/10/23 Therapeutic Interventions Therapeutic Interventions Home Exercise Program,Joint Mobilizations,Manual Therapy, Neuromuscular Re-education, Patient/Caregiver Education, Self-Care/Home Management,Soft Tissue Mobilization, Therapeutic Activities, Therapeutic Exercises Modalities Cold Pack/Ice Massage,Hot Packs Next Visit Focus/Plan Next Note Type Treatment Note Next Visit Plan STM, hip strengthening, joint mobilizations, flexibility/ stretching
--- NOTE | 2023-02-15 15:22 | PT.OTN ---
Current Diagnoses Lesion of sciatic nerve, right lower limb (02/15/23) Pain in right hip (02/15/23) Stiffness of right hip, not elsewhere classified (02/15/23) Muscle weakness (generalized) (02/15/23) Physical Therapy Treatment Note PT-OP-A Visit Information Start: 02/08/23 11:11 Freq: Status: Active Protocol: Document 02/15/23 14:32 SP (Rec: 02/15/23 16:01 SP [id number]) Out-Patient Physical Therapy Visit Information Visit Information Visit Type Treatment Note Visit Start Time 14:32 Visit Stop Time 15:22 Total Visit Minutes 51 Visit Number 3 Number of SPRAYER HAND Visits 1 Evaluation Information Evaluation Date 02/08/23 PT-OP-B Current Condition Start: 02/08/23 11:11 Freq: Status: Active Protocol: Document 02/08/23 09:00 DCW (Rec: 02/08/23 11:39 DCW [id number]) Current Condition History of Current Condition Onset Date Multi-year history Current Complaints Radicular pain starting in right posterior hip crossing along front thigh History of Current Condition Pt is a 77 year old female presenting with a long- standing complaint of right hip pain. Pt reports pain is nearly constant in her right posterior hip, with occasional instances of it radiating down her right leg, across her anterior thigh, and down her lower leg and foot. Pt reports pain was previously so bad that she had to go to the ED last month, where she was diagnosed with Piriformis syndrome. Pt was then referred to both physical therapy and an ortho consult. Pt had her appointment with Ortho a week ago, where she was told she had severe hip degeneration, and was scheduled for an injection on 03/01/23. Pt reports she does sit-down exercises by watching [employer] videos. Is in so much pain most of the time that she needs to use her 4WW at all times while walking around her house doing chores. Feels she is unable to vacuum at all, and when actually doing her house work, has to take constant breaks to rest due to pain. Prior Treatments and Tests Previously seen for PT at this clinic nearly two years ago for low back and hip pain Treatment Goals Patient/Caregiver Goals Decrease hip pain, perform chores with fewer rest breaks, decrease use of 4WW PT-OP-C Subjective Start: 02/08/23 11:11 Freq: Status: Active Protocol: Document 02/15/23 14:32 SP (Rec: 02/15/23 16:01 SP [id number]) OP-PT Subjective Patient Comments Patient Comments Pt reports felt good after tx and able to allow R heel down when walking now. Later in the evening was in alot of pain in R piriformis that had to help lift legs to get in bed. 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 PT-OP-F Manual Assessment Start: 02/08/23 11:11 Freq: Status: Active Protocol: Document 02/08/23 09:00 DCW (Rec: 02/08/23 11:39 DCW [id number]) Manual Assessments Soft Tissue Assessment Soft Tissue Mobility Assessment Moderate tone with tenderness to palpation 3/4: wincing and withdraw on R Piriformis Joint Mobility Assessment Joint Mobility Assessment Joint grinding/crepitus in right hip with all PROM PT-OP-K Range of Motion Start: 02/08/23 11:11 Freq: Status: Active Protocol: Document 02/08/23 09:00 DCW (Rec: 02/08/23 11:39 DCW [id number]) Hip Goniometric Range of Motion Hip Right Passive Hip ROM WFL No Testing Position Supine Comments PROM of right hip limited secondary to pain, unable to place into >90? flexion or past neutral horizontal adduction due to complaints of sharp pain in anterior hip and groin. PT-OP-L Special Tests Start: 02/08/23 11:11 Freq: Status: Active Protocol: Document 02/08/23 09:00 DCW (Rec: 02/08/23 11:39 DCW [id number]) Special Tests Hip Special Tests Scour Test Test Results Positive R Piriformis Test Results Positive R QUAN Test Results Anterior R hip pain PT-OP-M Strength Start: 02/08/23 11:11 Freq: Status: Active Protocol: Document 02/08/23 09:00 DCW (Rec: 02/08/23 11:39 DCW [id number]) Hip Strength Hip Manual Muscle Testing Right Flexion (L2) 3 Fair Abduction 4- Good- Adduction 3 Fair External Rotation 3+ Fair+ Internal Rotation 3+ Fair+ Left Flexion (L2) 3 Fair Abduction 4 Good Adduction 3 Fair External Rotation 4- Good- Internal Rotation 4- Good- Knee Strength Knee Manual Muscle Testing Right Flexion (S2) 4+ Good+ Extension (L3) 4 Good Left Flexion (S2) 4 Good Extension (L3) 4 Good Ankle/Foot Strength Ankle and Foot Manual Muscle Testing Right Dorsiflexion (L4) 4+ Good+ Left Dorsiflexion (L4) 4+ Good+ PT-OP-Q Treatments Start: 02/08/23 11:11 Freq: Status: Active Protocol: Document 02/15/23 14:32 SP (Rec: 02/15/23 16:01 SP [id number]) Therapeutic Exercises Supine Exercises TA, knee fall out Supine Exercise Name added to HEP- good tolerance Side bilateral Reps/Minutes x5 reps Comments cued PPT/TA and slow, small ROM tolerated- pelvis stable/ pnfree range Piriformis Stretch Supine Exercise Name Piriformis Stretch- unable to perform 02/15 secondary to pain Side right Comments Figure-4 Sitting Exercises self HEP review Sitting Exercise Name video HEP: january, LAQ, front heel taps Side bilateral Reps/Minutes 5 reps each Comments painfree HS stretch Sitting Exercise Name added to HEP Side left Reps/Minutes 15 SH Comments cued straight back, hip hinge, painfree range- can add ankle pump - gd fdbk Piriformis Sitting Exercise Name Self-mob of piriformis using tennis ball-Hold Comments stated can't do due to to much pain today. Standing Exercises mini squat Standing Exercise Name trialed in PT- wants to perform at home Equipment Used UE support on locked 4WW Reps/Minutes x5 Comments painfree, cued hip hinge buttocks back Manual Therapy Treatment Soft Tissue Mobilization Piriformis Body Location R Piriformis, glut max, prox HS Mobilization Type Myofascial Release,Sustained Pressure,Trigger Point Release ,Other Intensity/Depth Superficial Body Position Hooklying Comments -LEs over wedge- good feedback positioning support able to relax R leg, almost painfree. -Sustained gentle light pressure w/breath, then MFR gentle fanning glides, then pt able add hip ER/IR (FM) w/ pressure, painfree. 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 LTG Duration 04/10/23 One Impairment Pt does not have an appropriate home exercise program Short Term Goal (STG) Pt to be independent and compliant with an appropriate HEP STG Duration 03/11/23 Assessment Summary Assessment Pt reports couldn't tolerate use ball roll/lay on at home so stopped to much pain. Improved decrease pain R piriformis post manual and with FM, able to progress supported supine stretching, sciatic nerve glide and review self seated LE exercises. Pt reported R piriformis better leaving. Suggested continue use cold modality, good response end tx post cold pack , provided disposible ice pack take home. Physical Therapy Plan Frequency and Duration Frequency of Treatment 1-2x/week Plan of Care Start Date 02/08/23 Plan of Care End Date 04/10/23 Therapeutic Interventions Therapeutic Interventions Home Exercise Program,Joint Mobilizations,Manual Therapy, Neuromuscular Re-education, Patient/Caregiver Education, Self-Care/Home Management,Soft Tissue Mobilization, Therapeutic Activities, Therapeutic Exercises Modalities Cold Pack/Ice Massage,Hot Packs Next Visit Focus/Plan Next Note Type Treatment Note Next Visit Plan Review HEP: KFO, seated HS stretch w/ AP, stand mini squat. POC: STM, hip strengthening, joint mobilizations, flexibility/stretching
--- NOTE | 2023-02-15 15:22 | PT.OTN ---
Current Diagnoses Lesion of sciatic nerve, right lower limb (02/15/23) Pain in right hip (02/15/23) Stiffness of right hip, not elsewhere classified (02/15/23) Muscle weakness (generalized) (02/15/23) Physical Therapy Treatment Note PT-OP-A Visit Information Start: 02/08/23 11:11 Freq: Status: Active Protocol: Document 02/15/23 14:32 SP (Rec: 02/15/23 16:01 SP [id number]) Out-Patient Physical Therapy Visit Information Visit Information Visit Type Treatment Note Visit Start Time 14:32 Visit Stop Time 15:22 Total Visit Minutes 51 Visit Number 3 Number of TEST DEPARTMENT HELPER Visits 1 Evaluation Information Evaluation Date 02/08/23 PT-OP-B Current Condition Start: 02/08/23 11:11 Freq: Status: Active Protocol: Document 02/08/23 09:00 DCW (Rec: 02/08/23 11:39 DCW [id number]) Current Condition History of Current Condition Onset Date Multi-year history Current Complaints Radicular pain starting in right posterior hip crossing along front thigh History of Current Condition Pt is a 77 year old female presenting with a long- standing complaint of right hip pain. Pt reports pain is nearly constant in her right posterior hip, with occasional instances of it radiating down her right leg, across her anterior thigh, and down her lower leg and foot. Pt reports pain was previously so bad that she had to go to the ED last month, where she was diagnosed with Piriformis syndrome. Pt was then referred to both physical therapy and an ortho consult. Pt had her appointment with Ortho a week ago, where she was told she had severe hip degeneration, and was scheduled for an injection on 03/01/23. Pt reports she does sit-down exercises by watching [employer] videos. Is in so much pain most of the time that she needs to use her 4WW at all times while walking around her house doing chores. Feels she is unable to vacuum at all, and when actually doing her house work, has to take constant breaks to rest due to pain. Prior Treatments and Tests Previously seen for PT at this clinic nearly two years ago for low back and hip pain Treatment Goals Patient/Caregiver Goals Decrease hip pain, perform chores with fewer rest breaks, decrease use of 4WW PT-OP-C Subjective Start: 02/08/23 11:11 Freq: Status: Active Protocol: Document 02/15/23 14:32 SP (Rec: 02/15/23 16:01 SP [id number]) OP-PT Subjective Patient Comments Patient Comments Pt reports felt good after tx and able to allow R heel down when walking now. Later in the evening was in alot of pain in R piriformis that had to help lift legs to get in bed. 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 PT-OP-F Manual Assessment Start: 02/08/23 11:11 Freq: Status: Active Protocol: Document 02/08/23 09:00 DCW (Rec: 02/08/23 11:39 DCW [id number]) Manual Assessments Soft Tissue Assessment Soft Tissue Mobility Assessment Moderate tone with tenderness to palpation 3/4: wincing and withdraw on R Piriformis Joint Mobility Assessment Joint Mobility Assessment Joint grinding/crepitus in right hip with all PROM PT-OP-K Range of Motion Start: 02/08/23 11:11 Freq: Status: Active Protocol: Document 02/08/23 09:00 DCW (Rec: 02/08/23 11:39 DCW [id number]) Hip Goniometric Range of Motion Hip Right Passive Hip ROM WFL No Testing Position Supine Comments PROM of right hip limited secondary to pain, unable to place into >90? flexion or past neutral horizontal adduction due to complaints of sharp pain in anterior hip and groin. PT-OP-L Special Tests Start: 02/08/23 11:11 Freq: Status: Active Protocol: Document 02/08/23 09:00 DCW (Rec: 02/08/23 11:39 DCW [id number]) Special Tests Hip Special Tests Scour Test Test Results Positive R Piriformis Test Results Positive R QUAN Test Results Anterior R hip pain PT-OP-M Strength Start: 02/08/23 11:11 Freq: Status: Active Protocol: Document 02/08/23 09:00 DCW (Rec: 02/08/23 11:39 DCW [id number]) Hip Strength Hip Manual Muscle Testing Right Flexion (L2) 3 Fair Abduction 4- Good- Adduction 3 Fair External Rotation 3+ Fair+ Internal Rotation 3+ Fair+ Left Flexion (L2) 3 Fair Abduction 4 Good Adduction 3 Fair External Rotation 4- Good- Internal Rotation 4- Good- Knee Strength Knee Manual Muscle Testing Right Flexion (S2) 4+ Good+ Extension (L3) 4 Good Left Flexion (S2) 4 Good Extension (L3) 4 Good Ankle/Foot Strength Ankle and Foot Manual Muscle Testing Right Dorsiflexion (L4) 4+ Good+ Left Dorsiflexion (L4) 4+ Good+ PT-OP-Q Treatments Start: 02/08/23 11:11 Freq: Status: Active Protocol: Document 02/15/23 14:32 SP (Rec: 02/15/23 16:01 SP [id number]) Therapeutic Exercises Supine Exercises TA, knee fall out Supine Exercise Name added to HEP- good tolerance Side bilateral Reps/Minutes x5 reps Comments cued PPT/TA and slow, small ROM tolerated- pelvis stable/ pnfree range Piriformis Stretch Supine Exercise Name Piriformis Stretch- unable to perform 02/15 secondary to pain Side right Comments Figure-4 Sitting Exercises self HEP review Sitting Exercise Name video HEP: january, LAQ, front heel taps Side bilateral Reps/Minutes 5 reps each Comments painfree HS stretch Sitting Exercise Name added to HEP Side left Reps/Minutes 15 SH Comments cued straight back, hip hinge, painfree range- can add ankle pump - gd fdbk Piriformis Sitting Exercise Name Self-mob of piriformis using tennis ball-Hold Comments stated can't do due to to much pain today. Standing Exercises mini squat Standing Exercise Name trialed in PT- wants to perform at home Equipment Used UE support on locked 4WW Reps/Minutes x5 Comments painfree, cued hip hinge buttocks back Manual Therapy Treatment Soft Tissue Mobilization Piriformis Body Location R Piriformis, glut max, prox HS Mobilization Type Myofascial Release,Sustained Pressure,Trigger Point Release ,Other Intensity/Depth Superficial Body Position Hooklying Comments -LEs over wedge- good feedback positioning support able to relax R leg, almost painfree. -Sustained gentle light pressure w/breath, then MFR gentle fanning glides, then pt able add hip ER/IR (FM) w/ pressure, painfree. Manual Techniques manual stretching Type L HS Body Position Hooklying Reps/Duration 20 SH Comments LLE over wedge, therapist provide HS stretch PT-OP-R Modalities Start: 02/15/23 15:41 Freq: Status: Active Protocol: Document 02/15/23 14:32 SP (Rec: 02/15/23 16:03 SP [id number]) Hot Pack/Cold Pack Treatment R hip Location L piriformis/glut Patient Position Hooklying Treatment Duration (minutes) 8 Patient Tolerance Good Comments good feedback cold lessening pain PT-OP-T Assessment and Plan Start: 02/08/23 11:11 Freq: Status: Active Protocol: Document 02/15/23 14:32 SP (Rec: 02/15/23 16:01 SP [id number]) Physical Therapy Assessment Goals Two Impairment Pt unable to stand >5 minutes independently without severe hip and leg pain Roll Forming Supervisor Goal (LTG) Pt to report ability to stand at least 20 minutes without increased pain to improve ability to participate in mill representative and return to vacuuming. LTG Duration 04/10/23 One Impairment Pt does not have an appropriate home exercise program Short Term Goal (STG) Pt to be independent and compliant with an appropriate HEP STG Duration 03/11/23 Assessment Summary Assessment Pt reports couldn't tolerate use ball roll/lay on at home so stopped to much pain. Improved decrease pain R piriformis post manual and with FM, able to progress supported supine stretching, sciatic nerve glide and review self seated LE exercises. Pt reported R piriformis better leaving. Suggested continue use cold modality, good response end tx post cold pack , provided disposible ice pack take home. Physical Therapy Plan Frequency and Duration Frequency of Treatment 1-2x/week Plan of Care Start Date 02/08/23 Plan of Care End Date 04/10/23 Therapeutic Interventions Therapeutic Interventions Home Exercise Program,Joint Mobilizations,Manual Therapy, Neuromuscular Re-education, Patient/Caregiver Education, Self-Care/Home Management,Soft Tissue Mobilization, Therapeutic Activities, Therapeutic Exercises Modalities Cold Pack/Ice Massage,Hot Packs Next Visit Focus/Plan Next Note Type Treatment Note Next Visit Plan Review HEP: KFO, seated HS stretch w/ AP, stand mini squat. POC: STM, hip strengthening, joint mobilizations, flexibility/stretching
--- NOTE | 2023-02-18 14:29 | PT.OTN ---
Current Diagnoses Lesion of sciatic nerve, right lower limb (02/18/23) Pain in right hip (02/18/23) Stiffness of right hip, not elsewhere classified (02/18/23) Muscle weakness (generalized) (02/18/23) Physical Therapy Treatment Note PT-OP-A Visit Information Start: 02/08/23 11:11 Freq: Status: Active Protocol: Document 02/18/23 13:45 DCW (Rec: 02/18/23 14:29 DCW [id number]) Out-Patient Physical Therapy Visit Information Visit Information Visit Type Treatment Note Visit Start Time 13:45 Visit Stop Time 14:30 Total Visit Minutes 45 Visit Number 4 Number of GATE KEEPER Visits 0 Evaluation Information Evaluation Date 02/08/23 PT-OP-B Current Condition Start: 02/08/23 11:11 Freq: Status: Active Protocol: Document 02/08/23 09:00 DCW (Rec: 02/08/23 11:39 DCW [id number]) Current Condition History of Current Condition Onset Date Multi-year history Current Complaints Radicular pain starting in right posterior hip crossing along front thigh History of Current Condition Pt is a 77 year old female presenting with a long- standing complaint of right hip pain. Pt reports pain is nearly constant in her right posterior hip, with occasional instances of it radiating down her right leg, across her anterior thigh, and down her lower leg and foot. Pt reports pain was previously so bad that she had to go to the ED last month, where she was diagnosed with Piriformis syndrome. Pt was then referred to both physical therapy and an ortho consult. Pt had her appointment with Ortho a week ago, where she was told she had severe hip degeneration, and was scheduled for an injection on 03/01/23. Pt reports she does sit-down exercises by watching [employer] videos. Is in so much pain most of the time that she needs to use her 4WW at all times while walking around her house doing chores. Feels she is unable to vacuum at all, and when actually doing her house work, has to take constant breaks to rest due to pain. Prior Treatments and Tests Previously seen for PT at this clinic nearly two years ago for low back and hip pain Treatment Goals Patient/Caregiver Goals Decrease hip pain, perform chores with fewer rest breaks, decrease use of 4WW PT-OP-C Subjective Start: 02/08/23 11:11 Freq: Status: Active Protocol: Document 02/18/23 13:45 DCW (Rec: 02/18/23 14:29 DCW [id number]) OP-PT Subjective Patient Comments Patient Comments Pt still flaring up frequently , reports her PCP wants to put her on a morphine drip, but her insurance denied it. PT-OP-F Manual Assessment Start: 02/08/23 11:11 Freq: Status: Active Protocol: Document 02/08/23 09:00 DCW (Rec: 02/08/23 11:39 DCW [id number]) Manual Assessments Soft Tissue Assessment Soft Tissue Mobility Assessment Moderate tone with tenderness to palpation 3/4: wincing and withdraw on R Piriformis Joint Mobility Assessment Joint Mobility Assessment Joint grinding/crepitus in right hip with all PROM PT-OP-K Range of Motion Start: 02/08/23 11:11 Freq: Status: Active Protocol: Document 02/08/23 09:00 DCW (Rec: 02/08/23 11:39 DCW [id number]) Hip Goniometric Range of Motion Hip Right Passive Hip ROM WFL No Testing Position Supine Comments PROM of right hip limited secondary to pain, unable to place into >90? flexion or past neutral horizontal adduction due to complaints of sharp pain in anterior hip and groin. PT-OP-L Special Tests Start: 02/08/23 11:11 Freq: Status: Active Protocol: Document 02/08/23 09:00 DCW (Rec: 02/08/23 11:39 DCW [id number]) Special Tests Hip Special Tests Scour Test Test Results Positive R Piriformis Test Results Positive R QUAN Test Results Anterior R hip pain PT-OP-M Strength Start: 02/08/23 11:11 Freq: Status: Active Protocol: Document 02/08/23 09:00 DCW (Rec: 02/08/23 11:39 DCW [id number]) Hip Strength Hip Manual Muscle Testing Right Flexion (L2) 3 Fair Abduction 4- Good- Adduction 3 Fair External Rotation 3+ Fair+ Internal Rotation 3+ Fair+ Left Flexion (L2) 3 Fair Abduction 4 Good Adduction 3 Fair External Rotation 4- Good- Internal Rotation 4- Good- Knee Strength Knee Manual Muscle Testing Right Flexion (S2) 4+ Good+ Extension (L3) 4 Good Left Flexion (S2) 4 Good Extension (L3) 4 Good Ankle/Foot Strength Ankle and Foot Manual Muscle Testing Right Dorsiflexion (L4) 4+ Good+ Left Dorsiflexion (L4) 4+ Good+ PT-OP-Q Treatments Start: 02/08/23 11:11 Freq: Status: Active Protocol: Document 02/18/23 13:45 DCW (Rec: 02/18/23 14:29 DCW [id number]) Therapeutic Exercises Supine Exercises LTR Supine Exercise Name LTR Comments Hooklying Hamstring Stretch Supine Exercise Name Hamstring stretch Side bilateral TA, knee fall out Supine Exercise Name added to HEP- good tolerance Side bilateral Reps/Minutes x5 reps Comments cued PPT/TA and slow, small ROM tolerated- pelvis stable/ pnfree range Sitting Exercises LAQ Sitting Exercise Name LAQ Side bilateral HS stretch Sitting Exercise Name HS stretch Side bilateral Reps/Minutes 15 SH Comments cued straight back, hip hinge, painfree rangeankle pump - gd fdbk Standing Exercises Hip Abduction Standing Exercise Name Hip Abduction Heel raises Standing Exercise Name Heel raises Side bilateral Reps/Minutes x10 mini squat Standing Exercise Name HEP review Equipment Used UE support on locked 4WW Reps/Minutes x5 Comments painfree, cued hip hinge buttocks back Gait Training Gait Activity TreSocialDiabetesing EntrenaYa Description Gait training with [employer] Level of Assistance SBA Treatment Focus Anne, sequencing Manual Therapy Treatment Soft Tissue Mobilization Piriformis Body Location R Piriformis, glut max, prox HS, ITB Mobilization Type Sustained Pressure,Trigger Point Release Intensity/Depth Superficial Body Position Sidelying PT-OP-R Modalities Start: 02/15/23 15:41 Freq: Status: Active Protocol: Document 02/15/23 14:32 SP (Rec: 02/15/23 16:03 SP [id number]) Hot Pack/Cold Pack Treatment R hip Location L piriformis/glut Patient Position Hooklying Treatment Duration (minutes) 8 Patient Tolerance Good Comments good feedback cold lessening pain PT-OP-T Assessment and Plan Start: 02/08/23 11:11 Freq: Status: Active Protocol: Document 02/18/23 13:45 DCW (Rec: 02/18/23 14:29 DCW [id number]) Physical Therapy Assessment Impairments Impairments Activity Tolerance,Functional Activities,Functional Mobility ,Gait,Pain,Soft Tissue Mobility,Strength,Tone Goals Two Impairment Pt unable to stand >5 minutes independently without severe hip and leg pain Halfway Goal (LTG) Pt to report ability to stand at least 20 minutes without increased pain to improve ability to participate in sharepoint designer developer and return to vacuuming. LTG Duration 04/10/23 One Impairment Pt does not have an appropriate home exercise program Short Term Goal (STG) Pt to be independent and compliant with an appropriate HEP STG Duration 03/11/23 Assessment Summary Assessment Pt tolerated treatment much better today, happy with her plan going forward. Instructed to not overdo her HEP to the point of pain. Physical Therapy Plan Frequency and Duration Frequency of Treatment 1-2x/week Plan of Care Start Date 02/08/23 Plan of Care End Date 04/10/23 Therapeutic Interventions Therapeutic Interventions Home Exercise Program,Joint Mobilizations,Manual Therapy, Neuromuscular Re-education, Patient/Caregiver Education, Self-Care/Home Management,Soft Tissue Mobilization, Therapeutic Activities, Therapeutic Exercises Modalities Cold Pack/Ice Massage,Hot Packs Next Visit Focus/Plan Next Note Type Treatment Note Next Visit Plan Review HEP: KFO, seated HS stretch w/ AP, stand mini squat. POC: STM, hip strengthening, joint mobilizations, flexibility/stretching
--- NOTE | 2023-02-22 14:30 | PT.OTN ---
Current Diagnoses Lesion of sciatic nerve, right lower limb (02/22/23) Pain in right hip (02/22/23) Stiffness of right hip, not elsewhere classified (02/22/23) Muscle weakness (generalized) (02/22/23) Physical Therapy Treatment Note PT-OP-A Visit Information Start: 02/08/23 11:11 Freq: Status: Active Protocol: Document 02/22/23 13:50 SP (Rec: 02/22/23 14:32 SP [id number]) Out-Patient Physical Therapy Visit Information Visit Information Visit Type Treatment Note Visit Start Time 13:50 Visit Stop Time 14:30 Total Visit Minutes 40 Visit Number 5 Number of OFFICE SPEC Visits 1 Evaluation Information Evaluation Date 02/08/23 PT-OP-B Current Condition Start: 02/08/23 11:11 Freq: Status: Active Protocol: Document 02/08/23 09:00 DCW (Rec: 02/08/23 11:39 DCW [id number]) Current Condition History of Current Condition Onset Date Multi-year history Current Complaints Radicular pain starting in right posterior hip crossing along front thigh History of Current Condition Pt is a 77 year old female presenting with a long- standing complaint of right hip pain. Pt reports pain is nearly constant in her right posterior hip, with occasional instances of it radiating down her right leg, across her anterior thigh, and down her lower leg and foot. Pt reports pain was previously so bad that she had to go to the ED last month, where she was diagnosed with Piriformis syndrome. Pt was then referred to both physical therapy and an ortho consult. Pt had her appointment with Ortho a week ago, where she was told she had severe hip degeneration, and was scheduled for an injection on 03/01/23. Pt reports she does sit-down exercises by watching [employer] videos. Is in so much pain most of the time that she needs to use her 4WW at all times while walking around her house doing chores. Feels she is unable to vacuum at all, and when actually doing her house work, has to take constant breaks to rest due to pain. Prior Treatments and Tests Previously seen for PT at this clinic nearly two years ago for low back and hip pain Treatment Goals Patient/Caregiver Goals Decrease hip pain, perform chores with fewer rest breaks, decrease use of 4WW PT-OP-C Subjective Start: 02/08/23 11:11 Freq: Status: Active Protocol: Document 02/22/23 13:50 SP (Rec: 02/22/23 14:32 SP [id number]) OP-PT Subjective Patient Comments Patient Comments Pt reported using walking sticks inside and 4WW outside and exercises discussed last tx. She stated stopped her Gabapentin, and started taking apple cider vinegar and seems to help her inflammation. PT-OP-F Manual Assessment Start: 02/08/23 11:11 Freq: Status: Active Protocol: Document 02/08/23 09:00 DCW (Rec: 02/08/23 11:39 DCW [id number]) Manual Assessments Soft Tissue Assessment Soft Tissue Mobility Assessment Moderate tone with tenderness to palpation 3/4: wincing and withdraw on R Piriformis Joint Mobility Assessment Joint Mobility Assessment Joint grinding/crepitus in right hip with all PROM PT-OP-K Range of Motion Start: 02/08/23 11:11 Freq: Status: Active Protocol: Document 02/08/23 09:00 DCW (Rec: 02/08/23 11:39 DCW [id number]) Hip Goniometric Range of Motion Hip Right Passive Hip ROM WFL No Testing Position Supine Comments PROM of right hip limited secondary to pain, unable to place into >90? flexion or past neutral horizontal adduction due to complaints of sharp pain in anterior hip and groin. PT-OP-L Special Tests Start: 02/08/23 11:11 Freq: Status: Active Protocol: Document 02/08/23 09:00 DCW (Rec: 02/08/23 11:39 DCW [id number]) Special Tests Hip Special Tests Scour Test Test Results Positive R Piriformis Test Results Positive R QUAN Test Results Anterior R hip pain PT-OP-M Strength Start: 02/08/23 11:11 Freq: Status: Active Protocol: Document 02/08/23 09:00 DCW (Rec: 02/08/23 11:39 DCW [id number]) Hip Strength Hip Manual Muscle Testing Right Flexion (L2) 3 Fair Abduction 4- Good- Adduction 3 Fair External Rotation 3+ Fair+ Internal Rotation 3+ Fair+ Left Flexion (L2) 3 Fair Abduction 4 Good Adduction 3 Fair External Rotation 4- Good- Internal Rotation 4- Good- Knee Strength Knee Manual Muscle Testing Right Flexion (S2) 4+ Good+ Extension (L3) 4 Good Left Flexion (S2) 4 Good Extension (L3) 4 Good Ankle/Foot Strength Ankle and Foot Manual Muscle Testing Right Dorsiflexion (L4) 4+ Good+ Left Dorsiflexion (L4) 4+ Good+ PT-OP-Q Treatments Start: 02/08/23 11:11 Freq: Status: Active Protocol: Document 02/22/23 13:50 SP (Rec: 02/22/23 14:32 SP [id number]) Therapeutic Exercises Supine Exercises KTC Supine Exercise Name hip flexion, TA Side bilateral Resistance TB #2 Equipment Used 55cm tball Reps/Minutes 2x10 Comments good feedback response LTR Supine Exercise Name LTR Side bilateral Resistance AROM Equipment Used 55cm tball Comments Hooklying- good feedback response Hamstring Stretch Supine Exercise Name Hamstring stretch Side bilateral Resistance PROM, manual Reps/Minutes 2 x 10 SH Comments manual- TA, knee fall out Supine Exercise Name limited rep due to groin pain Side bilateral Reps/Minutes tight R limited range pain posterior SI region Comments cued slow range Piriformis Stretch Supine Exercise Name Piriformis Stretch- manual Side right Comments therapist hold, c/o groin pain - stopped Standing Exercises Hip Abduction Standing Exercise Name Hip Abduction Side bilateral Reps/Minutes x10 Comments good posture and leg raise, painfree Heel raises Standing Exercise Name Heel raises Side bilateral Reps/Minutes x10 mini squat Standing Exercise Name HEP review Equipment Used UE support on locked 4WW Reps/Minutes x5 Comments painfree, cued hip hinge buttocks back Gait Training Gait Activity Trekking poles Description Gait training with Sploreing Covalent Software Device Used B Gen[employer] poles Level of Assistance SBA Surface carpet,tile Distance/Duration 100 ft Treatment Focus Anurag, sequencing Comments cued taller posturing, improved anurag PT-OP-R Modalities Start: 02/15/23 15:41 Freq: Status: Active Protocol: Document 02/15/23 14:32 SP (Rec: 02/15/23 16:03 SP [id number]) Hot Pack/Cold Pack Treatment R hip Location L piriformis/glut Patient Position Hooklying Treatment Duration (minutes) 8 Patient Tolerance Good Comments good feedback cold lessening pain PT-OP-T Assessment and Plan Start: 02/08/23 11:11 Freq: Status: Active Protocol: Document 02/22/23 13:50 SP (Rec: 02/22/23 14:32 SP [id number]) Physical Therapy Assessment Goals Two Impairment Pt unable to stand >5 minutes independently without severe hip and leg pain Controls Technician Goal (LTG) Pt to report ability to stand at least 20 minutes without increased pain to 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 LTG Duration 04/10/23 One Impairment Pt does not have an appropriate home exercise program Short Term Goal (STG) Pt to be independent and compliant with an appropriate HEP STG Duration 03/11/23 Assessment Summary Assessment Pt continues to tolerate active ther ex supine and standing with good TA and alignment facilitation. She was able to complete LTR LEs over Tball with cues for PPT awareness good painfree movement. Pt limited in hip ER and ABD today attempt to support stretching PROM R>L hip but unable due to groin pain. Pt stated is going to get a injection next week for her R hip and hoping allows her more mobility to don her socks and shoes better. Pt was able to don shoes with provided long handled shoe horn and provided creative art therapist, will look into getting one for home. Physical Therapy Plan Frequency and Duration Frequency of Treatment 1-2x/week Plan of Care Start Date 02/08/23 Plan of Care End Date 04/10/23 Therapeutic Interventions Therapeutic Interventions Home Exercise Program,Joint Mobilizations,Manual Therapy, Neuromuscular Re-education, Patient/Caregiver Education, Self-Care/Home Management,Soft Tissue Mobilization, Therapeutic Activities, Therapeutic Exercises Modalities Cold Pack/Ice Massage,Hot Packs Next Visit Focus/Plan Next Note Type Treatment Note Next Visit Plan Review HEP: progress gait with trek poles and tolerance standing activities. Continue LTR over ball. POC: STM, hip strengthening, joint mobilizations, flexibility/stretching
--- NOTE | 2023-02-25 12:57 | PT-OP ANOTE ---
Pt came in to cancel appt, stating feeling sick.
--- NOTE | 2023-03-04 11:13 | PT.OTN ---
Current Diagnoses Lesion of sciatic nerve, right lower limb (03/04/23) Pain in right hip (03/04/23) Stiffness of right hip, not elsewhere classified (03/04/23) Muscle weakness (generalized) (03/04/23) Physical Therapy Treatment Note PT-OP-A Visit Information Start: 02/08/23 11:11 Freq: Status: Active Protocol: Document 03/04/23 10:48 DCW (Rec: 03/04/23 11:12 DCW [id number]) Out-Patient Physical Therapy Visit Information Visit Information Visit Type Discharge Summary Visit Start Time 10:48 Visit Stop Time 11:11 Total Visit Minutes 23 Visit Number 6 Number of CAN COVERER Visits 0 Evaluation Information Evaluation Date 02/08/23 PT-OP-B Current Condition Start: 02/08/23 11:11 Freq: Status: Active Protocol: Document 02/08/23 09:00 DCW (Rec: 02/08/23 11:39 DCW [id number]) Current Condition History of Current Condition Onset Date Multi-year history Current Complaints Radicular pain starting in right posterior hip crossing along front thigh History of Current Condition Pt is a 77 year old female presenting with a long- standing complaint of right hip pain. Pt reports pain is nearly constant in her right posterior hip, with occasional instances of it radiating down her right leg, across her anterior thigh, and down her lower leg and foot. Pt reports pain was previously so bad that she had to go to the ED last month, where she was diagnosed with Piriformis syndrome. Pt was then referred to both physical therapy and an ortho consult. Pt had her appointment with Ortho a week ago, where she was told she had severe hip degeneration, and was scheduled for an injection on 03/01/23. Pt reports she does sit-down exercises by watching [employer] videos. Is in so much pain most of the time that she needs to use her 4WW at all times while walking around her house doing chores. Feels she is unable to vacuum at all, and when actually doing her house work, has to take constant breaks to rest due to pain. Prior Treatments and Tests Previously seen for PT at this clinic nearly two years ago for low back and hip pain Treatment Goals Patient/Caregiver Goals Decrease hip pain, perform chores with fewer rest breaks, decrease use of 4WW PT-OP-C Subjective Start: 02/08/23 11:11 Freq: Status: Active Protocol: Document 03/04/23 10:48 DCW (Rec: 03/04/23 11:12 DCW [id number]) OP-PT Subjective Patient Comments Patient Comments Apologizes for late arrival, wrote down the incorrect time. PT-OP-E Functional Tests Start: 03/04/23 10:48 Freq: Status: Active Protocol: Document 03/04/23 10:48 DCW (Rec: 03/04/23 11:12 DCW [id number]) Functional Tests Timed Up and Go (TUG) Score 16.26 /c FWW Comments Three-trial average (19.17, 14 .74, 14.87) PT-OP-F Manual Assessment Start: 02/08/23 11:11 Freq: Status: Active Protocol: Document 02/08/23 09:00 DCW (Rec: 02/08/23 11:39 DCW [id number]) Manual Assessments Soft Tissue Assessment Soft Tissue Mobility Assessment Moderate tone with tenderness to palpation 3/4: wincing and withdraw on R Piriformis Joint Mobility Assessment Joint Mobility Assessment Joint grinding/crepitus in right hip with all PROM PT-OP-K Range of Motion Start: 02/08/23 11:11 Freq: Status: Active Protocol: Document 02/08/23 09:00 DCW (Rec: 02/08/23 11:39 DCW [id number]) Hip Goniometric Range of Motion Hip Right Passive Hip ROM WFL No Testing Position Supine Comments PROM of right hip limited secondary to pain, unable to place into >90? flexion or past neutral horizontal adduction due to complaints of sharp pain in anterior hip and groin. PT-OP-L Special Tests Start: 02/08/23 11:11 Freq: Status: Active Protocol: Document 02/08/23 09:00 DCW (Rec: 02/08/23 11:39 DCW [id number]) Special Tests Hip Special Tests Scour Test Test Results Positive R Piriformis Test Results Positive R QUAN Test Results Anterior R hip pain PT-OP-M Strength Start: 02/08/23 11:11 Freq: Status: Active Protocol: Document 02/08/23 09:00 DCW (Rec: 02/08/23 11:39 DCW [id number]) Hip Strength Hip Manual Muscle Testing Right Flexion (L2) 3 Fair Abduction 4- Good- Adduction 3 Fair External Rotation 3+ Fair+ Internal Rotation 3+ Fair+ Left Flexion (L2) 3 Fair Abduction 4 Good Adduction 3 Fair External Rotation 4- Good- Internal Rotation 4- Good- Knee Strength Knee Manual Muscle Testing Right Flexion (S2) 4+ Good+ Extension (L3) 4 Good Left Flexion (S2) 4 Good Extension (L3) 4 Good Ankle/Foot Strength Ankle and Foot Manual Muscle Testing Right Dorsiflexion (L4) 4+ Good+ Left Dorsiflexion (L4) 4+ Good+ PT-OP-Q Treatments Start: 02/08/23 11:11 Freq: Status: Active Protocol: Document 03/04/23 10:48 DCW (Rec: 03/04/23 11:12 DCW [id number]) Therapeutic Exercises Standing Exercises Hip Abduction Standing Exercise Name Hip Abduction Side bilateral Reps/Minutes x10 Comments good posture and leg raise, painfree Heel raises Standing Exercise Name Heel raises Side bilateral Reps/Minutes x10 mini squat Equipment Used @rail Reps/Minutes x10 Comments painfree, cued hip hinge buttocks back PT-OP-R Modalities Start: 02/15/23 15:41 Freq: Status: Active Protocol: Document 02/15/23 14:32 SP (Rec: 02/15/23 16:03 SP [id number]) Hot Pack/Cold Pack Treatment R hip Location L piriformis/glut Patient Position Hooklying Treatment Duration (minutes) 8 Patient Tolerance Good Comments good feedback cold lessening pain PT-OP-T Assessment and Plan Start: 02/08/23 11:11 Freq: Status: Active Protocol: Document 03/04/23 10:48 DCW (Rec: 03/04/23 11:12 DCW [id number]) Physical Therapy Assessment Impairments Impairments Activity Tolerance,Functional Activities,Functional Mobility ,Gait,Pain,Soft Tissue Mobility,Strength,Tone Goals Two Impairment Pt unable to stand >5 minutes independently without severe hip and leg pain Nursing Home Goal (LTG) Pt to report ability to stand at least 20 minutes without increased pain to 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 LTG Duration 04/10/23 One Impairment Pt does not have an appropriate home exercise program Short Term Goal (STG) Pt to be independent and compliant with an appropriate HEP STG Duration 03/11/23 Assessment Summary Assessment Pt very discouraged with lack of progress, does not feel like she is benefitting from therapy, her cortisone injection last week has not helped her pain. Pt requests discharge from PT at this time . Understandsd she probably needs a FRANTZ, but is unwilling to do so at the moment. Physical Therapy Plan Frequency and Duration Frequency of Treatment 1-2x/week Plan of Care Start Date 02/08/23 Plan of Care End Date 04/10/23 Therapeutic Interventions Therapeutic Interventions Home Exercise Program,Joint Mobilizations,Manual Therapy, Neuromuscular Re-education, Patient/Caregiver Education, Self-Care/Home Management,Soft Tissue Mobilization, Therapeutic Activities, Therapeutic Exercises Modalities Cold Pack/Ice Massage,Hot Packs Discharge Physical Therapy Discharge Reasons Patient Request Next Visit Focus/Plan Next Note Type Discharge Summary
== END 2023-03-05 15:01 | disposition home or self-care (01) ==
LOC: PHYS 10:30
PROVIDERS: Family Provider Family Medicine; PCP Family Medicine; Referring Provider Family Medicine; Visit Provider Family Medicine
DX: G57.01 Lesion of sciatic nerve, right lower limb (principal); M25.551 Pain in right hip; M25.651 Stiffness of right hip, not elsewhere classified; M62.81 Muscle weakness (generalized)
CPT/HCPCS: 97010; 97110; 97116; 97140; 97162; 97530

== ENCOUNTER → 2023-04-04 11:32 | Outpatient (CLI) | payer OTHER, SELFPAY ==
[2021-02-03 17:11] VITALS: BMI 36.6
--- NOTE | 2023-04-04 11:41 | DI.RAD.S_ITS ---
PROCEDURE: XR CHEST 2V INDICATIONS: COUGH NOS TECHNIQUE: 2 views of the chest were acquired. COMPARISON: [facility], CR, XR CHEST 2V, 12/22/2021, 8:23. FINDINGS: Surgical changes and devices: None. Lungs and pleura: Lungs are clear. No pleural effusions or pneumothorax. Mediastinum: Mediastinal contours are normal. Heart size is normal. Bones and chest wall: No suspicious bony abnormalities. Soft tissues appear unremarkable. IMPRESSION: No acute cardiopulmonary findings Approved by: Rito Garcia M.D. on 04/04/2023 at 15:03
== END ==
PROVIDERS: Family Provider Family Medicine; PCP Family Medicine; Referring Provider Family Medicine; Visit Provider Family Medicine
DX: R05.9 Cough, unspecified (principal)
CPT/HCPCS: 71046

== ENCOUNTER → 2023-05-20 14:36 | Outpatient (CLI) | payer OTHER, SELFPAY ==
[2021-02-03 17:11] VITALS: BMI 36.6
[2023-05-20 15:57] LABS: Estimated Glomerular Filt Rate > 60 mL/min (>60)
== END ==
PROVIDERS: Radiology Diagnostic Radiology; Family Provider Family Medicine; PCP Family Medicine; Referring Provider Physician Assistant Medical; Visit Provider Physician Assistant Medical
DX: R31.9 Hematuria, unspecified (principal); R10.9 Unspecified abdominal pain
CPT/HCPCS: 36415; 82565

== ENCOUNTER → 2023-05-27 12:23 | Outpatient (CLI) | payer OTHER, SELFPAY ==
[2021-02-03 17:11] VITALS: BMI 36.6
--- NOTE | 2023-05-27 | DI.CT.S_ITS ---
PROCEDURE: CT IVP A/P W/WO INDICATIONS: Hematuria, unspecified TECHNIQUE: Optional 5 mm thick noncontrast images acquired from the diaphragm to the symphysis pubis. After the administration of intravenous contrast, 5 mm thick images acquired from the diaphragm to the symphysis pubis after a 10-minute delay. 2 mm thick coronal and sagittal reformats were then performed of the kidneys and ureters. For radiation dose reduction, the following was used: automated exposure control, adjustment of mA and/or kV according to patient size. COMPARISON: None. FINDINGS: Image quality: Excellent. Lung bases: Lung bases are clear. Heart size is normal. Small hiatal hernia. Urinary system: Both kidneys are normal in size, without hydronephrosis or nephrolithiasis on pre-contrast images. No perinephric fat stranding. There is normal bilateral renal enhancement. Renal calyces appear normal in morphology when filled with contrast. Opacified portions of both ureters demonstrate normal caliber. Bladder wall thickness is normal. No calcified bladder stones. Other solid organs: Liver is normal in size and enhancement. Gallbladder is absent . Biliary system is non dilated, accounting for a post cholecystectomy state and age. Pancreas enhances normally. Spleen is normal in size and enhancement. No adrenal nodules. Peritoneum and bowel: Bowel loops demonstrate normal wall thickness and caliber. No free fluid or air. Colonic diverticulosis without evidence of diverticulitis. Nodes and vessels: No retroperitoneal or mesenteric adenopathy by size criteria. Aorta and inferior vena cava are normal in size. Abdominal wall: Ventral hernia containing fat. Pelvis: No pathologic free pelvic fluid. No inguinal hernias or adenopathy. Bones: No suspicious bony lesions. No vertebral body compression fractures. Grade 1 anterolisthesis of L5 on S1, status post fusion. Moderate to severe bilateral hip osteoarthritis, right greater than left. IMPRESSION: No nephrolithiasis or filling defects within the opacified renal collecting systems or bladder. Chronic findings as above. Dictated by: Yo Gibson M.D. on 05/27/2023 at 13:23 Approved by: Yo Gibson M.D. on 05/27/2023 at 13:28
== END ==
PROVIDERS: Family Provider Family Medicine; PCP Family Medicine; Referring Provider Physician Assistant Medical; Visit Provider Physician Assistant Medical
DX: R31.9 Hematuria, unspecified (principal); K44.9 Diaphragmatic hernia without obstruction or gangrene; M43.17 Spondylolisthesis, lumbosacral region; M16.0 Bilateral primary osteoarthritis of hip; K57.90 Diverticulosis of intestine, part unspecified, without perforation or abscess without bleeding; K43.9 Ventral hernia without obstruction or gangrene; Z98.1 Arthrodesis status; Z90.49 Acquired absence of other specified parts of digestive tract
CPT/HCPCS: 74178

== ENCOUNTER 2023-05-28 14:03 | Outpatient (CLI) | payer OTHER, SELFPAY ==
[2021-02-03 17:11] VITALS: BMI 36.6
[2023-05-28] VITALS (8 sets, daily range): BP systolic 132–178; BP diastolic 58–89; PULSE 71–79; RESP 16–21; TEMP 36.7; O2SAT 97–100
--- NOTE | 2023-05-28 14:04 | DI.RAD.S_ITS ---
PROCEDURE: PAIN L/S FACET INJ/BLK 1ST ROMI COMPARISON: None. INDICATIONS: SPONDYLOSIS FINDINGS: A single C-arm image demonstrates needle placement for 2 level right lumbar facet steroid injection. IMPRESSION: C-arm imaging utilized during 2 level right lumbar facet injection Dictated by: Cristóbal Wick M.D. on 05/28/2023 at 16:52 Approved by: Cristóbal Wick M.D. on 05/28/2023 at 16:53
[2023-05-28] MEDS: MIDAZOLAM 2 MG/2 ML VIAL IV (15:02)
[2023-05-28] MEDS: IOPAMIDOL 15 ML VIAL 3 ML INJ (15:09)
[2023-05-28] MEDS: BUPIVACAINE 0.5% (PF) 10 ML VIAL 5 ML INJ (15:09)
[2023-05-28] MEDS: BETAMETHASONE 30 MG/5 ML MDV 12 MG INJ (15:09)
[2023-05-28] MEDS: LIDOCAINE 1% 20 ML 5 ML INJ (15:09)
--- NOTE | 2023-05-28 15:18 | P.PCN_ITS ---
Date/Time/Diagnoses Date of procedure: 05/28/23 Time of procedure: 15:19 Pre-procedure diagnosis: 1. FACET ARTHROPATHY 2. AXIAL LBP 3. MULTILEVEL DDD Post-procedure diagnosis: same Procedure Notes Procedure: 1. FLUOROSCOPICALLY GUIDED CONTRAST CONTROLLED FACET JOINT INJECTIONS BILATERAL L1/2, L2/3 Indications: Monet is referred by Dr. Rae for treatment of Axial LBP s/p fusion. Physician: Jameel Reed Total Fluoroscopy time (seconds): 12 Total sedation minutes: 14 Complications: none Procedure in detail & Post-procedure care: FINDINGS Multilevel Facet Arthropathy with Clinically significant axial LBP DESCRIPTION OF PROCEDURE Fluoroscopically guided, contrast-controlled bilateral L1/2, L2/3 facet joint injections. Following review of allergy and review of potential side effects and complications, including, but not necessarily limited to, infection, allergic reaction, local tissue breakdown, stroke, temporary or permanent nerve injury, paralysis, and possible , the patient indicated that the patient understood and agreed to proceed. An informed consent document was signed by the patient, witnessed by a nurse, and placed in the patient's chart. Additionally, other treatment options including medications, modalities, and physical therapy were reviewed with the patient. After review of previous anaesthesic history and IV conscious sedation the patient was deemed safe to proceed with today's procedure with IV conscious sedation as ASA class II designation. Safety time-out was performed to confirm patient ID, procedure to be performed and site of procedure. IV sedation was accomplished with a combination of 2mg of Versed administered by the RN after DO order, titrated to patient comfort during the course of the procedure while the patient remained responsive to all verbal commands In the prone position, following sterile prep and drape of the lumbar region, the posterior aspect of the L1/2 L2/3 facet joints were identified fluoros copically. The skin was anesthetized via a 25-gauge 1.5-inch needle with 1% lidocaine solution into the corresponding facet joints. At this point, a 22- gauge 3.5-inch spinal needle was atraumatically introduced and advanced under fluoroscopic guidance into the corresponding facet joints. Following negative aspiration, injections of approximately 0.2cc of Isovue 200 confirmed interarticular placement without vascular uptake. The identical procedure was then performed at the L1/2, L2/3 facet joints on the left. Radiological data, including multiple fluoroscopic views of the lumbosacral sp ine, reveal a spinal needle at the L1/2, L2/3 facet joints bilaterally. Subsequent views show flow of contrast material both superiorly and inferiorly within the joint space without vascular or intrathecal uptake. At this point, a total of 0.5cc including a mixture of 0.25cc Marcaine and 0.25cc betamethasone was injected without complication into each of the corresponding facet joints. The patient tolerated the procedure well without signs or symptoms of complications prior to transfer to the recovery area continued monitoring without incident. The patient was then transferred to the recovery area where they were observed for an appropriate period of time after the injection. The patient reported a VAS score of 7 prior to the procedure and a post-procedure VAS of 0. POST OP INSTRUCTIONS The patient was provided a Pain Log to continue to record their response to the target-specific procedure prior to follow-up visit with their referring physician. Additionally, specific post-injection care instructions and a contact number to our office were provided if concerns arise regarding possible complications associated with the procedure are suspected.
== END 2023-05-28 15:35 | disposition home or self-care (01) ==
PROVIDERS: Family Provider Family Medicine; PCP Family Medicine; Referring Provider Physical Medicine & Rehabilitation; Visit Provider Physical Medicine & Rehabilitation
DX: M47.816 Spondylosis without myelopathy or radiculopathy, lumbar region (principal); M51.36 Other intervertebral disc degeneration, lumbar region
CPT/HCPCS: 64493; 64494; 99152; J0702; J2250

== ENCOUNTER → 2023-09-24 08:48 | Outpatient (CLI) | payer OTHER, SELFPAY ==
[2021-02-03 17:11] VITALS: BMI 36.6
[2023-09-24 10:02] LABS: Add Manual Diff / Slide Review NO; Basophils Absolute Auto 100 /uL (0-100); Basophils Percent Auto 1.2 % (0-2); Eosinophils Absolute Auto 400 /uL (0-450); Eosinophils Percent Auto 4.4 % (2-4); Hematocrit 43.9 % (36-46); Hemoglobin 14.8 g/dL (12.0-16.0); Lymphocytes Absolute Auto 3300 /uL (1100-4500); Lymphocytes Percent Auto 41.7 % (25-40); Mean Corpuscular HGB Conc 33.7 % (30-36); Mean Corpuscular Hemoglobin 29.9 PG (26-34); Mean Corpuscular Volume 88.8 fL (80-100); Monocytes Absolute Auto 700 /uL (0-900); Monocytes Percent Auto 8.5 % (3-14); Neutrophils Absolute Auto 3500 /uL (1500-7000); Neutrophils Percent Auto 44.2 % (50-75); Platelet Count 233 X10^3/uL (150-400); Red Blood Cell Count 4.94 X10^6/uL (4.0-5.2); Red Cell Distribution Width 13.5 % (11.6-14.8); White Blood Cell Count 7.9 X10^3/uL (4.5-11.0)
[2023-09-24 10:29] LABS: Alanine Aminotransferase 33 IU/L (<35); Albumin 4.3 g/dL (3.5-5.0); Albumin Globulin Ratio 1.5 (1.0-2.8); Alkaline Phosphatase 136 U/L (38-126); Aspartate Aminotransferase 34 IU/L (14-36); BUN Creatinine Ratio 21.4 (6-22); Bilirubin Total 0.9 mg/dL (0.2-1.3); Blood Urea Nitrogen 15 mg/dL (7-17); C-Reactive Protein Quant 0.5 mg/dL (<1.0); Calcium 9.9 mg/dL (8.4-10.2); Carbon Dioxide 26 mmol/L (22-32); Chloride 103 mmol/L (98-107); Cholesterol 169 mg/dL (140-199); Estimated Glomerular Filt Rate > 60 mL/min (>60); Globulin 2.8 g/dL (1.7-4.1); Glucose 93 mg/dL (80-110); HDL Cholesterol 43 mg/dL (40-60); HEMOLYSIS < 15 (0-50); LDL Cholesterol Calculated 94 mg/dL (<100); Potassium 4.5 mmol/L (3.4-5.1); Sodium 139 mmol/L (137-145); Total Protein 7.1 g/dL (6.3-8.2); Triglycerides 161 mg/dL (35-150)
[2023-09-24 10:56] LABS: Thyroid Stimulating Hormone 0.194 uIU/mL (0.47-4.68)
== END ==
PROVIDERS: Family Provider Family Medicine; PCP Family Medicine; Referring Provider Family Medicine; Visit Provider Family Medicine
DX: K64.9 Unspecified hemorrhoids (principal); L65.9 Nonscarring hair loss, unspecified; R43.2 Parageusia
CPT/HCPCS: 36415; 80053; 80061; 84443; 85025; 86140

== ENCOUNTER → 2023-12-04 16:03 | Outpatient (CLI) | payer OTHER, SELFPAY ==
[2021-02-03 17:11] VITALS: BMI 36.6
--- NOTE | 2023-12-04 | DI.MRI.S_ITS ---
PROCEDURE: MR HEAD/BRAIN WO/W CON INDICATIONS: PARAGUS TECHNIQUE: Noncontrast axial T1 spin echo, axial T2 fast spin echo, sagittal and axial FLAIR, coronal T2 fast spin echo, axial gradient echo, axial diffusion and ADC through the brain. After the administration of contrast, axial and coronal and sagittal T1 spin echo with fat saturation through the brain. COMPARISON: None. FINDINGS: Image quality: Excellent. CSF spaces: Basal cisterns are patent. No extra-axial fluid collections. Ventricles are normal in size and shape. Brain: No midline shift. No intracranial bleeds or masses. No abnormal intracranial enhancement. There is cerebral volume loss for age. There is periventricular white matter chronic small vessel ischemic change. The brainstem appears normal. Diffusion-weighted images demonstrate no acute infarct. No chronic ischemic insults. Normal intravascular flow voids are present. Skull and face: Calvarial marrow is normal in signal. Orbits appear normal. Note is made of bilateral lens replacements. Sinuses: Sinuses and mastoids appear clear. IMPRESSION: No significant abnormality is seen. No masses or abnormal enhancement can be seen. Dictated by: Loi Malloy M.D. on 12/04/2023 at 16:21 Approved by: Loi Malloy M.D. on 12/04/2023 at 16:23
== END ==
PROVIDERS: Family Provider Family Medicine; PCP Family Medicine; Referring Provider Family Medicine; Visit Provider Family Medicine
DX: R43.2 Parageusia (principal); E05.90 Thyrotoxicosis, unspecified without thyrotoxic crisis or storm; R04.0 Epistaxis
CPT/HCPCS: 70553

== ENCOUNTER → 2024-05-28 09:41 | Outpatient (CLI) | payer OTHER, SELFPAY ==
[2021-02-03 17:11] VITALS: BMI 36.6
--- NOTE | 2024-05-28 09:42 | DI.RAD.S_ITS ---
PROCEDURE: XR DEXA AXIAL SKELETON INDICATIONS: Screening for osteoporosis COMPARISON: [facility], CR, XR DEXA AXIAL SKELETON, 08/30/2021, 11:22. [facility], CR, XR DEXA AXIAL SKELETON, 07/21/2019, 14:24. FINDINGS: Lumbar Spine (L3 and L4 excluded due to increased density: Bone mineral density 0.889 g/cm2, T score -0.8, previously -1.8. Left Hip: Bone mineral density 0.769 g/cm2, T score -1.4, previously -1.6. Left Femoral Neck: Bone mineral density 0.703 g/cm2, T score -1.3, previously -0.7. Right Hip: Bone mineral density 0.895 g/cm2, T score -0.4, previously -0.9. Right Femoral Neck: Bone mineral density 0.913 g/cm2, T score 0.6, previously 0.2. Fracture Risk Calculation (when applicable): 10-year fracture risk of a major osteoporotic fracture 11 % and of a hip fracture 2.3 %. (T score greater or equal to -1.0 to: NORMAL) (T score from -1.1 to -2.4: OSTEOPENIA) (T score less than or equal to -2.5: OSTEOPOROSIS) IMPRESSION: Osteopenia. Follow-up guidelines as follows: Osteoporosis: Consider a repeat DEXA and Vertebral Fracture Assessment (VFA) exam in 2 years or sooner if medically necessary, to reassess this patient's status. Osteopenia: Consider a repeat DEXA in 2-3 years to reassess this patient's status, or if there is a new clinical indication. Normal: Consider a repeat DEXA in 5 years or sooner, or if there is a new clinical indication. All treatment decisions require clinical judgment and consideration of individual patient factors, including patient preferences, comorbidities, previous drug use, risk factors not captured in the FRAX model (e.g., frailty, falls, vitamin D deficiency, increased bone turnover, interval significant decline in bone density ) and possible under- or over-estimation of fracture risk by FRAX. In addition, the NOF Guide recommends that FDA-approved medical therapies be considered in postmenopausal women and men age >= 50 years with a: * Hip or vertebral (clinical or morphometric) fracture * T-score of <=-2.5 at the spine or hip * Ten-year fracture probability by FRAX of >= 3% for hip fracture or >=20% for major osteoporotic fracture. People with diagnosed cases of osteoporosis or at high risk for fracture should have regular bone mineral density tests. For patients eligible for Medicare, routine testing is allowed once every 2 years. The testing frequency can be increased to one year for patients who have rapidly progressing disease, those who are receiving or discontinuing medical therapy to restore bone mass, or have additional risk factors. Dictated by: Yo Gibson M.D. on 05/28/2024 at 11:56 Approved by: Yo Gibson M.D. on 05/28/2024 at 11:59
== END ==
LOC: RAD 09:42
PROVIDERS: PCP Family Medicine; Referring Provider Family Medicine; Visit Provider Family Medicine
DX: M85.89 Other specified disorders of bone density and structure, multiple sites (principal); Z13.820 Encounter for screening for osteoporosis
CPT/HCPCS: 77080

== ENCOUNTER → 2024-11-03 10:35 | Outpatient (CLI) | payer OTHER, SELFPAY ==
[2021-02-03 17:11] VITALS: BMI 36.6
--- NOTE | 2024-11-03 10:40 | DI.RAD.S_ITS ---
PROCEDURE: XR LUMBAR SPINE MIN 4V INDICATIONS: BACK PAIN TECHNIQUE: 5 views of the lumbar spine were acquired, including bilateral oblique views. COMPARISON: [facility], CR, XR LUMBAR SPINE 2 OR 3 VIEWS, 11/22/2023, 15:16. [facility], CR, XR LUMBAR SPINE MIN 4V, 06/10/2018, 11:25. FINDINGS: Bones: 5 nonrib-bearing vertebrae are present. Postsurgical changes are again seen from posterior fixation at L3 through S1 with bilateral pedicle screws, interbody rods, and spacers. Hardware components are in stable positions. There is unchanged bony alignment. No vertebral body compression fractures. No suspicious bony lesions. Severe right hip osteoarthrosis with remodeling of the articular surfaces. Moderate to severe left hip osteoarthrosis. Soft tissues: Overlying bowel gas pattern is normal. No suspicious soft tissue calcifications. Right upper quadrant surgical clips. Oblique images: No pars defects. Intact hardware. IMPRESSION: 1. Postsurgical changes again seen at L3 through S1. No acute hardware complication or acute osseous abnormality is seen. 2. Severe right hip and moderate to severe left hip osteoarthrosis. Approved by: Manny Us M.D. on 11/03/2024 at 11:10
== END ==
PROVIDERS: PCP Family Medicine; Referring Provider Physical Medicine & Rehabilitation; Visit Provider Physical Medicine & Rehabilitation
DX: M47.816 Spondylosis without myelopathy or radiculopathy, lumbar region (principal); M48.062 Spinal stenosis, lumbar region with neurogenic claudication; M16.0 Bilateral primary osteoarthritis of hip; Z98.1 Arthrodesis status
CPT/HCPCS: 72110

== ENCOUNTER → 2024-11-11 08:16 | Outpatient (CLI) | payer OTHER, SELFPAY ==
[2021-02-03 17:11] VITALS: BMI 36.6
--- NOTE | 2024-11-11 08:17 | DI.MRI.S_ITS ---
PROCEDURE: MR LUMBAR SPINE WO CON INDICATIONS: ACUTE LEFT SIDED LOW BACK PAIN TECHNIQUE: Noncontrast sagittal T1 spin echo and T2 fast echo, sagittal STIR, and T2 fast spin echo through the lumbar spine. In cases with scoliosis, additional coronal T2 fast spin echo may be performed. COMPARISON: [facility], MR, MR LUMBAR SPINE WO CON, 11/19/2020, 10:26. FINDINGS: Image quality: Excellent. Alignment and Curvature: Mild anterolisthesis of L3 on L4, L4 on L5 and L5-S1. Bone Marrow: L3 through S1 posterior spinal fixation and discectomy. Marrow is of normal overall signal. No acute vertebral body compression fractures. Spinal Cord: Conus medullaris terminates at the L1-L2 level. Visualized cord demonstrates normal signal and size. Paraspinous Soft Tissues: No paravertebral masses. T12-L1: Disc desiccation. No central canal or neural foraminal stenosis. L1-L2: Disc desiccation. Mild disc bulge. Facet arthropathy. Mild central canal stenosis and mild bilateral neural foraminal stenosis is stable. L2-L3: Disc desiccation. Mild disc bulge. Facet arthropathy. Mild central canal stenosis and mild bilateral neural foraminal stenosis is stable. L3-L4: Postoperative changes. No central canal stenosis. Moderate bilateral neural foraminal stenosis is stable. L4-L5: Postoperative changes. No central canal stenosis. Mild bilateral neural foraminal stenosis is stable. L5-S1: Postoperative changes. No central canal stenosis. Mild bilateral neural foraminal stenosis. IMPRESSION: 1. Multilevel degenerative changes of the lumbar spine as described above status post L3 through S1 posterior spinal fixation and discectomy. 2. Resolution of central canal stenosis at the postoperative levels. Mild central canal stenosis at L1-L2 and L2-L3. 3. Moderate bilateral neural foraminal stenosis at L3-L4 is stable. Mild multilevel neural foraminal stenosis at other levels. Dictated by: Marito Fournier M.D. on 11/11/2024 at 12:30 Approved by: Marito Fournier M.D. on 11/11/2024 at 12:35
== END ==
PROVIDERS: PCP Family Medicine; Referring Provider Nurse Practitioner Family; Visit Provider Nurse Practitioner Family
DX: M47.816 Spondylosis without myelopathy or radiculopathy, lumbar region (principal); M47.817 Spondylosis without myelopathy or radiculopathy, lumbosacral region; M48.061 Spinal stenosis, lumbar region without neurogenic claudication; M48.07 Spinal stenosis, lumbosacral region; M54.50 Low back pain, unspecified
CPT/HCPCS: 72148

== ENCOUNTER 2025-01-08 13:13 | Emergency (ER) | payer MEDICARE, OTHER, SELFPAY ==
[2021-02-03 17:11] VITALS: BMI 36.6
[2025-01-08 13:22] VITALS: BP 150/67; PULSE 62; RESP 20; TEMP 36.6; O2SAT 97; BMI 35.4
--- NOTE | 2025-01-08 13:32 | DI.RAD.S_ITS ---
PROCEDURE: XR ELBOW LT MIN 3V INDICATIONS: glf, elbow pain TECHNIQUE: 3 views of the elbow were acquired. COMPARISON: None. FINDINGS: Bones: No fractures or dislocations. No suspicious bony lesions. Soft tissues: Mild elbow joint effusion. No suspicious soft tissue calcifications. IMPRESSION: No visualized acute fracture or dislocation. However, if clinical concern and/or pain persist, short interval imaging followup in 7-10 days is recommended, as occult injury cannot be definitively excluded. Dictated by: Asya Botello M.D. on 01/08/2025 at 14:16 Approved by: Asya Botello M.D. on 01/08/2025 at 14:17
--- NOTE | 2025-01-08 13:33 | DI.RAD.S_ITS ---
PROCEDURE: XR HUMERUS LT 2V INDICATIONS: glf TECHNIQUE: 2 views of the humerus were acquired. COMPARISON: None. FINDINGS: Bones: No fractures or dislocations. No suspicious bony lesions. Humeral head osteophyte with glenohumeral and acromioclavicular arthritic change. Soft tissues: No suspicious soft tissue calcifications. IMPRESSION: No visualized acute fracture or dislocation. However, if clinical concern and/or pain persist, short interval imaging followup in 7-10 days is recommended, as occult injury cannot be definitively excluded. Dictated by: Asya Botello M.D. on 01/08/2025 at 14:18 Approved by: Asya Botello M.D. on 01/08/2025 at 14:18
--- NOTE | 2025-01-08 15:14 | ED_ITS ---
HPI - Fall <Mihaela Guzman PA-C - Last Filed: 01/08/25 17:02> General Chief Complaint: Fall Stated Complaint: fall, L elbow injury Time Seen by Provider: 01/08/25 15:13 Source: patient Mode of arrival: Wheelchair History of Present Illness HPI Narrative: 79-year-old female who presents today for a ground level mechanical fall that happened inside her home. She denied any precipitating events, no light it was or dizziness she just lost her balance and landed directly on her left side, her chief complaint is left elbow pain she points to her proximal forearm. She is also sore in the wrist. She is denying any numbness, tingling, weakness. She did not strike her head, and there was no loss of consciousness. She is predominantly right-handed dominant, she does use a walking stick on the right side for mobility and sometimes a rolling walker. No treatment tried prior to arrival she is accompanied by her daughter. She does take Xarelto. All other systems are reviewed and are negative. Related Data Home Medications Medication Instructions Recorded Confirmed atorvastatin 20 mg tablet 20 mg PO BEDTIME 05/01/23 05/01/23 naproxen sodium 220 mg capsule 220 mg PO BID PRN 05/01/23 05/01/23 (Aleve) rivaroxaban 20 mg tablet (Xarelto) 20 mg PO DAILY 05/01/23 05/01/23 Previous Rx's Medication Instructions Recorded celecoxib 200 mg capsule (Celebrex) 200 mg PO DAILY #30 caps 05/01/23 tramadol 50 mg tablet 50 mg PO BID PRN pain #42 tabs 05/01/23 diazepam 10 mg tablet (Valium) 10 mg PO .COMPLEX PRN 1-2 prior to 05/27/23 MRI and for possible steroid flare #10 tabs Allergies Allergy/AdvReac Type Severity Reaction Status Date / Time Latex, Natural Rubber Allergy Intermediate Red Rash Verified 05/01/23 10:37 [LATEX, NATURAL RUBBER] oxycodone Allergy Intermediate 'Screaming Verified 05/01/23 10:37 nightmares' Penicillins [PENICILLINS] Allergy Intermediate Rash Verified 05/01/23 10:37 adhesive tape Allergy Mild Rash Verified 05/01/23 10:37 gabapentin AdvReac Intermediate Anxiety Verified 05/01/23 10:46 hydromorphone AdvReac Mild Diarrhea Verified 05/01/23 10:37 Review of Systems <Mihaela Guzman PA-C - Last Filed: 01/08/25 17:02> Review of Systems Narrative: All other systems reviewed and are negative. Patient History <Mihaela Guzman PA-C - Last Filed: 01/08/25 17:02> Medical History Facet arthropathy, lumbar Degenerative joint disease of both hips Diverticulosis Fatty liver Left foot infection IBS (irritable bowel syndrome) Primary osteoarthritis of both hips Epidural lipomatosis Spondylolisthesis, lumbar region Spinal stenosis of lumbar region with neurogenic claudication Surgical History History of lumbar surgery Status post left foot surgery Family History Father Cancer Mother Cancer Social History household members: children Smoking Status: Never smoker alcohol intake: former Smoking Status: Never smoker alcohol intake frequency: 0-2 drinks per day Exam <Mihaela Guzman PA-C - Last Filed: 01/08/25 17:02> Initial Vital Signs Initial Vital Signs: Vital Signs Temperature 98 F 01/08/25 13:22 Pulse Rate 62 01/08/25 13:22 Respiratory Rate 20 01/08/25 13:22 Blood Pressure 150/67 H 01/08/25 13:22 Pulse Oximetry 97 01/08/25 13:22 Oxygen Delivery Method Room Air 01/08/25 13:22 Vital signs reviewed and are normal except for slight elevation in her systolic. Const General: cooperative, comfortable, well developed and No acute distress Other: Smiling, pleasantly conversing, no obvious distress but she is guarding her left elbow. [facility] Head: normal to inspection, normocephalic and atraumatic Face and sinus: normal facial exam and face symmetric Mouth: oral mucosae normal, lip normal and tongue normal Teeth and gingiva: dentition normal Neck Neck: normal visual inspection and full ROM Resp Effort & Inspection: normal respiratory effort and able to speak in complete sentences Auscultation: clear to auscultation bilaterally Cardio Rate: regular rate Rhythm: regular rhythm Back/Spine/Pelvis Back: normal to inspection, No back tenderness, No CVA tenderness and No ecchymosis Extrem Left upper extremity: normal to inspection, normal capillary refill and elbow/forearm (Focal lateral bony point tenderness along the radial head, no bursal swelli) Details: normal to inspection, tenderness, abnormal ROM and distal pulses intact; no abrasions; no cyanosis, no edema and joint enlargement noted Other: Pain is reproduced with supination and pronation, flexion of the elbow is limited to 90?, full extension causes her discomfort but she is able to perform it passively. No snuffbox tenderness, she has full range of motion to the wrist, with dorsal wrist flexion she has reproducible pain in the proximal forearm and is guarded. No issues identified with the proximal arm or shoulder, clavicles are symmetric. There are no breaks in the skin, no discoloration except for a faint bruise forming on the proximal forearm radial aspect measuring approximately 3 in x 3 in. No issues identified with the lower extremities hips or pelvis. <Yusra Schumacher DO - Last Filed: 01/09/25 07:50> Initial Vital Signs Initial Vital Signs: Vital Signs Temperature 98 F 01/08/25 13:22 Pulse Rate 62 01/08/25 13:22 Respiratory Rate 20 01/08/25 13:22 Blood Pressure 150/67 H 01/08/25 13:22 Pulse Oximetry 97 01/08/25 13:22 Oxygen Delivery Method Room Air 01/08/25 13:22 Procedures <Mihaela Guzman PA-C - Last Filed: 01/08/25 17:02> Orthopedic Splinting/Casting Injury #1: Time of procedure: 16:40 Side: left Upper Extremity Injury Location: elbow Upper Extremity Immobilizer: sugar tong splint Post splinting neuro exam: intact Post splinting vascular exam: intact Placed by: Provider Additional Comments: Orthoglass with significant padding applied about the elbow joint, neurologically she remains intact, sling applied and she feels comfortable. Improved pain overall. Course <Mihaela Guzman PA-C - Last Filed: 01/08/25 17:02> Orders Ordered: ED Orders 01/08/25 13:32 XR elbow LT min 3V Stat 01/08/25 13:33 XR humerus LT 2V Stat Vital Signs Vital signs: Vital Signs - 8 hr 01/08/25 13:22 01/08/25 16:55 Temperature 98 F Pulse Rate 62 64 Respiratory Rate 20 16 Blood Pressure 150/67 H 178/93 H Pulse Oximetry 97 97 Oxygen Delivery Method Room Air Room Air <Yusra Schumacher DO - Last Filed: 01/09/25 07:50> Orders Ordered: ED Orders 01/08/25 13:32 XR elbow LT min 3V Stat 01/08/25 13:33 XR humerus LT 2V Stat Vital Signs Vital signs: Vital Signs - 8 hr 01/08/25 13:22 01/08/25 16:55 Temperature 98 F Pulse Rate 62 64 Respiratory Rate 20 16 Blood Pressure 150/67 H 178/93 H Pulse Oximetry 97 97 Oxygen Delivery Method Room Air Room Air MDM - Fall <Mihaela Guzman PA-C - Last Filed: 01/08/25 17:02> Imaging Data Extremity x-ray #1: My Impression: Deferred to radiologist's interpretation below. Radiologist's Impression: PROCEDURE: XR HUMERUS LT 2V INDICATIONS: glf TECHNIQUE: 2 views of the humerus were acquired. COMPARISON: None. FINDINGS: Bones: No fractures or dislocations. No suspicious bony lesions. Humeral head osteophyte with glenohumeral and acromioclavicular arthritic change. Soft tissues: No suspicious soft tissue calcifications. IMPRESSION: No visualized acute fracture or dislocation. However, if clinical concern and/or pain persist, short interval imaging followup in 7-10 days is recommended, as occult injury cannot be definitively excluded. Dictated by: Asya Botello M.D. on 01/08/2025 at 14:18 Approved by: Asya Botello M.D. on 01/08/2025 at 14:18 Extremity x-ray #2: My Impression: Deferred to radiologist's interpretation below. Radiologist's Impression: PROCEDURE: XR ELBOW LT MIN 3V INDICATIONS: glf, elbow pain TECHNIQUE: 3 views of the elbow were acquired. COMPARISON: None. FINDINGS: Bones: No fractures or dislocations. No suspicious bony lesions. Soft tissues: Mild elbow joint effusion. No suspicious soft tissue calcifications. IMPRESSION: No visualized acute fracture or dislocation. However, if clinical concern and/or pain persist, short interval imaging followup in 7-10 days is recommended, as occult injury cannot be definitively excluded. Dictated by: Asya Botello M.D. on 01/08/2025 at 14:16 Approved by: Asya Botello M.D. on 01/08/2025 at 14:17 MDM Narrative Medical decision making narrative: Pleasant 79-year-old female that had a mechanical fall at home, she did not strike her head. Main complaint is left elbow pain, initial x-rays were negative for fracture, radiology recommends interval follow up in 7-10 days if concern for occult fracture. I have placed her in a sugar-tong and sling she feels much more comfortable, reassurance is given, I have referred her to Orthopedics as well as encouraged her to follow up with her PCP. She will keep the splint on at all times wear the sling, keep it dry, acetaminophen for pain as she does take Xarelto for previous DVT. Discussed red flag warning signs at length and to not hesitate to seek medical attention if she has any increased pain, any new worrisome symptoms or any other concerns. Discharge Plan Departure Patient Disposition: Home Clinical Impression: Fall Qualifiers: Encounter type: initial encounter Qualified Code(s): W19.XXXA - Unspecified fall, initial encounter Elbow injury Qualifiers: Encounter type: initial encounter Laterality: left Qualified Code(s): S59.902A - Unspecified injury of left elbow, initial encounter Activity Restrictions/Additional Instructions: Your baseline x-rays today did not show an obvious fracture, radiology states recommended follow up in 7-10 days to look for a possible occult fracture that has not showing up today. I have splinted you in a fiberglass sugar-tong with Thanh wrap. Please keep this on at all times and wear the sling at all times. Avoid getting it wet as that padding we will get saturated and be very uncomfortable. Use a plastic bag to cover it during showering, I recommend a shower chair for safety. Please follow up with your primary care provider, I have listed the orthopedist that was on-call today it was a medical group and you can contact them Saturday and let them know you were seen in the emergency department requiring follow up. If you have any issues with the splint, you develop any worsening pain, any new symptoms or any worrisome symptoms please do not hesitate to return to the emergency department. Try to keep it elevated at rest, ice directly over the splint, acetaminophen as needed for pain. Prescriptions: No Action diazepam [Valium] 10 mg tablet 10 mg PO .COMPLEX MDD 3 tabs PRN (Reason: 1-2 prior to MRI and for possible steroid flare) Qty: 10 0RF Rx Instructions: 10 mg PO PRN; Xarelto 20 mg tablet 20 mg PO DAILY Patient Comments: take 1 tablet by mouth once daily atorvastatin 20 mg tablet 20 mg PO BEDTIME naproxen sodium [Aleve] 220 mg capsule 220 mg PO BID PRN Hold Instructions: Home Medication placed on hold at Doctor's office celecoxib [Celebrex] 200 mg capsule 200 mg PO DAILY Qty: 30 2RF tramadol 50 mg tablet 50 mg PO BID PRN (Reason: pain) Qty: 42 1RF Referrals: Saul Rae MD [Primary Care Provider] - Kathy Medina MD [Physician] - (Fall, left lateral elbow bony pain (radial head). Negative initial X-rays. Pain with supination/pronation. Sugar tong applied. ) Stand Alone Forms: Patient Portal/API/Survey ED Sign-out <Yusra Schumacher DO - Last Filed: 01/09/25 07:50> Cosign ED Attending Jassature Attestation: I was immediately available in the department for consultation.
[2025-01-08 16:55] VITALS: BP 178/93; PULSE 64; RESP 16; O2SAT 97
== END 2025-01-08 16:56 | disposition home or self-care (01) ==
PROVIDERS: Emergency Provider Physician Assistant Medical; PCP Family Medicine
DX: S59.902A Unspecified injury of left elbow, initial encounter (principal); W18.30XA Fall on same level, unspecified, initial encounter; Z86.718 Personal history of other venous thrombosis and embolism; Z79.01 Long term (current) use of anticoagulants
CPT/HCPCS: 29105; 73060; 73080; 99283

== ENCOUNTER → 2025-01-13 16:21 | Outpatient (CLI) | payer MEDICARE, OTHER, SELFPAY ==
[2021-02-03 17:11] VITALS: BMI 36.6
--- NOTE | 2025-01-13 16:22 | DI.MRI.S_ITS ---
PROCEDURE: MR SHOULDER LT WO CON INDICATIONS: traumatic tear of left rotator cuff TECHNIQUE: Noncontrast oblique coronal T2 fast spin echo with fat saturation, oblique sagittal T1 spin echo and T2 fast spin echo with fat saturation, axial T1 spin echo and T2 fast spin echo with fat saturation through the shoulder. COMPARISON: [facility], CR, XR SHOULDER 2+ VIEWS LEFT, 01/12/2025, 16:44. FINDINGS: Image quality: Excellent. Rotator cuff: Focal high-grade partial articular sided tearing of the posterior supraspinatus tendon measuring approximately 3 mm in anterior-posterior dimension at its distal insertion superimposed on moderate supraspinatus tendinosis. Moderate infraspinatus tendinosis. Teres minor and subscapularis tendons are intact. There is no disproportionate rotator cuff muscle atrophy. Bones and bursae: No acute trabecular bone injury or fracture. Chronic traction cystic changes are seen at the posterior superior humeral head and greater tuberosity near the rotator cuff tendon insertions. There is high-grade and full-thickness cartilage loss within portions of the glenohumeral joint, most notably at the posterior glenoid and posterior superior medial humeral head. Small marginal osteophytes are present. Moderate degenerative changes of the acromioclavicular joint subchondral cystic changes and small marginal osteophytes. Trace fluid is seen in the subacromial/subdeltoid bursa. There is a physiologic amount of glenohumeral joint fluid. A few ossified loose bodies are seen within the biceps long head tendon sheath, largest of which measures up to 13 mm. Capsule and soft tissues: Diffuse labral degeneration. Proximal biceps long head tendon demonstrates moderate tendinosis. There is partial effacement of the fat signal in the rotator interval. Glenohumeral ligaments appear to be intact. IMPRESSION: 1. Focal high-grade partial articular sided tearing of the supraspinatus tendon at the distal insertion measuring 3 mm in anterior-posterior dimension. Moderate supraspinatus and infraspinatus tendinosis. 2. Moderate proximal biceps long head tendinosis. 3. 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 Diffuse labral degeneration. 4. Moderate acromioclavicular joint osteoarthrosis. 5. A few intra-articular loose bodies are seen along the biceps tendon sheath at the intertubercular groove, largest of which measures up to 13 mm. Approved by: Manny Us M.D. on 01/14/2025 at 11:07
== END ==
PROVIDERS: PCP Family Medicine; Referring Provider Physician Assistant; Visit Provider Physician Assistant
DX: S46.012A Strain of muscle(s) and tendon(s) of the rotator cuff of left shoulder, initial encounter (principal); M19.012 Primary osteoarthritis, left shoulder; M94.212 Chondromalacia, left shoulder; X58.XXXA Exposure to other specified factors, initial encounter
CPT/HCPCS: 73221

== ENCOUNTER 2025-01-28 14:33 | Outpatient (CLI) | payer MEDICARE, OTHER, SELFPAY ==
[2021-02-03 17:11] VITALS: BMI 36.6
[2025-01-28] VITALS (10 sets, daily range): BP systolic 118–153; BP diastolic 55–72; PULSE 64–77; RESP 16–21; TEMP 36.6; O2SAT 93–98
--- NOTE | 2025-01-28 14:34 | DI.RAD.S_ITS ---
PROCEDURE: PAIN L/S FACET INJ/BLK 1ST ROMI INDICATIONS: Bilateral L1, L2 and L3 MBB LA COMPARISON: [facility], , PAIN L/S FACET INJ/BLK 1ST ROMI, 05/28/2023, 15:04. FINDINGS/IMPRESSION: Fluoroscopic spot filming was performed to verify placement of spinal needles at the L1 through L3 level(s), as labeled on the films. Appropriate location(s) of the needle tip(s) was confirmed by injection of iodinated contrast. Dictated by: Yo Gibson M.D. on 01/28/2025 at 18:29 Approved by: Yo Gibson M.D. on 01/28/2025 at 18:29
[2025-01-28] MEDS: MIDAZOLAM 2 MG/2 ML VIAL IV ×2 (16:23→16:31)
[2025-01-28] MEDS: BUPIVACAINE 0.5% (PF) 10 ML VIAL 5 ML INJ (16:26)
[2025-01-28] MEDS: LIDOCAINE 1% 20 ML 5 ML INJ (16:26)
[2025-01-28] MEDS: iopamidoL 15 ML VIAL 3 ML INJ (16:27)
--- NOTE | 2025-01-28 16:50 | P.PCN_ITS ---
Date/Time/Diagnoses Date of procedure: 01/28/25 Time of procedure: 16:51 Pre-procedure diagnosis: FACET ARTHROPATHY Post-procedure diagnosis: same Procedure Notes Procedure: 1. BILATERAL L1, L2, L3, L4 DIAGNOSTIC MB BLOCKS Indications: Monet is referred by Dr. Rae for treatment of Bilateral Axial LBP. Physician: Jameel Reed Total Fluoroscopy time (seconds): 14 Total sedation minutes: 17 Complications: none Procedure in detail & Post-procedure care: DESCRIPTION OF PROCEDURE Fluoroscopically guided, contrast-controlled bilateral L1, L2 and L3 medial branch blocks with 0.5cc of 0.5% Marcaine. Following review of allergy and review of potential side effects and complications, including, but not necessarily limited to, infection, allergic reaction, local tissue breakdown, nerve injury, paralysis, stroke and possible , the patient indicated that the patient understood and agreed to proceed. An informed consent document was signed by the patient, witnessed by a nurse, and placed in the patient's chart. After review of previous anaesthesic history and IV conscious sedation the patient was deemed safe to proceed with today's procedure with IV conscious sedation as ASA class II designation. Safety time-out was performed to confirm patient ID, procedure to be performed and site of procedure. IV sedation was accomplished with a combination of 4mg of Versed was administered by the RN after DO order, titrated to patient comfort during the course of the procedure while the patient remained responsive to all verbal commands In the prone position, following sterile prep and drape of the lumbar region, the right L1, L2, L3 anatomical location of the medial branch of the dorsal ramus was identified fluoroscopically. Subsequently an anesthetic skin wheal using 1% lidocaine solution was initiated at each of the anatomical spots. Subsequently then a 22-gauge 3.5-inch spinal needle was atraumatically introduced and advanced under fluoroscopic guidance at each of the corresponding sites at the right L1, L2 and L3 MB. After negative aspiration, 0.2cc of Isovue 200 was injected, confirming placement without vascular or intrathecal uptake. Subsequently then 0.5cc of 0.5% Marcaine solution was injected at each of the corresponding sites at the right L1, L2 amd L3 medial branch locations. The identical procedure was replicated on the left. The patient tolerated the procedure well without signs or symptoms of complications. The patient tolerated the procedure well without signs or symptoms of complications prior to transfer to the recovery area continued monitoring wi [facility] incident. Post-procedure, the patient was monitored initiating provocative activities to measure the amount of relief from block of the facetogenic pain. The patient reported a VAS of 7 prior to the procedure and a post-procedure VAS of 1. It has been a pleasure to assist in the diagnostic and therapeutic care of your patient. POST OP INSTRUCTIONS The patient was provided with a Pain Log to complete over the next several hours and subsequent days prior to the patient's follow up with the ordering physician. 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 The patient is aware, was provided, once again, with a Pain Log and will follow up with the referring physician for review and clinical correlation
== END 2025-01-28 17:08 | disposition home or self-care (01) ==
PROVIDERS: PCP Family Medicine; Referring Provider Physical Medicine & Rehabilitation; Visit Provider Physical Medicine & Rehabilitation
DX: M47.816 Spondylosis without myelopathy or radiculopathy, lumbar region (principal)
CPT/HCPCS: 64493; 64494; 99152; J2250

== ENCOUNTER 2025-05-04 07:44 | Outpatient (CLI) | payer MEDICARE, OTHER, SELFPAY ==
[2021-02-03 17:11] VITALS: BMI 36.6
[2025-05-03 14:38] VITALS: BMI 36.6
[2025-05-04] VITALS (10 sets, daily range): BP systolic 137–197; BP diastolic 59–110; PULSE 58–64; RESP 14–27; TEMP 36.3; O2SAT 95–98
[2025-05-04] MEDS: MIDAZOLAM 2 MG/2 ML VIAL IV ×2 (09:10→09:15)
[2025-05-04] MEDS: BETAMETHASONE 30 MG/5 ML MDV 12 MG INJ (09:15)
[2025-05-04] MEDS: iopamidoL 15 ML VIAL 3 ML INJ (09:15)
[2025-05-04] MEDS: BUPIVACAINE 0.25% (PF) VIAL 2 ML INJ (09:16)
[2025-05-04] MEDS: DEXAMETHASONE 10 MG/ML VIAL 20 MG INJ (09:17)
--- NOTE | 2025-05-04 09:38 | PM.PROC.IR.1 ---
Date/Time/Diagnoses Date of procedure: 05/04/25 Time of procedure: 09:38 Pre-procedure diagnosis: 1. FORAMINAL STENOSIS WITH LE SYMPTOMS Post-procedure diagnosis: same Procedure Notes Procedure: 1. FLUOROSCOPICALLY GUIDED CONTRAST CONTROLLED TRANSFORAMINAL EPIDURAL STEROID INJECTION - BILATERAL L3/4 TFESI Indications: Monet is referred by Dr. Rae for treatment of Foraminal Stenosis with bilateral LE Symptoms Physician: Jameel Reed Total Fluoroscopy time (seconds): 24 Total sedation minutes: 21 Complications: none Procedure in detail & Post-procedure care: FINDINGS Foraminal Nerve Root Compression secondary to disc disease and facet hypertrophy DESCRIPTION OF PROCEDURE Following review of allergy and review of potential side effects and complications, including, but not necessarily limited to, infection, allergic reaction, local tissue breakdown, stroke, temporary or permanent nerve injury, paralysis, and possible , the patient indicated that the patient understood and agreed to proceed. An informed consent document was signed by the patient, witnessed by a nurse, and placed in the patient's chart. Additionally, other treatment options including medications, modalities, and physical therapy were reviewed with the patient. After review of previous anaesthesic history and IV conscious sedation the patient was deemed safe to proceed with today?s procedure with IV conscious sedation as ASA class II designation. Safety time-out was performed to confirm patient ID, procedure to be performed and site of procedure. IV sedation was accomplished with a combination of 2mg of Versed was administered by the RN after DO order, titrated to patient comfort during the course of the procedure while the patient remained responsive to all verbal commands In the prone position following sterile prep and drape of the lumbar region, the right L3/4 posterior neuroforamen was identified fluoroscopically. The skin was anesthetized via a 25-gauge 1.5-inch needle with 1% lidocaine solution. At this point, a 25-gauge 3.5-inch spinal needle was atraumatically introduced and advanced under fluoroscopic guidance through the posterior right L3/4 neuroforamen to approximately the anterior aspect of the canal. Depth was confirmed on lateral view. Following negative aspiration, injection of approximately 1.5cc of Isovue 200 under live fluoroscopy in the AP view confirmed excellent flow along the nerve root, into the epidural space without vascular or intrathecal uptake observed Radiological data, including multiple fluoroscopic views of the lumbosacral spine, reveal a spinal needle at the right L3/4 posterior neuroforamen. Subsequent views show flow of contrast material flowing superiorly and inferiorly along the nerve root confirming epidural flow. Subsequently, a test dose of 1.5cc of 1% lidocaine solution was administered and patient was observed for two minutes for signs or symptoms of complications, including abdominal pain, shortness of breath, bilateral upper or lower extremity weakness, nausea and vomiting, prior to steroid injection. At this point, a total of 2cc or 10mg of dexamethasone and 6mg betamethasone was injected without incident. Attention was then refocused to the left L3/4 level where the identical procedure was replicated. The procedure tolerated the procedure well without signs or symptoms of complications prior to transfer to the recovery area continued monitoring without incident. The patient was then transferred to the recovery area where they were observed for an appropriate time after the injection. The patient reported a VAS score of 7 prior to the procedure and a post-procedure VAS of 0. POST OP INSTRUCTIONS The patient was provided a Pain Log to continue to record their response to the target-specific procedure prior to follow-up visit with their referring physician. Additionally, specific post-injection care instructions and a contact number to our office were provided if concerns arise regarding possible complications associated with the procedure are suspected.
== END 2025-05-04 09:50 | disposition home or self-care (01) ==
PROVIDERS: PCP Family Medicine; Referring Provider Physical Medicine & Rehabilitation; Visit Provider Physical Medicine & Rehabilitation
DX: M48.061 Spinal stenosis, lumbar region without neurogenic claudication (principal); M51.16 Intervertebral disc disorders with radiculopathy, lumbar region; M47.26 Other spondylosis with radiculopathy, lumbar region
CPT/HCPCS: 64483; 99152; 99153; J0702; J1100; J2250; J3490

== ENCOUNTER 2025-10-31 14:20 | Emergency (ER) | payer MEDICARE, OTHER, SELFPAY ==
[2025-05-03 14:38] VITALS: BMI 36.6
[2025-10-31] VITALS (15 sets, daily range): BP systolic 153–200; BP diastolic 67–85; PULSE 55–70; RESP 16–392; TEMP 36.4; O2SAT 93–98; BMI 34.0
--- NOTE | 2025-10-31 14:35 | DI.RAD.S_ITS ---
PROCEDURE: XR CHEST 1V INDICATIONS: Chest Pain TECHNIQUE: One view of the chest was acquired. COMPARISON: [facility], CR, XR CHEST 2V, 04/04/2023, 11:40. [facility], CR, XR CHEST 2V, 12/22/2021, 8:23. FINDINGS: Surgical changes and devices: None. Lungs and pleura: Lungs are clear. No pleural effusions or pneumothorax. Mediastinum: Mediastinal contours appear normal. Heart size is normal. Bones and chest wall: No suspicious bony lesions. Overlying soft tissues appear unremarkable. Left shoulder osteoarthritis. IMPRESSION: No acute cardiopulmonary abnormality is seen. Dictated by: Yo Gibson M.D. on 10/31/2025 at 15:20 Approved by: Yo Gibson M.D. on 10/31/2025 at 15:20
--- NOTE | 2025-10-31 14:35 | EKG_ITS ---
[place] [id number] [place] [id number] Test Date: 2025-10-31 Pat Name: Monet Nash Department: [facility] Room: Gender: Female Cell Attendant: CROW : 1945 Requested By: Order Number: [id number] Reading MD: Robert Fregoso Measurements Intervals Dexter Rate: 61 P: 104 NV: 148 QRS: -40 QRSD: 126 T: 23 QT: 426 QTc: 428 Interpretive Statements Normal sinus rhythm Left axis deviation Left ventricular hypertrophy with QRS widening ( R in aVL , Drew product , Romhilt-Cedillo ) Cannot rule out Septal infarct , age undetermined Electronically Signed On 11-06-2025 12:18:36 PST by Robert Fregoso
[2025-10-31 15:19] LABS: Add Manual Diff / Slide Review NO; Hematocrit 46.0 % (36-46); Hemoglobin 15.5 g/dL (12.0-16.0); Lymphocytes Absolute Auto 3900 /uL (1100-4500); Mean Corpuscular HGB Conc 33.7 % (30-36); Mean Corpuscular Hemoglobin 30.5 PG (26-34); Mean Corpuscular Volume 90.4 fL (80-100); Platelet Count 187 X10^3/uL (150-400)
[2025-10-31 15:25] LABS: INR 2.4 (0.9-1.3); Prothrombin Time 26.1 SECONDS (9.4-12.5)
[2025-10-31 15:29] LABS: Alanine Aminotransferase 24 IU/L (<35); Albumin 4.9 g/dL (3.5-5.0); Albumin Globulin Ratio 1.3 (1.0-2.8); Alkaline Phosphatase 113 U/L (38-126); Blood Urea Nitrogen 15 mg/dL (7-17); Calcium 10.5 mg/dL (8.4-10.2); Carbon Dioxide 25 mmol/L (22-32); Chloride 107 mmol/L (98-107); Creatine Kinase 28 U/L (30-135); Estimated Glomerular Filt Rate > 60 mL/min (>60); Globulin 3.7 g/dL (1.7-4.1); Glucose 99 mg/dL (70-99); HEMOLYSIS 19 (0-50); Lipase 65 U/L (23-300); Magnesium 2.2 mg/dL (1.6-2.3); Potassium 3.9 mmol/L (3.4-5.1); Sodium 143 mmol/L (137-145); Total Protein 8.6 g/dL (6.3-8.2)
[2025-10-31 15:41] LABS: NT-proBNP (BNP-Adult 18+) 156 pg/mL (<450); Troponin I < 0.012 ng/mL (0.01-0.034)
[2025-10-31 15:55] LABS: PTT Partial Thromboplastin Tim 45 SECONDS (25.1-36.5)
--- NOTE | 2025-10-31 16:15 | ED_ITS ---
HPI - Chest Pain General Chief Complaint: Chest Pain Stated Complaint: neck pn x 3days, chest pain, hx of clots Time Seen by Provider: 10/31/25 14:30 Source: patient Mode of arrival: Ambulatory Limitations: no limitations History of Present Illness HPI narrative: 88y F chronic DVT PE lumbar spinal surgery uses chronic walker presents with chest burning and nausea last night but also endorses right-sided neck pain radiating to the head with a right-sided headache. Patient denies any loss of consciousness, dizziness, blurred vision, diarrhea, constipation, cough, sore throat, fever, chills, body aches, back pain, bowel, or bladder, incontinence syncope. Other than what is stated 14 pt ROS is negative. Related Data Home Medications ?Medication ?Instructions ?Recorded ?Confirmed atorvastatin 20 mg tablet 20 mg PO BEDTIME 05/01/23 rivaroxaban 20 mg tablet (Xarelto) 20 mg PO DAILY 04/0309/22/25 acetaminophen 500 mg tablet 500 mg PO Q6H PRN 09/22/25 09/22/25 (Tylenol Extra Strength) omeprazole 20 mg capsule,delayed 20 mg PO DAILY 09/22/25 release tizanidine 2 mg tablet mg PO 09/22/25 09/22/25 triamcinolone acetonide 0.1 % dental 09/22/25 09/22/25 dental paste Previous Rx's ?Medication ?Instructions ?Recorded pregabalin 75 mg capsule (Lyrica) 75 mg PO BID #60 cap s 09/22/25 hydrocodone 5 mg-acetaminophen 325 1 tab PO Q4-6H PRN pain #20 tabs 10/31/25 mg tablet Allergies Allergy/AdvReac Type Severity Reaction Status Date / Time Latex, Natural Rubber Allergy Intermediate Red Rash Verified 10/31/25 14:34 (LATEX, NATURAL RUBBER) oxycodone Allergy Intermediate 'Screaming Verified 10/31/25 14:34 nightmares' Penicillins (PENICILLINS) Allergy Intermediate Rash Verified 10/31/25 14:34 adhesive tape Allergy Mild Rash Verified 10/31/25 14:34 gabapentin AdvReac Intermediate Anxiety Verified 10/31/25 14:34 hydromorphone AdvReac Mild Diarrhea Verified 10/31/25 14:34 Review of Systems Review of Systems ROS Unobtainable: All systems reviewed & are unremarkable except as noted in HPI and below Patient History Medical History Degenerative joint disease of both hips Diverticulosis Epidural lipomatosis Facet arthropathy, lumbar Fatty liver IBS (irritable bowel syndrome) Left foot infection Primary osteoarthritis of both hips Rotator cuff tear arthropathy of left shoulder Spinal stenosis of lumbar region with neurogenic claudication Spondylolisthesis, lumbar region Surgical History History of lumbar surgery Status post left foot surgery Family History Father Cancer Mother Cancer Social History household members: children alcohol intake: former alcohol intake frequency: 0-2 drinks per day Exam Narrative Exam Narrative: GENERAL: [80] year old patient appears stated age. Well-developed patient, in mild distress. HEAD: Atraumatic. Normocephalic. EYES: Pupils equal round and reactive. Extraocular motions intact. No scleral icterus. No injection or drainage. ENT: Nose without bleeding, purulent drainage. Throat without erythema, tonsillar hypertrophy or exudate. Airway patent. NECK: Trachea midline. Non tender CARDIOVASCULAR: Regular rate and rhythm without murmurs, gallops, or rubs. RESPIRATORY: Clear to auscultation. Breath sounds equal bilaterally. No wheezes, rales, or rhonchi. GASTROINTESTINAL: Abdomen soft, non-tender, nondistended. EXTREMITIES: No edema or joint tenderness. BACK: Nontender without deformity or crepitance. No flank tenderness. NEURO: AOx3. SKIN: No rash or erythema of visible areas Initial Vital Signs Initial Vital Signs: Vital Signs Temperature 97.5 F L 10/31/25 14:28 Pulse Rate 65 10/31/25 14:28 Respiratory Rate 18 10/31/25 14:28 Blood Pressure 200/85 H 10/31/25 14:28 Pulse Oximetry 98 10/31/25 14:28 Oxygen Delivery Method Room Air 10/31/25 14:28 Scores HEART Score Heart Score history: Slightly Suspicious Heart Score EKG: Non-Specific repolarization disturbance Heart Score Age: > or = 65 years old Heart Score risk factors: 1-2 risk factors Heart Score troponin: < or = to normal limit Heart Score Total: 4 Course Orders Ordered: ED Orders 10/31/25 14:35 XR chest 1V Stat EKG-12 Lead Stat 10/31/25 15:00 Complete Blood Count AUTO DIFF Stat Comprehensive Metabolic Panel Stat Lipase Stat Magnesium Stat NT-proBNP (BNP-Adult 18+) Stat PTT Partial Thromboplastin Percy Stat Prothrombin Time INR Stat Troponin & CK Cardiac Panel Stat Discontinued Medications Aspirin (Aspirin 81 Mg Chew Tab) 324 mg PO NOW ONE Stop: 10/31/25 14:36 Vital Signs Vital signs: Vital Signs - 8 hr 10/31/25 14:28 10/31/25 14:55 10/31/25 15:00 Temperature 97.5 F L Pulse Rate 65 60 59 L Respiratory Rate 18 21 Blood Pressure 200/85 H Pulse Oximetry 98 97 Oxygen Delivery Method Room Air 10/31/25 15:04 10/31/25 15:04 10/31/25 15:30 Temperature Pulse Rate 58 L 55 L Respiratory Rate 22 20 Blood Pressure 196/85 H Pulse Oximetry 98 96 Oxygen Delivery Method MDM - Chest Pain Lab Data 10/31/25 15:00 10/31/25 15:00 Labs: Lab Results 10/31/25 Range/Units 15:00 WBC 7.8 (4.5-11.0) X10^3/uL RBC 5.09 (4.0-5.2) X10^6/uL Hgb 15.5 (12.0-16.0) g/dL Hct 46.0 (36-46) % MCV 90.4 (80-100) fL MCH 30.5 (26-34) PG MCHC 33.7 (30-36) % RDW 13.1 (11.6-14.8) % Plt Count 187 (150-400) X10^3/uL Neut % (Auto) 37.2 L (50-75) % Lymph % (Auto) 50.4 H (25-40) % [place] % (Auto) 7.5 (3-14) % Eos % (Auto) 3.5 (2-4) % Baso % (Auto) 1.4 (0-2) % Neut # (Auto) 2900 (2160-4634) /uL Lymph # (Auto) 3900 (8282-8813) /uL [place] # (Auto) 600 (0-900) /uL Eos # (Auto) 300 (0-450) /uL Baso # (Auto) 100 (0-100) /uL PT 26.1 H (9.4-12.5) SECONDS INR 2.4 H (0.9-1.3) APTT 45 H (25.1-36.5) SECONDS Sodium 143 (137-145) mmol/L Potassium 3.9 (3.4-5.1) mmol/L Chloride 107 (98-107) mmol/L Carbon Dioxide 25 (22-32) mmol/L BUN 15 (7-17) mg/dL Creatinine 0.71 (0.52-1.04) mg/dL Estimated GFR > 60 (>60) mL/min BUN/Creatinine Ratio 21.1 (6-22) Glucose 99 (70-99) mg/dL Calcium 10.5 H (8.4-10.2) mg/dL Magnesium 2.2 (1.6-2.3) mg/dL Total Bilirubin 0.9 (0.2-1.3) mg/dL AST 32 (14-36) IU/L ALT 24 (<35) IU/L Alkaline Phosphatase 113 (38-126) U/L Total Creatine Kinase 28 L (30-135) U/L Troponin I < 0.012 (0.01-0.034) ng/mL NT-Pro-B Natriuret Pep 156 (<450) pg/mL Total Protein 8.6 H (6.3-8.2) g/dL Albumin 4.9 (3.5-5.0) g/dL Globulin 3.7 (1.7-4.1) g/dL Albumin/Globulin Ratio 1.3 (1.0-2.8) Lipase 65 (23-300) U/L Imaging Data Chest x-ray: Radiologist's Impression: [address] [id number] XRay Report Signed Patient: Monet Nash MR#: [id number] : 1945 Acct:[id number] Age/Sex: 80 / F Date of Service: 10/31/25 Loc: ED Accession Number: [id number] Procedure: XR chest 1V Ordering Provider: Flavio Russell D.O. PROCEDURE: XR CHEST 1V INDICATIONS: Chest Pain TECHNIQUE: One view of the chest was acquired. COMPARISON: [facility], CR, XR CHEST 2V, 04/04/2023, 11:40. [facility], CR, XR CHEST 2V, 12/22/2021, 8:23. FINDINGS: Surgical changes and devices: None. Lungs and pleura: Lungs are clear. No pleural effusions or pneumothorax. Mediastinum: Mediastinal contours appear normal. Heart size is normal. Bones and chest wall: No suspicious bony lesions. Overlying soft tissues appear unremarkable. Left shoulder osteoarthritis. IMPRESSION: No acute cardiopulmonary abnormality is seen. Dictated by: Yo Gibson M.D. on 10/31/2025 at 15:20 CT scan - head: Radiologist's Impression: [address] [address] [address] Scan Report Signed Patient: Monet Nash MR#: [id number] : 1945 Acct:[id number] Age/Sex: 80 / F Date of Service: 10/31/25 Loc: ED Accession Number: [id number] Procedure: CT head/brain wo con Ordering Provider: Flavio Russell D.O. PROCEDURE: CT HEAD/BRAIN WO CON INDICATIONS: headache TECHNIQUE: Noncontrast 4.5 mm thick angled axial sections acquired from the foramen magnum to the vertex, with coronal and sagittal reformats. For radiation dose reduction, the following was used: automated exposure control, adjustment of mA and/or kV according to patient size. COMPARISON: [facility], CT, CT ANGIO HEAD AND NECK, 10/31/2025, 16:24. [facility], MR, MR HEAD/BRAIN WO/W CON, 12/04/2023, 16:31. FINDINGS: Image quality: Diagnostic. CSF spaces: Basal cisterns are patent. No extra-axial fluid collections. The ventricles are symmetric in size and shape. Brain: No intracranial bleeds or mass effect. There is cerebral volume loss, with resultant ventricular and sulcal prominence. There are periventricular and deep white matter chronic small vessel ischemic changes. There is intracranial internal carotid artery atherosclerosis. Skull and face: Calvarium and visualized facial bones appear intact, without suspicious lesions. Incidental note is made of hyperostosis frontalis. This is not considered to be pathologic in a woman of this age. Sinuses: Visualized sinuses and mastoids are clear. IMPRESSION: No acute intracranial pathology. To the limits of this noncontrast study, no findings of intracranial masses or mass effect can be seen. Dictated by: Loi Malloy M.D. on 10/31/2025 at 17:25 Approved by: Loi Malloy M.D. on 10/31/2025 at 17:28 CTA - brain/neck: Radiologist's Impression: [place] [address] CT Scan Report Signed Patient: Monet Nash MR#: [id number] : 1945 Acct:[id number] Age/Sex: 80 / F Date of Service: 10/31/25 Loc: ED Accession Number: [id number] Procedure: CT angio head and neck Ordering Provider: Flavio Russell D.O. PROCEDURE: CT ANGIO HEAD AND NECK INDICATIONS: headache TECHNIQUE: After the administration of intravenous contrast, 1 mm thick sections acquired from the aortic arch through the [place] of [place]. 3-dimensional gffjwdv-yvkwvfmfs-wmwkhclpxe (MIP) and/or volume rendering reformats were acquired of the central intracranial vasculature and neck separately. For radiation dose reduction, the following was used: automated exposure control, adjustment of mA and/or kV according to patient size. COMPARISON: [facility], MR, MR HEAD/BRAIN WO/W CON, 12/04/2023, 16:31. [facility], CT, CT HEAD/BRAIN WO CON, 10/31/2025, 16:24. FINDINGS: Image quality: There is artifact associated with the metallic hardware. Artifact from the metallic hardware is reduced by metal reconstruction algorithm. There is streak artifact seen through the level of the shoulders. Cerebral CT Angiogram: Internal carotid arteries: No acute findings. Intracranial ICA are patent with no significant stenosis. No occlusion. No aneurysm. Anterior cerebral arteries: There is a hypoplastic left A1 segment, with a corresponding robust right A1 segment. This is considered to be a normal developmental variant of the [place] of [place]arden[place], of typically no clinical consequence. The flow within the paired anterior cerebral arteries is otherwise normal and symmetric. The anterior communicating artery is seen. No aneurysms are seen. Middle cerebral arteries: Unremarkable. No significant stenosis. No occlusion. No aneurysm. Posterior cerebral arteries: Unremarkable. No significant stenosis. No occlusion. No aneurysm. Basilar artery: Unremarkable. No significant stenosis. No occlusion. No aneurysm. Vertebral arteries: Unremarkable as visualized. Dural venous sinuses: Unremarkable given phase of enhancement. Other: Arterial phase appearance of the brain parenchyma is unremarkable. Neck CT Angiogram: Internal carotid arteries: Unremarkable. No significant stenosis. No dissection or occlusion. Common carotid arteries: Unremarkable. No significant stenosis. No dissection or occlusion. External carotid arteries: Unremarkable. No occlusion. Vertebral arteries: Unremarkable. No significant stenosis. No dissection or occlusion. Aortic Arch and Mediastinum: Partially visualized aortic arch unremarkable without evidence of aneurysm. Origins of the great vessels unremarkable. Other: Arterial phase soft tissues of the neck and chest are unremarkable. Moderate cervical spine degenerative change is seen. IMPRESSION: No significant intracranial arterial abnormality is seen. No significant abnormality is seen within the arteries of the neck. Additional findings: Yhhzvm-cn-Hzoygc developmental anomalies. Moderate cervical spine degenerative change is seen. 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 WBC 7.8 Hg 15.5 Plt 187 INR 2.4 Na 143 K 3.9 CL 107 C02 25 Bun 15 Cr. 0.71. Troponin < 0.012 x 2 sets BNP 156. Heart score 4. Pt given asa, valium. CT head showed no acute process. CT angio head and neck showed no acute process.Pt given valium, and morphine here. Differential diagnosis aneurysm CVA hemorrhage STEMI NSTEMI GERD anxiety temporal arteritis osteoarthritis neck sprain. Pt given norco prepack here and norco rx. Discharge Plan Departure Patient Disposition: Home Clinical Impression: Chest pain, Headache, Neck pain Instructions: DI for Chest Pain Activity Restrictions/Additional Instructions: Return with new or worsening symptoms. Follow up with specialist appointment coming up. Take medicine as directed. Prescriptions: New hydrocodone-acetaminophen 5-325 mg tablet 1 tab PO Q4-6H PRN (Reason: pain) Qty: 20 0RF No Action Xarelto 20 mg tablet 20 mg PO DAILY Patient Comments: take 1 tablet by mouth once daily atorvastatin 20 mg tablet 20 mg PO BEDTIME tizanidine 2 mg tablet PO triamcinolone acetonide 0.1 % paste dental omeprazole 20 mg capsule,delayed release(DR/EC) 20 mg PO DAILY acetaminophen [Tylenol Extra Strength] 500 mg tablet 500 mg PO Q6H PRN pregabalin [Lyrica] 75 mg capsule 75 mg PO BID Qty: 60 1RF Referrals: Saul Rae MD [Primary Care Provider, [facility]] Stand Alone Forms: Patient Portal/API
--- NOTE | 2025-10-31 16:22 | DI.CT.S_ITS ---
PROCEDURE: CT HEAD/BRAIN WO CON INDICATIONS: headache TECHNIQUE: Noncontrast 4.5 mm thick angled axial sections acquired from the foramen magnum to the vertex, with coronal and sagittal reformats. For radiation dose reduction, the following was used: automated exposure control, adjustment of mA and/or kV according to patient size. COMPARISON: [facility], CT, CT ANGIO HEAD AND NECK, 10/31/2025, 16:24. [facility], MR, MR HEAD/BRAIN WO/W CON, 12/04/2023, 16:31. FINDINGS: Image quality: Diagnostic. CSF spaces: Basal cisterns are patent. No extra-axial fluid collections. The ventricles are symmetric in size and shape. Brain: No intracranial bleeds or mass effect. There is cerebral volume loss, with resultant ventricular and sulcal prominence. There are periventricular and deep white matter chronic small vessel ischemic changes. There is intracranial internal carotid artery atherosclerosis. Skull and face: Calvarium and visualized facial bones appear intact, without suspicious lesions. Incidental note is made of hyperostosis frontalis. This is not considered to be pathologic in a woman of this age. Sinuses: Visualized sinuses and mastoids are clear. IMPRESSION: No acute intracranial pathology. To the limits of this noncontrast study, no findings of intracranial masses or mass effect can be seen. Dictated by: Loi Malloy M.D. on 10/31/2025 at 17:25 Approved by: Loi Malloy M.D. on 10/31/2025 at 17:28
--- NOTE | 2025-10-31 16:22 | DI.CT.S_ITS ---
PROCEDURE: CT ANGIO HEAD AND NECK INDICATIONS: headache TECHNIQUE: After the administration of intravenous contrast, 1 mm thick sections acquired from the aortic arch through the [place] of [place]. 3-dimensional jynlfwd-owqjkfhvh-czpjdlnynq (MIP) and/or volume rendering reformats were acquired of the central intracranial vasculature and neck separately. For radiation dose reduction, the following was used: automated exposure control, adjustment of mA and/or kV according to patient size. COMPARISON: [facility], MR, MR HEAD/BRAIN WO/W CON, 12/04/2023, 16:31. [facility], CT, CT HEAD/BRAIN WO CON, 10/31/2025, 16:24. FINDINGS: Image quality: There is artifact associated with the metallic hardware. Artifact from the metallic hardware is reduced by metal reconstruction algorithm. There is streak artifact seen through the level of the shoulders. Cerebral CT Angiogram: Internal carotid arteries: No acute findings. Intracranial ICA are patent with no significant stenosis. No occlusion. No aneurysm. Anterior cerebral arteries: There is a hypoplastic left A1 segment, with a corresponding robust right A1 segment. This is considered to be a normal developmental variant of the [place] of [place], of typically no clinical consequence. The flow within the paired anterior cerebral arteries is otherwise normal and symmetric. The anterior communicating artery is seen. No aneurysms are seen. Middle cerebral arteries: Unremarkable. No significant stenosis. No occlusion. No aneurysm. Posterior cerebral arteries: Unremarkable. No significant stenosis. No occlusion. No aneurysm. Basilar artery: Unremarkable. No significant stenosis. No occlusion. No aneurysm. Vertebral arteries: Unremarkable as visualized. Dural venous sinuses: Unremarkable given phase of enhancement. Other: Arterial phase appearance of the brain parenchyma is unremarkable. Neck CT Angiogram: Internal carotid arteries: Unremarkable. No significant stenosis. No dissection or occlusion. Common carotid arteries: Unremarkable. No significant stenosis. No dissection or occlusion. External carotid arteries: Unremarkable. No occlusion. Vertebral arteries: Unremarkable. No significant stenosis. No dissection or occlusion. Aortic Arch and Mediastinum: Partially visualized aortic arch unremarkable without evidence of aneurysm. Origins of the great vessels unremarkable. Other: Arterial phase soft tissues of the neck and chest are unremarkable. Moderate cervical spine degenerative change is seen. IMPRESSION: No significant intracranial arterial abnormality is seen. No significant abnormality is seen within the arteries of the neck. Additional findings: Zeleii-qj-Mhworr developmental anomalies. Moderate cervical spine degenerative change is seen. Any quantitative measurements of stenosis were performed using NASCET criteria. Dictated by: Loi Malloy M.D. on 10/31/2025 at 17:46 Approved by: Loi Malloy M.D. on 10/31/2025 at 17:48
[2025-10-31 16:58] LABS: Troponin I < 0.012 ng/mL (0.01-0.034)
[2025-10-31] MEDS: MORPHINE 4 MG/ML INJ IV (17:37)
== END 2025-10-31 19:49 | disposition home or self-care (01) ==
PROVIDERS: Emergency Provider Family Medicine; PCP Family Medicine
DX: R07.9 Chest pain, unspecified (principal); R51.9 Headache, unspecified; M54.2 Cervicalgia; R11.0 Nausea; Z86.718 Personal history of other venous thrombosis and embolism; Z79.01 Long term (current) use of anticoagulants
CPT/HCPCS: 36415; 70450; 70496; 70498; 71045; 80053; 82550; 83690; 83735; 83880; 84484; 85025; 85610; 85651; 85730; 93005; 96374; 96375; 99284; J2272; J3360; Q9967

== ENCOUNTER 2025-11-09 09:10 | Outpatient (CLI) | payer MEDICARE, OTHER, SELFPAY ==
[2025-05-03 14:38] VITALS: BMI 36.6
[2025-11-09] VITALS (8 sets, daily range): BP systolic 123–157; BP diastolic 59–79; PULSE 59–65; RESP 16–20; TEMP 36.7; O2SAT 97–99
[2025-11-09] MEDS: MIDAZOLAM 2 MG/2 ML VIAL IV (10:32)
[2025-11-09] MEDS: BETAMETHASONE 30 MG/5 ML MDV 12 MG INJ (10:36)
[2025-11-09] MEDS: BETAMETHASONE 30 MG/5 ML MDV 6 MG INJ (10:37)
[2025-11-09] MEDS: LIDOCAINE 1% 20 ML INJ (10:38)
--- NOTE | 2025-11-09 11:07 | PM.PROC.IR.1 ---
Date/Time/Diagnoses Date of procedure: 11/09/25 Time of procedure: 11:07 Pre-procedure diagnosis: 1. FORAMINAL STENOSIS WITH LE SYMPTOMS Post-procedure diagnosis: same Procedure Notes Procedure: 1. FLUOROSCOPICALLY GUIDED CONTRAST CONTROLLED TRANSFORAMINAL EPIDURAL STEROID INJECTION - BILATERAL L2/3 TFESI Indications: Monet is referred by Dr. Rae for treatment of Foraminal Stenosis with bilateral LE Symptoms Physician: Jameel Reed Total Fluoroscopy time (seconds): 17 Total sedation minutes: 14 Complications: none Procedure in detail & Post-procedure care: FINDINGS Foraminal Nerve Root Compression secondary to disc disease and facet hypertrophy DESCRIPTION OF PROCEDURE Following review of allergy and review of potential side effects and complications, including, but not necessarily limited to, infection, allergic reaction, local tissue breakdown, stroke, temporary or permanent nerve injury, paralysis, and possible , the patient indicated that the patient understood and agreed to proceed. An informed consent document was signed by the patient, witnessed by a nurse, and placed in the patient's chart. Additionally, other treatment options including medications, modalities, and physical therapy were reviewed with the patient. After review of previous anaesthesic history and IV conscious sedation the patient was deemed safe to proceed with today?s procedure with IV conscious sedation as ASA class II designation. Safety time-out was performed to confirm patient ID, procedure to be performed and site of procedure. IV sedation was accomplished with a combination of 2mg of Versed was administered by the RN after DO order, titrated to patient comfort during the course of the procedure while the patient remained responsive to all verbal commands In the prone position following sterile prep and drape of the lumbar region, the right L2/3 posterior neuroforamen was identified fluoroscopically. The skin was anesthetized via a 25-gauge 1.5-inch needle with 1% lidocaine solution. At this point, a 25-gauge 3.5-inch spinal needle was atraumatically introduced and advanced under fluoroscopic guidance through the posterior right L2/3 neuroforamen to approximately the anterior aspect of the canal. Depth was confirmed on lateral view. Following negative aspiration, injection of approximately 1.5cc of Isovue 200 under live fluoroscopy in the AP view confirmed excellent flow along the nerve root, into the epidural space without vascular or intrathecal uptake observed Radiological data, including multiple fluoroscopic views of the lumbosacral spine, reveal a spinal needle at the right L2/3 posterior neuroforamen. Subsequent views show flow of contrast material flowing superiorly and inferiorly along the nerve root confirming epidural flow. Subsequently, a test dose of 1.5cc of 1% lidocaine solution was administered and patient was observed for two minutes for signs or symptoms of complications, including abdominal pain, shortness of breath, bilateral upper or lower extremity weakness, nausea and vomiting, prior to steroid injection. At this point, a total of 2cc or 10mg of dexamethasone and 6mg betamethasone was injected without incident. Attention was then refocused to the left L2/3 level where the identical procedure was replicated. The procedure tolerated the procedure well without signs or symptoms of complications prior to transfer to the recovery area continued monitoring without incident. The patient was then transferred to the recovery area where they were observed for an appropriate time after the injection. The patient reported a VAS score of 7 prior to the procedure and a post-procedure VAS of 0. POST OP INSTRUCTIONS The patient was provided a Pain Log to continue to record their response to the target-specific procedure prior to follow-up visit with their referring physician. Additionally, specific post-injection care instructions and a contact number to our office were provided if concerns arise regarding possible complications associated with the procedure are suspected.
== END 2025-11-09 11:07 | disposition home or self-care (01) ==
PROVIDERS: PCP Family Medicine; Referring Provider Physical Medicine & Rehabilitation; Visit Provider Physical Medicine & Rehabilitation
DX: M48.061 Spinal stenosis, lumbar region without neurogenic claudication (principal); M51.16 Intervertebral disc disorders with radiculopathy, lumbar region; M47.26 Other spondylosis with radiculopathy, lumbar region
CPT/HCPCS: 64483; 99152; J0702; J1100; J2250

== ENCOUNTER → 2025-11-10 09:29 | Outpatient (CLI) | payer MEDICARE, OTHER, SELFPAY ==
[2025-05-03 14:38] VITALS: BMI 36.6
--- NOTE | 2025-11-10 09:36 | DI.RAD.S_ITS ---
PROCEDURE: XR THORACIC SPINE 3V INDICATIONS: Osteoarthritis of thoracic spine TECHNIQUE: 3 views of the thoracic spine were acquired. COMPARISON: None. FINDINGS: Bones: Postfusion changes are noted in visualized portion of lower lumbar spine. There is moderate kyphosis of thoracic spine centered at T8 level. Loss of disc height, degenerative endplate changes are noted throughout mid to lower thoracic spine. No fractures or dislocations. No suspicious bony lesions. 12 pairs of ribs are noted, and appear intact where visualized. Soft tissues: No paravertebral stripe thickening. IMPRESSION: Moderate kyphosis. No acute thoracic spine fracture or dislocation. Moderate degenerative disc disease in mid to lower thoracic spine. Dictated by: Jose Angel M.D. on 11/11/2025 at 12:16 Approved by: Jose Angel M.D. on 11/11/2025 at 12:16
--- NOTE | 2025-11-10 09:36 | DI.RAD.S_ITS ---
PROCEDURE: XR LUMBAR SPINE 6V W BENDING INDICATIONS: Osteoarthritis of lumbar spine TECHNIQUE: 7 views of the lumbar spine acquired, including flexion and extension views. COMPARISON: [facility], CR, XR LUMBAR SPINE MIN 4V, 11/03/2024, 10:40. FINDINGS: Bones: 5 nonrib-bearing vertebrae are present. Patient is status post posterior fusion of lumbar spine at L3 through S1 levels with surgical hardware and intervertebral spacer positions unchanged from prior study. There is no evidence of hardware loosening or failure. There is normal bony alignment. No vertebral body compression fractures. No suspicious bony lesions. Soft tissues: Overlying bowel gas pattern is normal. No suspicious soft tissue calcifications. Flexion/extension: There is decreased range of motion, with preserved lumbar spine alignment. IMPRESSION: Stable post fusion changes in mid to lower lumbar spine with stable lumbar spine alignment. No gross hardware loosening or failure. No acute fracture or dislocation. Decreased range of motion on lateral flexion and extension views with preserved lumbar spine alignment. Dictated by: Jose Angel M.D. on 11/11/2025 at 12:14 Approved by: Jose Angel M.D. on 11/11/2025 at 12:15
--- NOTE | 2025-11-10 09:40 | DI.RAD.S_ITS ---
PROCEDURE: XR CERVICAL SPINE 2V OR 3V INDICATIONS: Osteoarthritis of cervical spine TECHNIQUE: 3 view(s) of the cervical spine were acquired. COMPARISON: None. FINDINGS: Bones: No fractures or dislocations to the T1 level. Loss of disc height, degenerative endplate changes and bilateral facet hypertrophic changes are noted throughout cervical spine. The lateral masses of C1 appear intact on the odontoid view. No suspicious bony lesions. Decreased range of motion on lateral flexion and extension views are seen with preserved cervical spine alignment. Soft tissues: No prevertebral soft tissue swelling. IMPRESSION: No acute cervical spine fracture or dislocation. Ltgh-nz-dcfsxnvo degenerative disc disease throughout cervical spine more notably at C4-5 through C6-7 levels. Decreased range of motion on flexion and extension views with preserved cervical spine alignment. Dictated by: Jose Angel M.D. on 11/11/2025 at 12:15 Approved by: Jose Angel M.D. on 11/11/2025 at 12:15
== END ==
LOC: RAD 09:32
PROVIDERS: PCP Family Medicine; Referring Provider Family Medicine; Visit Provider Registered Nurse
DX: M47.812 Spondylosis without myelopathy or radiculopathy, cervical region (principal); M50.321 Other cervical disc degeneration at C4-C5 level; M47.814 Spondylosis without myelopathy or radiculopathy, thoracic region; M51.34 Other intervertebral disc degeneration, thoracic region; M40.204 Unspecified kyphosis, thoracic region; M47.816 Spondylosis without myelopathy or radiculopathy, lumbar region; R32 Unspecified urinary incontinence; R22.0 Localized swelling, mass and lump, head; R20.2 Paresthesia of skin; R20.0 Anesthesia of skin; Z98.1 Arthrodesis status
CPT/HCPCS: 72040; 72072; 72114